=== PATIENT | male | born 1980 | race Caucasian/White ===

== ENCOUNTER 2018-01-30 07:56 | Emergency (ER) | payer OTHER, SELFPAY ==
[2018-01-30 09:03] LABS: Absolute Lymphocytes (CBC) 1.5 K/uL (0.7-4.9); Absolute Monocytes 0.7 K/uL (0.1-1.3); Absolute Neutrophil 3.1 K/uL (1.8-8.0); Basophils % 0.2 % (0-1.3); Eosinophils % 2.3 % (0-4.4); Hematocrit 43.4 % (39.6-49.0); Lymphocytes % 28.5 % (15.3-44.8); MCV 85.2 fL (80-100); MPV 8.9 fL (7.6-11.3); Monocytes % 12.2 % (3.3-12.3)
[2018-01-30 09:14] LABS: Protime INR 0.9
[2018-01-30 09:32] LABS: Bicarbonate 28 mEq/L (21-31); Glucose Level 115 mg/dL (65-120); Lipase 16 U/L (22-51); Potassium 4.2 mEq/L (3.6-5.0); Sodium Level 137 mEq/L (135-145)
[2018-01-30] MEDS ORDERED: ONDANSETRON 4 MG/2 ML VIAL ONE (09:33)
[2018-01-30] MEDS ORDERED: MORPHINE 4 MG/ML SYR ONE (09:33)
[2018-01-30] MEDS ORDERED: ASPIRIN 81 MG CHEWABLE TABLET ONE (09:33)
--- NOTE | 2018-01-30 09:36 | EKG ---
Test Date: 2018-01-30 Test Time: 08:27:13 Enforcement Safety Officer: DIXIE MEASUREMENT RESULTS: Intervals: Rate: 79 [place]: 120 QRSD: 88 QT: 362 QTc: 415 [place]: P: 34 [place]: 120 QRS: 37 T: 30 INTERPRETIVE STATEMENTS: Normal sinus rhythm Low voltage QRS Borderline ECG No previous ECG available for comparison Electronically Signed On 01-30-18 09:35:28 CDT by Matthew Sotelo
[2018-01-30 09:39] LABS: ALT/SGPT 37 IU/L (10-60); AST/SGOT 25 IU/L (10-42); Albumin 3.9 g/dL (3.2-5.5); Alkaline Phosphatase 85 IU/L (42-121); BUN Blood Urea Nitrogen 21 mg/dL (6-20); Bilirubin Direct 0.1 mg/dL (0-0.2); Bilirubin Total 0.6 mg/dL (0.3-1.2); Glomerular Filtration Rate > 90 mL/min (=/>90); Magnesium 2.1 mg/dL (1.8-2.5); Protein, Total 6.8 g/dL (6.0-8.3)
--- NOTE | 2018-01-30 09:42 | RAD REPORT ---
EXAM DESCRIPTION: RAD - Chest Single View - 01/30/2018 8:42 am CLINICAL HISTORY: Chest pain. COMPARISON: None. FINDINGS: Portable technique limits examination quality. The lungs are grossly clear. The heart is normal in size. No displaced fractures. IMPRESSION: No acute intrathoracic process suspected.
--- NOTE | 2018-01-30 13:20 | ER ---
Nurse's Notes [facility] Name: Javad Pro Age: 37 yrs Sex: Male : 1980 Arrival Date: 01/30/2018 Time: 07:58 Bed 6 Private MD: Diagnosis: Other chest pain;Shortness of breath Presentation: 01/30 08:13 Presenting complaint: Patient states: c/o midsternal chest pain for a few days, iw constant pressure, rates pain 7/10, pain radiates across chest, also gets dizzy and light headed, denies cardiac history. Transition of care: patient was not received from another setting of care. Onset of symptoms was January 27, 2018. Care prior to arrival: None. 08:13 Method Of Arrival: Ambulatory iw 08:13 Acuity: MIOZ 3 iw Historical: - Allergies: 08:16 Codeine; iw 08:16 PENICILLINS; iw - Home Meds: 08:16 lisinopril 10 mg Oral tab 1 tab once daily [Active]; Lasix 40 mg Oral tab 1 tab once iw daily [Active]; - PMHx: 08:16 Hypertension; CHF; iw - PSHx: 08:16 Hernia repair; iw - Immunization history:: Adult Immunizations up to date. - Social history:: Smoking status: Patient/guardian denies using tobacco. Screenin:37 Abuse screen: Denies threats or abuse. Denies injuries from another. Nutritional ch screening: No deficits noted. Tuberculosis screening: No symptoms or risk factors identified. Fall Risk None identified. Assessment: 08:37 Reassessment: Patient appears in no apparent distress at this time. Patient and/or ch family updated on plan of care and expected duration. Pain level reassessed. Patient is alert, oriented x 3, equal unlabored respirations, skin warm/dry/pink. General: Appears in no apparent distress. comfortable, Behavior is calm, cooperative, appropriate for age. Pain: Complains of pain in anterior aspect of left upper chest, mid-sternal area, left lateral anterior chest and left breast Pain does not radiate. Pain began gradually, days ago. Neuro: Reports dizziness. Cardiovascular: Reports chest pain, dizzyness Heart tones S1 S2 present Capillary refill < 3 seconds in bilateral fingers toes Clubbing of nail beds is absent Pulses are all present. Edema is absent. Chest pain is described as moderate, but getting worse. Respiratory: Airway is patent Respiratory effort is even, unlabored, Breath sounds are clear bilaterally. 09:00 Reassessment: Patient appears in no apparent distress at this time. No changes from previously documented assessment. Patient and/or family updated on plan of care and expected duration. Pain level reassessed. Patient is alert, oriented x 3, equal unlabored respirations, skin warm/dry/pink. 10:37 Reassessment: Patient appears in no apparent distress at this time. Patient and/or ch family updated on plan of care and expected duration. Pain level reassessed. Patient is alert, oriented x 3, equal unlabored respirations, skin warm/dry/pink. 11:49 Reassessment: Patient appears in no apparent distress at this time. Patient and/or ch family updated on plan of care and expected duration. Pain level reassessed. Patient is alert, oriented x 3, equal unlabored respirations, skin warm/dry/pink. Patient states feeling better. Patient states symptoms have improved. Vital Signs: 08:16 BP 131 / 79; Pulse 84; Resp 18; Temp 97.8; Pulse Ox 97% on R/A; Weight 99.79 kg; Height iw 5 ft. 9 in. (175.26 cm); Pain 7/10; 09:00 BP 118 / 87; Pulse 88; Resp 14; Pulse Ox 97% on R/A; Pain 7/10; ch 10:37 BP 129 / 88; Pulse 71; Resp 16; Temp 98.2; Pulse Ox 99% on R/A; Pain 6/10; ch 11:49 BP 121 / 85; Pulse 60; Resp 14; Temp 98.3; Pulse Ox 99% on R/A; Pain 4/10; ch 12:30 BP 107 / 73; Pulse 59; Resp 15; Pulse Ox 100% on R/A; ag 13:28 BP 105 / 70; Pulse 59; Resp 15; Pulse Ox 100% ; ag 08:16 Body Mass Index 32.49 (99.79 kg, 175.26 cm) iw Vitals: 09:00 Cardiac Rhythm Assessment Regular Sinus rhythm. ED Course: 07:58 Patient arrived in ED. mr 08:15 Triage completed. iw 08:16 Arm band placed on. iw 08:17 Brooke Rhoades NP is PHCP. rh1 08:17 Donald Stephenson MD is Attending Physician. rh1 08:26 Miguel A Smith, RN is Primary Nurse. ae1 08:26 Primary Nurse role handed off by Miguel A Smith, JOSE ALFREDO ch 08:26 Karey Marsh, RN is Primary Nurse. ch 08:37 No apparent distress. Resting quietly. ch 08:37 Patient has correct armband on for positive identification. Placed in gown. Bed in low ch position. Call light in reach. Side rails up X2. Adult w/ patient. retort cooler on. Pulse ox on. NIBP on. Warm blanket given. 08:37 No provider procedures requiring assistance completed. Inserted saline lock: 20 gauge ch in right upper arm, using aseptic technique. Blood collected. Patient maintains SpO2 saturation greater than 95% on room air. 08:42 X-ray completed. Portable x-ray completed in exam room. Patient tolerated procedure sw well. 08:51 EKG done, by electro mechanical technologist. reviewed by Brooke Rhoades NP. at1 12:24 EKG done, by electro mechanical technologist. reviewed by Donald Stephenson MD. tc 13:27 IV discontinued, intact, bleeding controlled, No redness/swelling at site. Pressure ae1 dressing applied. Administered Medications: 09:24 Drug: Aspirin Chewable Tablet 324 mg Route: PO; ch 10:38 Follow up: Response: No adverse reaction ch 09:24 Drug: morphine 4 mg Route: IVP; Site: left upper arm; ch 10:38 Follow up: Response: No adverse reaction ch 09:24 Drug: Zofran 4 mg Route: IVP; Site: left upper arm; ch 10:38 Follow up: Response: No adverse reaction ch Outcome: 13:19 Discharge ordered by . rh1 13:27 Discharged to home ambulatory, with significant other. ae1 13:27 Condition: stable 13:27 Discharge instructions given to patient, Instructed on discharge instructions, follow up and referral plans. Demonstrated understanding of instructions. 13:29 Patient left the ED. ae1 Signatures: Karey Marsh, Carol Hou RN, ch, Irene, RN RN iw gonzales, Amanda, sales representative electric service EKG Tat1 Krystle Figueroa, sales representative electric service EKG Ttc Ramon, Leti Mandel Rachel, NP CAB SUPERVISOR rh1 Miguel A Smith, RN RN ae1
--- NOTE | 2018-01-30 13:20 | EDPHYS ---
Physician Documentation [facility] Name: Javad Pro Age: 37 yrs Sex: Male : 1980 Arrival Date: 01/30/2018 Time: 07:58 Bed 6 Private MD: ED Physician Donald Stephenson HPI: 01/30 08:17 This 37 yrs old Male presents to ER via Ambulatory with complaints of Chest rh1 Pain. 08:17 The patient or guardian reports chest pain that is located primarily in the substernal rh1 area. The pain radiates to anterior aspect of left upper chest and left breast. Associated signs and symptoms: Pertinent positives: lightheadedness, nausea, shortness of breath, Pertinent negatives: abdominal pain, cough, diaphoresis, headache, lower extremity pain, lower extremity swelling, palpitations, syncope, vomiting. The chest pain is described as a pressure. Duration: The patient or guardian reports a single episode, ongoing for 2 weeks, increased last night. Modifying factors: The symptoms are alleviated by nothing. the symptoms are aggravated by nothing. Severity of pain: At its worst the pain was moderate in the emergency department the pain is unchanged. The patient has not experienced similar symptoms in the past. The patient has not recently seen a physician. Pt. reports constant substernal chest pain, described as pressure, ongoing for the past 2 weeks, that became worse last night. Reports + SOB and feeling light - headed since last night. +nausea after eating last night. Denies any diaphoresis, vomiting, diarrhea, abdominal pain, paresthesias. PCP Dr. Crowley, change management director Dr Gutierrez.. Historical: - Allergies: 08:16 Codeine; iw 08:16 PENICILLINS; iw - Home Meds: 08:16 lisinopril 10 mg Oral tab 1 tab once daily [Active]; Lasix 40 mg Oral tab 1 tab once iw daily [Active]; - PMHx: 08:16 Hypertension; CHF; iw - PSHx: 08:16 Hernia repair; iw - Immunization history:: Adult Immunizations up to date. - Social history:: Smoking status: Patient/guardian denies using tobacco. ROS: 08:17 Constitutional: Negative for fever, chills rh1 08:17 Neck: Negative for pain with movement, pain at rest. 08:17 Cardiovascular: Positive for chest pain, Negative for edema, orthopnea, palpitations. 08:17 Respiratory: Positive for shortness of breath, Negative for cough, dyspnea on exertion, hemoptysis, wheezing. 08:17 Abdomen/GI: Positive for nausea, Negative for abdominal pain, vomiting, diarrhea. 08:17 Back: Negative for decreased range of motion, pain at rest, pain with movement, radiated pain. 08:17 MS/extremity: Negative for decreased range of motion, pain, paresthesias, swelling. 08:17 Skin: Negative for diaphoresis. 08:17 Neuro: Positive for lightheaded, Negative for altered mental status, headache, numbness, syncope, near syncope, tingling, weakness. Exam: 08:17 Constitutional: This is a well developed, well nourished patient who is awake, alert, rh1 and in no acute distress. Head/Face: Normocephalic, atraumatic. ENT: Nares patent. No nasal discharge, no septal abnormalities noted. Tympanic membranes are normal and external auditory canals are clear. Oropharynx with no redness, swelling, or masses, exudates, or evidence of obstruction, uvula midline. Mucous membranes moist. Neck: Trachea midline, and no cervical lymphadenopathy. Supple, full range of motion without nuchal rigidity. No Meningismus. Chest/axilla: Normal chest wall appearance and motion. Nontender with no deformity. No lesions are appreciated. Cardiovascular: Regular rate and rhythm with a normal S1 and S2. No gallops, murmurs, or rubs. No JVD. No pulse deficits. Respiratory: Lungs have equal breath sounds bilaterally, clear to auscultation. No rales, rhonchi or wheezes noted. No increased work of breathing. Abdomen/GI: Soft, non-tender, with normal bowel sounds. No distension. No guarding or rebound. No evidence of tenderness throughout. 08:17 Back: No spinal tenderness. No costovertebral tenderness. Full range of motion. Skin: Warm, dry with normal turgor. Normal color with no rashes, no lesions, and no evidence of cellulitis. 08:17 Back: Exam negative for ecchymosis 08:17 Musculoskeletal/extremity: Calves: are non-tender, have equal circumference. 08:17 Neuro: Orientation: is normal, to person, place \T\ time. Mentation: is normal, lucid, able to follow commands, Motor: is normal, moves all fours, Sensation: is normal, no obvious gross deficits, numbness, is not appreciated, tingling, is not appreciated, Gait: is steady, at a normal pace, without difficulty. Vital Signs: 08:16 BP 131 / 79; Pulse 84; Resp 18; Temp 97.8; Pulse Ox 97% on R/A; Weight 99.79 kg; Height iw 5 ft. 9 in. (175.26 cm); Pain 7/10; 09:00 BP 118 / 87; Pulse 88; Resp 14; Pulse Ox 97% on R/A; Pain 7/10; ch 10:37 BP 129 / 88; Pulse 71; Resp 16; Temp 98.2; Pulse Ox 99% on R/A; Pain 6/10; ch 11:49 BP 121 / 85; Pulse 60; Resp 14; Temp 98.3; Pulse Ox 99% on R/A; Pain 4/10; ch 12:30 BP 107 / 73; Pulse 59; Resp 15; Pulse Ox 100% on R/A; ag 13:28 BP 105 / 70; Pulse 59; Resp 15; Pulse Ox 100% ; ag 08:16 Body Mass Index 32.49 (99.79 kg, 175.26 cm) iw MDM: 08:17 Patient medically screened. rh1 11:04 ED course: Pt reports his chest pain is resolved, denies any SOB, N/V now. Reports he rh1 is feeling much better. Discussed with chest pain, SOB, and recommendation for admission to hospital and cardiac consultation for further evaluation. Reports he would rather follow up with Dr. Gutierrez in [place], and will call for an appointment tomorrow. Will obtain repeat EKG and troponin, and re - evaluate chest pain. . 11:44 Physician consultation: Dafne Bernard MD discussed pt. case, presentation, and plan, rh1 including offering admission here for observation and cardiology consult, and pt. desire to follow up with Dr. Gutierrez - in agreement with plan of care if pt. able to get early follow up with Dr. Gutierrez. 13:16 Data reviewed: vital signs, nurses notes, lab test result(s), EKG, radiologic studies, rh1 plain films, and as a result, I will discharge patient. Data interpreted: Pulse oximetry: on room air is 99 %. Interpretation: normal. Counseling: I had a detailed discussion with the patient and/or guardian regarding: the historical points, exam findings, and any diagnostic results supporting the discharge/admit diagnosis, lab results, radiology results, the need for outpatient follow up, a family practitioner, to return to the emergency department if symptoms worsen or persist or if there are any questions or concerns that arise at home. Response to treatment: the patient's symptoms have resolved after treatment, denies any pain, no SOB, reports he feels better, and will plan to follow up with Dr. Gutierrez. Discussed if symptoms return, to come back to ER.. 01/30 08:27 Order name: Basic Metabolic Panel 01/30 08:27 Order name: BNP 01/30 08:27 Order name: CBC with Diff 01/30 08:27 Order name: LFT's 01/30 08:27 Order name: Magnesium 01/30 08:27 Order name: PT-INR 01/30 08:27 Order name: Ptt, Activated 01/30 08:27 Order name: Troponin (emerg Dept Use Only) 01/30 08:27 Order name: Lipase 01/30 09:09 Order name: CBC with Automated Diff; Complete Time: 09:26 EDMS 01/30 09:15 Order name: Protime (+INR); Complete Time: 09:26 EDMS 01/30 09:15 Order name: PTT, Activated Partial Thromb; Complete Time: 09:26 EDMS 01/30 09:33 Order name: Basic Metabolic Panel; Complete Time: 09:39 EDMS 01/30 09:33 Order name: Lipase; Complete Time: 09:39 EDMS 01/30 08:27 Order name: XRAY Chest (1 view) 01/30 08:27 Order name: EKG; Complete Time: 08:28 01/30 08:27 Order name: Cardiac monitoring; Complete Time: 09:24 01/30 08:27 Order name: EKG - Nurse/Tech; Complete Time: 09:24 01/30 09:38 Order name: Troponin (Emerg Dept Use Only); Complete Time: 09:38 EDMS 01/30 09:39 Order name: Liver (Hepatic) Function; Complete Time: 09:39 EDMS 01/30 09:39 Order name: Magnesium; Complete Time: 09:39 EDMS 01/30 09:42 Order name: Urine Dipstick--Ancillary (enter results) ms 01/30 09:43 Order name: RAD; Complete Time: 09:54 EDMS 01/30 10:12 Order name: BNP B-Type Natriuretic Peptide; Complete Time: 10:15 EDMS 01/30 12:17 Order name: Troponin I iw 01/30 13:08 Order name: Troponin I; Complete Time: 13:13 EDMS 01/30 13:21 Order name: Urine Dipstick-Ancillary; Complete Time: 18:11 EDMS 01/30 08:27 Order name: IV Saline Lock; Complete Time: 09:24 1 01/30 08:27 Order name: Labs collected and sent; Complete Time: 09:24 1 01/30 08:27 Order name: O2 Per Protocol; Complete Time: 09:24 1 01/30 08:27 Order name: O2 Sat Monitoring; Complete Time: 09:24 1 01/30 08:27 Order name: Urine Dipstick-Ancillary (obtain specimen); Complete Time: 10:38 1 01/30 11:08 Order name: Misc. Order: please repeat EKG and troponin at 1200; Complete Time: 12:17 rh1 Administered Medications: 09:24 Drug: Aspirin Chewable Tablet 324 mg Route: PO; ch 10:38 Follow up: Response: No adverse reaction ch 09:24 Drug: morphine 4 mg Route: IVP; Site: left upper arm; ch 10:38 Follow up: Response: No adverse reaction ch 09:24 Drug: Zofran 4 mg Route: IVP; Site: left upper arm; ch 10:38 Follow up: Response: No adverse reaction Disposition: 21:37 Co-signature as Attending Physician, Donald Stephenson MD I agree with the assessment and kdr plan of care. Disposition: 01/30/18 13:19 Discharged to Home. Impression: Other chest pain, Shortness of breath. - Condition is Stable. - Discharge Instructions: Nonspecific Chest Pain, Shortness of Breath, Aspirin and Your Heart. - Medication Reconciliation Form, Thank You Letter, Antibiotic Education, Prescription Opioid Use form. - Follow up: Private Physician; When: 1 - 2 days; Reason: Recheck today's complaints, Continuance of care, Re-evaluation by your physician. Follow up: Emergency Department; When: As needed; Reason: Fever > 102 F, If symptoms return, Trouble breathing, Worsening of condition. - Problem is new. - Symptoms have improved. Signatures: Dispatcher [employer] EDKarey Clark, RN RN Donald Stephenson MD MD [facility] Alyce Lyman RN RN iw Brooke Rhoades NP LOGGING SUPERINTENDENT rh1 Miguel A Smith RN RN ae1 Corrections: (The following items were deleted from the chart) 09:41 08:17 Pt. reports constant substernal chest pain, described as pressure, ongoing for rh1 the past 2 weeks, that became worse last night. Reports + SOB and feeling light - headed since last night. +nausea after eating last night. Denies any diaphoresis, vomiting, diarrhea, abdominal pain, paresthesias.. rh1
[2018-01-30 13:21] LABS: Urine Blood NEGATIVE (NEG); Urine Glucose NEGATIVE (NEG); Urine Protein NEGATIVE (NEG); Urine Specific Gravity 1.025 (1.005-1.030)
--- NOTE | 2018-01-30 16:48 | EKG ---
Test Date: 2018-01-30 Test Time: 12:10:11 Print Line Feeder: JUAN MEASUREMENT RESULTS: Intervals: Rate: 61 MT: 122 QRSD: 88 QT: 398 QTc: 400 [place]: P: 27 MT: 122 QRS: 70 T: 39 INTERPRETIVE STATEMENTS: Normal sinus rhythm Normal ECG Compared to ECG 01/30/2018 08:27:13 No significant changes Electronically Signed On 01-30-18 16:48:20 CDT by Keaton Zhang
== END 2018-01-30 13:29 | disposition home or self-care (01) ==
LOC: ER 07:56
DX: R07.9 Chest pain, unspecified; Z88.0 Allergy status to penicillin; Z88.6 Allergy status to analgesic agent; I10 Essential (primary) hypertension
CPT/HCPCS: 36415; 71045; 80048; 80076; 81003; 83690; 83735; 83880; 84484; 85025; 85610; 85730; 93005; 96374; 96375; 99285; J2405

== ENCOUNTER 2018-09-01 16:57 | Emergency (ER) | payer SELFPAY ==
--- OUTSIDE RECORDS SUMMARY | 2018-09-01 16:59 | XMS REPORT | Summary of Care ---
:1980 Author Organization [facility] En[email or web address]mered[facility](STEPH) [id number] Date(s): 02/13/16 - 03/13/16 [facility] Pat[facility] Discharge Disposition: Home Attending Physician: Roland Quinn DO Vital Signs No data available for this section Problem List No data available for this section Allergies, Adverse Reactions, Alerts No data available for this section Medications No data available for this section Results No data available for this section Immunizations No data available for this section Procedures No data available for this section Social History No data available for this section Assessment and Plan No data available for this section
--- OUTSIDE RECORDS SUMMARY | 2018-09-01 16:59 | XMS REPORT | Summary of Care ---
:1980 Author Organization [facility] En[email or web address]meredith(STEPH) [id number] Date(s): 01/11/16 - 02/09/16 [facility] [facility] Discharge Disposition: Home Attending Physician: Roland Quinn [...]
--- OUTSIDE RECORDS SUMMARY | 2018-09-01 16:59 | XMS REPORT | Continuity of Care Document ---
:1980 Author Organization Interface Problems Problem Status Onset Date Classification Date Comments Source Reported LOW BACK Active [facility] Medications Medication Details Route Status Patient Ordering Order Source Instructions Provider Date Allergies, Adverse Reactions, Alerts Substance Category Reaction Severity Reaction Status Date Comments Source type Reported Immunizations Immunization Date Given Site Status Last Updated Comments Source Results Order Results Value Reference Date Interpretation Comments Source Name Range Vital Signs Vital Sign Value Date Comments Source Encounters Location Location Encounter Encounter Reason Attending ADM DC Status Source Details Type Number For Provider Date Date Visit [facility] [id number] Roland 12/12 01/10 [facility] [id number] Roland 01/10 02/09 [facility] [id number] Roland 02/12 03/14 [facility] Procedures Procedure Code Date Perfomer Comments Source
--- OUTSIDE RECORDS SUMMARY | 2018-09-01 16:59 | XMS REPORT | Summary of Care ---
:1980 Author Organization [facility] Encounter [facility]meredith(STEPH) [id number] Date(s): 12/12/15 - 01/10/16 [facility] Christo Paty [facility] Discharge Disposition: Home Attending Physician: Roland Quinn [...]
[2018-09-01] MEDS ORDERED: DEXAMETHASONE 10 MG/ML VIAL ONE (19:29)
--- NOTE | 2018-09-01 20:01 | EDPHYS ---
Physician Documentation [facility] Name: Javad Pro Age: 38 yrs Sex: Male : 1980 Arrival Date: 09/01/2018 Time: 16:59 Bed 10 Private MD: ED Physician Arturo Kohler HPI: 09/01 20:03 This 38 yrs old Male presents to ER via Ambulatory with complaints of pm1 Difficulty Swallowing, Sore Throat. 20:03 The patient presents with sore throat. The patient describes throat pain as burning, pm1 constant. Onset: The symptoms/episode began/occurred 2 day(s) ago. Severity of symptoms: in the emergency department the symptoms have improved, with benadryl. Modifying factors: The symptoms are alleviated by nothing, the symptoms are aggravated by foods, Patient's oral intake status: good. Associated signs and symptoms: Pertinent negatives chest pain, cough, fever, shortness of breath. The patient has not experienced similar symptoms in the past. The patient has not recently seen a physician. patient ate lobster for the first time in a long time Saturday and reported sensation of sore throat. Improvement with benadryl over the past few days. No fever, cough, shortness of breath, or drooling. Historical: - Allergies: 17:24 Codeine; aa5 17:24 PENICILLINS; aa5 - Home Meds: 19:42 Lasix 40 mg Oral tab 1 tab once daily [Active]; lisinopril 10 mg Oral tab 1 tab once lp1 daily [Active]; - PMHx: 17:24 CHF; Hypertension; aa5 - PSHx: 17:24 Hernia repair; aa5 - Immunization history:: Flu vaccine is up to date. - Social history:: Smoking status: Patient/guardian denies using tobacco. - Ebola Screening: : No symptoms or risks identified at this time. ROS: 20:03 Constitutional: Negative for fever, chills, and weight loss, Eyes: Negative for injury, pm1 pain, redness, and discharge. 20:03 Neck: Negative for injury, pain, and swelling, Cardiovascular: Negative for chest pain, palpitations, and edema, Respiratory: Negative for shortness of breath, cough, wheezing, and pleuritic chest pain, Abdomen/GI: Negative for abdominal pain, nausea, vomiting, diarrhea, and constipation, Back: Negative for injury and pain, : Negative for injury, bleeding, discharge, and swelling, MS/Extremity: Negative for injury and deformity, Skin: Negative for injury, rash, and discoloration, Neuro: Negative for headache, weakness, numbness, tingling, and seizure. 20:03 ENT: Positive for sore throat, Negative for dental pain. Exam: 20:03 Constitutional: This is a well developed, well nourished patient who is awake, alert, pm1 and in no acute distress. Head/Face: Normocephalic, atraumatic. Eyes: Pupils equal round and reactive to light, extra-ocular motions intact. Lids and lashes normal. Conjunctiva and sclera are non-icteric and not injected. Cornea within normal limits. Periorbital areas with no swelling, redness, or edema. Neck: Trachea midline, no thyromegaly or masses palpated, and no cervical lymphadenopathy. Supple, full range of motion without nuchal rigidity, or vertebral point tenderness. No Meningismus. Chest/axilla: Normal chest wall appearance and motion. Nontender with no deformity. No lesions are appreciated. Cardiovascular: Regular rate and rhythm with a normal S1 and S2. No gallops, murmurs, or rubs. Normal PMI, no JVD. No pulse deficits. Respiratory: Lungs have equal breath sounds bilaterally, clear to auscultation and percussion. No rales, rhonchi or wheezes noted. No increased work of breathing, no retractions or nasal flaring. Abdomen/GI: Soft, non-tender, with normal bowel sounds. No distension or tympany. No guarding or rebound. No evidence of tenderness throughout. Back: No spinal tenderness. No costovertebral tenderness. Full range of motion. 20:03 Skin: Warm, dry with normal turgor. Normal color with no rashes, no lesions, and no evidence of cellulitis. MS/ Extremity: Pulses equal, no cyanosis. Neurovascular intact. Full, normal range of motion. 20:03 ENT: External ear(s): are unremarkable, Ear canal(s): are normal, TM's: are normal, Nose: is normal, Mouth: is normal, Posterior pharynx: Tonsils: bilaterally enlarged, with erythema, no exudate, no ulcerations, erythema, that is mild, peritonsillar mass, is not appreciated, pooling of secretions, is not appreciated. 20:03 Neuro: Orientation: is normal, Motor: is normal, moves all fours, Gait: is steady, at a normal pace, without difficulty. Vital Signs: 17:24 BP 141 / 100; Pulse 85; Resp 18 S; Temp 97.8(TE); Pulse Ox 99% on R/A; Weight 104.33 kg aa5 (R); Height 5 ft. 9 in. (175.26 cm) (R); Pain 4/10; 20:02 BP 133 / 97; lp1 17:24 Body Mass Index 33.96 (104.33 kg, 175.26 cm) aa5 MDM: 17:58 Patient medically screened. [facility] 19:59 Data reviewed: vital signs. Data interpreted: Pulse oximetry: on room air is 99 %. pm1 Interpretation: normal. Counseling: I had a detailed discussion with the patient and/or guardian regarding: the historical points, exam findings, and any diagnostic results supporting the discharge/admit diagnosis, lab results, the need for outpatient follow up, to return to the emergency department if symptoms worsen or persist or if there are any questions or concerns that arise at home. 09/01 17:56 Order name: Strep; Complete Time: 19:49 pm1 09/01 19:22 Order name: Throat Culture EDMS Administered Medications: 19:40 Drug: Decadron 10 mg Route: IM; Site: left deltoid; lp1 20:02 Follow up: Response: No adverse reaction lp1 Disposition: 09/02 06:19 Co-signature as Attending Physician, Arturo Kohler MD I agree with the assessment and [facility] plan of care. Disposition: 09/01/18 20:01 Discharged to Home. Impression: Allergy to other foods. - Condition is Stable. - Discharge Instructions: Allergies, Adult, Food Allergy. - Prescriptions for Benadryl 25 mg Oral Capsule - take 1 capsule by ORAL route every 6 hours As needed; 30 tablet. Pepcid 20 mg Oral Tablet - take 1 tablet by ORAL route every 12 hours for 10 days; 20 tablet. Medrol (Georges) 4 mg Oral Tablets, Dose Pack - take 1 tablet by ORAL route as directed - follow package instructions; 1 packet. EpiPen 0.3 mg Injection auto- injector - inject 1 pen by INTRAMUSCULAR route one time As needed Inject into the outer portion of the thigh, through clothing if necessary. Indicated in the emergency treatment of allergic reactions; 1 unit. - Medication Reconciliation Form, Thank You Letter form. - Follow up: Emergency Department; When: As needed; Reason: Worsening of condition. Follow up: Private Physician; When: 2 - 3 days; Reason: Recheck today's complaints, Continuance of care, Re-evaluation by your physician. - Problem is new. - Symptoms have improved. Signatures: Dispatcher [employer] EDMN Arturo Kohler MD MD cha Calderon, Audri, RN RN aa5 Janett Ramirez RN RN lp1 Alfonso Ramsay, TOOL SUPERVISOR TOOL SUPERVISOR pm1 Corrections: (The following items were deleted from the chart) 09/01 20:09 20:01 09/01/2018 20:01 Discharged to Home. Impression: Allergy to other foods. lp1 Condition is Stable. Forms are Medication Reconciliation Form, Thank You Letter, Antibiotic Education, Prescription Opioid Use. Follow up: Emergency Department; When: As needed; Reason: Worsening of condition. Follow up: Private Physician; When: 2 - 3 days; Reason: Recheck today's complaints, Continuance of care, Re-evaluation by your physician. Problem is new. Symptoms have improved. pm1
--- NOTE | 2018-09-01 20:01 | ER ---
Nurse's Notes [facility] Name: Javad Pro Age: 38 yrs Sex: Male : 1980 Arrival Date: 09/01/2018 Time: 16:59 Bed 10 Private MD: Diagnosis: Allergy to other foods Presentation: 09/01 17:23 Presenting complaint: Patient states: "I have a sore throat since Saturday". Transition aa5 of care: patient was not received from another setting of care. Onset of symptoms was August 2018. Risk Assessment: Do you want to hurt yourself or someone else? Patient reports no desire to harm self or others. Initial Sepsis Screen: Does the patient meet any 2 criteria? No. Patient's initial sepsis screen is negative. Does the patient have a suspected source of infection? No. Patient's initial sepsis screen is negative. Care prior to arrival: None. 17:23 Method Of Arrival: Ambulatory aa5 17:23 Acuity: MOIZ 4 aa5 Historical: - Allergies: 17:24 Codeine; aa5 17:24 PENICILLINS; aa5 - Home Meds: 19:42 Lasix 40 mg Oral tab 1 tab once daily [Active]; lisinopril 10 mg Oral tab 1 tab once lp1 daily [Active]; - PMHx: 17:24 CHF; Hypertension; aa5 - PSHx: 17:24 Hernia repair; aa5 - Immunization history:: Flu vaccine is up to date. - Social history:: Smoking status: Patient/guardian denies using tobacco. - Ebola Screening: : No symptoms or risks identified at this time. Screenin:20 Abuse screen: Denies threats or abuse. Denies injuries from another. Nutritional sg screening: No deficits noted. Tuberculosis screening: No symptoms or risk factors identified. Never had TB. Fall Risk None identified. Assessment: 18:20 General: Appears in no apparent distress. Behavior is calm, cooperative, appropriate sg for age. Pain: Complains of pain in sore throat, pain when swallows. Neuro: No deficits noted. Cardiovascular: Patient's skin is warm and dry. Chest pain is denied. Respiratory: Respiratory effort is even, unlabored, Respiratory pattern is regular, symmetrical, Breath sounds are clear Denies cough, shortness of breath labored breathing, pain with respiration, pain with cough. GI: Abdomen is round non-distended, Reports normal bowel habits, tolerance of fluids, tolerance of food. : No signs and/or symptoms were reported regarding the genitourinary system. EENT: Nares are clear bilaterally Throat is pink. Derm: Skin is pink, warm \\T\\ dry. Musculoskeletal: No signs and/or symptoms reported regarding the musculoskeletal system. 19:41 Reassessment: Patient appears in no apparent distress at this time. Patient is alert, lp1 oriented x 3, equal unlabored respirations, skin warm/dry/pink. Patient states readiness for discharge. 19:41 Respiratory: Airway is patent. lp1 Vital Signs: 17:24 BP 141 / 100; Pulse 85; Resp 18 S; Temp 97.8(TE); Pulse Ox 99% on R/A; Weight 104.33 kg aa5 (R); Height 5 ft. 9 in. (175.26 cm) (R); Pain 4/10; 20:02 BP 133 / 97; lp1 17:24 Body Mass Index 33.96 (104.33 kg, 175.26 cm) aa5 ED Course: 16:59 Patient arrived in ED. rg4 17:24 Triage completed. aa5 17:24 Arm band placed on. aa5 17:53 Alfonso Ramsay, MANN is PHCP. pm1 17:53 Arturo Kohler MD is Attending Physician. pm1 17:54 Jt Hameed, RN is Primary Nurse. sg 18:40 Strep swab sent to lab. sg 19:41 Patient has correct armband on for positive identification. lp1 19:41 No provider procedures requiring assistance completed. Patient did not have IV access lp1 during this emergency room visit. Administered Medications: 19:40 Drug: Decadron 10 mg Route: IM; Site: left deltoid; lp1 20:02 Follow up: Response: No adverse reaction lp1 Outcome: 20:01 Discharge ordered by . pm1 20:08 Discharged to home ambulatory, with family. lp1 20:08 Condition: good 20:08 Discharge instructions given to patient, Instructed on discharge instructions, follow up and referral plans. medication usage, Demonstrated understanding of instructions, follow-up care, medications, Prescriptions given X 4. 20:09 Patient left the ED. lp1 Signatures: Jt Hameed RN RN sg Yolande Agustin RN RN aa5 Janett Ramirez RN RN lp1 Alfonso Ramsay, GAME TECHNICIAN GAME TECHNICIAN pm1 Andres, Regina rg4
== END 2018-09-01 20:09 | disposition home or self-care (01) ==
LOC: ER 16:57
DX: R07.0 Pain in throat (principal); I10 Essential (primary) hypertension; I50.9 Heart failure, unspecified; Z88.0 Allergy status to penicillin; Z88.5 Allergy status to narcotic agent; Z91.018 Allergy to other foods
CPT/HCPCS: 87070; 87081; 96372; 99283; J1100

== ENCOUNTER 2018-10-31 10:23 | Emergency (ER) | payer SELFPAY ==
[2018-10-31] MEDS ORDERED: ONDANSETRON 4 MG (ODT) TAB ONE (11:01)
[2018-10-31] MEDS ORDERED: SIMETHICONE 80 MG TAB PO ONE (11:30)
--- NOTE | 2018-10-31 11:36 | RAD REPORT ---
EXAM DESCRIPTION: RAD - Chest Pa And Lat (2 Views) - 10/31/2018 11:31 am CLINICAL HISTORY: COUGH Chest pain. COMPARISON: Chest Single View dated 01/30/2018 FINDINGS: The lungs are clear. The heart is normal in size. No displaced fractures. IMPRESSION: No acute or concerning finding suspected.
--- NOTE | 2018-10-31 11:51 | ER ---
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 Transition of care: patient was not received from another setting of care. Onset of symptoms was October 31, 2018. Risk Assessment: Do you want to hurt yourself or someone else? Patient reports no desire to harm self or others. Initial Sepsis Screen: Does the patient meet any 2 criteria? No. Patient's initial sepsis screen is negative. Does the patient have a suspected source of infection? Yes: Productive cough/pneumonia. Care prior to arrival: None. 10:26 Method Of Arrival: Ambulatory 10:26 Acuity: MOIZ 4 hj Triage Assessment: 10:28 General: Appears in no apparent distress. uncomfortable, Behavior is calm, cooperative, hj appropriate for age. Pain: Complains of pain in throat, body. Historical: - Allergies: 10:28 Codeine; hj 10:28 PENICILLINS; hj - Home Meds: 10:28 Lasix 40 mg Oral tab 1 tab once daily [Active]; lisinopril 10 mg Oral tab 1 tab once hj daily [Active]; - PMHx: 10:28 CHF; Hypertension; hj - PSHx: 10:28 Hernia repair; hj - Immunization history:: Adult Immunizations up to date. - Social history:: Smoking status: Patient/guardian denies using tobacco, Patient uses alcohol, occasionally. - Ebola Screening: : Patient negative for fever greater than or equal to 101.5 degrees Fahrenheit, and additional compatible Ebola Virus Disease symptoms Patient denies exposure to infectious person Patient denies travel to an Ebola-affected area in the 21 days before illness onset. Screenin:29 Abuse screen: Denies threats or abuse. Denies injuries from another. Nutritional hj screening: No deficits noted. Tuberculosis screening: No symptoms or risk factors identified. Fall Risk None identified. Assessment: 10:52 [facility];. hj 11:20 Reassessment: Patient and/or family updated on plan of care and expected duration. Pain hj level reassessed. Patient is alert, oriented x 3, equal unlabored respirations, skin warm/dry/pink. awaiting results and POC;. Vital Signs: 10:29 BP 151 / 95; Pulse 100; Resp 20; Temp 97.7(TE); Pulse Ox 99% on R/A; Weight 108.86 kg; hj Height 5 ft. 9 in. (175.26 cm); Pain 8/10; 12:05 BP 148 / 90; Pulse 92; Resp 18; Pulse Ox 100% on R/A; hj 10:29 Body Mass Index 35.44 (108.86 kg, 175.26 cm) hj ED Course: 10:26 Patient arrived in ED. hj 10:28 Triage completed. hj 10:29 Arm band placed on left wrist. hj 10:29 Patient has correct armband on for positive identification. Bed in low position. Call hj light in reach. Side rails up X 1. 10:33 Charlee Quiroz [facility]NP-C [facility]. snw 10:33 Gregg Hu MD is Attending Physician. snw 10:52 Kike Okeefe, JOSE ALFREDO is Primary Nurse. hj 11:32 Chest Pa And Lat (2 Views) XRAY In Process Unspecified. EDMS 12:05 No provider procedures requiring assistance completed. Patient did not have IV access hj during this emergency room visit. Administered Medications: 11:07 Drug: Zofran 4 mg Route: PO; hj 11:07 Follow up: Response: No adverse reaction hj 11:35 Drug: Simethicone 120 mg Route: PO; hj 11:35 Follow up: Response: No adverse reaction hj 11:50 Drug: Decadron - Dexamethasone 10 mg {Note: given PO with orange juice per order.} hj Route: IVP; Site: Other; 12:04 Follow up: Response: No adverse reaction hj Outcome: 11:51 Discharge ordered by . snw 12:06 Discharged to home ambulatory. hj 12:06 Condition: stable 12:06 Discharge instructions given to patient, Instructed on discharge instructions, follow up and referral plans. medication usage, Demonstrated understanding of instructions, follow-up care, medications, Prescriptions given X 2. 12:07 Patient left the ED. hj Signatures: Dispatcher [employer] EDMS Charlee Quiroz, KASHIF-C MEDICAL LABORATORY TECHNICAL OFFICER-Csnw Kike Okeefe, RN RN hj Corrections: (The following items were deleted from the chart) 10:31 10:29 Pulse 100bpm; Resp 20bpm; Pulse Ox 99% RA; Temp 97.7F Temporal; 108.86 kg; Height hj 5 ft. 9 in.; BMI: 35.4; Pain 8/10; hj
--- NOTE | 2018-10-31 11:51 | EDPHYS ---
Physician Documentation [facility] Name: Javad Pro Age: 38 yrs Sex: Male : 1980 Arrival Date: 10/31/2018 Time: 10:26 Bed 12 Private MD: ED Physician Gregg Hu HPI: 10/31 12:18 This 38 yrs old Male presents to ER via Ambulatory with complaints of Flu snw Symptoms. 12:18 The patient or guardian reports cough, described as moderate, flu symptoms, low-grade snw fever, myalgias, no appetite. Onset: The symptoms/episode began/occurred gradually, 5 day(s) ago, and became persistent. Modifying factors: The symptoms are alleviated by nothing. Associated signs and symptoms: Pertinent positives: nausea, rhinorrhea, sore throat. Severity of symptoms: At their worst the symptoms were mild moderate. It is unknown whether or not the patient has had similar symptoms in the past. It is unknown whether or not the patient has recently seen a physician. Historical: - Allergies: 10:28 Codeine; hj 10:28 PENICILLINS; hj - Home Meds: 10:28 Lasix 40 mg Oral tab 1 tab once daily [Active]; lisinopril 10 mg Oral tab 1 tab once hj daily [Active]; - PMHx: 10:28 CHF; Hypertension; hj - PSHx: 10:28 Hernia repair; hj - Immunization history:: Adult Immunizations up to date. - Social history:: Smoking status: Patient/guardian denies using tobacco, Patient uses alcohol, occasionally. - Ebola Screening: : Patient negative for fever greater than or equal to 101.5 degrees Fahrenheit, and additional compatible Ebola Virus Disease symptoms Patient denies exposure to infectious person Patient denies travel to an Ebola-affected area in the 21 days before illness onset. ROS: 12:17 Eyes: Negative for injury, pain, redness, and discharge. snw 12:17 Neck: Negative for injury, pain, and swelling, Cardiovascular: Negative for chest pain, palpitations, and edema. 12:17 Back: Negative for injury and pain, : Negative for injury, bleeding, discharge, and swelling, MS/Extremity: Negative for injury and deformity, Skin: Negative for injury, rash, and discoloration, Neuro: Negative for headache, weakness, numbness, tingling, and seizure. 12:17 Constitutional: Positive for body aches, malaise. 12:17 ENT: Positive for sinus congestion, sore throat. 12:17 Respiratory: Positive for cough. 12:17 Abdomen/GI: Positive for nausea. Exam: 12:13 Constitutional: This is a well developed, well nourished patient who is awake, alert, snw and in no acute distress. Head/Face: Normocephalic, atraumatic. Eyes: Pupils equal round and reactive to light, extra-ocular motions intact. Lids and lashes normal. Conjunctiva and sclera are non-icteric and not injected. Cornea within normal limits. Periorbital areas with no swelling, redness, or edema. Neck: Trachea midline, no thyromegaly or masses palpated, and no cervical lymphadenopathy. Supple, full range of motion without nuchal rigidity, or vertebral point tenderness. No Meningismus. Chest/axilla: Normal chest wall appearance and motion. Nontender with no deformity. No lesions are appreciated. Cardiovascular: Regular rate and rhythm with a normal S1 and S2. No gallops, murmurs, or rubs. Normal PMI, no JVD. No pulse deficits. Respiratory: Lungs have equal breath sounds bilaterally, clear to auscultation and percussion. No rales, rhonchi or wheezes noted. No increased work of breathing, no retractions or nasal flaring. + cough Abdomen/GI: Soft, non-tender, with normal bowel sounds. No distension or tympany. No guarding or rebound. No evidence of tenderness throughout. Back: No spinal tenderness. No costovertebral tenderness. Full range of motion. Skin: Warm, dry with normal turgor. Normal color with no rashes, no lesions, and no evidence of cellulitis. MS/ Extremity: Pulses equal, no cyanosis. Neurovascular intact. Full, normal range of motion. Neuro: Awake and alert, GCS 15, oriented to person, place, time, and situation. Cranial nerves II-XII grossly intact. Motor strength 5/5 in all extremities. Sensory grossly intact. Cerebellar exam normal. Normal gait. Psych: Awake, alert, with orientation to person, place and time. Behavior, mood, and affect are within normal limits. 12:13 ENT: TM's: fluid levels, bilaterally, Nose: Nasal mucosa: edematous, Posterior pharynx: erythema, that is mild, Voice: is normal. Vital Signs: 10:29 BP 151 / 95; Pulse 100; Resp 20; Temp 97.7(TE); Pulse Ox 99% on R/A; Weight 108.86 kg; hj Height 5 ft. 9 in. (175.26 cm); Pain 8/10; 12:05 BP 148 / 90; Pulse 92; Resp 18; Pulse Ox 100% on R/A; hj 10:29 Body Mass Index 35.44 (108.86 kg, 175.26 cm) hj MDM: 10:41 Patient medically screened. snw 12:13 Data reviewed: vital signs, nurses notes. Data interpreted: Pulse oximetry: on room air snw is 100 %. Interpretation: normal. Counseling: I had a detailed discussion with the patient and/or guardian regarding: the historical points, exam findings, and any diagnostic results supporting the discharge/admit diagnosis, the presence of at least one elevated blood pressure reading (>120/80) during this emergency department visit, lab results, radiology results, the need for outpatient follow up, to return to the emergency department if symptoms worsen or persist or if there are any questions or concerns that arise at home. Response to treatment: There is no appreciated change of the patient's symptoms at this time. Special discussion: Based on the history and exam findings, there is no indication for further emergent testing or inpatient evaluation. I discussed with the patient/guardian the need to see the primary care provider for further evaluation of the symptoms. ED course: chest x-ray without any findings for CHF, large gastric bubble, pt notified and simethicone given. 10/31 10:30 Order name: Flu; Complete Time: 11:04 hj 10/31 10:30 Order name: Strep; Complete Time: 11:04 hj 10/31 10:34 Order name: Chest Pa And Lat (2 Views) XRAY; Complete Time: 11:39 snw 10/31 10:53 Order name: Throat Culture EDMS Administered Medications: 11:07 Drug: Zofran 4 mg Route: PO; hj 11:07 Follow up: Response: No adverse reaction hj 11:35 Drug: Simethicone 120 mg Route: PO; hj 11:35 Follow up: Response: No adverse reaction hj 11:50 Drug: Decadron - Dexamethasone 10 mg {Note: given PO with orange juice per order.} Route: IVP; Site: Other; 12:04 Follow up: Response: No adverse reaction Disposition: 14:48 Co-signature as Attending Physician, Gregg Hu MD. rn Disposition: 10/31/18 11:51 Discharged to Home. Impression: Acute upper respiratory infection, unspecified, Cough. - Condition is Stable. - Discharge Instructions: Upper Respiratory Infection, Adult, Cool Mist Vaporizer, Cough, Adult, [id number], Rehydration, Adult. - Prescriptions for Zyrtec 10 mg Oral Tablet - take 1 tablet by ORAL route once daily As needed; 20 tablet. Tessalon Perles 100 mg Oral Capsule - take 1 capsule by ORAL route every 8 hours As needed; 15 capsule. - Work release form, Medication Reconciliation Form, Thank You Letter, Antibiotic Education, Prescription Opioid Use form. - Follow up: Private Physician; When: 2 - 3 days; Reason: Recheck today's complaints, Continuance of care, Re-evaluation by your physician. Follow up: Emergency Department; When: As needed; Reason: Worsening of condition. Signatures: Dispatcher [employer] EDFL Charlee Quiroz, PROJECT MANAGEMENT PROFESSIONAL-C PROJECT MANAGEMENT PROFESSIONAL-Csnw Gregg Hu MD MD rn Joaquin, Henry, RN RN hj Corrections: (The following items were deleted from the chart) 12:07 11:51 10/31/2018 11:51 Discharged to Home. Impression: Acute upper respiratory hj infection, unspecified; Cough. Condition is Stable. Forms are Medication Reconciliation Form, Thank You Letter, Antibiotic Education, Prescription Opioid Use. Follow up: Private Physician; When: 2 - 3 days; Reason: Recheck today's complaints, Continuance of care, Re-evaluation by your physician. Follow up: Emergency Department; When: As needed; Reason: Worsening of condition. snw
[2018-10-31] MEDS ORDERED: DEXAMETHASONE 4 MG/ML VIAL ONE (12:08)
--- OUTSIDE RECORDS SUMMARY | 2018-10-31 18:50 | XMS REPORT | Clinical Summary ---
:1980 Author Organization [facility] Address [address] [place] [address] Care Team Providers Name Role Phone Unavailable Primary Care Provider Unavailable Allergies Active Allergy Reactions Severity Noted Date Comments Codeine Itching 10/08/2018 Penicillins Swelling 10/08/2018 Medications Medication Sig Dispensed Refills Start Date End Date Status famotidine (PEPCID) 20 Take 1 tablet 14 tablet 0 10/08/2018 10/15/2018 mg tabletIndications: by mouth 2 Gastroesophageal reflux times daily disease, esophagitis for 14 doses. presence not specified traMADol (ULTRAM) 50 mg Take 1 tablet 12 tablet 0 10/08/2018 10/11/2018 tabletIndications: RUQ by mouth pain every 6 hours as needed for up to 3 days for Pain. Active Problems Problem Noted Date Gastroesophageal reflux disease RUQ pain Encounters Date Type Specialty Care Team Description 10/08/2018 Emergency Emergency Medicine Hector Loyola, RUQ pain ( Primary Dx); Gastroesophageal reflux disease, esophagitis presence not specified after 10/30/2017 Social History Tobacco Use Types Packs/Day Years Used Date Never Smoker Alcohol Use Drinks/Week oz/Week Comments Yes Sex Assigned at Date Recorded Not on file Job Start Date Occupation Industry Not on file Not on file Not on file Travel History Travel Start Travel End No recent travel history available. Last Filed Vital Signs Vital Sign Reading Time Taken Blood Pressure 138/76 10/08/2018 8:00 PM SOCIAL WORKER Pulse 78 10/08/2018 8:00 PM SOCIAL WORKER Temperature 36.9 C (98.4 F) 10/08/2018 8:00 PM SOCIAL WORKER Respiratory Rate 18 10/08/2018 8:00 PM SOCIAL WORKER Oxygen Saturation 99% 10/08/2018 8:00 PM SOCIAL WORKER Inhaled Oxygen Concentration - - Weight - - Height - - Body Mass Index - - Plan of Treatment Health Maintenance Due Date Last Done Comments IMM Influenza Seasonal Aug to January (>/=19 yrs) 08/11/2018 Procedures Procedure Name Priority Date/Time Associated Comments Diagnosis XRAY CHEST 2 VIEWS STAT 10/08/2018 6:12 RUQ pain Results for this PM SOCIAL WORKER procedure are in the results section. TROPONIN I POC Routine 10/08/2018 5:00 Results for this PM SOCIAL WORKER procedure are in the results section. VBG POC Routine 10/08/2018 4:54 Results for this PM SOCIAL WORKER procedure are in the results section. 12 LEAD EKG STAT 10/08/2018 4:43 Results for this PM SOCIAL WORKER procedure are in the results section. UA CHEMISTRIES STAT 10/08/2018 4:05 Results for this PM SOCIAL WORKER procedure are in the results section. TROPONIN I POC Routine 10/08/2018 1:30 Results for this PM SOCIAL WORKER procedure are in the results section. 12 LEAD EKG STAT 10/08/2018 12:58 Results for this PM SOCIAL WORKER procedure are in the results section. POCT BNP (BRAIN Routine 10/08/2018 11:09 Results for this NATRIURETIC PEPTIDE) AM SOCIAL WORKER procedure are in the results section. BMP POC Routine 10/08/2018 11:04 Results for this AM SOCIAL WORKER procedure are in the results section. TROPONIN I POC Routine 10/08/2018 11:02 Results for this AM SOCIAL WORKER procedure are in the results section. B NATRIURETIC PEPT STAT 10/08/2018 11:02 Results for this AM SOCIAL WORKER procedure are in the results section. HIV-1/HIV-2 ROUTINE STAT 10/08/2018 11:02 Results for this SCREENING AM SOCIAL WORKER procedure are in the results section. LIPASE STAT 10/08/2018 11:02 Results for this AM SOCIAL WORKER procedure are in the results section. LIVER PROFILE STAT 10/08/2018 11:02 Results for this AM SOCIAL WORKER procedure are in the results section. CBC/DIFF STAT 10/08/2018 11:02 Results for this AM SOCIAL WORKER procedure are in the results section. 12 LEAD EKG Routine 10/08/2018 10:55 Results for this AM SOCIAL WORKER procedure are in the results section. after 10/30/2017 Results XRAY CHEST 2 VIEWS (10/08/2018 6:12 PM SOCIAL WORKER) Impressions Performed At [facility]: [facility] No acute thoracic abnormality. A "PRELIMINARY" report was made available via [employer]Mart at the time of dictation by the resident indicated below. If the report is described as "FINALIZED" it indicates the attending/staff radiologist below has reviewed the images and agrees with the resident's interpretation. Dictated By: Hope Peguero MD, 10/08/2018 6:16 PM I have reviewed the study and agree with the findings in this report. Signed By: Farhat Head MD, 10/08/2018 8:59 PM Narrative Performed At EXAMINATION:XRAY CHEST 2 VIEWS, Frontal and lateral SMS INDICATION: ruq pain, radiates up to chest COMPARISON:None FINDINGS: TUBES/LINES:None LUNGS AND PLEURA:No consolidations or edema. No effusions or pneumothorax. HEART/MEDIASTINUM:Normal cardiomediastinal silhouette. MUSCULOSKELETAL:No acute findings. UPPER ABDOMEN: No acute findings. SOFT TISSUES: No acute findings. Procedure Note Interface, Rad/Mammog In - 10/08/2018 9:05 PM SOCIAL WORKER EXAMINATION: XRAY CHEST 2 VIEWS, Frontal and lateral INDICATION: ruq pain, radiates up to chest COMPARISON: None FINDINGS: TUBES/LINES: None LUNGS AND PLEURA: No consolidations or edema. No effusions or pneumothorax. HEART/MEDIASTINUM: Normal cardiomediastinal silhouette. MUSCULOSKELETAL: No acute findings. UPPER ABDOMEN: No acute findings. SOFT TISSUES: No acute findings. IMPRESSION IMPRESSION: No acute thoracic abnormality. A "PRELIMINARY" report was made available via [employer] at the time of dictation by the resident indicated below. If the report is described as "FINALIZED" it indicates the attending/staff radiologist below has reviewed the images and agrees with the resident's interpretation. Dictated By: Hope Peguero MD, 10/08/2018 6:16 PM I have reviewed the study and agree with the findings in this report. Signed By: Farhat Head MD, 10/08/2018 8:59 PM Performing Organization Address City/State/Zipcode Phone Number SMS TROPONIN I POC (10/08/2018 5:00 PM SOCIAL WORKER)Only the most recent of3 resultswithin the time period is included. Troponin POC 0.00 0.00 - 0.08 ng/mL BT MAIN-STATION 1 Performing Organization Address City/State/Zipcode Phone Number MISYS BT MAIN-STATION 1 VBG POC (10/08/2018 4:54 PM SOCIAL WORKER) pH, May POC 7.38 7.33 - 7.43 BT MAIN-STATION 1 pCO2, May POC 48.7 38.0 - 50.0 mm BT MAIN-STATION 1 Hg pO2, May POC 34 (L) 50 - 75 mm Hg BT MAIN-STATION 1 Base Excess, May POC 3 mmol/L BT MAIN-STATION 1 HCO3, May POC 29.1 (H) 22.0 - 26.0 BT MAIN-STATION 1 mmol/L % Sat, May POC 64 60 - 85 % BT MAIN-STATION 1 Lactic Acid, May POC 0.87 0.4 - 2.0 mmol/L BT MAIN-STATION 1 Sample Type May BT MAIN-STATION 1 TCO2, MAY POC 31 21 - 32 mmol/L BT MAIN-STATION 1 Performing Organization Address [facility] [place] Number MISYS BT MAIN-STATION 1 12 LEAD EKG (10/08/2018 4:43 PM SOCIAL WORKER) 12 LEAD EKG FOR [facility] Test Date:2018-10-08 Pat Name: CATIA PRODepartment: [id number] : Gender: Kate Chief Mate: [id number] :1980 Requested By: KULDEEP Love Order Number: [id number] MD: Jostin Garcia M.D. Measurements IntervalsAxis Rate: 73 P: 21 MA: 125QRS: 37 QRSD: 98 T: 29 QT: 361 QTc:399 Interpretive Statements SINUS RHYTHM Reviewed by Electronically Signed On 10-08-2018 18:15:00 SOCIAL WORKER by Jostin Garcia M.D. Performing Organization Address [facility] Phone Number [facility] UA CHEMISTRIES (10/08/2018 4:05 PM SOCIAL WORKER) Color Yellow BT MAIN-STATION 3 Clarity Clear BT MAIN-STATION 3 Spec [place] 1.023 1.001 - 1.035 BT MAIN-STATION 3 pH 5.0 5 - 8 BT MAIN-STATION 3 Protein Negative NEG BT MAIN-STATION 3 Glucose Negative NEG BT MAIN-STATION 3 Ketone Negative NEG BT MAIN-STATION 3 Bilirubin Negative NEG BT MAIN-STATION 3 Nitrate Negative NEG BT MAIN-STATION 3 Urobilinogen <1.0 0.2 - 1.0 EU/dL BT MAIN-STATION 3 Leukocyte Negative NEG BT MAIN-STATION 3 Blood Negative NEG BT MAIN-STATION 3 Specimen Urine Performing Organization Address City/[facility] Phone Number MISYS BT MAIN-STATION 3 12 LEAD EKG (10/08/2018 12:58 PM SOCIAL WORKER) 12 LEAD EKG FOR [facility] Test Date:2018-10-08 Pat Name: CATIA PRODepartment: [id number] : Gender: M Chief Mate: [id number] :1980 Requested By: KULDEEP Love Order Number: [id number] MD: Jostin Garcia M.D. Measurements IntervalsAxis Rate: 86 P: 5 MA: 118QRS: 40 QRSD: 95 T: 24 QT: 343 QTc:411 Interpretive Statements SINUS RHYTHM WITH SHORT MA INTERVAL LOW QRS VOLTAGE IN PRECORDIAL LEADS Electronically Signed On 10-09-2018 13:58:20 SOCIAL WORKER by Jostin Garcia M.D. Performing Organization Address [facility] Phone Number [facility] POCT BNP (BRAIN NATRIURETIC PEPTIDE) (10/08/2018 11:09 AM SOCIAL WORKER) B Natr Pept POC 28 0 - 100 pg/mL BT MAIN-STATION 1 Performing Organization Address [facility] Phone Number MISYS BT MAIN-STATION 1 BMP POC (10/08/2018 11:04 AM SOCIAL WORKER) CO2 POC 27Comment: 21 - 32 mmol/L BT MAIN-STATION 1 Spec sent to Lab Chloride POC 100 98 - 107 BT MAIN-STATION 1 mmol/L Potassium POC 4.4 3.50 - 5.10 BT MAIN-STATION 1 mmol/L Sodium POC 139 136 - 145 BT MAIN-STATION 1 mmol/L Glucose POC 95 74 - 106 mg/dL BT MAIN-STATION 1 Urea Nitrogen POC 19 (H) 7 - 18 mg/dL BT MAIN-STATION 1 Creatinine POC 0.8 0.6 - 1.3 BT MAIN-STATION 1 mg/dL Calcium Ionized POC 1.22 1.15 - 1.29 BT MAIN-STATION 1 mmol/L Hemoglobin POC 15.6 14.0 - 18.0 BT MAIN-STATION 1 g/dL Hematocrit POC 46.0 40.0 - 54.0 % BT MAIN-STATION 1 GFR, Estimated >60 mL/min/1.73 m2 BT MAIN-STATION 1 GFR, Estim, Afr-Am >60 mL/min/1.73 m2 BT MAIN-STATION 1 Performing Organization Address [facility] Phone Number MISYS BT MAIN-STATION 1 HIV-1/HIV-2 ROUTINE SCREENING (10/08/2018 11:02 AM SOCIAL WORKER) HIV-1/HIV-2 Negative NEG BT MAIN-STATION 2 Performing Organization Address [facility] Phone Number MISYS BT MAIN-STATION 2 B NATRIURETIC PEPT (10/08/2018 11:02 AM SOCIAL WORKER) B Natriuretic Pept 24 <101 pg/mL BT MAIN-STATION 1 Specimen Blood Performing Organization Address [facility] Phone Number MISYS BT MAIN-STATION 1 LIVER PROFILE (10/08/2018 11:02 AM SOCIAL WORKER) T Protein 6.7 6.0 - 8.3 g/dL BT MAIN-STATION 1 Albumin 4.1 (L) 4.2 - 5.5 g/dL BT MAIN-STATION 1 T Bilirubin 0.2 0.2 - 1.2 mg/dL BT MAIN-STATION 1 Alk Phos 101 34 - 104 U/L BT MAIN-STATION 1 AST 16 13 - 39 U/L BT MAIN-STATION 1 ALT 36 7 - 52 U/L BT MAIN-STATION 1 D Bilirubin 0.1 0.0 - 0.2 mg/dL BT MAIN-STATION 1 Specimen Blood Performing Organization Address [facility] Phone Number MISYS BT MAIN-STATION 1 LIPASE (10/08/2018 11:02 AM SOCIAL WORKER) Lipase 12 11 - 82 U/L BT MAIN-STATION 1 Specimen Blood Performing Organization Address [facility] Phone Number MISYS BT MAIN-STATION 1 CBC/DIFF (10/08/2018 11:02 AM SOCIAL WORKER) WBC 5.7 4.5 - 12.0 K/uL BT MAIN-STATION 2 RBC 5.15 4.60 - 6.20 M/uL BT MAIN-STATION 2 Hemoglobin 14.8 14.0 - 18.0 g/dL BT MAIN-STATION 2 Hematocrit 45.8 40.0 - 54.0 % BT MAIN-STATION 2 MCV 89 82 - 92 fL BT MAIN-STATION 2 MCH 28.7 27.0 - 31.0 pg BT MAIN-STATION 2 MCHC 32.3 32.0 - 36.0 g/dL BT MAIN-STATION 2 RDW 40.6 35.1 - 43.9 fL BT MAIN-STATION 2 Platelet 282 150 - 400 K/uL BT MAIN-STATION 2 Mean Platelet Volume 10.3 9.4 - 12.4 fL BT MAIN-STATION 2 Percent NRBC 0.0 BT MAIN-STATION 2 Absolute NRBC 0.00 BT MAIN-STATION 2 Neutrophil 57.9 34.0 - 67.9 % BT MAIN-STATION 2 Lymphocyte 26.7 21.8 - 50.0 % BT MAIN-STATION 2 Monocyte 12.8 (H) 5.3 - 12.0 % BT MAIN-STATION 2 Eosinophil 1.8 0.8 - 5.0 % BT MAIN-STATION 2 Basophil 0.4 0.2 - 1.2 % BT MAIN-STATION 2 Pct Immat Gran 0.4 0.0 - 0.5 BT MAIN-STATION 2 Neutrophil, Abs 3.31 1.78 - 5.36 K/uL BT MAIN-STATION 2 Lymphocyte, Abs 1.52 1.32 - 3.57 K/uL BT MAIN-STATION 2 Monocyte, Abs 0.73 0.30 - 0.82 K/uL BT MAIN-STATION 2 Eosinophil, Abs 0.10 0.04 - 0.54 K/uL BT MAIN-STATION 2 Basophil, Abs 0.02 0.01 - 0.08 K/uL BT MAIN-STATION 2 Absol Immat Gran 0.02 0.00 - 0.03 K/uL BT MAIN-STATION 2 Specimen Blood Performing Organization Address City/State/Zipcode Phone Number MISYS BT MAIN-STATION 2 12 LEAD EKG (10/08/2018 10:55 AM SOCIAL WORKER) 12 LEAD EKG FOR [facility] Test Date:2018-10-08 Pat Name: CATIA PRODepartment: [id number] : Gender: Kate Chief Mate: [id number] :1980 Requested By: JONO Espana Order Number: [id number] MD: Jostin Garcia M.D. Measurements IntervalsAxis Rate: 88 P: 9 MA: 121QRS: 44 QRSD: 101T: 30 QT: 327 QTc:397 Interpretive Statements SINUS RHYTHM Electronically Signed On 10-08-2018 13:18:20 SOCIAL WORKER by Jostin Garcia M.D. Performing Organization Address City/State/Zipcode Phone Number SMS after 10/30/2017 Insurance Payer Benefit Plan / Subscriber ID Effective Dates Phone Address Type Group HCHD HCHD UNSCREENED xxxxxxxxx 2018-Pres [phone] [place] SEL[employer]PA[employer] ent [address] [place] [address]
--- OUTSIDE RECORDS SUMMARY | 2018-10-31 18:50 | XMS REPORT ---
:1980 Author [facility] Address [address] [place] [address] [address] [place] [address] Care Team Providers Name Role Phone Unavailable Unavailable Unavailable Problems This patient has no known problems. Allergies, Adverse Reactions, Alerts This patient has no known allergies or adverse reactions. Medications This patient has no known medications. Encounters Start End Encounter Admission Attending Care Care Encounter Date/Time Date/Time Type Type Clinicians Facility Department ID 2018-10-08 2018-10-08 Emergency [facility] [id number] 17:49:44 17:49:44 2018-10-08 2018-10-08 Emergency [facility] [id number] 15:26:07 15:26:07 Results Test Description Test Time Test Comments Text Results Atomic Results Result Comments CR - XRAY LUMBAR XR 2018-09-08 11:03:13 CLINICAL INDICATION: M54.5 Low back MIN OF 4 VIEWS painFINDINGS:COMPARISON: NoneFive lumbar vertebrae are present. There is a normal lumbar lordosis and alignment. Disc heights are well maintained.Facet joints appear unremarkable.Vertebral body heights are well maintained. There are no fractures or dislocations . No destructive changes are seen.IMPRESSION:Negative lumbar spine series.
--- OUTSIDE RECORDS SUMMARY | 2018-10-31 18:50 | XMS REPORT | Continuity of Care Document ---
:1980 Author Organization Interface Problems Problem Status Onset Date Classification Date Comments Source Reported LOW BACK Active [facility] Medications Medication Details [...] Date Date Visit [facility] [id number] Roland 12/12 01/10 [facility] [place] [facility] [id number] Roland 01/10 02/09 [facility] [place] [facility] [id number] Roland 02/12 03/14 [facility] [place] [facility] Procedures Procedure Code Date Perfomer Comments Source
== END 2018-10-31 12:07 | disposition home or self-care (01) ==
LOC: ER 10:23
DX: J06.9 Acute upper respiratory infection, unspecified (principal); I10 Essential (primary) hypertension; Z88.0 Allergy status to penicillin; Z88.5 Allergy status to narcotic agent
CPT/HCPCS: 71046; 87070; 87081; 87804; 96374; 99283

== ENCOUNTER 2019-01-04 18:18 | Inpatient (IN) | payer SELFPAY ==
--- OUTSIDE RECORDS SUMMARY | 2019-01-04 18:20 | XMS REPORT | Clinical Summary ---
:1980 Author Organization [facility] Address [address] [place] [address] Care Team Providers Name Role Phone Unavailable [...] reflux disease, esophagitis presence not specified after 01/03/2018 Social History Tobacco Use Types Packs/Day Years [...] Taken Blood Pressure 138/76 10/08/2018 8:00 PM CAD ENGINEER Pulse 78 10/08/2018 8:00 PM CAD ENGINEER Temperature 36.9 C (98.4 F) 10/08/2018 8:00 PM CAD ENGINEER Respiratory Rate 18 10/08/2018 8:00 PM CAD ENGINEER Oxygen Saturation 99% 10/08/2018 8:00 PM CAD ENGINEER Inhaled Oxygen Concentration - - Weight - - Height - - Body Mass Index - - Plan of Treatment Health Maintenance Due Date Last Done Comments IMM Influenza Seasonal Aug to January (>/=19 yrs) 08/11/2018 Procedures Procedure Name Priority Date/Time Associated Comments Diagnosis XRAY CHEST 2 VIEWS STAT 10/08/2018 6:12 RUQ pain Results for this PM CAD ENGINEER procedure are in the results section. TROPONIN I POC Routine 10/08/2018 5:00 Results for this PM CAD ENGINEER procedure are in the results section. VBG POC Routine 10/08/2018 4:54 Results for this PM CAD ENGINEER procedure are in the results section. 12 LEAD EKG STAT 10/08/2018 4:43 Results for this PM CAD ENGINEER procedure are in the results section. UA CHEMISTRIES STAT 10/08/2018 4:05 Results for this PM CAD ENGINEER procedure are in the results section. TROPONIN I POC Routine 10/08/2018 1:30 Results for this PM CAD ENGINEER procedure are in the results section. 12 LEAD EKG STAT 10/08/2018 12:58 Results for this PM CAD ENGINEER procedure are in the results section. POCT BNP (BRAIN Routine 10/08/2018 11:09 Results for this NATRIURETIC PEPTIDE) AM CAD ENGINEER procedure are in the results section. BMP POC Routine 10/08/2018 11:04 Results for this AM CAD ENGINEER procedure are in the results section. TROPONIN I POC Routine 10/08/2018 11:02 Results for this AM CAD ENGINEER procedure are in the results section. B NATRIURETIC PEPT STAT 10/08/2018 11:02 Results for this AM CAD ENGINEER procedure are in the results section. HIV-1/HIV-2 ROUTINE STAT 10/08/2018 11:02 Results for this SCREENING AM CAD ENGINEER procedure are in the results section. LIPASE STAT 10/08/2018 11:02 Results for this AM CAD ENGINEER procedure are in the results section. LIVER PROFILE STAT 10/08/2018 11:02 Results for this AM CAD ENGINEER procedure are in the results section. CBC/DIFF STAT 10/08/2018 11:02 Results for this AM CAD ENGINEER procedure are in the results section. 12 LEAD EKG Routine 10/08/2018 10:55 Results for this AM CAD ENGINEER procedure are in the results section. after 01/03/2018 Results XRAY CHEST 2 VIEWS (10/08/2018 6:12 PM CAD ENGINEER) Impressions Performed At [facility]: [facility] No acute thoracic abnormality. A "PRELIMINARY" report was made available via [employer] at the time of dictation by the [...] Interface, Rad/Mammog In - 10/08/2018 9:05 PM CAD ENGINEER EXAMINATION: XRAY CHEST 2 VIEWS, Frontal and lateral INDICATION: ruq pain, radiates up to chest COMPARISON: None FINDINGS: TUBES/LINES: None LUNGS AND PLEURA: No consolidations or edema. No effusions or pneumothorax. HEART/MEDIASTINUM: Normal cardiomediastinal silhouette. MUSCULOSKELETAL: No acute findings. UPPER ABDOMEN: No acute findings. SOFT TISSUES: No acute findings. IMPRESSION IMPRESSION: No acute thoracic abnormality. A "PRELIMINARY" report was made available via [employer] at the time of dictation by the [...] SMS TROPONIN I POC (10/08/2018 5:00 PM CAD ENGINEER)Only the most recent of3 resultswithin the time period is included. Troponin POC 0.00 0.00 - 0.08 ng/mL BT MAIN-STATION 1 Performing Organization Address City/State/Zipcode Phone Number MISYS BT MAIN-STATION 1 VBG POC (10/08/2018 4:54 PM CAD ENGINEER) pH, May POC 7.38 7.33 - 7.43 [...] mmol/L BT MAIN-STATION 1 Performing Organization Address [facility] [place] Phone Number MISYS BT MAIN-STATION 1 12 LEAD EKG (10/08/2018 4:43 PM CAD ENGINEER) 12 LEAD EKG FOR [facility] Test Date:2018-10-08 Pat Name: CATIA PRODepartment: 5520 : Gender: Kate Interlocking Machine Operator: [id number] :1980 Requested By: KULDEEP Love Order Number: [id number] MD: Jostin Garcia M.D. Measurements IntervalsAxis Rate: 73 P: 21 WI: 125QRS: 37 QRSD: 98 T: 29 QT: 361 QTc:399 Interpretive Statements SINUS RHYTHM Reviewed by Electronically Signed On 10-08-2018 18:15:00 CAD ENGINEER by Jostin Garcia M.D. Performing Organization Address [facility] [place] Phone Number [facility] UA CHEMISTRIES (10/08/2018 4:05 PM CAD ENGINEER) Color Yellow BT MAIN-STATION 3 Clarity Clear BT MAIN-STATION 3 Spec [place] 1.023 1.001 - 1.035 BT MAIN-STATION 3 [...] MAIN-STATION 3 Specimen Urine Performing Organization Address City/[facility] [place] Phone Number MISYS BT MAIN-STATION 3 12 LEAD EKG (10/08/2018 12:58 PM CAD ENGINEER) 12 LEAD EKG FOR [facility] Test Date:2018-10-08 Pat Name: CATIA PRODepartment: 5520 : Gender: M Interlocking Machine Operator: [id number] :1980 Requested By: KULDEEP Love Order Number: [id number] MD: Jostin Garcia M.D. Measurements IntervalsAxis Rate: 86 P: 5 WI: 118QRS: 40 QRSD: 95 T: 24 QT: 343 QTc:411 Interpretive Statements SINUS RHYTHM WITH SHORT WI INTERVAL LOW QRS VOLTAGE IN PRECORDIAL LEADS Electronically Signed On 10-09-2018 13:58:20 CAD ENGINEER by Jostin Garcia M.D. Performing Organization Address [facility] [place] Phone Number [facility] POCT BNP (BRAIN NATRIURETIC PEPTIDE) (10/08/2018 11:09 AM CAD ENGINEER) B Natr Pept POC 28 0 - 100 pg/mL BT MAIN-STATION 1 Performing Organization Address [facility] [place] Phone Number MISYS BT MAIN-STATION 1 BMP POC (10/08/2018 11:04 AM CAD ENGINEER) CO2 POC 27Comment: 21 - 32 mmol/L [...] m2 BT MAIN-STATION 1 Performing Organization Address [facility] Phone Number MISYS BT MAIN-STATION 1 HIV-1/HIV-2 ROUTINE SCREENING (10/08/2018 11:02 AM CAD ENGINEER) HIV-1/HIV-2 Negative NEG BT MAIN-STATION 2 Performing Organization Address [facility] Phone Number MISYS BT MAIN-STATION 2 B NATRIURETIC PEPT (10/08/2018 11:02 AM CAD ENGINEER) B Natriuretic Pept 24 <101 pg/mL BT MAIN-STATION 1 Specimen Blood Performing Organization Address [facility] [place] Phone Number MISYS BT MAIN-STATION 1 LIVER PROFILE (10/08/2018 11:02 AM CAD ENGINEER) T Protein 6.7 6.0 - 8.3 g/dL [...] MAIN-STATION 1 Specimen Blood Performing Organization Address [facility] Phone Number MISYS BT MAIN-STATION 1 LIPASE (10/08/2018 11:02 AM CAD ENGINEER) Lipase 12 11 - 82 U/L BT MAIN-STATION 1 Specimen Blood Performing Organization Address [facility] Phone Number MISYS BT MAIN-STATION 1 CBC/DIFF (10/08/2018 11:02 AM CAD ENGINEER) WBC 5.7 4.5 - 12.0 K/uL BT [...] 2 12 LEAD EKG (10/08/2018 10:55 AM CAD ENGINEER) 12 LEAD EKG FOR [facility] Test Date:2018-10-08 Pat Name: CATIA PRODepartment: 5520 : Gender: Kate Interlocking Machine Operator: [id number] :1980 Requested By: JONO Espana Order Number: [id number] MD: Jostin Garcia M.D. Measurements IntervalsAxis Rate: 88 P: 9 WI: 121QRS: 44 QRSD: 101T: 30 QT: 327 QTc:397 Interpretive Statements SINUS RHYTHM Electronically Signed On 10-08-2018 13:18:20 CAD ENGINEER by Jostin Garcia M.D. Performing Organization Address City/State/Zipcode Phone Number SMS after 01/03/2018 Insurance Payer Benefit Plan / Subscriber ID Effective Dates Phone Address Type Group HCHD HCHD UNSCREENED xxxxxxxxx 2018-Pres [phone] [place] SELF[employer]PA[employer] ent [address] [place] [phone]
--- OUTSIDE RECORDS SUMMARY | 2019-01-04 18:21 | XMS REPORT | Continuity of Care Document ---
:1980 Author Organization Interface Problems Problem Status Onset Date Classification Date Comments Source Reported LOW BACK Active [facility] PAIN [facility] Medications Medication Details [...] Date Date Visit [facility] [id number] Roland 12/12 01/10 [facility] Patients [place] [facility] [id number] Roland 01/10 02/09 [facility] [place] [facility] [id number] Roland 02/12 03/14 [facility] [place] [facility] Procedures Procedure Code Date Perfomer Comments Source
--- OUTSIDE RECORDS SUMMARY | 2019-01-04 18:21 | XMS REPORT ---
:1980 [facility] Address [address] [place] [address] Care Team Providers Name Role Phone Unavailable Unavailable Unavailable Problems This patient has no known problems. Allergies, Adverse Reactions, Alerts This patient has no known allergies or adverse reactions. Medications This patient has no known medications. Encounters Start End Encounter Admission Attending Care Care Encounter Date/Time Date/Time Type Type Clinicians Facility Department ID 2018-10-08 2018-10-08 Emergency [facility] [id number] 17:49:44 17:49:44 2018-10-08 2018-10-08 Emergency [facility] [id number] 15:26:07 15:26:07 Results Test Description Test Time [...]
[2019-01-04] MEDS ORDERED: FENTANYL CITR 100 MCG/2 ML ONE (19:26)
[2019-01-04] MEDS ORDERED: ONDANSETRON 4 MG/2 ML VIAL ONE (19:27)
[2019-01-04] MEDS ORDERED: MORPHINE 4 MG/ML SYR ONE (20:16)
[2019-01-04] MEDS ORDERED: KETOROLAC 30 MG/ML INJ ONE (20:16)
[2019-01-04 20:17] LABS: Absolute Lymphocytes (CBC) 1.8 K/uL (0.7-4.9); Absolute Monocytes 0.7 K/uL (0.1-1.3); Absolute Neutrophil 3.9 K/uL (1.8-8.0); Basophils % 0.2 % (0-1.3); Eosinophils % 1.9 % (0-4.4); Hematocrit 46.2 % (39.6-49.0); Lymphocytes % 27.3 % (15.3-44.8); MPV 9.1 fL (7.6-11.3); RBC Red Blood Cell Count 5.33 M/uL (4.33-5.43)
[2019-01-04] MEDS ORDERED: DIAZEPAM 10 MG/2 ML INJ SYRINGE ONE (20:29)
[2019-01-04 20:33] LABS: ALT/SGPT 34 U/L (12-78); AST/SGOT 10 U/L (15-37); Albumin 3.6 g/dL (3.4-5.0); Alkaline Phosphatase 105 U/L (45-117); BUN Blood Urea Nitrogen 21 mg/dL (7-18); Bicarbonate 29 mmol/L (21-32); Bilirubin Direct < 0.1 mg/dL (0-0.2); Bilirubin Total 0.1 mg/dL (0.2-1.0); Glucose Level 113 mg/dL (74-106); Lipase 1040 U/L (73-393); Sodium Level 139 mmol/L (136-145)
--- NOTE | 2019-01-04 21:06 | RAD REPORT ---
EXAM DESCRIPTION: CT - Abdomen Pelvis W Contrast - 01/04/2019 8:54 pm CLINICAL HISTORY: Abdominal pain . COMPARISON: none. TECHNIQUE: Computed axial tomography of the abdomen pelvis was obtained. 100 cc Isovue-300 was admin istered intravenously. Oral contrast was not requested which limits evaluation of bowel. All CT scans are performed using dose optimization technique as appropriate and may include automated exposure control or mA/KV adjustment according to patient size. FINDINGS: The liver, spleen, pancreas, adrenal and kidneys appear unremarkable. There is no evidence of diverticulitis. The appendix is normal. Bilateral inguinal hernias contain fat IMPRESSION: Bilateral inguinal hernias contain fat
[2019-01-04 21:33] LABS: Urine Blood NEGATIVE (NEG); Urine Glucose TRACE (NEG); Urine Protein NEGATIVE (NEG); Urine Specific Gravity >1.030 (1.005-1.030); Urine pH 5.5 (5.0-7.0)
--- NOTE | 2019-01-04 22:08 | ER ---
Nurse's Notes [facility] Name: Javad Pro Age: 38 yrs Sex: Male : 1980 Arrival Date: 01/04/2019 Time: 18:18 Bed 28 Private MD: Diagnosis: Acute pancreatitis Presentation: 01/04 18:35 Presenting complaint: Patient states: Back pain that is cramping and sharp stabbing, hb unable to ambulate due to the pain, denies trauma or injury, reports having had this happen before but its never been this bad, has a hx of kidney stones. 18:37 Transition of care: patient was not received from another setting of care. Onset of hb symptoms was January 04, 2019. Risk Assessment: Do you want to hurt yourself or someone else? Patient reports no desire to harm self or others. Initial Sepsis Screen: Does the patient meet any 2 criteria? No. Patient's initial sepsis screen is negative. Does the patient have a suspected source of infection? No. Patient's initial sepsis screen is negative. Care prior to arrival: None. 18:37 Method Of Arrival: Wheelchair hb 18:37 Acuity: MOIZ 3 hb Historical: - Allergies: 18:34 Codeine; hb 18:34 PENICILLINS; hb - Home Meds: 18:34 Lasix 40 mg Oral tab 1 tab once daily [Active]; lisinopril 10 mg Oral tab 1 tab once hb daily [Active]; - PMHx: 18:34 CHF; Hypertension; hb - PSHx: 18:34 Hernia repair; hb - Immunization history:: Adult Immunizations up to date. - Social history:: Smoking status: . - Ebola Screening: : Patient negative for fever greater than or equal to 101.5 degrees Fahrenheit, and additional compatible Ebola Virus Disease symptoms Patient denies exposure to infectious person Patient denies travel to an Ebola-affected area in the 21 days before illness onset No symptoms or risks identified at this time. Screenin:42 Abuse screen: Denies threats or abuse. Denies injuries from another. Nutritional rv screening: No deficits noted. Tuberculosis screening: No symptoms or risk factors identified. Fall Risk None identified. Assessment: 18:42 General: Appears in no apparent distress. uncomfortable, Behavior is calm. Pain: rv Complains of pain in back. Neuro: Level of Consciousness is awake, alert, obeys commands, Oriented to person, place, time, situation. Cardiovascular: Capillary refill < 3 seconds. Respiratory: Airway is patent. GI: No signs and/or symptoms were reported involving the gastrointestinal system. : No signs and/or symptoms were reported regarding the genitourinary system. EENT: No signs and/or symptoms were reported regarding the EENT system. Derm: Skin is intact. Musculoskeletal: Reports pain in back. 20:31 Reassessment: Patient appears in no apparent distress at this time. No changes from rv previously documented assessment. Patient and/or family updated on plan of care and expected duration. Pain level reassessed. Patient is alert, oriented x 3, equal unlabored respirations, skin warm/dry/pink. 23:17 Reassessment: Patient appears in no apparent distress at this time. Patient and/or rv family updated on plan of care and expected duration. Pain level reassessed. Patient is alert, oriented x 3, equal unlabored respirations, skin warm/dry/pink. PAIN HAS DECREASED. Vital Signs: 18:33 Pulse 111; Resp 18; Temp 98.2; Pulse Ox 100% on R/A; Pain 10/10; hb 18:33 BP 185 / 101; hb 18:33 Weight 114.31 kg; Height 5 ft. 9 in. (175.26 cm); hb 19:00 BP 141 / 85 RA; Pulse 96; Resp 19 S; Pulse Ox 100% on R/A; rv 19:30 BP 130 / 92 RA; Pulse 86; Resp 18 S; Pulse Ox 99% on R/A; rv 20:00 BP 124 / 87 RA; Pulse 78; Resp 17 S; Pulse Ox 95% on R/A; rv 20:30 BP 133 / 78; Pulse 80; Resp 18 S; Pulse Ox 95% on R/A; rv 21:00 BP 124 / 81; Pulse 79; Resp 15 S; Pulse Ox 97% on R/A; rv 21:30 BP 131 / 88; Pulse 86; Resp 17 S; Pulse Ox 97% on R/A; rv 22:00 BP 128 / 92; Pulse 76; Resp 15 S; Pulse Ox 98% on R/A; rv 23:19 BP 139 / 100; Pulse 89; Resp 17 S; Pulse Ox 97% on R/A; rv 01/05 00:51 BP 124 / 89; Pulse 80; Resp 16; Pulse Ox 98% on R/A; rv 01/04 18:33 Body Mass Index 37.21 (114.31 kg, 175.26 cm) hb ED Course: 01/04 18:18 Patient arrived in ED. ds1 18:30 Arm band placed on. hb 18:37 Triage completed. hb 18:43 Patient has correct armband on for positive identification. Placed in gown. Bed in low rv position. Call light in reach. Side rails up X 1. Adult w/ patient. Pulse ox on. NIBP on. 18:59 Rod Rivero PA is PHCP. jmm 18:59 Gregg Hu MD is Attending Physician. jmm 19:28 Inserted saline lock: 20 gauge in left antecubital area, using aseptic technique. lt1 19:28 Initial lab(s) drawn, by me, sent to lab. lt1 20:54 CT completed. Patient tolerated procedure well. Patient moved back from CT. kw1 20:55 CT Abd/Pelvis - W/Contrast In Process Unspecified. EDMS 21:57 US Abdomen Limited In Process Unspecified. EDMS 22:00 Ultrasound completed. Patient tolerated well. Notified FISH PROCESSOR/PA rod. sg3 22:06 Ruben Judd MD is Hospitalizing Provider. [facility] 01/05 00:51 No provider procedures requiring assistance completed. Patient admitted, IV remains in rv place. intact. Administered Medications: 01/04 19:23 Drug: fentaNYL (PF) 50 mcg Route: IVP; Site: left antecubital; rv 20:27 Follow up: Response: Pain is unchanged, physician notified rv :23 Drug: Zofran 4 mg Route: IVP; Site: left antecubital; rv 20:27 Follow up: Response: Nausea is decreased rv 20:09 CANCELLED (other medication used): morphine 4 mg IVP once jmm 20:15 Drug: Ketorolac 30 mg Route: IVP; Site: left antecubital; rv 20:27 Follow up: Response: Pain is decreased rv 20:27 Drug: Valium 2 mg Route: IVP; Site: left antecubital; rv 01/05 00:27 Follow up: Response: Pain is decreased rv 01/04 22:00 Drug: NS 0.9% 1000 ml Route: IV; Rate: 1 bolus; Site: left antecubital; rv 01/05 00:27 Follow up: IV Status: Completed infusion rv Outcome: 01/04 22:06 Decision to Hospitalize by Provider. zia 01/05 00:52 Admitted to Med/surg accompanied by nurse, via wheelchair, room 209, with chart, Report rv called to ASHISH VELIZ Condition: good Instructed on the need for admit. 00:52 Patient left the ED. rv Signatures: Dispatcher [employer] EDAK Rod Rivero PA PA jmm Sanford, Demi ds1 Randa Morataya, RN RN Tona Baez kw1 Dianna Mejia sg3 Vinh Alcantar, RN RN rv Zeenat Comer lt1
--- NOTE | 2019-01-04 22:09 | EDPHYS ---
Physician Documentation [facility] Name: Javad Pro Age: 38 yrs Sex: Male : 1980 Arrival Date: 01/04/2019 Time: 18:18 Bed 28 Private MD: ED Physician Gregg Hu HPI: 01/04 19:04 This 38 yrs old Male presents to ER via Wheelchair with complaints of Back jmm Pain. 19:04 The patient presents with pain that is acute, with no known mechanism of injury. Onset: jmm The symptoms/episode began/occurred acutely, just prior to arrival. The pain does not radiate. Associated signs and symptoms: Pertinent positives: nausea. This is a 38 year old male with a history of chf, htn that presents to the ED with complaints of lower back pain which occurred just prior to arrival. Denies abdominal pain. pain does not radiate down his legs. denies vomiting but states he is nausous. . Historical: - Allergies: 18:34 Codeine; hb 18:34 PENICILLINS; hb - Home Meds: 18:34 Lasix 40 mg Oral tab 1 tab once daily [Active]; lisinopril 10 mg Oral tab 1 tab once hb daily [Active]; - PMHx: 18:34 CHF; Hypertension; hb - PSHx: 18:34 Hernia repair; hb - Immunization history:: Adult Immunizations up to date. - Social history:: Smoking status: . - Ebola Screening: : Patient negative for fever greater than or equal to 101.5 degrees Fahrenheit, and additional compatible Ebola Virus Disease symptoms Patient denies exposure to infectious person Patient denies travel to an Ebola-affected area in the 21 days before illness onset No symptoms or risks identified at this time. ROS: 19:04 Constitutional: Negative for fever, chills, and weight loss, Cardiovascular: Negative jmm for chest pain, palpitations, and edema, Respiratory: Negative for shortness of breath, cough, wheezing, and pleuritic chest pain. 19:04 Back: Positive for pain at rest, pain with movement. 19:04 All other systems are negative. Exam: 19:04 Head/Face: atraumatic. Eyes: EOMI, no conjunctival erythema appreciated ENT: Moist jmm Mucus Membranes Neck: Trachea midline, Supple Chest/axilla: Normal chest wall appearance and motion. Cardiovascular: Regular rate and rhythm. No edema appreciated Respiratory: Normal respirations, no respiratory distress appreciated 19:04 Constitutional: The patient appears in no acute distress, alert, awake. 19:04 Abdomen/GI: Inspection: abdomen appears normal, Bowel sounds: normal, Palpation: abdomen is soft and non-tender, in all quadrants. 19:04 Back: CVA tenderness, that is moderate, is noted bilaterally. 19:04 Musculoskeletal/extremity: ROM: intact in all extremities. 19:04 Skin: Appearance: Color: normal in color. 19:04 Neuro: Orientation: is normal, Mentation: is normal, Memory: is normal. 19:04 Psych: Behavior/mood is pleasant, cooperative. Vital Signs: 18:33 Pulse 111; Resp 18; Temp 98.2; Pulse Ox 100% on R/A; Pain 10/10; hb 18:33 BP 185 / 101; hb 18:33 Weight 114.31 kg; Height 5 ft. 9 in. (175.26 cm); hb 19:00 BP 141 / 85 RA; Pulse 96; Resp 19 S; Pulse Ox 100% on R/A; rv 19:30 BP 130 / 92 RA; Pulse 86; Resp 18 S; Pulse Ox 99% on R/A; rv 20:00 BP 124 / 87 RA; Pulse 78; Resp 17 S; Pulse Ox 95% on R/A; rv 20:30 BP 133 / 78; Pulse 80; Resp 18 S; Pulse Ox 95% on R/A; rv 21:00 BP 124 / 81; Pulse 79; Resp 15 S; Pulse Ox 97% on R/A; rv 21:30 BP 131 / 88; Pulse 86; Resp 17 S; Pulse Ox 97% on R/A; rv 22:00 BP 128 / 92; Pulse 76; Resp 15 S; Pulse Ox 98% on R/A; rv 23:19 BP 139 / 100; Pulse 89; Resp 17 S; Pulse Ox 97% on R/A; rv 01/05 00:51 BP 124 / 89; Pulse 80; Resp 16; Pulse Ox 98% on R/A; rv 01/04 18:33 Body Mass Index 37.21 (114.31 kg, 175.26 cm) hb MDM: 01/04 19:04 Patient medically screened. zia 22:03 Data reviewed: vital signs, nurses notes. Counseling: I had a detailed discussion with zia the patient and/or guardian regarding: the historical points, exam findings, and any diagnostic results supporting the discharge/admit diagnosis, lab results, radiology results, the need for further work-up and treatment in the hospital. ED course: i discussed the patient with Dr. Judd whom accepted admission. . 01/04 19:04 Order name: Basic Metabolic Panel; Complete Time: 20:44 [facility] 01/04 19:04 Order name: CBC with Diff; Complete Time: 20:44 [facility] 01/04 19:04 Order name: Creatinine for Radiology; Complete Time: 20:44 [facility] 01/04 19:04 Order name: Hepatic Function; Complete Time: 20:44 [facility] 01/04 19:04 Order name: Lipase; Complete Time: 20:44 [facility] 01/04 20:34 Order name: Urine Dipstick--Ancillary (enter results); Complete Time: 21:34 [facility] 01/04 19:07 Order name: CT Abd/Pelvis - W/Contrast; Complete Time: 21:10 [facility] 01/04 21:10 Order name: US Abdomen Limited [facility] 01/04 22:59 Order name: Amylase Level [facility] 01/04 19:04 Order name: IV Saline Lock; Complete Time: 19:23 [facility] 01/04 19:04 Order name: Labs collected and sent; Complete Time: 19:24 [facility] 01/04 19:04 Order name: Urine Dipstick-Ancillary (obtain specimen); Complete Time: 20:28 [facility] Administered Medications: 19:23 Drug: fentaNYL (PF) 50 mcg Route: IVP; Site: left antecubital; rv 20:27 Follow up: Response: Pain is unchanged, physician notified rv 19:23 Drug: Zofran 4 mg Route: IVP; Site: left antecubital; rv 20:27 Follow up: Response: Nausea is decreased rv 20:09 CANCELLED (other medication used): morphine 4 mg IVP once [facility] 20:15 Drug: Ketorolac 30 mg Route: IVP; Site: left antecubital; rv 20:27 Follow up: Response: Pain is decreased rv 20:27 Drug: Valium 2 mg Route: IVP; Site: left antecubital; rv 01/05 00:27 Follow up: Response: Pain is decreased rv 01/04 22:00 Drug: NS 0.9% 1000 ml Route: IV; Rate: 1 bolus; Site: left antecubital; rv 01/05 00:27 Follow up: IV Status: Completed infusion rv Disposition: 02:28 Co-signature as Attending Physician, Gregg Hu MD. rn Disposition: 01/04/19 22:06 Hospitalization ordered by Ruben Judd for Observation. Preliminary diagnosis is Acute pancreatitis. - Bed requested for Telemetry/MedSurg (observation). - Status is Observation. rv - Condition is Stable. - Problem is new. - Symptoms have improved. UTI on Admission? No Signatures: Dispatcher [employer] EDMS Tona Chang RN RN Garrett Garcia PA PA [facility] Gregg Hu MD MD rn Baxter, Heather, RN RN hb Vicente, Ronaldo, RN RN rv Corrections: (The following items were deleted from the chart) 01/04 19:12 19:05 Stone Protocol+CT.RAD.BRZ ordered. EDND EDND 20:09 20:06 morphine 4 mg IVP once ordered. [facility] 01/05 00:07 01/04 22:06 Hospitalization Ordered by Ruben Judd MD for Observation. Preliminary kl diagnosis is Acute pancreatitis. Bed requested for Telemetry/MedSurg (observation). Status is Observation. Condition is Stable. Problem is new. Symptoms have improved. UTI on Admission? No. m 01/05 00:09 00:07 01/04/2019 22:06 Hospitalization Ordered by Ruben Judd MD for Observation. kl Preliminary diagnosis is Acute pancreatitis. Bed requested for Telemetry/MedSurg (observation). Status is Observation. Condition is Stable. Problem is new. Symptoms have improved. UTI on Admission? No. kl 00:52 00:09 01/04/2019 22:06 Hospitalization Ordered by Ruben Judd MD for Observation. rv Preliminary diagnosis is Acute pancreatitis. Bed requested for Telemetry/MedSurg (observation). Status is Observation. Condition is Stable. Problem is new. Symptoms have improved. UTI on Admission? No. kl
[2019-01-04] MEDS ORDERED: NA CHLORIDE 0.9% 1,000 ML ONE (22:12)
--- NOTE | 2019-01-05 00:10 | P.HP ---
Certification for Inpatient Patient admitted to: Inpatient With expected LOS: >2 Midnights Practitioner: I am a practitioner with admitting privileges, knowledge of patient current condition, hospital course, and medical plan of care. Services: Services provided to patient in accordance with Admission requirements found in Title 42 Section 412.3 of the Code of Federal Regulations Patient History Date of Service: 01/05/19 Reason for admission: pancreatitis, lower back pain History of Present Illness: Mr Pro is a 38 years old male with history of HTN and CHF, who presented to ED complaining of severe lower back pain. his symptoms started this morning, he describe the pain as cramps. He denied nausea or vomiting, no diarrhea either. No history of fever. Lab work was remarkable for significant elevation of lipase but normal amylase. CT abd/pelvis shows no acute abnormalities. US abdomen preliminary report says fatty liver, no stones seen. At my encounter the patient was in non-distress. Allergies codeine Allergy (Unverified 01/30/18 13:33) Unknown Penicillins Allergy (Unverified 01/30/18 13:33) Unknown Home medications list reviewed: Yes - Past Medical/Surgical History -: HTN -: CHF -: hernia repair - Social History Smoking Status: Former smoker Alcohol use: No CD- Drugs: No Place of Residence: Home Review of Systems 10-point ROS is otherwise unremarkable Physical Examination - Physical Exam General: Alert, In no apparent distress HEENT: Atraumatic, PERRLA, Mucous membr. moist/pink, EOMI, Sclerae nonicteric Neck: Supple, 2+ carotid pulse no bruit, No LAD, Without JVD or thyroid abnormality Respiratory: Clear to auscultation bilaterally, Normal air movement Cardiovascular: Regular rate/rhythm, Normal S1 S2 Gastrointestinal: Normal bowel sounds, No tenderness Musculoskeletal: No tenderness Integumentary: No rashes Neurological: Normal gait, Normal speech, Normal strength at 5/5 x4 extr, Normal tone, Normal affect Lymphatics: No axilla or inguinal lymphadenopathy - Studies Laboratory Data (last 24 hrs) 01/04/19 19:20: Creatinine 0.97 01/04/19 19:20: WBC 6.5, Hgb 15.3, Hct 46.2, Plt Count 318 01/04/19 19:20: Sodium 139, Potassium 4.0, BUN 21 H, Creatinine 0.93, Glucose 113 H, Total Bilirubin 0.1 L, AST 10 L, ALT 34, Alkaline Phosphatase 105, Lipase 1040 H Assessment and Plan - Problems (Diagnosis) (1) Serum lipase elevation Current Visit: Yes Status: Acute (2) Lower back pain Current Visit: Yes Status: Acute Qualifiers: Chronicity: acute Back pain laterality: bilateral Sciatica presence: without sciatica Qualified Code(s): M54.5 - Low back pain (3) HTN (hypertension) Current Visit: Yes Status: Acute Qualifiers: Hypertension type: essential hypertension Qualified Code(s): I10 - Essential (primary) hypertension - Plan The patient will be admitted to the hospital for pain control. He has significant lipase elevation with normal amylase level, no clinical presentation consistent with pancreatitis, CT and US abd negative. Will consult Dr Nunez for evaluation and recommendations. Order lumbar spine MRI. - Advance Directives Does patient have a Living Will: No Does patient have a Durable POA for Healthcare: No - Code Status/Comfort Care Code Status Assessed: Yes Code Status: Full Code
[2019-01-05] MEDS ORDERED: KETOROLAC 30 MG/ML INJ IV PRN (01:05)
[2019-01-05] MEDS ORDERED: ONDANSETRON 4 MG/2 ML VIAL IV PRN (01:05)
[2019-01-05] MEDS: NA CHLORIDE 0.9% 1,000 ML IV SCH ×4 (01:55→23:12)
[2019-01-05 06:02] LABS: Absolute Lymphocytes (CBC) 1.8 K/uL (0.7-4.9); Absolute Monocytes 0.7 K/uL (0.1-1.3); Absolute Neutrophil 3.1 K/uL (1.8-8.0); Basophils % 0.5 % (0-1.3); Eosinophils % 2.1 % (0-4.4); Lymphocytes % 30.3 % (15.3-44.8); MPV 9.1 fL (7.6-11.3); Monocytes % 12.8 % (3.3-12.3); RBC Red Blood Cell Count 5.22 M/uL (4.33-5.43)
[2019-01-05 06:37] LABS: BUN Blood Urea Nitrogen 19 mg/dL (7-18); Bicarbonate 27 mmol/L (21-32); Glucose Level 121 mg/dL (74-106); HDL Cholesterol 30 mg/dL (40-60); LDL Cholesterol, Calculated 67 (<130); Lipase 440 U/L (73-393); Potassium 4.5 mmol/L (3.5-5.1); Sodium Level 141 mmol/L (136-145)
--- NOTE | 2019-01-05 08:11 | RAD REPORT ---
EXAM DESCRIPTION: US - Abdomen Exam Limited - 01/04/2019 9:57 pm CLINICAL HISTORY: right upper abdominal pain COMPARISON: No comparisons FINDINGS: The gallbladder demonstrates no gallstones. No pericholecystic fluid or gallbladder wall t hickening. The common bile duct is normal measuring 4 mm. The liver demonstrates fatty liver. IMPRESSION: Negative gallbladder/ biliary tree findings. Fatty liver.
[2019-01-05 09:47] LABS: Urine Appearance CLEAR; Urine Bilirubin NEGATIVE (NEG); Urine Blood NEGATIVE (NEG); Urine Color YELLOW; Urine Glucose NEGATIVE (NEG); Urine Protein NEGATIVE (NEG); Urine Specific Gravity >=1.030 (1.005-1.030); Urine Urobilinogen 0.2 mg/dL (0.2-1.0)
[2019-01-05 09:51] LABS: Urine Microscopic Reflex NO UMIC
[2019-01-05] MEDS ORDERED: HYDROMORPHONE HCL 2 MG/ML inj IV PRN (12:58)
--- NOTE | 2019-01-05 15:48 | ECHO ---
HEIGHT: 5 ft 9 in WEIGHT: 237 lb 14.4 oz DATE OF STUDY: 01/05/[address]: Mitch Nunez MD 2-DIMENSIONAL: YES M.MODE: YES DOPPLER: YES COLOR FLOW: YES TDS: NO PORTABLE: NO DEFINITY: NO BUBBLE STUDY: NO DIAGNOSIS: EVALUATE CHF REPORTED BY PATIENT/ NEEDS IV FLUIDS CARDIAC HISTORY: CATHERIZATION: NO SURGERY: NO PROSTHETIC VALVE: NO PACEMAKER: NO MEASUREMENTS (cm) DIASTOLIC (NORMALS) SYSTOLIC (NORMALS) IVSd 0.8 (0.6-1.2) LA Diam 3.1 (1.9-4.0) LVEF 69% LVIDd 4.7 (3.5-5.7) LVIDs 2.9 (2.0-3.5) %FS 39% LVPWd 1.1 (0.6-1.2) Ao Diam 3.0 (2.0-3.7) 2 DIMENSIONAL ASSESSMENT: RIGHT ATRIUM: NORMAL LEFT ATRIUM: NORMAL RIGHT VENTRICLE: NORMAL LEFT VENTRICLE: NORMAL TRICUSPID VALVE: NORMAL MITRAL VALVE: NORMAL PULMONIC VALVE: NORMAL AORTIC VALVE: NORMAL PERICARDIAL EFFUSION: NONE AORTIC ROOT: NORMAL LEFT VENTRICULAR WALL MOTION: NORMAL. DOPPLER/COLOR FLOW: TRACE OF TRICUSPID REGURGITATION. NORMAL RIGHT VENTRICULAR SYSTOLIC PRESSURE. COMMENTS: NORMAL 2D ECHO. TRACE OF TRICUSPID REGURGITATION. TECHNOLOGIST: SAMINA MERAZ
[2019-01-06] MEDS: NA CHLORIDE 0.9% 1,000 ML IV SCH (05:29)
[2019-01-06 06:33] LABS: Absolute Lymphocytes (CBC) 1.7 K/uL (0.7-4.9); Absolute Monocytes 0.5 K/uL (0.1-1.3); Absolute Neutrophil 2.6 K/uL (1.8-8.0); BUN Blood Urea Nitrogen 10 mg/dL (7-18); Basophils % 0.3 % (0-1.3); Bicarbonate 31 mmol/L (21-32); Glucose Level 107 mg/dL (74-106); Hematocrit 42.7 % (39.6-49.0); Lipase 176 U/L (73-393); Lymphocytes % 34.4 % (15.3-44.8); MPV 8.8 fL (7.6-11.3); Monocytes % 10.7 % (3.3-12.3); NT PRO-BNP 135 pg/mL (<125); Sodium Level 143 mmol/L (136-145)
--- NOTE | 2019-01-06 14:22 | P.SSS ---
Patient History Date of Service: 01/06/19 Reason for admission: pancreatitis, lower back pain History of Present Illness: Mr Pro is a 38 years old male with history of HTN and CHF, who presented to ED complaining of severe lower back pain. his symptoms started this morning, he describe the pain as cramps. He denied nausea or vomiting, no diarrhea either. No history of fever. Lab work was remarkable for significant elevation of lipase but normal amylase. CT abd/pelvis shows no acute abnormalities. US abdomen preliminary report says fatty liver, no stones seen. At my encounter the patient was in non-distress. Allergies codeine Allergy (Verified 01/05/19 01:10) Shortness of breath Penicillins Allergy (Verified 01/05/19 01:10) Shortness of breath Home Medications: Furosemide [Lasix] 40 mg PO DAILY 01/05/19 Lisinopril 10 mg PO DAILY 01/05/19 - Past Medical/Surgical History Has patient received pneumonia vaccine in the past: No Diabetic: No -: HTN -: CHF -: hernia repair - Family History Father -: Hypertension, Diabetes Mother -: Hypertension, Diabetes - Social History Smoking Status: Former smoker Alcohol use: Yes CD- Drugs: No Caffeine use: Yes Place of Residence: Home Review of Systems 10-point ROS is otherwise unremarkable Physical Examination - Vital Signs Temperature: 97.4 F Blood Pressure: 139/87 Pulse: 63 Respirations: 16 Pulse Ox (%): 98 - Physical Exam General: Alert, In no apparent distress HEENT: Atraumatic, PERRLA, Mucous membr. moist/pink, EOMI, Sclerae nonicteric Neck: Supple, 2+ carotid pulse no bruit, No LAD, Without JVD or thyroid abnormality Respiratory: Clear to auscultation bilaterally, Normal air movement Cardiovascular: Regular rate/rhythm, Normal S1 S2 Gastrointestinal: Normal bowel sounds, No tenderness Musculoskeletal: No tenderness Integumentary: No rashes Neurological: Normal gait, Normal speech, Normal strength at 5/5 x4 extr, Normal tone, Normal affect Lymphatics: No axilla or inguinal lymphadenopathy - Diagnosis (Problem(s)) (1) Pancreatitis Status: Acute Qualifiers: Chronicity: acute Pancreatitis type: unspecified pancreatitis type Acute pancreatitis complication: unspecified Qualified Code(s): K85.90 - Acute pancreatitis without necrosis or infection, unspecified (2) HTN (hypertension) Status: Chronic Qualifiers: Hypertension type: essential hypertension Qualified Code(s): I10 - Essential (primary) hypertension Treatment Summary: Overall during the hospital stay patient remained stable Patient was initially admitted to the hospital for acute pancreatitis with elevated lipase most likely secondary to dietary habits. Patient was kept NPO on IV fluids here in the hospital. Patient had marked improvement in his symptoms and thus was switched over to full liquid diet patient tolerated diet well and thus was advanced to a GI soft. Once patient was able to tolerate his diet well. Patient then was discharged home under stable condition was asked to follow up with primary care provider in about 1-2 days post discharge. - Disposition Disposition: ROUTINE DISCHARGE Condition: GOOD Diet: Regular Activity: Ad mandy
== END 2019-01-06 12:25 | disposition home or self-care (01) | DRG 440 ==
LOC: ER 18:18 → ERHOLD 01-05 00:10 → 2ND 01-05 00:41
PROVIDERS: ADMIT Internal Medicine; ATTEND Family Medicine
DX: K85.90 Acute pancreatitis without necrosis or infection, unspecified (principal); Z88.5 Allergy status to narcotic agent; Z88.0 Allergy status to penicillin; Z87.891 Personal history of nicotine dependence; R74.8 Abnormal levels of other serum enzymes; M54.5 Low back pain; I11.0 Hypertensive heart disease with heart failure; I50.9 Heart failure, unspecified
CPT/HCPCS: 36415; 74177; 76705; 80048; 80061; 80076; 81003; 82150; 83690; 83880; 85025; 93306; 96361; 96374; 96375; 99285; J2405; J3010; J3360; J7030; Q9967

== ENCOUNTER 2019-05-22 10:02 | Emergency (ER) | payer SELFPAY ==
--- OUTSIDE RECORDS SUMMARY | 2019-05-22 10:05 | XMS REPORT ---
:1980 Author Organization [facility] Address [address] [place] [address] Care Team Providers Name Role Phone Unavailable Unavailable Unavailable Problems This patient has no known problems. Allergies, Adverse Reactions, Alerts This patient has no known allergies or adverse reactions. Medications This patient has no known medications. Encounters Start End Encounter Admission Attending Care Care Encounter Date/Time Date/Time Type Type Clinicians Facility Department ID 2018-10-08 2018-10-08 Emergency [facility] [id number] 17:49:44 17:49:44 2018-10-08 2018-10-08 Emergency [facility] [id number] 15:26:07 15:26:07 Results Test Description Test Time [...]
--- OUTSIDE RECORDS SUMMARY | 2019-05-22 10:05 | XMS REPORT | Continuity of Care Document ---
:1980 Author Organization [employer] Care Team Providers Name Role Phone [employer] Unavailable Unavailable Problems Problem Status Onset Date Classification Date Comments Source Reported LOW BACK Active [facility] Medications No Data Provided for This Section Allergies, Adverse Reactions, Alerts No Known Medication Allergies Immunizations No Data Provided for This Section Results No Data Provided for This Section Pathology Reports No Data Provided for This Section Diagnostic Reports No Data Provided for This Section Consultation Notes No Data Provided for This Section Discharge Summaries No Data Provided for This Section History and Physicals No Data Provided for This Section Vital Signs No Data Provided for This Section Encounters Location Location Encounter Encounter Reason Attending ADM DC Status Source Details Type Number For Provider Date Date Visit [facility] [id number] 12/12 [facility] [id number] [facility] 01/10 02/09 [facility] [id number] 02/12 [facility] Procedures No Data Provided for This Section Assessment and Plan No Data Provided for This Section Plan of Care No Data Provided for This Section Social History Social History Date Source No data available for this 03/14/2016 [facility] section Family History No Data Provided for This Section Advance Directives No Data Provided for This Section Functional Status No Data Provided for This Section
--- OUTSIDE RECORDS SUMMARY | 2019-05-22 10:05 | XMS REPORT | Clinical Summary ---
:1980 Author Organization [facility] Address [address] [place] [address] Care Team Providers Name Role Phone Unavailable [...] reflux disease, esophagitis presence not specified after 05/21/2018 Social History Tobacco Use Types Packs/Day Years Used Date Never Smoker Alcohol Use Drinks/Week oz/Week Comments Yes Sex Assigned at Date Recorded Not on file Job Start Date Occupation Industry Not on file Not on file Not on file Travel History Travel Start Travel End No recent travel history available. Last Filed Vital Signs Vital Sign Reading Time Taken Comments Blood Pressure 138/76 10/08/2018 8:00 PM [employer] Pulse 78 10/08/2018 8:00 PM [employer] Temperature 36.9 C (98.4 F) 10/08/2018 8:00 PM [employer] Respiratory Rate 18 10/08/2018 8:00 PM [employer] Oxygen Saturation 99% 10/08/2018 8:00 PM [employer] Inhaled Oxygen Concentration - - Weight - - Height - - Body Mass Index - - Plan of Treatment Health Maintenance Due Date Last Done Comments IMM Influenza Seasonal Aug to January (>/=19 yrs) 08/11/2019 Procedures Procedure Name Priority Date/Time Associated Comments Diagnosis XRAY CHEST 2 VIEWS STAT 10/08/2018 6:12 RUQ pain Results for this PM [employer] procedure are in the results section. TROPONIN I POC Routine 10/08/2018 5:00 Results for this PM [employer] procedure are in the results section. VBG POC Routine 10/08/2018 4:54 Results for this PM [employer] procedure are in the results section. 12 LEAD EKG STAT 10/08/2018 4:43 Results for this PM [employer] procedure are in the results section. URINALYSIS STAT 10/08/2018 4:05 Results for this PM [employer] procedure are in the results section. TROPONIN I POC Routine 10/08/2018 1:30 Results for this PM [employer] procedure are in the results section. 12 LEAD EKG STAT 10/08/2018 12:58 Results for this PM [employer] procedure are in the results section. POCT BNP (B-TYPE Routine 10/08/2018 11:09 Results for this NATRIURETIC PEPTIDE) AM [employer] procedure are in the results section. BMP POC Routine 10/08/2018 11:04 Results for this AM [employer] procedure are in the results section. TROPONIN I POC Routine 10/08/2018 11:02 Results for this AM [employer] procedure are in the results section. B-TYPE NATRIURETIC STAT 10/08/2018 11:02 Results for this PEPTIDE (BNP) AM [employer] procedure are in the results section. HIV-1/HIV-2 ROUTINE STAT 10/08/2018 11:02 Results for this SCREENING AM [employer] procedure are in the results section. LIPASE STAT 10/08/2018 11:02 Results for this AM [employer] procedure are in the results section. LIVER PROFILE STAT 10/08/2018 11:02 Results for this AM [employer] procedure are in the results section. CBC/DIFF STAT 10/08/2018 11:02 Results for this AM [employer] procedure are in the results section. 12 LEAD EKG Routine 10/08/2018 10:55 Results for this AM [employer] procedure are in the results section. after 05/21/2018 Results XRAY CHEST 2 VIEWS (10/08/2018 6:12 PM [employer]) Specimen Impressions Performed At [facility]: [facility] No acute thoracic abnormality. A "PRELIMINARY" report was made available via [employer] at the time of dictation by the [...] Interface, Rad/Mammog In - 10/08/2018 9:05 PM [employer] EXAMINATION: XRAY CHEST 2 VIEWS, Frontal and lateral INDICATION: ruq pain, radiates up to chest COMPARISON: None FINDINGS: TUBES/LINES: None LUNGS AND PLEURA: No consolidations or edema. No effusions or pneumothorax. HEART/MEDIASTINUM: Normal cardiomediastinal silhouette. MUSCULOSKELETAL: No acute findings. UPPER ABDOMEN: No acute findings. SOFT TISSUES: No acute findings. IMPRESSION IMPRESSION: No acute thoracic abnormality. A "PRELIMINARY" report was made available via Kabam at the time of dictation by the [...] MD, 10/08/2018 8:59 PM Performing Organization Address [facility] Phone Number SMS TROPONIN I POC (10/08/2018 5:00 PM [employer])Only the most recent of3 resultswithin the time period is included. Troponin POC 0.00 0.00 - 0.08 ng/mL BT MAIN-STATION 1 Specimen Performing Organization Address City/[facility] Phone Number MISYS BT MAIN-STATION 1 VBG POC (10/08/2018 4:54 PM [employer]) pH, May POC 7.38 7.33 - 7.43 [...] 21 - 32 mmol/L BT MAIN-STATION 1 Specimen Performing Organization Address 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 Measurements IntervalsAxis Rate: 73 P: 21 AK: 125QRS: 37 QRSD: 98 T: 29 QT: 361 QTc:399 Interpretive Statements SINUS RHYTHM Reviewed by Electronically Signed On 10-08-2018 18:15:00 [employer] by Jostin Garcia M.D. Specimen Performing Organization Address [facility] Phone Number [facility] UA CHEMISTRIES (10/08/2018 4:05 PM [employer]) Color Yellow BT MAIN-STATION 3 Clarity Clear BT MAIN-STATION 3 Specific Ennis 1.023 1.001 - 1.035 BT MAIN-STATION 3 pH 5.0 5 - 8 BT MAIN-STATION 3 Protein Negative NEG BT MAIN-STATION 3 Glucose Negative NEG BT MAIN-STATION 3 Ketones Negative NEG BT MAIN-STATION 3 Bilirubin Negative NEG BT MAIN-STATION 3 Nitrate Negative NEG BT MAIN-STATION 3 Urobilinogen,Semi-Qn <1.0 0.2 - 1.0 EU/dL BT MAIN-STATION 3 Leukocyte Negative NEG BT MAIN-STATION 3 Occult Blood Negative NEG BT MAIN-STATION 3 Specimen Urine Performing Organization Address 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 Measurements IntervalsAxis Rate: 86 P: 5 AK: 118QRS: 40 QRSD: 95 T: 24 QT: 343 QTc:411 Interpretive Statements SINUS RHYTHM WITH SHORT AK INTERVAL LOW QRS VOLTAGE IN PRECORDIAL LEADS Electronically Signed On 10-09-2018 13:58:20 [employer] by Jostin Garcia M.D. Specimen Performing Organization Address [facility] Phone Number [facility] POCT BNP (BRAIN NATRIURETIC PEPTIDE) (10/08/2018 11:09 AM [employer]) B Natr Pept POC 28 0 - 100 pg/mL BT MAIN-STATION 1 Specimen Performing Organization Address [facility] Phone Number MISYS BT MAIN-STATION 1 BMP POC (10/08/2018 11:04 AM [employer]) CO2 POC 27Comment: 21 - 32 mmol/L [...] Afr-Am >60 mL/min/1.73 m2 BT MAIN-STATION 1 Specimen Performing Organization Address [facility] Phone Number MISYS MAIN-STATION 1 HIV-1/HIV-2 ROUTINE SCREENING (10/08/2018 11:02 AM [employer]) HIV-1/HIV-2 Negative NEG BT MAIN-STATION 2 Specimen Performing Organization Address [facility] Phone Number MISYS MAIN-STATION 2 B-TYPE NATRIURETIC PEPTIDE (BNP) (10/08/2018 11:02 AM [employer]) B Natriuretic Pept 24 <101 pg/mL BT MAIN-STATION 1 Specimen Blood Performing Organization Address [facility] Phone Number MISYS MAIN-STATION 1 LIVER PROFILE (10/08/2018 11:02 AM [employer]) Protein, Total, Serum 6.7 6.0 - 8.3 g/dL BT MAIN-STATION 1 Albumin 4.1 (L) 4.2 - 5.5 g/dL BT MAIN-STATION 1 Bilirubin, Total 0.2 0.2 - 1.2 mg/dL BT MAIN-STATION 1 Alkaline Phosphatase, 101 34 - 104 U/L BT MAIN-STATION 1 S AST (SGOT) 16 13 - 39 U/L BT MAIN-STATION 1 ALT 36 7 - 52 U/L BT MAIN-STATION 1 D Bilirubin 0.1 0.0 - 0.2 mg/dL BT MAIN-STATION 1 Specimen Blood Performing Organization Address [facility] Phone Number MISYS BT MAIN-STATION 1 LIPASE (10/08/2018 11:02 AM [employer]) Lipase 12 11 - 82 U/L BT MAIN-STATION 1 Specimen Blood Performing Organization Address [facility] Phone Number MISYS MAIN-STATION 1 CBC/DIFF (10/08/2018 11:02 AM [employer]) WBC 5.7 4.5 - 12.0 K/uL BT MAIN-STATION 2 RBC 5.15 4.60 - 6.20 BT MAIN-STATION 2 M/uL Hemoglobin 14.8 14.0 - 18.0 BT MAIN-STATION 2 g/dL Hematocrit 45.8 40.0 - 54.0 % BT MAIN-STATION 2 MCV 89 82 - 92 fL BT MAIN-STATION 2 MCH 28.7 27.0 - 31.0 pg BT MAIN-STATION 2 MCHC 32.3 32.0 - 36.0 BT MAIN-STATION 2 g/dL RDW 40.6 35.1 - 43.9 fL BT MAIN-STATION 2 Platelets 282 150 - 400 K/uL BT MAIN-STATION 2 Mean Platelet Volume 10.3 9.4 - 12.4 fL BT MAIN-STATION 2 Percent NRBC 0.0 BT MAIN-STATION 2 Absolute NRBC 0.00 BT MAIN-STATION 2 Neutrophils 57.9 34.0 - 67.9 % BT MAIN-STATION 2 Lymphs 26.7 21.8 - 50.0 % BT MAIN-STATION 2 Monocytes 12.8 (H) 5.3 - 12.0 % BT MAIN-STATION 2 Eos 1.8 0.8 - 5.0 % BT MAIN-STATION 2 Basos 0.4 0.2 - 1.2 % BT MAIN-STATION 2 Immature Granulocytes 0.4 0.0 - 0.5 BT MAIN-STATION 2 Neutrophils (Absolute) 3.31 1.78 - 5.36 BT MAIN-STATION 2 K/uL Lymphs (Absolute) 1.52 1.32 - 3.57 BT MAIN-STATION 2 K/uL Monocytes(Absolute) 0.73 0.30 - 0.82 BT MAIN-STATION 2 K/uL Eos (Absolute) 0.10 0.04 - 0.54 BT MAIN-STATION 2 K/uL Baso (Absolute) 0.02 0.01 - 0.08 BT MAIN-STATION 2 K/uL Immature Grans (Abs) 0.02 0.00 - 0.03 BT MAIN-STATION 2 K/uL Specimen Blood Performing Organization Address City/State/Zipcode Phone Number MISYS BT MAIN-STATION 2 12 LEAD EKG (10/08/2018 10:55 AM [employer]) 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 Measurements IntervalsAxis Rate: 88 P: 9 AK: 121QRS: 44 QRSD: 101T: 30 QT: 327 QTc:397 Interpretive Statements SINUS RHYTHM Electronically Signed On 10-08-2018 13:18:20 [employer] by Jostin Garcia M.D. Specimen Performing Organization Address City/State[facility] Phone Number SMS after 05/21/2018 Insurance Payer Benefit Plan / Subscriber ID Effective Dates Phone Address Type Group HD SELF-PAY xxxxxxxxx 2018-Pres [phone] SELF-PAY UNSCREENED ent [address] [place] [id number]
[2019-05-22 10:57] LABS: Absolute Lymphocytes (CBC) 1.5 K/uL (0.7-4.9); Basophils % 0.5 % (0-1.3); Eosinophils % 2.2 % (0-4.4); Hematocrit 46.1 % (39.6-49.0); MPV 8.3 fL (7.6-11.3); Monocytes % 9.5 % (3.3-12.3); RBC Red Blood Cell Count 5.32 M/uL (4.33-5.43)
[2019-05-22] MEDS ORDERED: PROMETHAZINE 25 MG/ML VIAL ONE (11:07)
[2019-05-22] MEDS ORDERED: NA CHLORIDE 0.9% 1,000 ML ONE (11:07)
[2019-05-22 11:17] LABS: Potassium 3.5 mmol/L (3.5-5.1)
--- NOTE | 2019-05-22 11:48 | ER ---
Nurse's Notes [facility] Name: Javad Pro Age: 38 yrs Sex: Male : 1980 Arrival Date: 05/22/2019 Time: 10:05 Bed 23 Private MD: Unknown, Unknown Diagnosis: Vomiting;Upper abdominal pain, unspecified Presentation: 05/22 10:14 Presenting complaint: Patient states: I have had a problem with nausea and vomiting for la1 the last three years. Today I have worse pain than normal in my abd. Pt reports being seen for this complaint more than 10 times but unable to FU with GI. Transition of care: patient was not received from another setting of care. Onset of symptoms was May 22, 2019. Risk Assessment: Do you want to hurt yourself or someone else? Patient reports no desire to harm self or others. Initial Sepsis Screen: Does the patient meet any 2 criteria? No. Patient's initial sepsis screen is negative. Does the patient have a suspected source of infection? No. Patient's initial sepsis screen is negative. Care prior to arrival: None. 10:14 Method Of Arrival: Ambulatory la1 10:14 Acuity: MOIZ 3 la1 Historical: - Allergies: 10:15 Codeine; la1 10:15 PENICILLINS; la1 - PMHx: 10:15 CHF; Hypertension; la1 - Immunization history:: Adult Immunizations up to date. - Social history:: Smoking status: Patient/guardian denies using tobacco. - Ebola Screening: : No symptoms or risks identified at this time. Screenin:00 Abuse screen: Denies threats or abuse. Denies injuries from another. Nutritional iw screening: No deficits noted. Tuberculosis screening: No symptoms or risk factors identified. Fall Risk IV access (20 points). Assessment: 10:59 General: Appears in no apparent distress. Behavior is calm, cooperative. Pain: iw Complains of pain in left upper quadrant and right upper quadrant. Neuro: Level of Consciousness is awake, alert, obeys commands, Oriented to person, place, time, situation, Moves all extremities. Full function. Cardiovascular: Patient's skin is warm and dry. Respiratory: Respiratory effort is even, unlabored, Respiratory pattern is regular, symmetrical. GI: Abdomen is obese, Bowel sounds present X 4 quads. Reports upper abdominal pain. Derm: Skin is intact, is healthy with good turgor. Musculoskeletal: Range of motion: intact in all extremities. Vital Signs: 10:15 BP 143 / 89; Pulse 86; Resp 16; Temp 97.6; Pulse Ox 98% on R/A; Weight 117.93 kg; la1 Height 5 ft. 9 in. (175.26 cm); 10:15 Body Mass Index 38.39 (117.93 kg, 175.26 cm) la1 ED Course: 10:05 Patient arrived in ED. ag5 10:05 Unknown, Unknown is Private Physician. ag5 10:09 [facility]C [facility] snw 10:09 Gregg Hu MD is Attending Physician. snw 10:15 Triage completed. la1 10:16 Arm band placed on right wrist. la1 10:21 Alyce Lyman, RN is Primary Nurse. iw 10:40 Initial lab(s) drawn, by me, sent to lab. Inserted saline lock: 20 gauge in right iw antecubital area, using aseptic technique. Blood collected. 11:39 US Abdomen Limited In Process Unspecified. EDMS Administered Medications: 10:58 Drug: NS 0.9% 1000 ml Route: IV; Rate: 125 ml/hr; Site: right antecubital; iw 10:58 Drug: Phenergan 6.25 mg Route: IVP; Site: right antecubital; iw Outcome: 11:48 Discharge ordered by . snw 12:03 Patient left the ED. iw Signatures: Dispatcher [employer] EDMS Charlee Quiroz FNP-C [employer] Alyce Lyman RN RN iw Jose Rafael Ruelas RN RN la1 Sandor Dominguez ag5 Corrections: (The following items were deleted from the chart) 10:16 10:14 Presenting complaint: Patient states: I have had a problem with nausea and la1 vomiting for the last three years. Today I have worse pain than normal in my abd la1
--- NOTE | 2019-05-22 11:49 | RAD REPORT ---
EXAM DESCRIPTION: US - Abdomen Exam Limited - 05/22/2019 11:39 am CLINICAL HISTORY: Abdominal pain COMPARISON: None. FINDINGS: No gallstones, sludge or other abnormalities within the gallbladder lumen. There is no wal l thickening or pericholecystic fluid. No pain with transducer pressure over the right upper quadrant . No common duct stone or biliary tree dilatation identified. Liver echogenicity is somewhat coarsened. The liver is not fully assessed on a gallbladder study. However, finding does suggest borderline or mild fatty infiltration. IMPRESSION: Normal gallbladder and biliary tree ultrasound. Suspected borderline or mild fatty infiltration. Liver is not fully assessed on this study.
--- NOTE | 2019-05-22 11:49 | EDPHYS ---
Physician Documentation [facility] Name: Javad Pro Age: 38 yrs Sex: Male : 1980 Arrival Date: 05/22/2019 Time: 10:05 Bed 23 Private MD: Unknown, Unknown ED Physician Gregg Hu HPI: 05/22 10:54 This 38 yrs old Male presents to ER via Ambulatory with complaints of snw Nausea/Vomiting. 10:54 The patient presents to the emergency department with nausea, vomiting. Onset: The snw symptoms/episode began/occurred suddenly, suddenly this am. Possible causes: unknown. Associated signs and symptoms: Pertinent positives: abdominal pain, nausea, vomiting. Severity of symptoms: At their worst the symptoms were moderate severe in the emergency department the symptoms are unchanged. The patient has experienced similar episodes in the past. The patient has not recently seen a physician. awoke with severe vomiting this am. Historical: - Allergies: 10:15 Codeine; la1 10:15 PENICILLINS; la1 - PMHx: 10:15 CHF; Hypertension; la1 - Immunization history:: Adult Immunizations up to date. - Social history:: Smoking status: Patient/guardian denies using tobacco. - Ebola Screening: : No symptoms or risks identified at this time. ROS: 10:53 Constitutional: Negative for fever, chills, and weight loss, Eyes: Negative for injury, snw pain, redness, and discharge, ENT: Negative for injury, pain, and discharge, Neck: Negative for injury, pain, and swelling, Cardiovascular: Negative for chest pain, palpitations, and edema, Respiratory: Negative for shortness of breath, cough, wheezing, and pleuritic chest pain, Back: Negative for injury and pain, : Negative for injury, bleeding, discharge, and swelling, MS/Extremity: Negative for injury and deformity, Skin: Negative for injury, rash, and discoloration, Neuro: Negative for headache, weakness, numbness, tingling, and seizure. 10:53 Abdomen/GI: Positive for abdominal pain, nausea, vomiting, abdominal distension, of the right upper quadrant and left upper quadrant. Exam: 10:52 Constitutional: This is a well developed, well nourished patient who is awake, alert, snw and in no acute distress. Head/Face: Normocephalic, atraumatic. Eyes: Pupils equal round and reactive to light, extra-ocular motions intact. Lids and lashes normal. Conjunctiva and sclera are non-icteric and not injected. Cornea within normal limits. Periorbital areas with no swelling, redness, or edema. ENT: Nares patent. No nasal discharge, no septal abnormalities noted. Tympanic membranes are normal and external auditory canals are clear. Oropharynx with no redness, swelling, or masses, exudates, or evidence of obstruction, uvula midline. Mucous membranes moist. Neck: Trachea midline, no thyromegaly or masses palpated, and no cervical lymphadenopathy. Supple, full range of motion without nuchal rigidity, or vertebral point tenderness. No Meningismus. Chest/axilla: Normal chest wall appearance and motion. Nontender with no deformity. No lesions are appreciated. Cardiovascular: Regular rate and rhythm with a normal S1 and S2. No gallops, murmurs, or rubs. Normal PMI, no JVD. +mild pedal edema. No pulse deficits. Respiratory: Lungs have equal breath sounds bilaterally, clear to auscultation and percussion. No rales, rhonchi or wheezes noted. No increased work of breathing, no retractions or nasal flaring. Back: No spinal tenderness. No costovertebral tenderness. Full range of motion. Skin: Warm, dry with normal turgor. Normal color with no rashes, no lesions, and no evidence of cellulitis. MS/ Extremity: Pulses equal, no cyanosis. Neurovascular intact. Full, normal range of motion. Neuro: Awake and alert, GCS 15, oriented to person, place, time, and situation. Cranial nerves II-XII grossly intact. Motor strength 5/5 in all extremities. Sensory grossly intact. Cerebellar exam normal. Normal gait. Psych: Awake, alert, with orientation to person, place and time. Behavior, mood, and affect are within normal limits. 10:52 Abdomen/GI: Inspection: gravid appearance, firm, Bowel sounds: diminished, in all quadrants, Palpation: mild abdominal tenderness, in the right upper quadrant and left upper quadrant. Vital Signs: 10:15 BP 143 / 89; Pulse 86; Resp 16; Temp 97.6; Pulse Ox 98% on R/A; Weight 117.93 kg; la1 Height 5 ft. 9 in. (175.26 cm); 10:15 Body Mass Index 38.39 (117.93 kg, 175.26 cm) la1 MDM: 10:28 Patient medically screened. snw 11:12 Data reviewed: vital signs, nurses notes. Data interpreted: Pulse oximetry: on room air snw is 98 %. Interpretation: normal. Counseling: I had a detailed discussion with the patient and/or guardian regarding: the historical points, exam findings, and any diagnostic results supporting the discharge/admit diagnosis, the presence of at least one elevated blood pressure reading (>120/80) during this emergency department visit, lab results, radiology results. ED course: Pt to US per W/C. 11:48 Response to treatment: the patient's symptoms have mildly improved after treatment. snw Special discussion: Based on the patient's Hx, exam, and Dx evaluation, there is no indication for emergent surgery or inpatient Tx. It is understood by the patient/guardian that if the Sx's persist or worsen they need to return immediately for re-evaluation. I have referred the patient to see his PCP for further evaluation of high blood pressure. Based on the history and exam findings, there is no indication for further emergent testing or inpatient evaluation. I discussed with the patient/guardian the need to see the medical billing clerk for further evaluation of the symptoms. I discussed with the patient/guardian the need to see the primary care provider for further evaluation of the symptoms. 05/22 10:33 Order name: CBC with Diff; Complete Time: 11:00 snw 05/22 10:33 Order name: Chem 7; Complete Time: 11:23 snw 05/22 10:33 Order name: Lipase; Complete Time: 11:23 snw 05/22 10:33 Order name: US Abdomen Limited; Complete Time: 11:54 snw 05/22 10:33 Order name: Blood Culture Adult (2) snw Administered Medications: 10:58 Drug: NS 0.9% 1000 ml Route: IV; Rate: 125 ml/hr; Site: right antecubital; iw 10:58 Drug: Phenergan 6.25 mg Route: IVP; Site: right antecubital; iw Disposition: 12:09 Co-signature as Attending Physician, Gregg Hu MD. rn Disposition: 05/22/19 11:48 Discharged to Home. Impression: Vomiting, Upper abdominal pain, unspecified. - Condition is Stable. - Discharge Instructions: Abdominal Pain, Adult, Fat and Cholesterol Restricted Diet, Hypertension, Nausea and Vomiting, Adult. - Prescriptions for promethazine 25 mg Oral Tablet - take 1 tablet by ORAL route every 6 hours As needed; 20 tablet. - Medication Reconciliation Form, Thank You Letter, Antibiotic Education, Prescription Opioid Use, Work release form form. - Follow up: Private Physician; When: 2 - 3 days; Reason: Recheck today's complaints, Continuance of care, Re-evaluation by your physician. Follow up: Emergency Department; When: As needed; Reason: Worsening of condition. Signatures: Dispatcher [employer] EDMS Charlee Quiroz, KASHIF-C CLOTH EXAMINER-Csnw Alyce Lyman RN RN iw Gregg Hu MD MD rn Attema, Lee, RN RN la1 Corrections: (The following items were deleted from the chart) 12:03 11:48 05/22/2019 11:48 Discharged to Home. Impression: Vomiting; Upper abdominal pain, iw unspecified. Condition is Stable. Forms are Medication Reconciliation Form, Thank You Letter, Antibiotic Education, Prescription Opioid Use. Follow up: Private Physician; When: 2 - 3 days; Reason: Recheck today's complaints, Continuance of care, Re-evaluation by your physician. Follow up: Emergency Department; When: As needed; Reason: Worsening of condition. snw
== END 2019-05-22 12:03 | disposition home or self-care (01) ==
LOC: ER 10:02
DX: R10.10 Upper abdominal pain, unspecified (principal); Z88.0 Allergy status to penicillin; Z88.6 Allergy status to analgesic agent
CPT/HCPCS: 36415; 76705; 80048; 83690; 85025; 87040; 96374; 99284; J2550; J7030

== ENCOUNTER 2019-09-25 09:40 | Emergency (ER) | payer OTHER, SELFPAY ==
--- OUTSIDE RECORDS SUMMARY | 2019-09-25 09:42 | XMS REPORT ---
:1980 Author Organization [facility] Address [address] [place] [address] Care Team Providers Name Role Phone Unavailable Unavailable Unavailable Problems This patient has no known problems. Allergies, Adverse Reactions, Alerts This patient has no known allergies or adverse reactions. Medications This patient has no known medications. Encounters Start End Encounter Admission Attending Care Care Encounter Date/Time Date/Time Type Type Clinicians Facility Department ID 2018-10-08 2018-10-08 Emergency [facility] [id number] 17:49:44 17:49:44 2018-10-08 2018-10-08 Emergency [facility] [id number] 15:26:07 15:26:07 Results Test Description Test Time [...]
--- OUTSIDE RECORDS SUMMARY | 2019-09-25 09:43 | XMS REPORT | Summary of Care ---
:1980 Author Organization [facility] Address [address] [place] [id number] Care Team Providers Name Role Phone González Crowley MD Primary Care Provider Reason for Visit Reason Comments Hand Pain right Auth/Cert Status Reason Specialty Diagnoses / Referred By Referred To Procedures Contact Contact [facility] [address] [place] [address] [place] [address] Encounter Details Date Type Department Care Team Description 06/26/2019 Emergency [facility] Albert Byrd Closed nondisplaced Department III, [place] fracture of proximal [address] [place] [address] [place] [address] DR barrios, initial [phone] [place] [address] encounter (Primary Dx) [phone] Allergies Active Allergy Reactions Severity Noted Date Comments Codeine Nausea and/or Vomiting Low 09/17/2016 Penicillins Itching Low 09/17/2016 documented as of this encounter (statuses as of 06/27/2019) Medications Medication Sig Dispensed Refills Start Date End Date Status ranitidine (ZANTAC) Take 1 tablet 30 tablet 1 11/16/2018 Active 150 mg tablet by mouth 2 (two) times daily. Follow up with your MD for further evaluation and treatment. ondansetron (ZOFRAN) Take 1 tablet 12 tablet 0 04/28/2019 Active 4 mg by mouth every tabletIndications: 8 (eight) hours SOB (shortness of as needed for breath), Edema, Nausea and unspecified type Vomiting (N/V). furosemide 40 mg Take 1 tablet 90 tablet 1 04/30/2019 Active tabletIndications: by mouth daily. Essential hypertension lisinopril 20 mg Take 1 tablet 90 tablet 1 05/27/2019 Active tabletIndications: by mouth daily. Essential hypertension traMADol 50 mg Take 1 tablet 30 tablet 0 05/28/2019 Active tabletIndications: by mouth every Epigastric pain, 6 (six) hours Chest pain, as needed for unspecified type Pain (scale 4-6). traMADol 50 mg Take 1 tablet 30 tablet 0 05/28/2019 Active tabletIndications: by mouth every Chest pain, 6 (six) hours unspecified type as needed for Pain (scale 4-6). pentazocine-naloxone Take 1 tablet 7 tablet 0 06/26/2019 Active 50-0.5 mg by mouth every tabletIndications: 6 (six) hours Closed nondisplaced as needed for fracture of proximal Pain. phalanx of right little finger, initial encounter ibuprofen 600 mg Take 1 tablet 10 tablet 0 06/26/2019 Active tabletIndications: by mouth 4 9 Closed nondisplaced (four) times fracture of proximal daily as needed phalanx of right for Pain (scale little finger, 4-6) for up to initial encounter 5 days. acetaminophen Take 3 tablets 60 tablet 0 06/26/2019 Active (TYLENOL) 325 mg by mouth 4 9 tabletIndications: (four) times Closed nondisplaced daily for 5 fracture of proximal days. This is phalanx of right the maximum little finger, safe dose for a initial encounter healthy adult. cyclobenzaprine 5 mg Take 1 tablet 9 tablet 0 06/26/2019 Active tabletIndications: by mouth 3 Closed nondisplaced (three) times fracture of proximal daily. phalanx of right little finger, initial encounter ibuprofen 800 mg Take 1 tablet 30 tablet 0 05/28/2019 Discontinued tabletIndications: by mouth every 9 Epigastric pain, 8 (eight) Chest pain, hours. unspecified type ibuprofen 800 mg Take 1 tablet 30 tablet 0 05/28/2019 08/16/201 Discontinued tabletIndications: by mouth every 9 Chest pain, 8 (eight) unspecified type hours. documented as of this encounter (statuses as of 06/27/2019) Active Problems Problem Noted Date Prediabetes 07/07/2018 Dizziness 02/11/2018 Fatty liver 08/28/2017 Abnormal LFTs 08/28/2017 Epigastric abdominal pain 08/27/2017 Low HDL (under 40) 03/13/2017 Essential hypertension 03/11/2017 Gastroesophageal reflux disease, esophagitis presence not specified 03/11/2017 Obesity (BMI 30-39.9) 02/21/2017 documented as of this encounter (statuses as of 06/27/2019) Resolved Problems Problem Noted Date Resolved Date Chest pain 03/27/2017 08/27/2017 Chest pain, unspecified type 03/11/2017 08/28/2017 documented as of this encounter (statuses as of 06/27/2019) Social History Tobacco Use Types Packs/Day Years Used Date Former Smoker Smokeless Tobacco: Former User Comments: Quit smoking a few years ago Alcohol Use Drinks/Week oz/Week Comments Yes occasionally Sex Assigned at Date Recorded Not on file Job Start Date Occupation Industry Not on file Not on file Not on file Travel History Travel Start Travel End No recent travel history available. documented as of this encounter Last Filed Vital Signs Vital Sign Reading Time Taken Comments Blood Pressure 143/84 06/26/2019 10:00 PM CDT Pulse 104 06/26/2019 10:00 PM CDT Temperature 36.8 C (98.2 F) 06/26/2019 10:00 PM CDT Respiratory Rate 20 06/26/2019 10:00 PM CDT Oxygen Saturation 96% 06/26/2019 10:00 PM CDT Inhaled Oxygen Concentration - - Weight 108.9 kg (240 lb) 06/26/2019 10:00 PM CDT Height 175.3 cm (5' 9") 06/26/2019 10:00 PM CDT Body Mass Index 35.44 06/26/2019 10:00 PM CDT documented in this encounter Discharge Instructions Albert Fontana III, PA - 06/26/2019 @@@@@@@@@@@@@@@@@@@@@@@@@@@@@@@@@@@@@@@@@@@@@@@@@@@@@ [facility] RETURN TO WORK / SCHOOL EXCUSE Javad Pro WAS SEEN IN THE ER AND DISCHARGED 06/26/2019 TODAY, 10:11 PM & May return to Work / School / Incarceration on 06/27/19 with No limitations unless indicated below. ___The following limitations apply until pt is seen by Physician and cleared to return to normal activity. ___ Light duty ___ No Sports ___ No work ___ Do not return until fever free for 24 hours. ___ No school [employer] [facility] [address] [place] [address] [place] [address] If you are unprepared to return to work tomorrow due to pain please give this note to your employer and make a follow up appointment with your MD for further evaluation and limitations. ### The patient may have been given Narcotic pain medications during their stay in the ED that may show up on a Drug Screen. The hospital discharge paper work will identify these medications. @@@@@@@@@@@@@@@@@@@@@@@@@@@@@@@@@@@@@@@@@@@@@@@@@@@@@ Thank you for trusting us with your care. The emergency room is the first stop in the medical management of your complaint . Our primary pupose is to identify life threatening emergancies and to rapidly address those issues. We are releasing you today after evaluation for emergency or life threatening problems related to your complaint. At this time we are comfortable that your condition is stable enough to go home, take oral medications and follow up for further care. If you can't afford a doctor OR MEDICATIONS consider Clinic [facility], [address] [place] [address]; [phone] Medications [employer] WILL SHOW YOU WHERE YOU CAN GET YOUR MEDICATIONS CHEAPEST. 1. Call your doctor and let them know you were seen for ICD-10-CM ICD-9-CM 1. Closed nondisplaced fracture of proximal phalanx of right little finger, initial encounter S62.646A 816.01 2. Schedule a follow up within 3 days of your ER visit. 3. Take your prescriptions to the pharmacy and get them filled today. 4. Take the medications as prescribed and until completed. 5. You have been referred for further care 6. You may need additional tests Your doctors will help you figure out what you need and how to get them done. 7. Please read all paperwork provided to you. Additional instructions See Attached AttachmentsThe following attachments cannot be sent through Care Everywhere.[facility], Discharge Instructions (Cameroonian)Bones, How They Heal ( Cameroonian)Fracture, Finger and Toe (Broken Finger or Toe) (Cameroonian)documented in this encounter Plan of Treatment Date Type Specialty Care Team Description 07/02/2019 Office Visit Orthopedic Surgery Tiago De La Cruz MD [address] [place] [address] 10/30/2019 Office Visit Family Medicine González Crowley MD [address] [facility] [place] [address] Health Maintenance Due Date Last Done Comments DTaP,Tdap,and Td Vaccines (1 - 1998 Tdap) INFLUENZA VACCINE (#1) 2019 PNEUMOCOCCAL 0-64 YEARS COMBINED Aged Out No longer eligible based on SERIES patient's age to complete this topic documented as of this encounter Procedures Procedure Name Priority Date/Time Associated Diagnosis Comments CONSENT/REFUSAL FOR Routine 06/26/2019 9:39 PM CDT DIAGNOSIS AND TREATMENT documented in this encounter Results Not on filedocumented in this encounter Visit Diagnoses Diagnosis Closed nondisplaced fracture of proximal phalanx of right little finger, initial encounter - Primary documented in this encounter Administered Medications Medication Order MAR Action Action Date Dose Rate Site HYDROcodone-acetaminophen Given 06/26/2019 11:00 PM CDT 1 tablet (NORCO) 10-325 mg tablet 1 tablet 1 tablet, Oral, ONCE NOW, 1 dose, Sat06/26/19 at 2315, Routine documented in this encounter Advance Directives Name Relationship Healthcare Agent Communication Relationship Tosha Pro Spouse Primary healthcare agent [email or web address]
--- OUTSIDE RECORDS SUMMARY | 2019-09-25 09:43 | XMS REPORT | Summary of Care ---
:1980 Author Organization [facility] Address [address] [place] [id number] Care Team Providers Name Role Phone González Crowley MD Primary Care Provider Reason for Visit Reason Comments New Patient Injury R hand injury Encounter Details Date Type Department Care Team Description 07/02/[address] [facility] Tiago De La Cruz Closed nondisplaced Orthopaedic Surgery- L, fracture of middle [place] [address] phalanx of right little [address], [address] finger, initial [address] [place], [place] encounter (Primary Dx) [place] [id number] [phone] Allergies Active Allergy Reactions Severity Noted Date Comments Codeine Nausea and/or Vomiting Low 09/17/2016 Penicillins Itching Low 09/17/2016 documented as of this encounter (statuses as of 07/02/2019) Medications Medication Sig Dispensed Refills Start Date [...] Active tabletIndications: by mouth daily. Essential hypertension pentazocine-naloxone Take 1 tablet 7 tablet 0 06/26/2019 Active 50-0.5 mg by mouth every tabletIndications: 6 (six) hours Closed nondisplaced as needed for fracture of proximal Pain. phalanx of right little finger, initial encounter cyclobenzaprine 5 mg Take 1 tablet 9 tablet 0 06/26/2019 Active tabletIndications: by mouth 3 Closed nondisplaced (three) times fracture of proximal daily. phalanx of right little finger, initial encounter traMADol 50 mg Take 1 tablet 30 tablet 0 05/28/2019 Discontinued tabletIndications: by mouth every 9 Epigastric pain, 6 (six) hours Chest pain, as needed for unspecified type Pain (scale 4-6). traMADol 50 mg Take 1 tablet 30 tablet 0 05/28/2019 Discontinued tabletIndications: by mouth every 9 Chest pain, 6 (six) hours unspecified type as needed for Pain (scale 4-6). documented as of this encounter (statuses as of 07/02/2019) Active Problems Problem Noted Date Prediabetes 07/07/2018 Dizziness 02/11/2018 Fatty liver 08/28/2017 Abnormal LFTs 08/28/2017 Epigastric abdominal pain 08/27/2017 Low HDL (under 40) 03/13/2017 Essential hypertension 03/11/2017 Gastroesophageal reflux disease, esophagitis presence not specified 03/11/2017 Obesity (BMI 30-39.9) 02/21/2017 documented as of this encounter (statuses as of 07/02/2019) Resolved Problems Problem Noted Date Resolved Date Chest pain 03/27/2017 08/27/2017 Chest pain, unspecified type 03/11/2017 08/28/2017 documented as of this encounter (statuses as of 07/02/2019) Social History Tobacco Use Types Packs/Day Years [...] Sign Reading Time Taken Comments Blood Pressure 137/93 07/02/2019 8:17 AM CDT Pulse 83 07/02/2019 8:13 AM CDT Temperature - - Respiratory Rate 19 07/02/2019 8:13 AM CDT Oxygen Saturation - - Inhaled Oxygen Concentration - - Weight 119 kg (262 lb 6.4 oz) 07/02/2019 8:13 AM CDT Height 175.3 cm (5' 9") 07/02/2019 8:13 AM CDT Body Mass Index 38.75 07/02/2019 8:13 AM CDT documented in this encounter Progress Notes Tiago De La Cruz MD - 07/02/2019 8:15 AM CDT Cc: Chief Complaint Patient presents with New Patient Injury R hand injury Javad Pro is a 38 year old male. Hand Pain Incident onset: 06/25/2019. The incident occurred at work. The injury mechanism was a fall. The painis present in the right hand. The quality of the pain is described as aching, burning and stabbing. The pain does not radiate. The pain is at a severity of 5/10. The pain is moderate. The pain has beenintermittent since the incident. The symptoms are aggravated by movement and palpation. He has triedNSAIDs and immobilization for the symptoms. The treatment provided mild relief. Allergies Javad is allergic to codeine and pcn [penicillins]. Medications Outpatient Medications Prior to Visit Medication Sig Dispense Refill cyclobenzaprine 5 mg tablet Take 1 tablet by mouth 3 (three) times daily. 9 tablet 0 pentazocine-naloxone 50-0.5 mg tablet Take 1 tablet by mouth every 6 (six) hours as needed for Pain. 7 tablet 0 traMADol 50 mg tablet Take 1 tablet by mouth every 6 (six) hours as needed for Pain (scale 4-6).30 tablet 0 traMADol 50 mg tablet Take 1 tablet by mouth every 6 (six) hours as needed for Pain (scale 4-6).30 tablet 0 lisinopril 20 mg tablet Take 1 tablet by mouth daily. 90 tablet 1 furosemide 40 mg tablet Take 1 tablet by mouth daily. 90 tablet 1 ondansetron (ZOFRAN) 4 mg tablet Take 1 tablet by mouth every 8 (eight) hours as needed for Nausea and Vomiting (N/V). 12 tablet 0 ranitidine (ZANTAC) 150 mg tablet Take 1 tablet by mouth 2 (two) times daily. Follow up with your MD for further evaluation and treatment. 30 tablet 1 No facility-administered medications prior to visit. Histories Past Medical History: Diagnosis Date Abnormal LFTs 08/28/2017 CHF (congestive heart failure) Fatty liver 08/28/2017 Gastroesophageal reflux disease, esophagitis presence not specified 03/11/2017 History of kidney stones HTN (hypertension) Low HDL (under 40) 03/13/2017 Obesity (BMI 30-39.9) Prediabetes 07/07/2018 Past Surgical History: Procedure Laterality Date HERNIA REPAIR umbilical Social History Socioeconomic History Marital status: Spouse name: Not on file Number of children: Not on file Years of education: Not on file Highest education level: Not on file Occupational History Not on file Social Needs Financial resource strain: Not on file Food insecurity: Worry: Not on file Inability: Not on file Transportation needs: Medical: Not on file Non-medical: Not on file Tobacco Use Smoking status: Former Smoker Smokeless tobacco: Former User Tobacco comment: Quit smoking a few years ago Substance and Sexual Activity Alcohol use: Yes Comment: occasionally Drug use: No Sexual activity: Yes Partners: Female Lifestyle Physical activity: Days per week: Not on file Minutes per session: Not on file Stress: Not on file Relationships Social connections: Talks on phone: Not on file Gets together: Not on file Attends worship service: Not on file Active member of club or organization: Not on file Attends meetings of clubs or organizations: Not on file Relationship status: Not on file Intimate partner violence: Fear of current or ex partner: Not on file Emotionally abused: Not on file Physically abused: Not on file Forced sexual activity: Not on file Other Topics Concern Not on file Social History Narrative Not on file Family History Problem Relation Age of Onset Cancer Maternal Uncle Cancer Maternal Grandmother Cancer Maternal Grandfather Hypertension Mother GI Mother GERD Hypertension Father Review of Systems Constitutional: Negative. HENT: Negative. Eyes: Negative. Respiratory: Negative. Breasts: Negative. Cardiovascular: Negative. Gastrointestinal: Negative. Genitourinary: Negative. Musculoskeletal: Positive for joint swelling. Skin: Negative. Neurological: Negative. Psychiatric/Behavioral: Negative. Endocrine: Endocrine negative Vital Signs BP (!) 140/94 (BP Location: Left arm, Patient Position: Sitting, BP CUFF SIZE: Adult Large) | Pulse83 | Resp 19 | Ht 5' 9" (1.753 m) | Wt 262 lb 6.4 oz ( 119 kg) | BMI 38.75 kg/m Physical Exam Musculoskeletal: Right hand: He exhibits decreased range of motion, tenderness, bony tenderness and swelling. General: Well-developed well-nourished oriented to person place and time HEENT normocephalic atraumatic atraumatic pupils equal round reactive to light extraocular muscles intact Cervical thoracic and lumbar spine without focal deficit normal kyphosis and lordosis Chest clear to auscultation and percussion Cardiovascular regular rate and rhythm without gallop rub or murmur soft without organomegaly Normal bowel sounds Neurologic: Focal myotome or dermatomal deficits Vascular: Intact symmetrical bilateral upper and lower extremities Skin without stasis varicosities or breakdown Extremities without cyanosis clubbing or edema Lymphatics no peripheral lymphedema Psych normal mood and affect. Neurovascular function is intact. To include brisk capillary refill warm pink skin active motor function and sensory function intact. Nursing note and vitals reviewed. Assessment/Plan Right hand small finger fracture Placed into TKO orthosis, at this time fracture is stable but will need to keep a close on it. Follow up 1 week for xrays. Restrictions as noted on the [facility] form. documented in this encounter Plan of Treatment Date Type Specialty Care Team Description 07/09/2019 Office Visit Orthopedic Surgery Tiago De La Cruz MD [address] [place] [address] 10/30/2019 Office Visit Family Medicine González Crowley MD [address] [facility] [place] [address] Health Maintenance Due Date Last Done Comments DTaP,Tdap,and Td Vaccines (1 - 1998 Tdap) INFLUENZA VACCINE (#1) 2019 PNEUMOCOCCAL 0-64 YEARS COMBINED Aged Out No longer eligible based on SERIES patient's age to complete this topic documented as of this encounter Results Not on filedocumented in this encounter Visit Diagnoses Diagnosis Closed nondisplaced fracture of middle phalanx of right little finger, initial encounter - Primary documented in this encounter Advance Directives Name Relationship Healthcare Agent Communication Relationship Tosha Pro Spouse Primary healthcare agent [email or web address]
--- OUTSIDE RECORDS SUMMARY | 2019-09-25 09:43 | XMS REPORT | Summary of Care ---
:1980 Author Organization [facility] - [address] [address] Care Team Providers Name Role Phone González Crowley MD Primary Care Provider Reason for Visit Reason Comments Hospital / frequent ED visits Encounter Details Date Type Department Care Team Description 06/30/2019 Patient Outreach [facility] Ashley Luu RN [facility]/[address] (frequent ED [facility] visits) [place], [place] [id number] Allergies Active Allergy Reactions Severity Noted Date Comments Codeine Nausea and/or Vomiting Low 09/17/2016 Penicillins Itching Low 09/17/2016 documented as of this encounter (statuses as of 06/30/2019) Medications Medication Sig Dispensed Refills Start Date End Date Status ranitidine (ZANTAC) Take 1 tablet by 30 tablet 1 11/16/2018 Active 150 mg tablet mouth 2 (two) times daily. Follow up with your MD for further evaluation and treatment. ondansetron (ZOFRAN) 4 Take 1 tablet by 12 tablet 0 04/28/2019 Active mg tabletIndications: mouth every 8 SOB (shortness of (eight) hours as breath), Edema, needed for Nausea unspecified type and Vomiting (N/V). furosemide 40 mg Take 1 tablet by 90 tablet 1 04/30/2019 Active tabletIndications: mouth daily. Essential hypertension lisinopril 20 mg Take 1 tablet by 90 tablet 1 05/27/2019 Active tabletIndications: mouth daily. Essential hypertension traMADol 50 mg Take 1 tablet by 30 tablet 0 05/28/2019 Active tabletIndications: mouth every 6 Epigastric pain, Chest (six) hours as pain, unspecified type needed for Pain (scale 4-6). traMADol 50 mg Take 1 tablet by 30 tablet 0 05/28/2019 Active tabletIndications: mouth every 6 Chest pain, (six) hours as unspecified type needed for Pain (scale 4-6). pentazocine-naloxone Take 1 tablet by 7 tablet 0 06/26/2019 Active 50-0.5 mg mouth every 6 tabletIndications: (six) hours as Closed nondisplaced needed for Pain. fracture of proximal phalanx of right little finger, initial encounter ibuprofen 600 mg Take 1 tablet by 10 tablet 0 06/26/2019 07/01/2019 Active tabletIndications: mouth 4 (four) Closed nondisplaced times daily as fracture of proximal needed for Pain phalanx of right (scale 4-6) for little finger, initial up to 5 days. encounter acetaminophen Take 3 tablets by 60 tablet 0 06/26/2019 07/01/2019 Active (TYLENOL) 325 mg mouth 4 (four) tabletIndications: times daily for 5 Closed nondisplaced days. This is the fracture of proximal maximum safe dose phalanx of right for a healthy little finger, initial adult. encounter cyclobenzaprine 5 mg Take 1 tablet by 9 tablet 0 06/26/2019 Active tabletIndications: mouth 3 (three) Closed nondisplaced times daily. fracture of proximal phalanx of right little finger, initial encounter documented as of this encounter (statuses as of 06/30/2019) Active Problems Problem Noted Date Prediabetes 07/07/2018 Dizziness 02/11/2018 Fatty liver 08/28/2017 Abnormal LFTs 08/28/2017 Epigastric abdominal pain 08/27/2017 Low HDL (under 40) 03/13/2017 Essential hypertension 03/11/2017 Gastroesophageal reflux disease, esophagitis presence not specified 03/11/2017 Obesity (BMI 30-39.9) 02/21/2017 documented as of this encounter (statuses as of 06/30/2019) Resolved Problems Problem Noted Date Resolved Date Chest pain 03/27/2017 08/27/2017 Chest pain, unspecified type 03/11/2017 08/28/2017 documented as of this encounter (statuses as of 06/30/2019) Social History Tobacco Use Types Packs/Day Years [...] of this encounter Last Filed Vital Signs Not on filedocumented in this encounter Progress Notes Ashley Luu RN - 06/30/2019 4:36 PM CDTCM left vm requesting to f/u on recent ED visit and to assess patient's medical coverage and to discuss [facility] Program for the [address] [place] [address]. DAVID Magaña, RN, [facility] Outpatient [facility]orter [facility] O: [phone] M: [phone] documented in this encounter Plan of Treatment Date Type Specialty Care Team Description 07/02/2019 Office Visit Orthopedic Surgery Tiago De La Cruz MD [address] [place] [address] 10/30/2019 Office Visit Family Medicine González Crowley MD [address] [place] [address] Health Maintenance Due Date Last Done Comments DTaP,Tdap,and Td Vaccines (1 - 1998 Tdap) INFLUENZA VACCINE (#1) 2019 PNEUMOCOCCAL 0-64 YEARS COMBINED Aged Out No longer eligible based on SERIES patient's age to complete this topic documented as of this encounter Results Not on filedocumented in this encounter Advance Directives Name Relationship Healthcare Agent Communication Relationship Tosha Benitezn Pro Spouse Primary healthcare agent [email or web address]
--- OUTSIDE RECORDS SUMMARY | 2019-09-25 09:43 | XMS REPORT | Summary of Care ---
:1980 Author Organization [facility] Address [address] [place] [address] Care Team Providers Name Role Phone González Crowley MD Primary Care Provider Reason for Visit Reason Comments New Patient Injury R hand injury Encounter Details Date Type Department Care Team Description 07/02/2019 Office Visit [facility] Tiago De La Cruz Closed nondisplaced Orthopaedic Surgery- L, fracture of middle [place] [address] phalanx of right little [address], [address] finger, initial [address] [place], [place] encounter (Primary Dx) [place] [phone] Allergies Active Allergy Reactions Severity Noted Date [...] file Gets together: Not on file Attends sabianist service: Not on file Active member of [...] Tiago De La Cruz MD [address] [place] [address] 10/30/2019 Office Visit Family Medicine González Crowley MD [address] [facility] [place] [address] Health Maintenance Due Date Last Done [...] Relationship Tosha Pro Spouse Primary healthcare agent [email or web address]
--- OUTSIDE RECORDS SUMMARY | 2019-09-25 09:44 | XMS REPORT | Summary of Care ---
:1980 Author Organization [facility] Address [address] [place] [address] Care Team Providers Name Role Phone González Crowley MD Primary Care Provider Reason for Referral Other (KIMO) Status Reason Specialty Diagnoses / Referred By Referred To Procedures Contact Contact New Request Diagnoses Left groin pain Reducible left inguinal hernia YaDeon deshpande S, Charlene Hicks, Procedures Discharge Follow-up: Specialty Provider CHARLENE HICKS; 3-5 Days MD BRADLEY [address] [place] [address] [address] [place] [address] Phone: [phone] Phone: MRI/CAT Scan (STAT) Status Reason Specialty Diagnoses / Referred By Referred To Procedures Contact Contact New Request Diagnostic Diagnoses Left groin pain Y[place], [place] [facility] Procedures CT ABDOMEN PELVIS WO CONTRAST MD Luther [address] [place] [address] MRI/CAT Scan (STAT) Status Reason Specialty Diagnoses / Referred By Referred To Procedures Contact Contact New Request Diagnostic Diagnoses Left groin pain Yar[place], [place] [facility] Procedures CT ABDOMEN PELVIS WO CONTRAST MD Luther [address] [place] [address] Reason for Visit Reason Comments Groin Pain Auth/Cert Status Reason Specialty Diagnoses / Referred By Referred To Procedures Contact Contact Emergency Medicine [facility] [address] [place] [address] [place] [address] Encounter Details Date Type Department Care Team Description 07/07/2019 - Emergency [facility]Emergency Deon Flowers, Left groin pain ( Primary Dx); 07/08/2019 Department MD Reducible left inguinal hernia [address] [place] [address] [place] [address] [id number] [place] [address] [phone] Allergies Active Allergy Reactions Severity Noted Date Comments Codeine Nausea and/or Vomiting Low 09/17/2016 Penicillins Itching Low 09/17/2016 documented as of this encounter (statuses as of 07/08/2019) Medications Medication Sig Dispensed Refills Start Date End Date Status ranitidine (ZANTAC) 150 Take 1 tablet by 30 tablet 1 11/16/2018 Active mg tablet mouth 2 (two) times daily. [...] 05/27/2019 Active tabletIndications: mouth daily. Essential hypertension pentazocine-naloxone Take 1 tablet by 7 tablet [...] as of this encounter (statuses as of 07/08/2019) Active Problems Problem Noted Date Prediabetes 07/07/2018 Dizziness 02/11/2018 Fatty liver 08/28/2017 Abnormal LFTs 08/28/2017 Epigastric abdominal pain 08/27/2017 Low HDL (under 40) 03/13/2017 Essential hypertension 03/11/2017 Gastroesophageal reflux disease, esophagitis presence not specified 03/11/2017 Obesity (BMI 30-39.9) 02/21/2017 documented as of this encounter (statuses as of 07/08/2019) Resolved Problems Problem Noted Date Resolved Date Chest pain 03/27/2017 08/27/2017 Chest pain, unspecified type 03/11/2017 08/28/2017 documented as of this encounter (statuses as of 07/08/2019) Social History Tobacco Use Types Packs/Day Years [...] Sign Reading Time Taken Comments Blood Pressure 137/90 07/08/2019 1:00 AM CDT Pulse 85 07/08/2019 1:00 AM CDT Temperature 36.9 C (98.4 F) 07/07/2019 9:57 PM CDT Respiratory Rate 18 07/08/2019 1:00 AM CDT Oxygen Saturation 96% 07/08/2019 12:00 AM CDT Inhaled Oxygen Concentration - - Weight 118.8 kg (262 lb) 07/07/2019 9:57 PM CDT Height 175.3 cm (5' 9") 07/07/2019 9:57 PM CDT Body Mass Index 38.69 07/07/2019 9:57 PM CDT documented in this encounter Discharge Instructions Deon Garber MD - 07/08/2019 DIAGNOSIS Diagnoses that have been ruled out: None Diagnoses that are still under consideration: None Final diagnoses: Left groin pain Reducible left inguinal hernia NO LIFE-THREATENING FINDINGS ON TODAY'S EXAM. PROCEDURES IN THE ER TODAY: Orders Placed This Encounter Procedures CT ABDOMEN PELVIS WO CONTRAST URINALYSIS CBC WITH DIFF BASIC METABOLIC PANEL (NA, K, CL, CO2, GLUCOSE, BUN, CREATININE, CA) CBC WITH DIFFERENTIAL MEDICATIONS ADMINISTERED IN THE ER TODAY AND DISCHARGE MEDICATIONS: Orders Placed This Encounter Medications ketorolac (TORADOL) injection 30 mg maalox:diphenhydrAMINE:lidocaine2 %viscous 1:1:1: suspension (COMPOUNDED) FENTanyl PF (SUBLIMAZE (PF)) injection 50 mcg FOLLOW-UP RECOMMENDATIONS: RECOMMEND FOLLOW-UP WITH Dr HICKS RETURN TO ER FOR WORSENING OF SYMPTOMS AttachmentsThe following attachments cannot be sent through Care Everywhere.Having Hernia Surgery: Traditional Repair (Irish)documented in this encounter Plan of Treatment Date Type Specialty Care Team Description 07/09/2019 Office Visit Orthopedic Surgery Tiago De La Cruz MD [address] [place] [address] 10/30/2019 Office Visit Family Medicine González Crowley MD [address] [facility] [place] [address] Health Maintenance Due Date Last Done Comments DTaP,Tdap,and Td Vaccines (1 - 1998 Tdap) INFLUENZA VACCINE (#1) 2019 PNEUMOCOCCAL 0-64 YEARS COMBINED Aged Out No longer eligible based on SERIES patient's age to complete this topic documented as of this encounter Procedures Procedure Name Priority Date/Time Associated Comments Diagnosis BASIC METABOLIC PANEL STAT 07/07/2019 11:51 Left groin pain Results for this (NA, K, CL, CO2, PM CDT procedure are in GLUCOSE, BUN, the results CREATININE, CA) section. CBC WITH DIFFERENTIAL STAT 07/07/2019 11:08 Left groin pain Results for this PM CDT procedure are in the results section. URINALYSIS STAT 07/07/2019 11:08 Left groin pain Results for this PM CDT procedure are in the results section. CBC WITH DIFF STAT 07/07/2019 11:08 Left groin pain Results for this PM CDT procedure are in the results section. CT ABDOMEN PELVIS WO STAT 07/07/2019 10:46 Left groin pain Results for this CONTRAST PM CDT procedure are in the results section. NOTICE OF PRIVACY Routine 07/07/2019 9:45 PRACTICES PM CDT CONSENT/REFUSAL FOR Routine 07/07/2019 9:44 DIAGNOSIS AND PM CDT TREATMENT documented in this encounter Results BASIC METABOLIC PANEL (NA, K, CL, CO2, GLUCOSE, BUN, CREATININE, CA) (2018 11:51 PM CDT) NA 141 135 - 145 [facility] mmol/L [facility] K 4.3 3.5 - 5.0 [facility] mmol/L [facility] CL 105 98 - 108 mmol/L [facility] CO2 TOTAL 28 23 - 31 mmol/L [facility] AGAP 8 2 - 16 [facility] BUN 17 7 - 23 mg/dL [facility] GLUCOSE 121 (H) 70 - 110 mg/dL [facility] CREATININE 0.94 0.60 - 1.25 [facility] mg/dL [facility] CALCIUM 8.9 8.6 - 10.6 [facility] mg/dL [facility] eGFR Calculation 89.3 mL/min/1.73m2 [facility] (Non-[facility] LABORATORY [place] Citizen) eGFR Calculation 108.3 mL/min/1.73m2 [facility] () [facility] Specimen Blood - VENOUS Narrative Performed At Association of Glomerular Filtration Rate (GFR) [facility] and Staging of Kidney Disease* + + +- + | GFR (mL/min/1.73 m2)| With Kidney Damage|Without Kidney Damage + + +- + |>90| Stage one| Normal + + +- + |60-89|S tage two| Decreased GFR + + +- + |30-59|S tage three| Stage three + + +- + |15-29|S tage four | Stage four + + +- + |<15 (or dialysis)|Stage five | Stage five + + +- + *Each stage assumes the associated GFR level has been in effect for at least three months.Stages 1 to 5, with or without kidney disease, indicate chronic kidney disease. Notes: Determination of stages one and two (with eGFR >59mL/min/1.73 m2) requires estimation of kidney damage for at least three months as defined by structural or functional abnormalities of the kidney, manifested by either: Pathological abnormalities or Markers of kidney damage (including abnormalities in the composition of the blood or urine or abnormalities in imaging tests). Performing Organization Address City/State/Zipcode Phone Number [facility] CLIA: [id number], [address] [place] [address] CBC WITH DIFFERENTIAL (07/07/2019 11:08 PM CDT) WBC 7.56 4.20 - 10.70 [facility] 10*3/L H[facility] RBC 4.82 4.26 - 5.52 [facility] 10*6/L H[facility]ITAL [facility] HGB 14.1 12.2 - 16.4 g/dL [facility] HCT 42.1 38.4 - 49.3 % [facility] MCV 87.3 81.7 - 95.6 fL [facility] MCH 29.3 26.1 - 32.7 pg [facility] MCHC 33.5 31.2 - 35.0 g/dL [facility] RDW-SD 41.3 38.5 - 51.6 fL [facility] RDW-CV 13.0 12.1 - 15.4 % [facility] PLT 271 150 - 328 [facility] 10*3/L [facility] MPV 10.2 9.8 - 13.0 fL [facility] NRBC/100 WBC 0.0 0.0 - 10.0 /100 [facility] WBCs [facility] NRBC x10^3 <0.01 10*3/L [facility] GRAN MAT (NEUT) % 58.8 % [facility] IMM GRAN % 0.70 % [facility] LYMPH % 26.5 % [facility] MONO % 11.9 % [facility] EOS % 1.7 % [facility] BASO % 0.4 % [facility] GRAN MAT x10^3(ANC) 4.45 1.99 - 6.95 [facility] 10*3/uL HOSPITAL LAB[facility]ATORY IMM GRAN x10^3 0.05 0.00 - 0.06 [facility] 10*3/uL HOSPITAL [facility] LYMPH x10^3 2.00 1.09 - 3.23 [facility] 10*3/uL HOSPITAL LAB[facility] MONO x10^3 0.90 0.36 - 1.02 [facility] 10*3/uL HOSPITAL LAB[facility]ORY EOS x10^3 0.13 0.06 - 0.53 [facility] 10*3/uL HOSPITAL LAB[facility]ORY BASO x10^3 0.03 0.01 - 0.09 [facility] 10*3/uL [facility] Specimen Blood - VENOUS Performing Organization Address [facility] Cent[facility]ode Phone Number [facility] CLIA: [id number], [address] [place] [address] URINALYSIS (07/07/2019 11:08 PM CDT) APPEARANCE Slightly Cloudy (A) Clear [facility] COLOR Yellow Yellow [facility] PH 6.0 4.8 - 8.0 [facility] SP GRAVITY >=1.030 1.003 - 1.030 [facility] GLU U QUAL Negative Negative [facility] BLOOD Negative Negative [facility] KETONES Negative Negative [facility] PROTEIN Negative Negative [facility] UROBILIN 0.2 mg/dL 0-1.0 mg/dL [facility] BILIRUBIN Negative Negative [facility] NITRITE Negative Negative [facility] LEUK RHEA Negative Negative [facility] RBC/HPF 0 0 - 3 HPF [facility] WBC/HPF 1 0 - 5 HPF [facility] BACTERIA Negative Negative [facility] MUCOUS Moderate (A) Negative LPF [facility] Specimen Urine - URINE, CLEAN CATCH Performing Organization Address [facility] Phone Number [facility] CLIA: [id number], [address] [place] [address] ABDOMEN PELVIS WO CONTRAST (07/07/2019 10:46 PM CDT) Specimen Impressions Performed At PACS/VR/DOSE No evidence of nephrolithiasis. Bilateral inguinal hernias containing fat, left greater than right, unchanged in size. Increased inflammatory changes within the left inguinal hernia raising the possibility of strangulation. No bowel involvement. Normal appendix. ITona MD., have reviewed this study and agree with the above report. Narrative Performed At EXAM: CT ABDOMEN AND PELVIS WITHOUT CONTRAST PACS/VR/DOSE HISTORY: Flank pain, stone disease suspected LLQ/Left Groin Pain COMPARISON: CT-10/06/2018 DOSE: 656 mGy*cm TECHNIQUE AND FINDINGS: Contiguous axial imaging from the level of the lung bases through the pubic symphysis was performed without contrast. Coronal and sagittal reconstructions were obtained.Auto mA and/or iterative reconstruction were used to reduce radiation dose. FINDINGS: LOWER THORAX: Right lower lobe 4 mm pulmonary nodule appears stable. No cardiomegaly. LIVER: No focal hepatic lesions.Normal liver contour. GALLBLADDER AND BILIARY TREE: No biliary ductal dilation.No gallbladder wall thickening. SPLEEN: No splenomegaly. PANCREAS: No ductal dilation or masses. ADRENAL GLANDS: No adrenal nodules. KIDNEYS: No hydronephrosis, stones, or masses. PERITONEUM AND RETROPERITONEUM: No free air or fluid. LYMPH NODES: No lymphadenopathy. GI TRACT: No dilation or wall thickening. Appendix is normal. PELVIS/BLADDER: Unremarkable. VESSELS: Unremarkable. BONES AND SOFT TISSUES: No acute osseous finding. Bilateral inguinal hernias containing fat, left larger than right and appear overall unchanged in size. Increased inflammation within the fat in the left lower pelvis proximal to the hernia opening and within the left hernia sac. Procedure Note [facility], Radiant Results Inft User - 07/07/2019 11:39 PM CDT EXAM: CT ABDOMEN AND PELVIS WITHOUT CONTRAST HISTORY: Flank pain, stone disease suspected LLQ/Left Groin Pain COMPARISON: CT-10/06/2018 DOSE: 656 mGy*cm TECHNIQUE AND FINDINGS: Contiguous axial imaging from the level of the lung bases through the pubic symphysis was performed without contrast. Coronal and sagittal reconstructions were obtained. Auto mA and/or iterative reconstruction were used to reduce radiation dose. FINDINGS: LOWER THORAX: Right lower lobe 4 mm pulmonary nodule appears stable. No cardiomegaly. LIVER: No focal hepatic lesions. Normal liver contour. GALLBLADDER AND BILIARY TREE: No biliary ductal dilation. No gallbladder wall thickening. SPLEEN: No splenomegaly. PANCREAS: No ductal dilation or masses. ADRENAL GLANDS: No adrenal nodules. KIDNEYS: No hydronephrosis, stones, or masses. PERITONEUM AND RETROPERITONEUM: No free air or fluid. LYMPH NODES: No lymphadenopathy. GI TRACT: No dilation or wall thickening. Appendix is normal. PELVIS/BLADDER: Unremarkable. VESSELS: Unremarkable. BONES AND SOFT TISSUES: No acute osseous finding. Bilateral inguinal hernias containing fat, left larger than right and appear overall unchanged in size. Increased inflammation within the fat in the left lower pelvis proximal to the hernia opening and within the left hernia sac. IMPRESSION No evidence of nephrolithiasis. Bilateral inguinal hernias containing fat, left greater than right, unchanged in size. Increased inflammatory changes within the left inguinal hernia raising the possibility of strangulation. No bowel involvement. Normal appendix. I, Tona Orona MD., have reviewed this study and agree with the above report. Performing Organization Address City/State/Zipcode Phone Number PACS/VR/DOSE documented in this encounter Visit Diagnoses Diagnosis Left groin pain - Primary Abdominal pain, left lower quadrant Reducible left inguinal hernia documented in this encounter Administered Medications Medication Order MAR Action Action Date Dose Rate Site FENTanyl PF (SUBLIMAZE (PF)) Given 07/08/2019 1:12 AM CDT 50 mcg injection 50 mcg 50 mcg, Slow IV Push, ONCE, 1 dose, Sat07/08/19 at 0215, STAT ketorolac (TORADOL) injection 30 mg Given 07/07/2019 11:39 PM CDT 30 mg 30 mg, Slow IV Push, ONCE, 1 dose, Sat07/07/19 at 2315, Routine, swat team member approving Restricted medication: DEON FLOWERS maalox:diphenhydrAMINE:lidocaine2 %viscous Given 07/07/2019 11:53 PM CDT 15 mL 1:1:1: suspension (COMPOUNDED) 15 mL, Oral, ONCE, 1 dose, Sat07/08/19 at 0100, Routine documented in this encounter Advance Directives Name Relationship Healthcare Agent Communication Relationship Tosha Lopez Pro Spouse Primary healthcare agent [email or web address]
--- OUTSIDE RECORDS SUMMARY | 2019-09-25 09:44 | XMS REPORT | Summary of Care ---
:1980 Author Organization [facility] Address [address] [place] [address] Care Team Providers Name Role Phone González Crowley MD Primary Care Provider Reason for Visit Reason Comments Forms indigent application Encounter Details Date Type Department Care Team Description 07/09/2019 Patient Outreach [facility] Ashley Luu, RN Forms ([facility] [address] [place] [address] application) [place], [place] [id number] Allergies Active Allergy Reactions Severity Noted Date Comments Codeine Nausea and/or Vomiting Low 09/17/2016 Penicillins Itching Low 09/17/2016 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 Follow up with your MD for further evaluation and treatment. ondansetron (ZOFRAN) Take 1 tablet by 12 tablet 0 04/28/2019 Suspended 4 mg mouth every 8 tabletIndications: (eight) hours as SOB (shortness of needed for breath), Edema, Nausea and unspecified type Vomiting (N/V). furosemide 40 mg Take 1 tablet by 90 tablet 1 04/30/2019 Suspended tabletIndications: mouth daily. Essential hypertension lisinopril 20 mg Take 1 tablet by 90 tablet 1 05/27/2019 Suspended tabletIndications: mouth daily. Essential hypertension pentazocine-naloxone Take 1 tablet by 7 tablet 0 06/26/2019 Suspended 50-0.5 mg mouth every 6 tabletIndications: (six) hours as Closed nondisplaced needed for Pain. fracture of proximal phalanx of right little finger, initial encounter cyclobenzaprine 5 mg Take 1 tablet by 9 tablet 0 06/26/2019 Suspended tabletIndications: mouth 3 (three) Closed nondisplaced times daily. fracture of proximal phalanx of right little finger, initial encounter documented as of this encounter (statuses as of 07/10/2019) Active Problems Problem Noted Date Inguinal hernia 07/08/2019 Encounter for pre-operative cardiovascular clearance 07/08/2019 Dyslipidemia 07/08/2019 Prediabetes 07/07/2018 Dizziness 02/11/2018 Fatty liver 08/28/2017 Abnormal LFTs 08/28/2017 Epigastric abdominal pain 08/27/2017 Low HDL (under 40) 03/13/2017 Essential hypertension 03/11/2017 Gastroesophageal reflux disease, esophagitis presence not specified 03/11/2017 Obesity (BMI 30-39.9) 02/21/2017 documented as of this encounter (statuses as of 07/10/2019) Resolved Problems Problem Noted Date Resolved Date Chest pain 03/27/2017 08/27/2017 Chest pain, unspecified type 03/11/2017 08/28/2017 documented as of this encounter (statuses as of 07/10/2019) Social History Tobacco Use Types Packs/Day Years [...] encounter Progress Notes Ashley Luu RN - 07/09/2019 11:59 PM CDTCHP CM visited the patient in the hospital room and spoke to patient about CHP. The patient stated he is employed at this time and has insurance through his employer beginning 07/12/19. Pt was provided an [employer] indigent application in the event he lost his insurance he could apply for the program. DAVID Magaña, RN, [facility] Outpatient French ProfessorSkiagrapherAtrium Health [facility] O: [phone] M: [phone] documented in this encounter Plan of Treatment Date Type Specialty Care Team Description 07/23/2019 Office Visit Orthopedic Surgery Tiago De La Cruz MD [address] [place] [address] 10/30/2019 Office Visit Family Medicine González Crowley MD [address] [facility] [address] Health Maintenance Due Date Last Done Comments DTaP,Tdap,and Td Vaccines (1 - 1998 Tdap) INFLUENZA VACCINE (#1) 2019 PNEUMOCOCCAL 0-64 YEARS COMBINED Aged Out No longer eligible based on SERIES patient's age to complete this topic documented as of this encounter Results Not on filedocumented in this encounter Advance Directives Name Relationship Healthcare Agent Communication Relationship Tosha Jessica Pro Spouse Primary healthcare agent [email or web address]
--- OUTSIDE RECORDS SUMMARY | 2019-09-25 09:45 | XMS REPORT | Summary of Care ---
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 Essential hypertension lisinopril 20 mg Take 1 tablet by 90 tablet 1 05/27/2019 Active tabletIndications: mouth daily. Essential hypertension traMADol (ULTRAM) 50 Take 1 tablet by 24 tablet 0 07/11/2019 Active mg tabletIndications: mouth every 6 Post-operative pain (six) hours as needed for Pain (scale 4-6). ibuprofen 800 mg Take 1 tablet by 15 tablet 0 07/11/2019 07/16/2019 Active tabletIndications: mouth 3 (three) Post-operative pain times daily with meals for 5 days. documented as of this encounter (statuses as of 07/14/2019) Active Problems Problem Noted Date Inguinal hernia 07/08/2019 Encounter for pre-operative cardiovascular clearance 07/08/2019 Dyslipidemia 07/08/2019 Prediabetes 07/07/2018 Dizziness 02/11/2018 Fatty liver 08/28/2017 Abnormal LFTs 08/28/2017 Epigastric abdominal pain 08/27/2017 Low HDL (under 40) 03/13/2017 Essential hypertension 03/11/2017 Gastroesophageal reflux disease, esophagitis presence not specified 03/11/2017 Obesity (BMI 30-39.9) 02/21/2017 documented as of this encounter (statuses as of 07/14/2019) Resolved Problems Problem Noted Date Resolved Date Chest pain 03/27/2017 08/27/2017 Chest pain, unspecified type 03/11/2017 08/28/2017 documented as of this encounter (statuses as of 07/14/2019) Social History Tobacco Use Types Packs/Day Years [...] Signs Not on filedocumented in this encounter Plan of Treatment Date Type Specialty Care Team Description 07/23/2019 Office Visit Orthopedic Surgery Tiago De La Cruz MD [address] [place] [phone] 10/30/2019 Office Visit Family Medicine González Crowley MD [address] [facility] [address] Health Maintenance Due Date Last Done Comments DTaP,Tdap,and Td Vaccines (1 - 1998 Tdap) INFLUENZA VACCINE (#1) 2019 PNEUMOCOCCAL 0-64 YEARS COMBINED Aged Out No longer eligible based on SERIES patient's age to complete this topic documented as of this encounter Implants Implanted Type Area Senior Analyst Developer Device Shelf Model / Identifier Expiration Serial / Date Lot Mesh, Ethicon Prolene 4 X 1.8 Preshaped #Pmsk - Sn/A MESH Left: Ethicon 01/08/2023 PMSK / Implanted: Qty: 1 on 07/10/2019 by Charlene Hicks MD at [facility] [employer] N/A / [id number] documented as of this encounter Results Not on filedocumented in this encounter Advance Directives Name Relationship Healthcare Agent Communication Relationship Tosha Lopez Rpo Spouse Primary healthcare agent [email or web address]
--- OUTSIDE RECORDS SUMMARY | 2019-09-25 09:45 | XMS REPORT | Summary of Care ---
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 documented as of this encounter (statuses as of 07/16/2019) Medications Medication Sig Dispensed Refills Start Date [...] as of this encounter (statuses as of 07/16/2019) Active Problems Problem Noted Date Inguinal hernia 07/08/2019 Encounter for pre-operative cardiovascular clearance 07/08/2019 Dyslipidemia 07/08/2019 Prediabetes 07/07/2018 Dizziness 02/11/2018 Fatty liver 08/28/2017 Abnormal LFTs 08/28/2017 Epigastric abdominal pain 08/27/2017 Low HDL (under 40) 03/13/2017 Essential hypertension 03/11/2017 Gastroesophageal reflux disease, esophagitis presence not specified 03/11/2017 Obesity (BMI 30-39.9) 02/21/2017 documented as of this encounter (statuses as of 07/16/2019) Resolved Problems Problem Noted Date Resolved Date Chest pain 03/27/2017 08/27/2017 Chest pain, unspecified type 03/11/2017 08/28/2017 documented as of this encounter (statuses as of 07/16/2019) Social History Tobacco Use Types Packs/Day Years [...] Treatment Date Type Specialty Care Team Description 07/16/2019 Office Visit Surgery Charlene Hicks MD [address] [facility] [address] [place] [address] [phone] 07/23/2019 Office Visit Orthopedic Surgery Tiago De La Cruz MD [address] [facility] [place] [phone] 10/30/2019 Office Visit Family Medicine González Crowley MD [address] [facility] [place] [address] Health Maintenance Due Date Last Done Comments DTaP,Tdap,and Td Vaccines (1 - 1998 Tdap) INFLUENZA VACCINE (#1) 2019 PNEUMOCOCCAL 0-64 YEARS COMBINED Aged Out No longer eligible based on SERIES patient's age to complete this topic documented as of this encounter Implants Implanted Type Area Traveling Representative Device Shelf Model / Identifier Expiration Serial / Date Lot Mesh, Ethicon Prolene 4 X 1.8 Preshaped #Pmsk - Sn/A MESH Left: Ethicon 01/08/2023 PMSK / Implanted: Qty: 1 on 07/10/2019 by Charlene Hicks MD at [facility] [employer] N/A / [id number] documented as of this encounter Procedures Procedure Name Priority Date/Time Associated Diagnosis Comments ASSIGNMENT OF BENEFITS Routine 07/16/2019 8:05 AM CDT documented in this encounter Results Not on filedocumented in this encounter Advance Directives Name Relationship Healthcare Agent Communication Relationship Tosha Lopez Pro Spouse Primary healthcare agent
--- OUTSIDE RECORDS SUMMARY | 2019-09-25 09:45 | XMS REPORT | Summary of Care ---
:1980 Author Organization [facility] - [facility] Address [address] [place] [address] Care Team Providers Name Role Phone González Crowley MD Primary Care Provider Reason for Referral Radiology Services (STAT) Status Reason Specialty Diagnoses / Referred By Referred To Procedures Contact Contact New Request Diagnostic Diagnoses Testicular pain, left Drever, Alyx Radiology Procedures US TESTICULAR TORSION US SCROTUM AND CONTENTS G, ATLASSIAN ADMINISTRATOR [address] [address] Reason for Visit Reason Comments Groin Pain Post-Op Auth/Cert Status Reason Specialty Diagnoses / Referred By Referred To Procedures Contact Contact Emergency Medicine Diagnoses GROIN PAIN POST-OP [facility] [address] [place] [address] Encounter Details Date Type Department Care Team Description 07/11/2019 Emergency ADC-Emergency Drever, Alyx G, Testicular pain, left (Primary Dx); Department ATLASSIAN ADMINISTRATOR Post-operative pain [address] [place] [address] [id number] [place], [place] [id number] Allergies Active Allergy Reactions Severity Noted Date Comments Codeine Nausea and/or Vomiting Low 09/17/2016 Penicillins Itching Low 09/17/2016 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 Essential hypertension lisinopril 20 mg Take 1 tablet 90 tablet 1 05/27/2019 Active tabletIndications: by mouth daily. Essential hypertension traMADol (ULTRAM) 50 Take 1 tablet 24 tablet 0 07/11/2019 Active mg by mouth every tabletIndications: 6 (six) hours Post-operative pain as needed for Pain (scale 4-6). ibuprofen 800 mg Take 1 tablet 15 tablet 0 07/11/2019 Active tabletIndications: by mouth 3 9 Post-operative pain (three) times daily with meals for 5 days. ranitidine (ZANTAC) Take 1 tablet 30 tablet 1 11/16/2018 Discontinued 150 mg tablet by mouth 2 9 (two) times daily. Follow up with your MD for further evaluation and treatment. ondansetron (ZOFRAN) Take 1 tablet 12 tablet 0 04/28/2019 Discontinued 4 mg by mouth every 9 tabletIndications: 8 (eight) hours SOB (shortness of as needed for breath), Edema, Nausea and unspecified type Vomiting (N/V). pentazocine-naloxone Take 1 tablet 7 tablet 0 06/26/2019 Discontinued 50-0.5 mg by mouth every 9 tabletIndications: 6 (six) hours Closed nondisplaced as needed for fracture of proximal Pain. phalanx of right little finger, initial encounter cyclobenzaprine 5 mg Take 1 tablet 9 tablet 0 06/26/2019 Discontinued tabletIndications: by mouth 3 9 Closed nondisplaced (three) times fracture of proximal daily. phalanx of right little finger, initial encounter documented as of this encounter (statuses as of 07/11/2019) Active Problems Problem Noted Date Inguinal hernia 07/08/2019 Encounter for pre-operative cardiovascular clearance 07/08/2019 Dyslipidemia 07/08/2019 Prediabetes 07/07/2018 Dizziness 02/11/2018 Fatty liver 08/28/2017 Abnormal LFTs 08/28/2017 Epigastric abdominal pain 08/27/2017 Low HDL (under 40) 03/13/2017 Essential hypertension 03/11/2017 Gastroesophageal reflux disease, esophagitis presence not specified 03/11/2017 Obesity (BMI 30-39.9) 02/21/2017 documented as of this encounter (statuses as of 07/11/2019) Resolved Problems Problem Noted Date Resolved Date Chest pain 03/27/2017 08/27/2017 Chest pain, unspecified type 03/11/2017 08/28/2017 documented as of this encounter (statuses as of 07/11/2019) Social History Tobacco Use Types Packs/Day Years [...] Sign Reading Time Taken Comments Blood Pressure 125/71 07/11/2019 9:50 PM CDT Pulse 80 07/11/2019 9:50 PM CDT Temperature 37.1 C (98.8 F) 07/11/2019 7:29 PM CDT Respiratory Rate 20 07/11/2019 9:50 PM CDT Oxygen Saturation 97% 07/11/2019 7:29 PM CDT Inhaled Oxygen Concentration - - Weight 117.9 kg (260 lb) 07/11/2019 7:29 PM CDT Height - - Body Mass Index 38.4 07/08/2019 10:12 AM CDT documented in this encounter Discharge Instructions Alyx Parada NP - 07/11/2019Diagnosis: Post operative pain Follow up with Surgery as scheduled for post op visit Prescriptions for Ultram and Motrin provided documented in this encounter Plan of Treatment Date Type Specialty Care Team Description 07/23/2019 Office Visit Orthopedic Surgery Tiago De La Cruz MD [address] [facility] [place] [address] 10/30/2019 Office Visit Family Medicine González Crowley MD [address] [facility] [place] [address] Name Type Priority Associated Diagnoses Date/Time US TESTICULAR TORSION IMAGING STAT Testicular pain, left 07/11/2019 9:16 PM CDT Health Maintenance Due Date Last Done Comments DTaP,Tdap,and Td Vaccines (1 - 1998 Tdap) INFLUENZA VACCINE (#1) 2019 PNEUMOCOCCAL 0-64 YEARS COMBINED Aged Out No longer eligible based on SERIES patient's age to complete this topic documented as of this encounter Implants Implanted Type Area Fibreglass Laminator Device Shelf Model / Identifier Expiration Serial / Date Lot Mesh, Ethicon Prolene 4 X 1.8 Preshaped #Pmsk - Sn/A MESH Left: Ethicon 01/08/2023 PMSK / Implanted: Qty: 1 on 07/10/2019 by Charlene Hicks MD at [facility] [employer] N/A / [id number] documented as of this encounter Procedures Procedure Name Priority Date/Time Associated Diagnosis Comments US TESTICULAR TORSION STAT 07/11/2019 9:16 PM CDT Testicular pain, left Procedure Note - [facility], Radiant Results Inft User - 07/11/2019 9:34 PM CDT EXAM: US TESTICULAR TORSION HISTORY: 38 year old male with history of bilateral inguinal hernias presenting with concern for r/o torsion COMPARISON: CT abdomen pelvis 07/08/2019 FINDINGS: RIGHT TESTICLE: Normal size, shape, and echotexture without a focal lesion. The right testicle measures 4.6 x 2.5 x 2.8 cm (17 mL). LEFT TESTICLE: Normal size, shape, and echotexture without a focal lesion. The left testicle measures 3.7 x 2.6 x 3.0 cm (15 mL). EPIDIDYMIDES: The right epididymal head measures 0.8 1.0 x 0.7 cm. The left epididymal head measures 1.2 x 1.1 x 1.2 cm and contains a benign subcentimeter epididymal cyst measuring up to 0.6 cm. BLOOD FLOW: Symmetric flow on color Doppler. SCROTUM: Trace bilateral hydroceles with scattered foci of low-level echoes. VARICOCELE: None. No significant defect or herniated structure within the area of the surgery following Valsalva maneuver. IMPRESSION No clinical suspicion for testicular torsion given normal bilateral flow on color Doppler. Trace bilateral hydroceles. NOTICE OF PRIVACY PRACTICES Routine 07/11/2019 7:18 PM CDT CONSENT/REFUSAL FOR DIAGNOSIS AND TREATMENT Routine 07/11/2019 7:18 PM CDT documented in this encounter Results Not on filedocumented in this encounter Visit Diagnoses Diagnosis Testicular pain, left - Primary Unspecified disorder of male genital organs Post-operative pain Other acute postoperative pain documented in this encounter Administered Medications Medication Order MAR Action Action Date Dose Rate Site HYDROcodone-acetaminophen Given 07/11/2019 7:52 PM CDT 2 tablets (NORCO 5) 5-325 mg tablet 2 tablet 2 tablet, Oral, ONCE, 1 dose, 07/11/19 at 2045, KIMO documented in this encounter Advance Directives Name Relationship Healthcare Agent Communication Relationship Tosha Lopez Pro Spouse Primary healthcare agent [email or web address]
--- OUTSIDE RECORDS SUMMARY | 2019-09-25 09:45 | XMS REPORT | Summary of Care ---
:1980 Author Organization [facility] Volusion [facility] Address [address] [place] [address] Care Team Providers Name Role Phone González Fregoso MD Primary Care Provider Reason for Referral (Routine) Status Reason Specialty Diagnoses / Referred By Referred To Procedures Contact Contact New Request CHRISTELLE-SURGERY Diagnoses Left inguinal pain Patrice John MD Procedures Discharge Follow-Up: Specialty Service CHRISTELLE-SURGERY (Dr. Hicks); 1 Week [address] [place] [address] (Routine) Status Reason Specialty Diagnoses / Referred By Referred To Procedures Contact Contact New Request Diagnoses Left inguinal pain Patrice John MD [place], Wondiful Procedures Discharge Follow-up: PCP GONZÁLEZ FREGOSO; 1 Month [address] [facility] Jong Newman MD [address] [address] [place], [place] Phone: [phone] Phone: Radiology Services (KIMO) Status Reason Specialty Diagnoses / Referred By Referred To Procedures Contact Contact New Request Diagnostic Diagnoses Chest pain on breathing Baudilio Najera, Radiology Procedures XR CHEST [address] [place] [phone] Radiology Services ([facility]IMO) Status Reason Specialty Diagnoses / Referred By Referred To Procedures Contact Contact New Request Diagnostic Diagnoses Chest pain on breathing Baudilio Najera, Radiology Procedures XR CHEST [address] [place] [phone] MRI/CAT Scan (STAT) Status Reason Specialty Diagnoses / Referred By Referred To Procedures Contact Contact New Request Diagnostic Diagnoses Left inguinal pain Rubén, K Radiology Procedures CT ABDOMEN PELVIS W CONTRAST Koki, PAC [address] [address] MRI/CAT Scan (STAT) Status Reason Specialty Diagnoses / Referred By Referred To Procedures Contact Contact New Request Diagnostic Diagnoses Left inguinal pain Rubén, K Radiology Procedures CT ABDOMEN PELVIS W CONTRAST Koki, PAC [address] [address] Reason for Visit Reason Comments HERNIA L groin Auth/Cert Status Reason Specialty Diagnoses / Referred By Referred To Procedures Contact Contact Emergency [facility] [address] [place] [address] [place] [address] Encounter Details Date Type Department Care Team Description 07/08/2019 - Hospital Encounter [facility] Medicine Rubén, K Koki, PAC [address] [address] Inguinal hernia 07/10/2019 Surgery Unit Baudilio Najera MD [address] [place] [id number] [place] [address] [address] [place], [place] [address] Allergies Active Allergy Reactions Severity Noted Date [...] Sign Reading Time Taken Comments Blood Pressure 139/83 07/10/2019 4:00 PM CDT Pulse 96 07/10/2019 4:00 PM CDT Temperature 36.7 C (98 F) 07/10/2019 4:00 PM CDT Respiratory Rate 16 07/10/2019 3:00 PM CDT Oxygen Saturation 95% 07/10/2019 3:00 PM CDT Inhaled Oxygen Concentration - - Weight 117.9 kg (260 lb) 07/08/2019 10:12 AM CDT Height 175.3 cm (5' 9") 07/08/2019 10:12 AM CDT Body Mass Index 38.4 07/08/2019 10:12 AM CDT documented in this encounter Discharge Instructions AttachmentsThe following attachments cannot be sent through Care Everywhere.Hernia Repair (Open), Discharge Instructions (Armenian)documented in this encounter Progress Notes Charlene Hicks MD - 07/10/2019 3:53 PM CDT GENERAL SURGERY DAILY PROGRESS NOTE Patient Name: Javad Pro Date of : 1980 Date: 07/10/2019 Surgery Date: 07/10/2019 Procedure: LIH repair Day of Surgery Postoperative Events: The patient is doing well and not c/o incisional pain. He wants to eat. Physical Exam: Vital Signs Temp: [36.5 C (97.7 F)-37.6 C (99.7 F)] Heart Rate (monitor): [82-110] Pulse: [83-110] Resp: [10-25] BP: (97-149)/(58-94) MAP (mmHg): [75-97] Intake/Output Intake/Output Summary (Last 24 hours) at 07/10/2019 1554 Last data filed at 07/10/2019 1317 Gross per 24 hour Intake 2040 ml Output Net 2040 ml Constitutional: Awake, alert, oriented, in no acute distress Head: Normocephalic, atraumatic Eyes: Extraocular movements grossly intact, pupils equal and reactive to light and accomodation, anicteric sclerae Ears: Normal external exam Nose: Normal external exam Mouth: Moist mucous membranes Neck: Supple, no jugular venous distention GI: Dressing C/D/I Musculoskeletal: Normal tone and strength, normal range of motion Neurologic: CN II through XII grossly intact, no focal deficits Skin: Warm and dry, capillary refill <2 seconds, no jaundice, rashes, lesions , or erythema Psychiatric: Appropriate mood and affect, no obvious deficits of insight or judgment Medications: Scheduled Medications traZODONE 50 mg QHS enoxaparin (LOVENOX) SC Syringe 40 mg DAILY furosemide 40 mg DAILY lisinopril 20 mg DAILY melatonin 6 mg QHS pantoprazole 40 mg DAILY IV Medications/Drips lactated ringers Last Rate: 1,000 mL (07/10/19 0933) PRN Medications acetaminophen 650 mg Q6HPRN morpHINE 2 mg Q4HPRN ondansetron 4 mg Q6HPRN Assessment: Javad Pro is a 38 year old male s/p LIH repair with mesh doing well. Patient Active Problem List Diagnosis Obesity (BMI 30-39.9) Essential hypertension Gastroesophageal reflux disease, esophagitis presence not specified Low HDL (under 40) Epigastric abdominal pain Fatty liver Abnormal LFTs Dizziness Prediabetes Inguinal hernia Encounter for pre-operative cardiovascular clearance Dyslipidemia Plan: 1. May be discharged Discharge instructions 1. No lifting more than 10 pounds for 6 weeks 2. No driving until follow up appointment 3. Remove dressing in 2 days, leave steristrips on, may shower, no soaking incision under water 4. May discharge with Ultram and Motrin for pain 5. Follow up with Dr. Hicks in 1 week Charlene Hicks M.D. 07/10/2019 15:54 3: 58 PM Moe Burkett MD - 07/09/2019 10:04 PM CDT General Surgery Progress Note Date of Service: 07/09/2019 24-Hour Events: NAEO MEDICATIONS: Current Facility-Administered Medications Medication Dose Route Frequency Last Rate Last Dose traZODONE (DESYREL) tablet 50 mg 50 mg Oral QHS acetaminophen (TYLENOL) tablet 650 mg 650 mg Oral Q6HPRN enoxaparin (LOVENOX) injection 40 mg 40 mg Subcutaneous DAILY 40 mg at 0959 furosemide (LASIX) tablet 40 mg 40 mg Oral DAILY 40 mg at 07/09/19 0959 lisinopril (PRINIVIL,ZESTRIL) tablet 20 mg 20 mg Oral DAILY 20 mg at 0959 melatonin (MELATIN) tablet 6 mg 6 mg Oral QHS 6 mg at 07/08/19 2243 morpHINE injection 2 mg 2 mg Slow IV Push Q4HPRN 2 mg at 07/09/192104 ondansetron (ZOFRAN (PF)) injection 4 mg 4 mg Slow IV Push Q6HPRN pantoprazole (PROTONIX) EC tablet 40 mg 40 mg Oral DAILY 40 mg at 0959 PHYSICAL EXAM: Temp: [36.3 C (97.3 F)-37.4 C (99.3 F)] Pulse: [70-96] Resp: [14-25] BP: (123-149)/(76-101) MAP (mmHg): [89] Intake/Output Summary (Last 24 hours) at 07/09/2019 220 Last data filed at 07/09/2019 1726 Gross per 24 hour Intake 840 ml Output Net 840 ml General: A & O x 3 HEENT: no scleral icterus, moist mucous membranes Respiratory: CTAB Cardio: normal rate and sinus rhythm Abdomen: soft, distended, nontender. Small reducible RIH and large reducible LIH. Extremities: DP and PT pulses 3+ bilaterally. No edema. Skin: no rashes LABORATORY: Hemogram Recent Labs 07/07/19 2308 07/08/19 1054 07/09/19 0155 WBC 7.56 5.30 6.61 HGB 14.1 14.1 13.5 HCT 42.1 43.1 41.0 PLT 271 270 269 Chemistry Recent Labs 07/07/19 2351 07/08/19 1054 07/09/19 0155 NA 141 142 140 K 4.3 4.2 4.2 CL 105 107 105 TCO2 28 26 28 BUN 17 18 16 CREAT 0.94 0.82 0.92 GLU 121* 96 137* CA 8.9 9.1 9.2 Arterial Blood Gas No results for input(s): ACPH, ACPCO2, ACPO2, ACHCO3, ACNA, ACK, ACCAIONZ, ACBE in the last 72 hours. Coagulation Profile Recent Labs 07/09/19 0155 PTPAT 12.2 PTINR 1.0 Urinalysis Recent Labs 07/07/19 2308 UPROTEIN Negative UGLUCOSE Negative UKETONES Negative UBILI Negative ULEUKEST Negative UNITRITE Negative USPGRAV >=1.030 LFTs Recent Labs 07/08/19 1054 AST 32 ALT 65* ALKPHOS 97 BILIT 0.3 Hospital Problem list: Patient Active Problem List Diagnosis Date Noted Inguinal hernia 07/08/2019 Encounter for pre-operative cardiovascular clearance 07/08/2019 Dyslipidemia 07/08/2019 Prediabetes 07/07/2018 Dizziness 02/11/2018 Fatty liver 08/28/2017 Abnormal LFTs 08/28/2017 Epigastric abdominal pain 08/27/2017 Low HDL (under 40) 03/13/2017 Essential hypertension 03/11/2017 Gastroesophageal reflux disease, esophagitis presence not specified 2016 Obesity (BMI 30-39.9) 02/21/2017 Assessment & Plan: Javad Pro is a 38 year old male with PMH significant for HTN, CHF, prediabetes, and obesity who presents with bilateral inguinal hernias, most prominent and symptomatic on the left. Patient was cleared by cardiology to undergo surgery - Will perform LIHR tomorrow. Given patient absence of symptoms on R side, will defer RIHR at this moment - NPOPM - Will continue to follow - Rest of care per primary team Moe Mabry MD Surgery - PGY 2 Associated attestation - Charlene Hicks MD - 07/10/2019 10:20 AM CDTI personally evaluated and examined the patient on 07/09/[address] Funes's progress note as written. I actively participated in the decision- making process. Please see the resident's notefor additional details. The patient reports minor left groin pain today. He has been cleared by cardiology for hernia repair. His abdomen is soft, nontender, and nondistended. Will proceed with LIH repair with mesh tomorrow. Consent has already been obtained. Charlene Hicks M.D. 07/10/2019 10:19AbdBaudilio deshpande MD - 07/09/2019 5:34 PM CDT [facility] Hospitalist Progress Note SUBJECTIVE: Feels better today. CURRENT MEDICATIONS - reviewed. Current Facility-Administered Medications Medication Dose Route Frequency Last Rate Last Dose traZODONE (DESYREL) tablet 50 mg 50 mg Oral QHS acetaminophen (TYLENOL) tablet 650 mg 650 mg Oral Q6HPRN enoxaparin (LOVENOX) injection 40 mg 40 mg Subcutaneous DAILY 40 mg at 0959 furosemide (LASIX) tablet 40 mg 40 mg Oral DAILY 40 mg at 07/09/19 0959 lisinopril (PRINIVIL,ZESTRIL) tablet 20 mg 20 mg Oral DAILY 20 mg at 0959 melatonin (MELATIN) tablet 6 mg 6 mg Oral QHS 6 mg at 07/08/19 2243 morpHINE injection 2 mg 2 mg Slow IV Push Q4HPRN 2 mg at 07/08/19 1756 ondansetron (ZOFRAN (PF)) injection 4 mg 4 mg Slow IV Push Q6HPRN pantoprazole (PROTONIX) EC tablet 40 mg 40 mg Oral DAILY 40 mg at 0959 PHYSICAL EXAM: BP 123/76 | Pulse 96 | Temp 37.2 C (99 F) (Oral) | Resp 22 | Ht 5' 9" ( 1.753 m) | Wt 260 lb(117.9 kg) | SpO2 97% | BMI 38.40 kg/m General: No respiratory distress Neuro: AAOx3, no focal deficits Psych: Normal affect LABS/IMAGING - reviewed, pertinent results as below: CBC BMP PT/INR WBC (10*3/L) Date Value 07/09/2019 6.61 NA (mmol/L) Date Value 07/09/2019 140 No results found for: PT RBC (10*6/L) Date Value 07/09/2019 4.71 K (mmol/L) Date Value 07/09/2019 4.2 INR (no units) Date Value 07/09/2019 1.0 PLT (10*3/L) Date Value 07/09/2019 269 CALCIUM (mg/dL) Date Value 07/09/2019 9.2 HGB (g/dL) Date Value 07/09/2019 13.5 CL (mmol/L) Date Value 07/09/2019 105 aPTT HCT (%) Date Value 07/09/2019 41.0 BUN (mg/dL) Date Value 07/09/2019 16 APTT Patient (Seconds) Date Value 05/28/2019 31 CREATININE (mg/dL) Date Value 07/09/2019 0.92 IMAGING- Hospital Encounter on 07/08/19 CT ABDOMEN PELVIS W CONTRAST Narrative CT Abdomen and Pelvis with intravenous contrast. CLINICAL HISTORY: Hernia complication. DOSE: Up-to-date CT equipment and radiation dose reduction techniques were employed. CTDIvol: 14.01 mGy. DLP: 833 mGy-cm. TECHNIQUE : Contiguous axial imaging from the level of the lung bases through the pubic symphysis were performed after the uncomplicated administration of Omnipaque contrast material. Coronal and sagittal reconstructions were obtained. Auto mA and/or iterative reconstruction were used to reduce radiation dose. FINDINGS: Comparison is made with 07/07/2019 study. Lower lungs: Clear. Short sliding hiatal hernia noted. Liver, Gallbladder and Spleen: No focal enhancing lesions in the liver or in the spleen. No calcified gallstones. Biliary ducts and the pancreatic duct appear to be of normal size. Liver is slightly enlarged, 18.6 cm in length with mild diffuse hepatic steatosis. Spleen is upper normal in size, measuring 13 x 5 cm Peritoneum: No free air or free fluid. No lymphadenopathy. Pancreas and Adrenals: Unremarkable pancreas and adrenal glands. Kidneys and Ureters: No visible calculi in the renal collecting systems. No hydroureter or hydronephrosis. Vessels: Normal. Retroperitoneum: No abnormal fluid or lymphadenopathy. Bowel: Some of the jejunal loops are slightly dilated with small air-fluid levels. Normal appendix is visualized. Large bowel gas pattern is unremarkable. Bladder and Reproductive Organs: Indirect type left inguinal hernia containing slightly congested fat and the blood vessels. A small fat-containing indirect type right inguinal hernia also noted. Bones: Exaggerated lumbosacral lordosis noted. Soft tissues: Irregular shaped small 3 x 2 cm size fat containing a follicle hernia. CONCLUSION: 1. Bilateral inguinal hernia, indirect type, larger on the left side with slightly congested fat noted within the hernia sac as well as proximal to the hernia in the left lower abdomen, ranging concern for mild strangulation. Similar findings were present, however, in the previous CT scan of 07/07/2019. 2. Short sliding hiatal hernia, small fat-containing umbilical hernia. 3. Mild hepatomegaly and upper normal spleen with mild hepatic steatosis. XR CHEST 1 VW Narrative * * * * * * * * ORIGINAL REPORT * * * * * * * * EXAM: XR CHEST 1 VW HISTORY: Substernal pain COMPARISON: None. FINDINGS: The heart and great vessels are normal and the lungs are well expanded and clear. ASSESSMENT/PLAN Javad Pro is a 38 year old male with PMH as listed above, admitted to the hospital with: Left inguinal hernia, possibly strangulated Surgery consulted. Plan for surgical repair tomorrow. Cardiology consulted for clearance given hx of CHF. Echo normal. OK to proceed to surgery. Chronic diastolic CHF Cardiology recommends po lasix Hx HTN On lisinopril Severe insomnia On melatonin. Add trazodone. Prophylaxis: DVT- enoxaparin Stress Ulcer: no indication for prophylaxis Code Status: addressed: Full Disposition: Home Baudilio Najera MD Veronica Rea [facility] - 07/09/2019 10:56 AM CDTSubjective Patient ID: Javad Pro is a 38 year old male. Care Management Social Functional Assessment Patient Name: Javad Pro Age: [age] year old Sex: male Patient's Previous Admission Date at [facility]: 03/27/2017 Current diagnosis and co-morbidities: inguinal hernia Readmission Questions: Was patient discharged from any acute care hospital within the last 30 days: No Social Functional Assessment: Primary language spoken/preferred: Armenian Mental Status: Alert & Oriented to Person,Place & Time Information given by: Self Patient's support system: Spouse;Parent Name and number of support system: Tosha Pro, and Sherice [place], mother [phone] [employer] Professional: Self MPOA: No Living Arrangement: Home Address of living arrangement : [address] [place] [id number] Persons living in home: Self;Spouse Barriers to returning home: None Baseline functional status- ambulation: Independent Functional status-baseline personal care: Independent Baseline functional status- driving: Independent Baseline functional status- grocery shopping: Independent Functional status-baseline housekeeping: Independent Functional status-baseline meal prep: Independent Current functional status same as prior: Yes Do you have a PCP?: Yes Name of PCP: Dr. Fregoso Home Health Care Agency: No Provider Services: No DME Company: No Equipment: None Hemodialysis: No Community resources utilized: None Funding Resources: Self Pay Prescription coverage plan: Self Pay Pharmacy where meds are filled: Other Other pharmacy: [facility] Anticipated services prior to disharge: Continue Medical Eval Expected mode of discharge transportation: Same as support system Additional Recommendations for DC: medical clearance Additional info required for discharge planning: Pending medical evaluation Recommended discharge plan: Home SFA Complete: Social Functional Assessment complete: Yes Alcohol Use Screening (AUDIT-C) How often do you have a drink containing alcohol?: Never SCORE: 0 Did patient elect to have resources provided: No Role of Care Management explained. Any issues or concerns with obtaining/affording your medications at home: no. Are you or your support system able to crop picker medications at discharge: yes. Review of Systems Objective Physical Exam Assessment/Plan Home with , patient's insurance will go into effect July 12, 2019. [employer] Representative - Care Management [facility] [phone] [email or web address] documented in this encounter Plan of Treatment Date Type Specialty Care Team Description 07/23/2019 Office Visit Orthopedic Surgery Tiago De La Cruz MD [facility] [place] [address] 10/30/2019 Office Visit Family Medicine González Fregoso MD [address] [place] [address] [facility] [facility] [place] [phone] Name Type Priority Associated Diagnoses Date/Time SURGICAL PATHOLOGY EXAM LAB STAT 07/10/2019 12:36 PM CDT Name Type Priority Associated Diagnoses Order Schedule CBC with Differential LAB Routine EVERY MORNING AT 0400 for 4 Occurrences starting 07/09/2019 until 07/12/2019, 2 completed Basic Metabolic Panel LAB Routine EVERY MORNING AT (NA, K, CL, CO2, 0400 for 4 GLUCOSE, BUN, Occurrences starting CREATININE, CA) 07/09/2019 until 07/12/2019, 2 completed EKG-12 LEAD ROUTINE HEART STATION Routine TOMORROW AM AT 0600 for 1 Occurrences starting 07/09/2019 until 07/09/2019 EKG-12 LEAD ROUTINE HEART STATION STAT ONCE for 1 Occurrences starting 07/09/2019 until 07/09/2019 SURGICAL PATHOLOGY LAB Routine ONCE for 1 EXAM Occurrences starting 07/10/2019 Health Maintenance Due Date Last Done Comments DTaP,Tdap,and Td Vaccines (1 - 1998 Tdap) INFLUENZA VACCINE (#1) 2019 PNEUMOCOCCAL 0-64 YEARS COMBINED Aged Out No longer eligible based on SERIES patient's age to complete this topic documented as of this encounter Implants Implanted Type Area Fingerprint Expert Device Shelf Model / Identifier Expiration Serial / Date Lot Mesh, Ethicon Prolene 4 X 1.8 Preshaped #Pmsk - Sn/A MESH Left: Ethicon 01/08/2023 PMSK / Implanted: Qty: 1 on 07/10/2019 by Charlene Hicks MD at [facility] [employer] N/A / [id number] documented as of this encounter Procedures Procedure Name Priority Date/Time Associated Diagnosis Comments CBC WITH DIFFERENTIAL Routine 07/10/2019 4:41 Results for this AM CDT procedure are in the results section. CBC WITH DIFF Routine 07/10/2019 4:41 Results for this AM CDT procedure are in the results section. BASIC METABOLIC PANEL Routine 07/10/2019 4:40 Results for this (NA, K, CL, CO2, AM CDT procedure are in GLUCOSE, BUN, the results CREATININE, CA) section. TROPONIN I Routine 07/09/2019 2:34 Results for this PM CDT procedure are in the results section. XR CHEST 1 VW KIMO 07/09/2019 10:36 Chest pain on Results for this AM CDT breathing procedure are in the results section. EKG-12 LEAD Routine 07/09/2019 6:06 AM CDT CBC WITH DIFFERENTIAL Routine 07/09/2019 1:55 Results for this AM CDT procedure are in the results section. PROTHROMBIN TIME / KIMO 07/09/2019 1:55 Results for this INR AM CDT procedure are in the results section. CBC WITH DIFF Routine 07/09/2019 1:55 Results for this AM CDT procedure are in the results section. BASIC METABOLIC PANEL Routine 07/09/2019 1:55 Results for this (NA, K, CL, CO2, AM CDT procedure are in GLUCOSE, BUN, the results CREATININE, CA) section. ECHO ROUTINE Routine 07/08/2019 3:24 Essential W/DOPPLER COLOR PM CDT hypertension CT ABDOMEN PELVIS W STAT 07/08/2019 11:36 Left inguinal pain Results for this CONTRAST AM CDT procedure are in the results section. CBC WITH DIFFERENTIAL STAT 07/08/2019 10:54 Left inguinal pain Results for this AM CDT procedure are in the results section. CBC WITH DIFF Routine 07/08/2019 10:54 Left inguinal pain Results for this AM CDT procedure are in the results section. COMP. METABOLIC PANEL STAT 07/08/2019 10:54 Left inguinal pain Results for this (47071) AM CDT procedure are in the results section. documented in this encounter Results CBC WITH DIFFERENTIAL (07/10/2019 4:41 AM CDT) WBC 7.59 4.20 - 10.70 [facility] 10*3/L [facility] RBC 4.96 4.26 - 5.52 [facility] 10*6/L [facility] HGB 14.2 12.2 - 16.4 [facility] g/dL [facility] HCT 42.9 38.4 - 49.3 % [facility] MCV 86.5 81.7 - 95.6 [facility] LABORATORY MCH 28.6 26.1 - 32.7 [facility] LABORATORY MCHC 33.1 31.2 - 35.0 [facility] g/dL [facility] RDW-SD 39.8 38.5 - 51.6 [facility] LABORATORY RDW-CV 12.9 12.1 - 15.4 % [facility] PLT 239 150 - 328 [facility] 10*3/L [facility] MPV 10.4 9.8 - 13.0 [facility] LABORATORY IPF % 2.4Comment: Platelet 1.2 - 10.7 % [facility] count measured by HOSPITAL fluorescence method. LABORATORY NRBC/100 WBC 0.0 0.0 - 10.0 [facility] /100 WBCs [facility] NRBC x10^3 <0.01 10*3/L [facility] GRAN MAT (NEUT) % 53.5 % [facility] IMM GRAN % 1.60 % [facility] LYMPH % 31.9 % [facility] MONO % 10.1 % [facility] EOS % 2.1 % [facility] BASO % 0.8 % [facility] GRAN MAT 4.06 1.99 - 6.95 [facility] x10^3(ANC) 10*3/uL [facility] IMM GRAN x10^3 0.12 (H) 0.00 - 0.06 [facility] 10*3/uL [facility] LYMPH x10^3 2.42 1.09 - 3.23 [facility] 10*3/uL [facility] MONO x10^3 0.77 0.36 - 1.02 [facility] 10*3/uL [facility] EOS x10^3 0.16 0.06 - 0.53 [facility] 10*3/uL [facility] BASO x10^3 0.06 0.01 - 0.09 [facility] 10*3/uL [facility] Specimen Blood - HAND, LEFT Performing Organization Address City/State/Zipcode Phone Number [facility] CLIA: [id number], [address] [place] [address] Basic Metabolic Panel (NA, K, CL, CO2, GLUCOSE, BUN, CREATININE, CA) (2018 4:40 AM CDT) NA 140 135 - 145 [facility] mmol/L [facility] K 4.2 3.5 - 5.0 [facility] mmol/L [facility] CL 104 98 - 108 mmol/L [facility] CO2 TOTAL 28 23 - 31 mmol/L [facility] AGAP 8 2 - 16 [facility] BUN 16 7 - 23 mg/dL [facility] GLUCOSE 130 (H) 70 - 110 mg/dL [facility] CREATININE 0.81 0.60 - 1.25 [facility] mg/dL [facility] CALCIUM 8.8 8.6 - 10.6 [facility] mg/dL [facility] eGFR Calculation 106.1 mL/min/1.73m2 [facility] (Non- [facility] [place]) eGFR Calculation 128.6 mL/min/1.73m2 [facility] () [facility] Specimen Blood - HAND, LEFT Narrative Performed At Association of Glomerular Filtration Rate (GFR) [facility] and Staging of Kidney Disease* [...] tests). Performing Organization Address City/State/Zipcode Phone Number [facility] CLIA: [id number], [address] [place] [address] TROPONIN I (07/09/2019 2:34 PM CDT) TROPONIN I <0.012 <=0.034 ng/mL [facility] Specimen Blood - ARM, RIGHT Narrative Performed At Equal or Less than 0.034 ng/ml---Normal [facility] Note: Cardiac troponin begins to rise 3-4 hours after the onset of ischemia. Repeat in 4-6 hours if the sample was drawn within 3-4 hours of the onset of the symptom and found normal. Between 0.035 and 0.120 ng/mL--- Borderline. Questionable myocardial injury or necrosis Note: Serial measurement may be necessary to confirm or exclude the diagnosis of myocardial injury or necrosis; Clinical correlation (symptoms, EKGs, imaging studies, and others) required; Repeat in 4-6 hours if clinically indicated. Equal or Higher than 0.121 ng/mL---Abnormal. Myocardial Injury or Necrosis Likely Biotin has been reported to cause a negative bias, interpret results relative to patient's use of biotin. Performing Organization Address City/[facility]/Zipcode Phone Number [facility] CLIA: [id number], [address] [place] [address] XR CHEST 1 VW (07/09/2019 10:36 AM CDT) Specimen Narrative Performed At * * * * * * * * ORIGINAL REPORT * * * * * * * * PACS/VR/DOSE EXAM: XR CHEST 1 VW HISTORY: Substernal pain COMPARISON: None. FINDINGS: The heart and great vessels are normal and the lungs are well expanded and clear. Procedure Note [facility], Radiant Results Inft User - 07/09/2019 10:40 AM CDT * * * * * * * * ORIGINAL REPORT * * * * * * * * EXAM: XR CHEST 1 VW HISTORY: Substernal pain COMPARISON: None. FINDINGS: The heart and great vessels are normal and the lungs are well expanded and clear. Performing Organization Address City/State/Zipcode Phone Number PACS/VR/DOSE CBC WITH DIFFERENTIAL (07/09/2019 1:55 AM CDT) WBC 6.61 4.20 - 10.70 [facility] 10*3/L HOSPITAL LABORATORY RBC 4.71 4.26 - 5.52 [facility] 10*6/L HOSPITAL LABORATORY HGB 13.5 12.2 - 16.4 g/dL [facility] LABORATORY HCT 41.0 38.4 - 49.3 % [facility] LABORATORY MCV 87.0 81.7 - 95.6 fL [facility] LABORATORY MCH 28.7 26.1 - 32.7 pg [facility] LABORATORY MCHC 32.9 31.2 - 35.0 g/dL [facility] LABORATORY RDW-SD 40.6 38.5 - 51.6 fL [facility] LABOR[facility] RDW-CV 13.0 12.1 - 15.4 % [facility] LABORATORY PLT 269 150 - 328 [facility] 10*3/L [facility] LABORAT[facility] MPV 10.2 9.8 - 13.0 fL [facility] LABORATORY NRBC/100 WBC 0.0 0.0 - 10.0 /100 [facility] WBCs HOSPITAL LABORATORY NRBC x10^3 <0.01 10*3/L [facility] LABORATORY GRAN MAT (NEUT) % 54.6 % [facility] LABORATORY IMM GRAN % 0.50 % [facility] LABORATORY LYMPH % 30.7 % [facility] LABOR[facility] MONO % 11.6 % [facility] LABOR[facility] EOS % 2.4 % [facility] LABORATORY BASO % 0.2 % [facility] LABORATORY GRAN MAT x10^3(ANC) 3.61 1.99 - 6.95 [facility] 10*3/uL HOSPITAL LABORATORY IMM GRAN x10^3 0.03 0.00 - 0.06 [facility] 10*3/uL HOSPITAL LABORATORY LYMPH x10^3 2.03 1.09 - 3.23 [facility] 10*3/uL HOSPITAL LABORATORY MONO x10^3 0.77 0.36 - 1.02 [facility] 10*3/uL HOSPITAL LABORATORY EOS x10^3 0.16 0.06 - 0.53 [facility] 10*3/uL HOSPITAL LABORATORY BASO x10^3 <0.03 0.01 - 0.09 [facility] 10*3/uL HOSPITAL LABORATORY Specimen Blood - HAND, LEFT Performing Organization Address City/State/Zipcode Phone Number [facility] CLIA: [id number], [address] [place] [address] Prothrombin Time / INR (07/09/2019 1:55 AM CDT) Pathologist [facility] PROTIME PATIENT 12.2 12.0 - 14.7 [facility] Seconds [facility] LABORATORY INR 1.0Comment: Normal [facility] INR <1.1; Warfarin HOSPITAL Therapeutic range LABORATORY 2.0 to 3.0 or 2.5 to 3.5, depending upon the indications. Specimen Blood - HAND, LEFT Performing Organization Address City/[facility]/Zipcode Phone Number [facility] CLIA: [id number], [address] [place] [address] Basic Metabolic Panel (NA, K, CL, CO2, GLUCOSE, BUN, CREATININE, CA) (2018 1:55 AM CDT) Pathologist [facility] NA 140 135 - 145 [facility] mmol/L [facility] LABOR[facility] K 4.2 3.5 - 5.0 [facility] mmol/L [facility] CL 105 98 - 108 mmol/L [facility] LABORATORY CO2 TOTAL 28 23 - 31 mmol/L [facility] LABORATORY AGAP 7 2 - 16 [facility] LABORATORY BUN 16 7 - 23 mg/dL [facility] GLUCOSE 137 (H) 70 - 110 mg/dL [facility] LABORATORY CREATININE 0.92 0.60 - 1.25 [facility] mg/dL [facility] LAB[facility] CALCIUM 9.2 8.6 - 10.6 [facility] mg/dL [facility] LAB[facility] eGFR Calculation 91.6 mL/min/1.73m2 [facility] (Non-[facility] LABORATORY [place]) eGFR Calculation 111.0 mL/min/1.73m2 [facility] () [facility] LABORAT[facility] Specimen Blood - HAND, LEFT Narrative Performed At Association of Glomerular Filtration Rate (GFR) [facility] LABORATORY and Staging of Kidney Disease* [...] tests). Performing Organization Address City/State/Zipcode Phone Number [facility] CLIA: [id number], [address] [place] [address] ABDOMEN PELVIS W CONTRAST (07/08/2019 11:36 AM CDT) Specimen Narrative Performed At CT Abdomen and Pelvis with intravenous contrast. PACS/VR/DOSE CLINICAL HISTORY: Hernia complication. DOSE: Up-to-date CT equipment and radiation dose reduction techniques were employed. CTDIvol: 14.01 mGy. DLP: 833 mGy-cm. TECHNIQUE : Contiguous axial imaging from the level of the lung bases through the pubic symphysis were performed after the uncomplicated administration of Omnipaque contrast material. Coronal and sagittal reconstructions were obtained. Auto mA and/or iterative reconstruction were used to reduce radiation dose. FINDINGS: Comparison is made with 07/07/2019 study. Lower lungs: Clear. Short sliding hiatal hernia noted. Liver, Gallbladder and Spleen: No focal enhancing lesions in the liver or in the spleen. No calcified gallstones. Biliary ducts and the pancreatic duct appear to be of normal size. Liver is slightly enlarged, 18.6 cm in length with mild diffuse hepatic steatosis. Spleen is upper normal in size, measuring 13 x 5 cm Peritoneum:No free air or free fluid. No lymphadenopathy. Pancreas and Adrenals:Unremarkable pancreas and adrenal glands. Kidneys and Ureters:No visible calculi in the renal collecting systems. No hydroureter or hydronephrosis. Vessels: Normal. Retroperitoneum: No abnormal fluid or lymphadenopathy. Bowel: Some of the jejunal loops are slightly dilated with small air-fluid levels. Normal appendix is visualized. Large bowel gas pattern is unremarkable. Bladder and Reproductive Organs: Indirect type left inguinal hernia containing slightly congested fat and the blood vessels. A small fat-containing indirect type right inguinal hernia also noted. Bones: Exaggerated lumbosacral lordosis noted. Soft tissues: Irregular shaped small 3 x 2 cm size fat containing a follicle hernia. CONCLUSION: 1. Bilateral inguinal hernia, indirect type, larger on the left side with slightly congested fat noted within the hernia sac as well as proximal to the hernia in the left lower abdomen, ranging concern for mild strangulation. Similar findings were present, however, in the previous CT scan of 07/07/2019. 2. Short sliding hiatal hernia, small fat-containing umbilical hernia. 3. Mild hepatomegaly and upper normal spleen with mild hepatic steatosis. Procedure Note [facility], Radiant Results Inft User - 07/08/2019 11:[address] Abdomen and Pelvis with intravenous contrast. CLINICAL HISTORY: Hernia complication. DOSE: Up-to-date CT equipment and radiation dose reduction techniques were employed. CTDIvol: 14.01 mGy. DLP: 833 mGy-cm. TECHNIQUE : Contiguous axial imaging from the level of the lung bases through the pubic symphysis were performed after the uncomplicated administration of Omnipaque contrast material. Coronal and sagittal reconstructions were obtained. Auto mA and/or iterative reconstruction were used to reduce radiation dose. FINDINGS: Comparison is made with 07/07/2019 study. Lower lungs: Clear. Short sliding hiatal hernia noted. Liver, Gallbladder and Spleen: No focal enhancing lesions in the liver or in the spleen. No calcified gallstones. Biliary ducts and the pancreatic duct appear to be of normal size. Liver is slightly enlarged, 18.6 cm in length with mild diffuse hepatic steatosis. Spleen is upper normal in size, measuring 13 x 5 cm Peritoneum: No free air or free fluid. No lymphadenopathy. Pancreas and Adrenals: Unremarkable pancreas and adrenal glands. Kidneys and Ureters: No visible calculi in the renal collecting systems. No hydroureter or hydronephrosis. Vessels: Normal. Retroperitoneum: No abnormal fluid or lymphadenopathy. Bowel: Some of the jejunal loops are slightly dilated with small air-fluid levels. Normal appendix is visualized. Large bowel gas pattern is unremarkable. Bladder and Reproductive Organs: Indirect type left inguinal hernia containing slightly congested fat and the blood vessels. A small fat-containing indirect type right inguinal hernia also noted. Bones: Exaggerated lumbosacral lordosis noted. Soft tissues: Irregular shaped small 3 x 2 cm size fat containing a follicle hernia. CONCLUSION: 1. Bilateral inguinal hernia, indirect type, larger on the left side with slightly congested fat noted within the hernia sac as well as proximal to the hernia in the left lower abdomen, ranging concern for mild strangulation. Similar findings were present, however, in the previous CT scan of 07/07/2019. 2. Short sliding hiatal hernia, small fat-containing umbilical hernia. 3. Mild hepatomegaly and upper normal spleen with mild hepatic steatosis. Performing Organization Address City/State/Zipcode Phone Number PACS/VR/DOSE CBC WITH DIFFERENTIAL (07/08/2019 10:54 AM CDT) WBC 5.30 4.20 - 10.70 [facility] 10*3/L [facility] LABORAT[facility] RBC 4.89 4.26 - 5.52 [facility] 10*6/L HOSPITAL LABORATORY HGB 14.1 12.2 - 16.4 g/dL [facility] LABORATORY HCT 43.1 38.4 - 49.3 % [facility] MCV 88.1 81.7 - 95.6 fL [facility] LABOR[facility] MCH 28.8 26.1 - 32.7 pg [facility] MCHC 32.7 31.2 - 35.0 g/dL [facility] LAB[facility] RDW-SD 41.3 38.5 - 51.6 fL [facility] RDW-CV 12.8 12.1 - 15.4 % [facility] LABORAT[facility] PLT 270 150 - 328 [facility] 10*3/L [facility] MPV 10.1 9.8 - 13.0 fL [facility] LABOR[facility] NRBC/100 WBC 0.0 0.0 - 10.0 /100 [facility] WBCs [facility] NRBC x10^3 <0.01 10*3/L [facility] LABORATORY GRAN MAT (NEUT) % 57.3 % [facility] IMM GRAN % 0.60 % [facility] LYMPH % 28.5 % [facility] MONO % 10.9 % [facility] EOS % 2.3 % [facility] BASO % 0.4 % [facility] LABORATORY GRAN MAT x10^3(ANC) 3.04 1.99 - 6.95 [facility] 10*3/uL [facility] IMM GRAN x10^3 0.03 0.00 - 0.06 [facility] 10*3/uL [facility] LYMPH x10^3 1.51 1.09 - 3.23 [facility] 10*3/uL HOSPITAL LABORATORY MONO x10^3 0.58 0.36 - 1.02 [facility] 10*3/uL HOSPITAL LABORATORY EOS x10^3 0.12 0.06 - 0.53 [facility] 10*3/uL [facility] BASO x10^3 <0.03 0.01 - 0.[address]uL [facility] LAB[facility] Specimen Blood - ARM, LEFT Performing Organization Address City/State/Zipcode Phone Number [facility] CLIA: [id number], [address] [place] [address] COMP. METABOLIC PANEL (07984) (07/08/2019 10:54 AM CDT) NA 142 135 - 145 [facility] mmol/L HOSPITAL LABORATORY K 4.2 3.5 - 5.0 [facility] mmol/L HOSPITAL LABORATORY CL 107 98 - 108 mmol/L [facility] LABOR[facility] CO2 TOTAL 26 23 - 31 mmol/L [facility] AGAP 9 2 - 16 [facility] BUN 18 7 - 23 mg/dL [facility] GLUCOSE 96 70 - 110 mg/dL [facility] CREATININE 0.82 0.60 - 1.25 [facility] mg/dL [facility] TOTAL BILI 0.3 0.1 - 1.1 mg/dL [facility] LABORATORY CALCIUM 9.1 8.6 - 10.6 [facility] mg/dL [facility] T PROTEIN 6.9 6.3 - 8.2 g/dL [facility] LABORATORY ALBUMIN 4.0 3.5 - 5.0 g/dL [facility] LABOR[facility]ORY ALK PHOS 97 34 - 122 U/L [facility] LABOR[facility] ALT(SGPT) 65 (H) 9 - 51 U/L [facility] LAB[facility] AST(SGOT) 32 13 - 40 U/L [facility] LABOR[facility]ORY eGFR Calculation 104.6 mL/min/1.73m2 [facility] (Non-) [facility] eGFR Calculation 126.8 mL/min/1.73m2 [facility] () [facility] Specimen Blood - ARM, LEFT Narrative Performed At Association of Glomerular Filtration Rate (GFR) [facility] LABORATORY and Staging of Kidney Disease* [...] tests). Performing Organization Address City/State/Zipcode Phone Number [facility] CLIA: [id number], [address] [place] [address] documented in this encounter Visit Diagnoses Diagnosis Inguinal hernia - Primary Inguinal hernia without mention of obstruction or gangrene, unilateral or unspecified, (not specified as recurrent) Left inguinal pain Abdominal pain, left lower quadrant Bilateral recurrent inguinal hernia without obstruction or gangrene Inguinal hernia without mention of obstruction or gangrene, recurrent bilateral Essential hypertension Unspecified essential hypertension Chest pain on breathing Painful respiration Encounter for pre-operative cardiovascular clearance Pre-operative cardiovascular examination Obesity (BMI 30-39.9) Obesity, unspecified Low HDL (under 40) Lipoprotein deficiencies Fatty liver Other chronic nonalcoholic liver disease Prediabetes Other abnormal glucose Dyslipidemia Other and unspecified hyperlipidemia documented in this encounter Administered Medications Medication Order MAR Action Action Date Dose Rate Site acetaminophen (TYLENOL) tablet 500 mg 500 mg, Oral, Q6H, First dose on Sat07/10/19 at 1800, Until Discontinued, Routine enoxaparin (LOVENOX) injection 40 mg Given 07/09/2019 9:59 AM CDT 40 mg Abdomen-SC 40 mg, Subcutaneous, DAILY, First dose on Sat07/09/19 at 0900, Until Discontinued, Routine furosemide (LASIX) tablet 40 mg Given 07/09/2019 9:59 AM CDT 40 mg 40 mg, Oral, DAILY, First dose on Sat07/09/19 at 0900, Until Discontinued, Routine ibuprofen (IBU) tablet 600 mg 600 mg, Oral, Q6HPRN, Starting Sat07/10/19 at 1559, Until Discontinued, Routine , Pain (scale 1-3) lactated ringers IV infusion New Bag 07/10/2019 4:47 PM CDT 1,000 mL 100 mL/hr 1,000 mL at 100 mL/hr, 1,000 mL, IV Infusion, CONTINUOUS, Starting Sat07/10/19 at 0945, Until Discontinued, Routine New Bag 07/10/2019 11:31 AM CDT New Bag 07/10/2019 9:33 AM CDT 1,000 mL 100 mL/hr lisinopril (PRINIVIL,ZESTRIL) tablet 20 mg Given 07/10/2019 7:33 AM CDT 20 mg 20 mg, Oral, DAILY, First dose on Sat07/09/19 at 0900, Until Discontinued, Routine Given 07/09/2019 9:59 AM CDT 20 mg melatonin (MELATIN) tablet 6 mg Given 07/09/2019 10:29 PM CDT 6 mg 6 mg, Oral, QHS, First dose on Sat07/08/19 at 2100, Until Discontinued, Routine Given 07/08/2019 10:43 PM CDT 6 mg morpHINE injection 2 mg Given 07/10/2019 4:42 PM CDT 2 mg 2 mg, Slow IV Push, Q6HPRN, Starting Sat07/10/19 at 1615, Until Discontinued, Routine, Breakthrough Pain (scale 4-10) ondansetron (ZOFRAN (PF)) injection 4 mg Given 07/10/2019 4:43 PM CDT 4 mg 4 mg, Slow IV Push, Q6HPRN, Starting Sat07/08/19 at 1506, Until Discontinued, Routine, Nausea and Vomiting (N/V) pantoprazole (PROTONIX) EC tablet 40 mg Given 07/10/2019 4:52 PM CDT 40 mg 40 mg, Oral, DAILY, First dose on Sat07/09/19 at 0900, Until Discontinued, Routine Given 07/09/2019 9:59 AM CDT 40 mg traMADol (ULTRAM) tablet 100 mg 100 mg, Oral, Q6HPRN, Starting Sat07/10/19 at 1559, Until Discontinued, Routine , Pain (scale 7-10) traMADol (ULTRAM) tablet 50 mg 50 mg, Oral, Q6HPRN, Starting Sat07/10/19 at 1559, Until Discontinued, Routine , Pain (scale 4-6) traZODONE (DESYREL) tablet 50 mg Given 07/09/2019 10:29 PM CDT 50 mg 50 mg, Oral, QHS, First dose on Sat07/09/19 at 2100, Until Discontinued, Routine Medication Order MAR Action Action Date Dose Rate Site iohexol (OMNIPAQUE 350 BULK-150 Given 07/08/2019 11:30 AM CDT 120 mL mL) injection 120 mL 120 mL, Intravenous, ONCE, 1 dose, Sat07/08/19 at 1130, Routine morpHINE injection 2 mg Given 07/10/2019 5:42 AM CDT 2 mg 2 mg, Slow IV Push, Q4HPRN, Starting Sat07/08/19 at 1745, Until Sat07/10/19 at 1601, Routine, Pain (scale 7-10) Given 07/09/2019 9:05 PM CDT 2 mg Given 07/08/2019 5:56 PM CDT 2 mg morpHINE injection 2 mg Given 07/10/2019 1:57 PM CDT 2 mg 2 mg, Slow IV Push, Q5MIN PRN, 7 doses, Starting Sat07/10/19 at 1339, Until Sat07/10/19 at 1504, Routine, Pain (scale 4-6), PACU morpHINE injection 4 mg Given 07/08/2019 10:43 AM CDT 4 mg 4 mg, Slow IV Push, ONCE, 1 dose, Sat07/08/19 at 1100, STAT ondansetron (ZOFRAN (PF)) injection 4 mg Given 07/08/2019 10:43 AM CDT 4 mg 4 mg, Slow IV Push, ONCE, 1 dose, Sat07/08/19 at 1100, KIMO perflutren lipid microspheres (DEFINITY) Given 07/08/2019 3:20 PM CDT 2 mL injection 2 mL 2 mL, IV Push, ONCE, 1 dose, Sat07/08/19 at 1645, Routine documented in this encounter Advance Directives Name Relationship Healthcare Agent Communication Relationship Tosha Lopez Pro Spouse Primary healthcare agent [email or web address]
--- OUTSIDE RECORDS SUMMARY | 2019-09-25 09:45 | XMS REPORT | Summary of Care ---
:1980 Author Organization [facility] Address [address] [place] [address] Care Team Providers Name Role Phone Gnozález Crowley MD Primary Care Provider Reason for Visit Reason Comments Follow-up (Routine) Status Reason Specialty Diagnoses / Referred By Referred To Procedures Contact Contact Closed CHRISTELLE-SURGERY / Diagnoses Left inguinal pain Patrice John MD Surgery Procedures Discharge Follow-Up: Specialty Service CHRISTELLE-SURGERY (Dr. Hicks); 1 Week [address] [place] [address] Encounter Details Date Type Department Care Team Description 07/16/2019 Office Visit [facility] Surgical Charlene Hicks, Left inguinal hernia Specialties - Robyn BRADLEY (Primary Dx) [address] [place] [address], [address] [place] [address] [address] [facility] [address] [address] [place], [place] [phone] [address] [phone] Allergies Active Allergy Reactions Severity Noted Date [...] times daily with meals for 5 days. traMADol 50 mg Take 1 tablet by 15 tablet 0 07/16/2019 Active tabletIndications: mouth every 6 Left inguinal hernia (six) hours as needed for Pain (scale 4-6). documented [...] Sign Reading Time Taken Comments Blood Pressure 140/88 07/16/2019 8:23 AM CDT Pulse 91 07/16/2019 8:23 AM CDT Temperature 36.7 C (98.1 F) 07/16/2019 8:23 AM CDT Respiratory Rate 18 07/16/2019 8:23 AM CDT Oxygen Saturation - - Inhaled Oxygen Concentration - - Weight 115.2 kg (254 lb) 07/16/2019 8:23 AM CDT Height 167.6 cm (5' 6") 07/16/2019 8:23 AM CDT Body Mass Index 41 07/16/2019 8:23 AM CDT documented in this encounter Progress Notes Minor Pires MD - 07/16/2019 8:15 AM CDT Visit Type: Surgery Clinic Note Date: 07/16/19 Chief Complaint: Follow up on left inguinal hernia repair History Present Illness: Javad Pro is a 38 year old male s/p left inguinal hernia repair presenting with severe sharp pain at incision site . Patent describes that he has been "hurting real bad" and has been unable to sleep properly since the operation. On 07/11, patient reported to the ED due to excruciating pain after being discharged without pain medications. He was prescribed tramadol 50 mg tablet and ibuprofen 800 mg tablet. He reports that neither of those medications have provided pain relief and thatthe pain is exacerbated upon attempts to lay down. He currently rates the pain as a 7 on a scale of 1-10. He reports that the pain began to subside on Saturday, however he sneezed on Saturday which resulted in a return of the pain. Patient also reports complaints of nausea and vomiting almost everyday with meals. He can snack fine, but reports discomfort when attempting large meals. Patient is also concerned because his boss would like him to return to work and lift heavy equipment which he knows he cannot do and would like a note of excuse from work duties. Review of Systems: Constitutional: Denies fever, chills or unintentional weight loss. Eyes: Denies change in visual acuity HENT: Denies nasal congestion or sore throat Respiratory: Denies dyspnea, cough, or wheezing. Cardiovascular: Denies angina, palpitations or claudication. GI: Abdominal /Incisional pain, nausea, vomiting, diarrhea, melena or hematochezia. : Denies dysuria or hematuria Musculoskeletal: Denies skeletal pain, joint pain or swelling. Integument: Denies rash, jaundice or cyanosis. Pain at incision site at left inguinal canal. Neurologic: Denies headache, focal weakness or sensory deficits. Endocrine: Denies polyuria or polydipsia, cold or heat intolerance. Lymphatic: Denies swollen glands Psychiatric: Denies depression or anxiety Past Medical History: Past Medical History: Diagnosis Date Abnormal LFTs 08/28/2017 CHF (congestive heart failure) Fatty liver 08/28/2017 Gastroesophageal reflux disease, esophagitis presence not specified 03/11/2017 History of kidney stones HTN (hypertension) Low HDL (under 40) 03/13/2017 Obesity (BMI 30-39.9) Prediabetes 07/07/2018 Past Surgical History: Past Surgical History: Procedure Laterality Date HERNIA REPAIR umbilical INGUINAL HERNIORRHAPHY Left 07/10/2019 Surgeon: Charlene Hicks MD; Location: [facility] [place] Family History: Family History Problem Relation Age of Onset Cancer Maternal Uncle Cancer Maternal Grandmother Cancer Maternal Grandfather Hypertension Mother GI Mother GERD Hypertension Father Social History: Social History Tobacco Use Smoking status: Former Smoker Smokeless tobacco: Former User Tobacco comment: Quit smoking a few years ago Substance Use Topics Alcohol use: Yes Comment: occasionally Medications: Current Outpatient Medications Medication Sig Dispense Refill traMADol 50 mg tablet Take 1 tablet by mouth every 6 (six) hours as needed for Pain (scale 4-6).15 tablet 0 ibuprofen 800 mg tablet Take 1 tablet by mouth 3 (three) times daily with meals for 5 days. 15 tablet 0 traMADol (ULTRAM) 50 mg tablet Take 1 tablet by mouth every 6 (six) hours as needed for Pain (scale 4-6). 24 tablet 0 lisinopril 20 mg tablet Take 1 tablet by mouth daily. 90 tablet 1 furosemide 40 mg tablet Take 1 tablet by mouth daily. 90 tablet 1 No current facility-administered medications for this visit. Allergies: Allergies Allergen Reactions Peanut Anaphylaxis Tree Nut Anaphylaxis Codeine Nausea and/or Vomiting Pcn [Penicillins] Itching Physical Examination: BP (!) 140/88 (BP Location: Left arm, Patient Position: Sitting, BP CUFF SIZE: Adult Large) | Pulse91 | Temp 36.7 C (98.1 F) (Oral) | Resp 18 | Ht 5' 6 " (1.676 m) | Wt 254 lb (115.2 kg) | BMI 41.00 kg/m Body mass index is 41 kg/m. Constitutional: Well developed, well nourished, no acute distress, non- toxic appearance Eyes: PERRL, conjunctiva normal, anicteric HENT: Atraumatic, external ears normal, nose normal, oropharynx moist, no pharyngeal exudates. Neckwith normal range of motion, no tenderness, no mass or bruits. Respiratory: Eupneic, no respiratory distress, normal breath sounds, no rales, no wheezing Cardiovascular: Normal rate, normal rhythm, no murmurs, no gallops, no rubs GI: Abdomen, soft nontender, nondistended, Incision is dry clean and intact without active drainage,no erythema : No costovertebral angle tenderness Musculoskeletal: No edema, no tenderness, no deformities. Spine unremarkable. Integument: Well hydrated, no rash, cyanosis or jaundice. Incision noted at left inguinal canal. Scar has healed well. Lymphatic: No pathologic lymphadenopathy noted Neurologic: Alert & oriented x 3, CN 2-12 grossly normal, no motor or sensory function deficits, no focal deficits noted Psychiatric: Speech and behavior appropriate Diagnosis/Assessment: Javad Pro is a 38 year old male S/P left inguinal hernia repair with MESH presenting with persistent pain at the incision site, most likely related to inadequate postoperative pain regimen. Patient will be excused from heavy lifting for 4 weeks in an attempt to prevent hernia recurrence Plan/Options: - Tylenol Extra strength and Ibuprofen every 6h around the clock for pain - Tramadol 50 mg tablet by mouth every 6 hours as needed for pain - Follow up with Dr. Hicks in 4 weeks - No heavy lifting for 4 weeks Note written by Dianna Ybarra MS3 and modified by id Patient seen and discussed with Faculty Dr. Hicks on 07/16/19 Minor Luo MD 07/16/19 PGY 2 General surgery Yolie Garcia RN - 07/16/2019 8:15 AM Kendra Sanchezvahe Pro is a 38 year old male comes to clinic independent in ambulation for post op inguinal hernia. Pt comes alone . Pt in NAD w/ pain reported 0/10. Pt preferred language is Georgian. Pt. denies fall in last 12 months. Allergies and medications reviewed and updated. Complains of some internal soarness at the post op surgical site documented in this encounter Plan of Treatment Date Type Specialty Care Team Description 07/23/2019 Office Visit Orthopedic Surgery Tiago De La Cruz MD [address] [place] [phone] 08/13/2019 Office Visit Surgery Charlene Hicks MD [address] [facility] [address] [place], [place] [address] 10/30/2019 Office Visit Family Medicine González Crowley MD [address] [place] [phone] Health Maintenance Due Date Last Done Comments DTaP,Tdap,and Td Vaccines (1 - 1998 Tdap) INFLUENZA VACCINE (#1) 2019 PNEUMOCOCCAL 0-64 YEARS COMBINED Aged Out No longer eligible based on SERIES patient's age to complete this topic documented as of this encounter Implants Implanted Type Area Landscape Crew Leader Device Shelf Model / Identifier Expiration Serial / Date Lot Mesh, Ethicon Prolene 4 X 1.8 Preshaped #Pmsk - Sn/A MESH Left: Ethicon 01/08/2023 PMSK / Implanted: Qty: 1 on 07/10/2019 by Charlene Hicks MD at [facility] [employer] N/A / [id number] documented as of this encounter Results Not on filedocumented in this encounter Visit Diagnoses Diagnosis Left inguinal hernia - Primary Inguinal hernia without mention of obstruction or gangrene, unilateral or unspecified, (not specified as recurrent) documented in this encounter Insurance Payer Benefit Plan / Subscriber ID Effective Dates Phone Address Type Group [facility] [id number] 2019-Presen PPO/POS GLOBAL t documented as of this encounter Advance Directives Name Relationship Healthcare Agent Communication Relationship Tosha Pro Spouse Primary healthcare agent [email or web address]
--- OUTSIDE RECORDS SUMMARY | 2019-09-25 09:46 | XMS REPORT | Summary of Care ---
:1980 Author Organization [facility] Address [address] [place] [address] Care Team Providers Name Role Phone González Crowley MD Primary Care Provider Reason for Visit Reason Comments Follow-up (Routine) Status Reason Specialty Diagnoses / Referred By Referred To Procedures Contact Contact Closed CHRISTELLE-SURGERY / Diagnoses Left inguinal pain Patrice John MD Surgery Procedures Discharge Follow-Up: Specialty Service CHRISTELLE-SURGERY (Dr. Hicks); 1 Week [address] [place] [address] Encounter Details Date Type Department Care Team Description 07/16/2019 Office Visit [facility] Surgical Charlene Hicks, Left inguinal hernia (Primary Dx); Specialties - MD Postoperative follow-up [address], [address] [place] [address] [place] [address] [phone] Allergies Active Allergy Reactions Severity Noted Date [...] Left 07/10/2019 Surgeon: Charlene Hicks MD; [place] [facility] [place]: Family History Problem Relation Age [...] lifting for 4 weeks Note written by GRISELDA Gross and modified by me Patient seen and discussed with Faculty Dr. Hicks on 07/16/19 Minor Luo MD 07/16/19 PGY 2 General surgery I personally evaluated and examined the patient on 07/16/[address] Brar note as written. I actively participated in the decision-making process. Please see the resident's note for additional details. The patient is doing well following LIH repair but does report postoperative pain relieved with Motrin and Ultram. On exam his incision is healing well without signs of infection. Will refill Ultram, advised him to continue Motrin and add Extra Strength Tylenol scheduled every 6 hours. A work excuse was provided to the patient. No lifting more than 10 pounds for 3 more weeks. RTC 4 weeks. Charlene Hicks M.D. 07/16/2019 11:02 ANTAYolie martinez RN - 07/16/2019 8:15 AM CDTRshubham Brett Pro is a 38 year old male comes to clinic independent in ambulation for post op inguinal hernia. Pt comes alone . Pt in NAD w/ pain reported 0/10. Pt preferred language is Telugu. Pt. denies fall in last 12 months. Allergies and medications reviewed and updated. Complains of some internal soarness at the post op surgical site documented in this encounter Plan of Treatment Date Type Specialty Care Team Description 07/23/2019 Office Visit Orthopedic Surgery Tiago De La Cruz MD [address] [place] [phone] 08/13/2019 Office Visit Surgery Charlene Hicks MD [address] [facility] [address] [place], [place] [phone] 10/30/2019 Office Visit Family Medicine González Crowley MD [address] [facility] [phone] Health Maintenance Due Date Last Done Comments DTaP,Tdap,and Td Vaccines (1 - 1998 Tdap) INFLUENZA VACCINE (#1) 2019 PNEUMOCOCCAL 0-64 YEARS COMBINED Aged Out No longer eligible based on SERIES patient's age to complete this topic documented as of this encounter Implants Implanted Type Area Information Systems Consultant Device Shelf Model / Identifier Expiration Serial / Date Lot Mesh, Ethicon Prolene 4 X 1.8 Preshaped #Pmsk - Sn/A MESH Left: Ethicon 01/08/2023 PMSK / Implanted: Qty: 1 on 07/10/2019 by Charlene Hicks MD at [facility] [employer] N/A / [id number] documented as of this encounter Results Not on filedocumented in this encounter Visit Diagnoses Diagnosis Left inguinal hernia - Primary Inguinal hernia without mention of obstruction or gangrene, unilateral or unspecified, (not specified as recurrent) Postoperative follow-up Follow-up examination, following unspecified surgery documented in this encounter Insurance Payer Benefit Plan / Subscriber ID Effective Dates Phone Address Type Group [facility] [id number] 2019-Becka PPO/POS GLOBAL t documented as of this encounter Advance Directives Name Relationship Healthcare Agent Communication Relationship Tosha Lopez Inocencia Spouse Primary healthcare agent
--- OUTSIDE RECORDS SUMMARY | 2019-09-25 09:46 | XMS REPORT | Summary of Care ---
:1980 Author Organization [facility] Address [address] [place] [address] Care Team Providers Name Role Phone González Crowley MD Primary Care Provider Reason for Visit Reason Comments Follow-up (Routine) Status Reason Specialty Diagnoses / Referred By Referred To Procedures Contact Contact Closed CHRISTELLE-SURGERY / Diagnoses Left inguinal pain Patrice John MD Surgery Procedures Discharge Follow-Up: Specialty Service CHRISTELLE-SURGERY (Dr. Hicks); 1 Week [address] [place] [address] Encounter Details Date Type Department Care Team Description 07/16/2019 Office Visit [facility] Surgical Charlene Hicks, Left inguinal hernia Specialties - Robyn BRADLEY (Primary Dx) [address] [place] [address], [address] [place] [address] [address] [facility] [address] [address] [place], [place] [phone] [address] [phone] Allergies Active Allergy Reactions Severity Noted Date [...] Left 07/10/2019 Surgeon: Charlene Hicks MD; [place] [facility] [place] History: Family History Problem Relation Age [...] by Dianna Ybarra MS3 and modified by ia Patient seen and discussed with Faculty Dr. Hicks on 07/16/19 Minor Luo MD 07/16/19 PGY 2 General surgery Yolie Garcia RN - 07/16/2019 8:15 AM Kendra Sanchezvahe Pro is a 38 year old male comes to clinic independent in ambulation for post op inguinal hernia. Pt comes alone . Pt in NAD w/ pain reported 0/10. Pt preferred language is Bengali. Pt. denies fall in last 12 months. Allergies and medications reviewed and updated. Complains of some internal soarness at the post op surgical site documented in this encounter Plan of Treatment Date Type Specialty Care Team Description 07/23/2019 Office Visit Orthopedic Surgery Tiago De La Cruz MD [address] [place] [phone] 08/13/2019 Office Visit Surgery Charlene Hicks MD [address] [facility] [address] [place], [place] [phone] 10/30/2019 Office Visit Family Medicine González Crowley MD [address] [place] [phone] Health Maintenance Due Date Last Done Comments DTaP,Tdap,and Td Vaccines (1 - 1998 Tdap) INFLUENZA VACCINE (#1) 2019 PNEUMOCOCCAL 0-64 YEARS COMBINED Aged Out No longer eligible based on SERIES patient's age to complete this topic documented as of this encounter Implants Implanted Type Area Base Wad Operator Adjuster Device Shelf Model / Identifier Expiration Serial / Date Lot Mesh, Ethicon Prolene 4 X 1.8 Preshaped #Pmsk - Sn/A MESH Left: Ethicon 01/08/2023 PMSK / Implanted: Qty: 1 on 07/10/2019 by Charlene Hicks MD at [facility] [employer] N/A / [id number] documented as of this encounter Results Not on filedocumented in this encounter Visit Diagnoses Diagnosis Left inguinal hernia - Primary Inguinal hernia without mention of obstruction or gangrene, unilateral or unspecified, (not specified as recurrent) documented in this encounter Insurance Payer Benefit Plan / Subscriber ID Effective Dates Phone Address Type Group [facility] [id number] 2019-Presen PPO/POS GLOBAL t documented as of this encounter Advance Directives Name Relationship Healthcare Agent Communication Relationship Tosha Pro Spouse Primary healthcare agent [email or web address]
--- OUTSIDE RECORDS SUMMARY | 2019-09-25 09:46 | XMS REPORT | Summary of Care ---
:1980 Author Organization [facility] Address [address] [place] [address] Care Team Providers Name Role Phone Carline Jacobouri Newman MD Primary Care Provider Reason for Visit Reason Comments Follow-up Hand Pain right little finger fx 06/25/19 Erroneous encounter-disregard Encounter Details Date Type Department Care Team Description 07/23/[address] 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 Essential hypertension lisinopril 20 mg Take 1 tablet by 90 tablet 1 05/27/2019 Active tabletIndications: mouth daily. Essential hypertension traMADol (ULTRAM) 50 mg Take 1 tablet by 24 tablet 0 07/11/2019 Active tabletIndications: mouth every 6 Post-operative pain (six) hours as needed for Pain (scale 4-6). traMADol 50 mg Take 1 tablet by 15 tablet 0 07/16/2019 Active tabletIndications: Left mouth every 6 inguinal hernia (six) hours as needed for Pain (scale 4-6). documented as of this encounter (statuses as of 07/23/2019) Active Problems Problem Noted Date Inguinal hernia 07/08/2019 Encounter for pre-operative cardiovascular clearance 07/08/2019 Dyslipidemia 07/08/2019 Prediabetes 07/07/2018 Dizziness 02/11/2018 Fatty liver 08/28/2017 Abnormal LFTs 08/28/2017 Epigastric abdominal pain 08/27/2017 Low HDL (under 40) 03/13/2017 Essential hypertension 03/11/2017 Gastroesophageal reflux disease, esophagitis presence not specified 03/11/2017 Obesity (BMI 30-39.9) 02/21/2017 documented as of this encounter (statuses as of 07/23/2019) Resolved Problems Problem Noted Date Resolved Date Chest pain 03/27/2017 08/27/2017 Chest pain, unspecified type 03/11/2017 08/28/2017 documented as of this encounter (statuses as of 07/23/2019) Social History Tobacco Use Types Packs/Day Years [...] Sign Reading Time Taken Comments Blood Pressure - - Pulse - - Temperature - - Respiratory Rate - - Oxygen Saturation - - Inhaled Oxygen Concentration - - Weight 115.2 kg (254 lb) 07/23/2019 8:20 AM CDT Height - - Body Mass Index 41 07/16/2019 8:23 AM CDT documented in this encounter Progress Notes Tiago De La Cruz MD - 07/23/2019 10:30 AM CDT This encounter was opened in error. Please disregard. Tiago Jimenez MD - 2018 10:30 AM CDT Cc: Chief Complaint Patient presents with Follow-up Hand Pain right little finger fx 06/25/19 Javad Pro is a 38 year old male. HPI Allergies Javad is allergic to peanut; tree nut; codeine; and pcn [penicillins]. Medications Outpatient Medications Prior to Visit Medication Sig Dispense Refill traMADol 50 mg tablet Take 1 tablet by mouth every 6 (six) hours as needed for Pain (scale 4-6).15 tablet 0 traMADol (ULTRAM) 50 mg tablet Take 1 tablet by mouth every 6 (six) hours as needed for Pain (scale 4-6). 24 tablet 0 lisinopril 20 mg tablet Take 1 tablet by mouth daily. 90 tablet 1 furosemide 40 mg tablet Take 1 tablet by mouth daily. 90 tablet 1 No facility-administered medications prior to [...] Left 07/10/2019 Surgeon: Charlene Hicks MD; [place] [facility] [place] Socioeconomic History Marital status: Spouse [...] file Gets together: Not on file Attends denominational service: Not on file Active member of [...] Psychiatric/Behavioral: Negative. Endocrine: Endocrine negative Vital Signs Wt 115.2 kg (254 lb) | BMI 41.00 kg/m Physical Exam Assessment/Plan Diagnosis Plan error documented in this encounter Plan of Treatment Date Type Specialty Care Team Description 08/13/2019 Office Visit Surgery Charlene Hicks MD [address] [facility] [address] [place] [address] [phone] 10/30/2019 Office Visit Family Medicine González Crowley MD [address] [place] [address] [facility] [place] [address] Health Maintenance Due Date Last Done Comments DTaP,Tdap,and Td Vaccines (1 - 1998 Tdap) INFLUENZA VACCINE (#1) 2019 PNEUMOCOCCAL 0-64 YEARS COMBINED Aged Out No longer eligible based on SERIES patient's age to complete this topic documented as of this encounter Implants Implanted Type Area Refinery Operator Helper Cracking Unit Device Shelf Model / Identifier Expiration Serial / Date Lot Mesh, Ethicon Prolene 4 X 1.8 Preshaped #Pmsk - Sn/A MESH Left: Ethicon 01/08/2023 PMSK / Implanted: Qty: 1 on 07/10/2019 by Charlene Hicks MD at [facility] [employer] N/A / [id number] documented as of this encounter Results Not on filedocumented in this encounter Visit Diagnoses Diagnosis ERRONEOUS ENCOUNTER--DISREGARD - Primary documented in this encounter Insurance Payer Benefit Plan / Subscriber ID Effective Dates Phone Address Type Group [facility] [id number] 2019-Becka PPO/POS PPO/POS t documented as of this encounter Advance Directives Name Relationship Healthcare Agent Communication Relationship Tosha Pro Spouse Primary healthcare agent [email or web address]
--- OUTSIDE RECORDS SUMMARY | 2019-09-25 09:46 | XMS REPORT | Summary of Care ---
:1980 Author Organization [facility] - [facility] Address [address] [place] [id number] Care Team Providers Name Role Phone González Crowley MD Primary Care Provider Reason for Referral MRI/CAT Scan (STAT) Status Reason Specialty Diagnoses / Referred By Referred To Procedures Contact Contact New Request Diagnostic Diagnoses Left lower quadrant pain [place], [place] Radiology Procedures CT ABDOMEN PELVIS W CONTRAST MD Kaleb Sloan [address] [address] MRI/CAT Scan (STAT) Status Reason Specialty Diagnoses / Referred By Referred To Procedures Contact Contact New Request Diagnostic Diagnoses Left lower quadrant pain [place], [place] Radiology Procedures CT ABDOMEN PELVIS W CONTRAST MD Kaleb Sloan [address] [address] Reason for Visit Reason Comments Pain S/P left inguinal hernia repair Auth/Cert Status Reason Specialty Diagnoses / Referred By Referred To Procedures Contact Contact Emergency Medicine Diagnoses pain [facility] [address] [place] [address] [place] [address] Encounter Details Date Type Department Care Team Description 07/19/2019 Emergency [facility] [place], [place] S, Left lower quadrant pain (Primary Dx); Department Post-operative pain [address] [place] [address] [place] [address] [id number] [place] [address] [phone] Allergies Active Allergy Reactions Severity Noted Date Comments Codeine Nausea and/or Vomiting Low 09/17/2016 Penicillins Itching Low 09/17/2016 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 documented as of this encounter (statuses as of 07/19/2019) Medications Medication Sig Dispensed Refills Start Date [...] as of this encounter (statuses as of 07/19/2019) Active Problems Problem Noted Date Inguinal hernia 07/08/2019 Encounter for pre-operative cardiovascular clearance 07/08/2019 Dyslipidemia 07/08/2019 Prediabetes 07/07/2018 Dizziness 02/11/2018 Fatty liver 08/28/2017 Abnormal LFTs 08/28/2017 Epigastric abdominal pain 08/27/2017 Low HDL (under 40) 03/13/2017 Essential hypertension 03/11/2017 Gastroesophageal reflux disease, esophagitis presence not specified 03/11/2017 Obesity (BMI 30-39.9) 02/21/2017 documented as of this encounter (statuses as of 07/19/2019) Resolved Problems Problem Noted Date Resolved Date Chest pain 03/27/2017 08/27/2017 Chest pain, unspecified type 03/11/2017 08/28/2017 documented as of this encounter (statuses as of 07/19/2019) Social History Tobacco Use Types Packs/Day Years [...] Sign Reading Time Taken Comments Blood Pressure 136/83 07/19/2019 4:00 AM CDT Pulse 84 07/19/2019 4:00 AM CDT Temperature 36.9 C (98.5 F) 07/19/2019 12:33 AM CDT Respiratory Rate 18 07/19/2019 4:00 AM CDT Oxygen Saturation 95% 07/19/2019 4:00 AM CDT Inhaled Oxygen Concentration - - Weight 115.2 kg (254 lb) 07/19/2019 12:33 AM CDT Height - - Body Mass Index 41 07/16/2019 8:23 AM CDT documented in this encounter Discharge Instructions Deon Garber MD - 07/19/2019 DIAGNOSIS Diagnoses that have been ruled out: None Diagnoses that are still under consideration: None Final diagnoses: Left lower quadrant pain Post-operative pain NO LIFE-THREATENING FINDINGS ON TODAY'S EXAM. PROCEDURES IN THE ER TODAY: Orders Placed This Encounter Procedures CT ABDOMEN PELVIS W CONTRAST CBC WITH DIFF BASIC METABOLIC PANEL (NA, K, CL, CO2, GLUCOSE, BUN, CREATININE, CA) CBC WITH DIFFERENTIAL MEDICATIONS ADMINISTERED IN THE ER TODAY AND DISCHARGE MEDICATIONS: Orders Placed This Encounter Medications FENTanyl PF (SUBLIMAZE (PF)) injection 50 mcg iohexol (OMNIPAQUE 350 BULK-150 mL) injection 120 mL FOLLOW-UP RECOMMENDATIONS: RECOMMEND FOLLOW-UP WITH YOUR PRIMARY CARE PROVIDER OR DR HICKS SCHEDULED documented in this encounter Plan of Treatment Date Type Specialty Care Team Description 07/23/2019 Office Visit Orthopedic Surgery Tiago De La Cruz MD [address] [place] [address] 08/13/2019 Office Visit Surgery Charlene Hicks MD [address] [facility] [address] [place], [place] [id number] 10/30/2019 Office Visit Family Medicine González Crowley MD [address] [place] [address] Health Maintenance Due Date Last Done Comments DTaP,Tdap,and Td Vaccines (1 - 1998 Tdap) INFLUENZA VACCINE (#1) 2019 PNEUMOCOCCAL 0-64 YEARS COMBINED Aged Out No longer eligible based on SERIES patient's age to complete this topic documented as of this encounter Implants Implanted Type Area Public Address Announcer Device Shelf Model / Identifier Expiration Serial / Date Lot Mesh, Ethicon Prolene 4 X 1.8 Preshaped #Pmsk - Sn/A MESH Left: Ethicon 01/08/2023 PMSK / Implanted: Qty: 1 on 07/10/2019 by Charlene Hicks MD at [facility] [employer] N/A / [id number] documented as of this encounter Procedures Procedure Name Priority Date/Time Associated Comments Diagnosis CT ABDOMEN PELVIS W STAT 07/19/2019 3:20 Left lower quadrant Results for this CONTRAST AM CDT pain procedure are in the results section. CBC WITH DIFFERENTIAL STAT 07/19/2019 2:28 Left lower quadrant Results for this AM CDT pain procedure are in the results section. CBC WITH DIFF STAT 07/19/2019 2:28 Left lower quadrant Results for this AM CDT pain procedure are in the results section. BASIC METABOLIC PANEL STAT 07/19/2019 2:28 Left lower quadrant Results for this (NA, K, CL, CO2, AM CDT pain procedure are in GLUCOSE, BUN, the results CREATININE, CA) section. CONSENT/REFUSAL FOR Routine 07/19/2019 12:20 DIAGNOSIS AND AM CDT TREATMENT documented in this encounter Results CT ABDOMEN PELVIS W CONTRAST (07/19/2019 3:20 AM CDT) Specimen Impressions Performed At Impression: PACS/VR/DOSE 1. No evidence of bowel obstruction. Mild to moderate gaseous distention of small and large bowel loops is noted.Findings may represent ileus. 2. Normal appendix. No free air or free fluid. 3. Changes of recent left inguinal hernia repair. Inflammatory changes in this region may be due to recent surgery or cellulitis. No discrete fluid collection or abscess is identified. RL: [id number] AFC: [id number] Narrative Performed At Exam: CT Abdomen and Pelvis With Contrast, 07/19/2019 2:15 AM. PACS/VR/DOSE Ordering Physician: DEON FLOWERS. History: Abdominal distention, recent left inguinal hernia repair. Left groin pain. Technique: CT of the abdomen and pelvis was obtained with intravenous contrast and without oral contrast. CT was performed according to ALARA (As Low As Reasonably Achievable). Comparison: None. Findings: CT Abdomen: Lung bases are clear. Heart size is normal.Osseous structures are unremarkable. Liver, gallbladder, pancreas, spleen, and adrenal glands are within normal limits. There is no pancreatic or biliary duct dilatation. Kidneys are symmetric in size, enhancement, and contrast excretion. There is no hydronephrosis or hydroureter. There is no free air or free fluid. There is no abdominal adenopathy. There is moderate gaseous distention of the stomach, with air-fluid level present. There is mild to moderate gaseous distention of small bowel loops. There is no evidence of bowel obstruction. Appendix is normal. There is moderate colonic stool and gas. CT Pelvis: Pelvic small bowel loops are unremarkable. Changes of recent surgery are demonstrated at the left inguinal canal. Extensive fat stranding seen within and surrounding the left internal canal. There is overlying soft tissue swelling involving the left anterior abdominal wall, with overlying cutaneous thickening. No discrete fluid collection or abscess is identified. Urinary bladder is unremarkable. Prostate and seminal vesicles are not enlarged. There is no pelvic free fluid.There is no pelvic adenopathy. Osseous structures are unremarkable. Procedure Note [facility], Radiant Results Inft User - 07/19/2019 3:46 AM CDT Exam: CT Abdomen and Pelvis With Contrast, 07/19/2019 2:15 AM. Ordering Physician: DEON FLOWERS. History: Abdominal distention, recent left inguinal hernia repair. Left groin pain. Technique: CT of the abdomen and pelvis was obtained with intravenous contrast and without oral contrast. CT was performed according to ALARA (As Low As Reasonably Achievable). Comparison: None. Findings: CT Abdomen: Lung bases are clear. Heart size is normal. Osseous structures are unremarkable. Liver, gallbladder, pancreas, spleen, and adrenal glands are within normal limits. There is no pancreatic or biliary duct dilatation. Kidneys are symmetric in size, enhancement, and contrast excretion. There is no hydronephrosis or hydroureter. There is no free air or free fluid. There is no abdominal adenopathy. There is moderate gaseous distention of the stomach, with air-fluid level present. There is mild to moderate gaseous distention of small bowel loops. There is no evidence of bowel obstruction. Appendix is normal. There is moderate colonic stool and gas. CT Pelvis: Pelvic small bowel loops are unremarkable. Changes of recent surgery are demonstrated at the left inguinal canal. Extensive fat stranding seen within and surrounding the left internal canal. There is overlying soft tissue swelling involving the left anterior abdominal wall, with overlying cutaneous thickening. No discrete fluid collection or abscess is identified. Urinary bladder is unremarkable. Prostate and seminal vesicles are not enlarged. There is no pelvic free fluid. There is no pelvic adenopathy. Osseous structures are unremarkable. IMPRESSION Impression: 1. No evidence of bowel obstruction. Mild to moderate gaseous distention of small and large bowel loops is noted. Findings may represent ileus. 2. Normal appendix. No free air or free fluid. 3. Changes of recent left inguinal hernia repair. Inflammatory changes in this region may be due to recent surgery or cellulitis. No discrete fluid collection or abscess is identified. RL: [id number] AF: [id number] Performing Organization Address City/State/Zipcode Phone Number PACS/VR/DOSE CBC WITH DIFFERENTIAL (07/19/2019 2:28 AM CDT) WBC 6.20 4.20 - 10.70 [facility] 10*3/L [facility] RBC 4.76 4.26 - 5.52 [facility] 10*6/L [facility] HGB 13.4 12.2 - 16.4 g/dL [facility] HCT 41.9 38.4 - 49.3 % [facility] MCV 88.0 81.7 - 95.6 fL [facility] MCH 28.2 26.1 - 32.7 pg [facility] MCHC 32.0 31.2 - 35.0 g/dL [facility] RDW-SD 41.0 38.5 - 51.6 fL [facility] RDW-CV 12.6 12.1 - 15.4 % [facility] PLT 314 150 - 328 [facility] 10*3/L [facility] MPV 9.7 (L) 9.8 - 13.0 fL [facility] NRBC/100 WBC 0.0 0.0 - 10.0 /100 [facility] WBCs [facility] NRBC x10^3 <0.01 10*3/L [facility] GRAN MAT (NEUT) % 53.8 % [facility] IMM GRAN % 0.50 % [facility] LYMPH % 32.9 % [facility] MONO % 11.0 % [facility] EOS % 1.6 % [facility] BASO % 0.2 % [facility] GRAN MAT x10^3(ANC) 3.34 1.99 - 6.95 [facility] 10*3/uL HOSPITAL [facility] IMM GRAN x10^3 0.03 0.00 - 0.06 [facility] 10*3/uL [facility] LYMPH x10^3 2.04 1.09 - 3.23 [facility] 10*3/uL [facility] MONO x10^3 0.68 0.36 - 1.02 [facility] 10*3/uL [facility] EOS x10^3 0.10 0.06 - 0.53 [facility] 10*3/uL [facility] BASO x10^3 <0.03 0.01 - 0.09 [facility] 10*3/uL [facility] Specimen Blood - VENOUS Performing Organization Address City/State/Zipcode Phone Number [facility] CLIA: [id number], [address] [place] [address] BASIC METABOLIC PANEL (NA, K, CL, CO2, GLUCOSE, BUN, CREATININE, CA) (2018 2:28 AM CDT) NA 145 135 - 145 [facility] mmol/L [facility] K 4.5 3.5 - 5.0 [facility] mmol/L [facility] CL 108 98 - 108 mmol/L [facility] CO2 TOTAL 27 23 - 31 mmol/L [facility] AGAP 10 2 - 16 [facility] BUN 16 7 - 23 mg/dL [facility] GLUCOSE 111 (H) 70 - 110 mg/dL [facility] CREATININE 0.89 0.60 - 1.25 [facility] mg/dL [facility] CALCIUM 9.4 8.6 - 10.6 [facility] mg/dL [facility] eGFR Calculation 95.2 mL/min/1.73m2 [facility] ([facility] [place]) eGFR Calculation 115.3 mL/min/1.73m2 [facility] () [facility] Specimen Blood - VENOUS Narrative Performed At Association of Glomerular Filtration Rate (GFR) [facility] and Staging of Kidney Disease* [...] tests). Performing Organization Address City/State/Zipcode Phone Number [facility] CLIA: [id number], [address] [place] [address] [facility] documented in this encounter Visit Diagnoses Diagnosis Left lower quadrant pain - Primary Abdominal pain, left lower quadrant Post-operative pain Other acute postoperative pain documented in this encounter Administered Medications Medication Order MAR Action Action Date Dose Rate Site FENTanyl PF (SUBLIMAZE (PF)) Given 07/19/2019 2:42 AM CDT 50 mcg injection 50 mcg 50 mcg, Slow IV Push, ONCE, 1 dose, 07/19/19 at 0315, Routine iohexol (OMNIPAQUE 350 BULK-150 mL) Given 07/19/2019 3:15 AM CDT 120 mL injection 120 mL 120 mL, Intravenous, ONCE, 1 dose, 07/19/19 at 0330, Routine documented in this encounter Insurance Payer Benefit Plan / Subscriber ID Effective Dates Phone Address Type Group [facility] [id number] 2019-Becka PPO/POS PPO/POS t documented as of this encounter Advance Directives Name Relationship Healthcare Agent Communication Relationship Tosha Pro Spouse Primary healthcare agent [email or web address]"
[2019-09-25 10:27] LABS: Absolute Lymphocytes (CBC) 1.4 K/uL (0.7-4.9); Basophils % 0.6 % (0-1.3); Hematocrit 41.7 % (39.6-49.0); Lymphocytes % 27.7 % (15.3-44.8); MPV 8.4 fL (7.6-11.3); RBC Red Blood Cell Count 4.87 M/uL (4.33-5.43)
[2019-09-25] MEDS ORDERED: PANTOPRAZOLE 40MG TABLET PO ONE (10:33)
[2019-09-25 10:39] LABS: Protime INR 1.01
--- NOTE | 2019-09-25 10:47 | RAD REPORT ---
EXAM DESCRIPTION: Quinn Single View09/25/2019 10:28 am CLINICAL HISTORY: Chest pain COMPARISON: 2018 FINDINGS: The lungs appear clear of acute infiltrate. The heart is normal size IMPRESSION: No acute abnormalities displayed
[2019-09-25 11:00] LABS: ALT/SGPT 82 U/L (12-78); AST/SGOT 32 U/L (15-37); Albumin 3.5 g/dL (3.4-5.0); Alkaline Phosphatase 103 U/L (45-117); BUN Blood Urea Nitrogen 16 mg/dL (7-18); Bicarbonate 30 mmol/L (21-32); Bilirubin Direct 0.2 mg/dL (0-0.2); Bilirubin Total 0.5 mg/dL (0.2-1.0); Glucose Level 116 mg/dL (74-106); Magnesium 2.3 mg/dL (1.8-2.4); NT PRO-BNP 25 pg/mL (<125); Potassium 4.2 mmol/L (3.5-5.1); Protein, Total 6.8 g/dL (6.4-8.2); Sodium Level 139 mmol/L (136-145); Troponin (Emerg Dept Use Only) < 0.02 ng/mL (0.0-0.045)
--- NOTE | 2019-09-25 13:08 | EDPHYS ---
Physician Documentation [facility] Name: Javad Pro Age: 39 yrs Sex: Male : 1980 Arrival Date: 09/25/2019 Time: 09:43 Bed 13 Private MD: ED Physician Donald Stephenson HPI: 09/25 10:56 This 39 yrs old Male presents to ER via Ambulatory with complaints of Chest snw Pain. 10:56 Onset: The symptoms/episode began/occurred suddenly, last night, and improved. snw Associated signs and symptoms: Pertinent positives: + sleep apnea. Modifying factors: The patient symptoms are alleviated by nothing. The patient has experienced similar episodes in the past, multiple times. pt with known sleep apnea, no sleep study or tx second to finances, pt has been taking antihypertensives since 2013. Historical: - Allergies: 10:00 Codeine; ss 10:00 PENICILLINS; ss - Home Meds: 10:00 Lasix 40 mg Oral tab 1 tab once daily [Active]; lisinopril 10 mg Oral tab 1 tab once ss daily [Active]; - PMHx: 10:00 CHF; Hypertension; Sleep Apnea; ss - Immunization history:: Adult Immunizations up to date. - Social history:: Smoking status: Patient/guardian denies using tobacco. - Ebola Screening: : Patient denies exposure to infectious person Patient denies travel to an Ebola-affected area in the 21 days before illness onset. ROS: 10:55 Constitutional: Negative for fever, chills, and weight loss, Eyes: Negative for injury, snw pain, redness, and discharge, ENT: Negative for injury, pain, and discharge, Neck: Negative for injury, pain, and swelling, Cardiovascular: Positive for chest pain intermittently (for years), no palpitations or edema, Respiratory: Negative for shortness of breath, cough, wheezing, and pleuritic chest pain, Abdomen/GI: Negative for abdominal pain, nausea, vomiting, diarrhea, and constipation, Back: Negative for injury and pain, : Negative for injury, bleeding, discharge, and swelling, MS/Extremity: Negative for injury and deformity, Skin: Negative for injury, rash, and discoloration, Neuro: Negative for headache, weakness, numbness, tingling, and seizure. Exam: 10:54 Constitutional: This is a well developed, well nourished patient who is awake, alert, snw and in no acute distress. Head/Face: Normocephalic, atraumatic. Eyes: Pupils equal round and reactive to light, extra-ocular motions intact. Lids and lashes normal. Conjunctiva and sclera are non-icteric and not injected. Cornea within normal limits. Periorbital areas with no swelling, redness, or edema. ENT: Nares patent. No nasal discharge, no septal abnormalities noted. Tympanic membranes are normal and external auditory canals are clear. Oropharynx with no redness, swelling, or masses, exudates, or evidence of obstruction, uvula midline. Mucous membranes moist. Neck: Trachea midline, no thyromegaly or masses palpated, and no cervical lymphadenopathy. Supple, full range of motion without nuchal rigidity, or vertebral point tenderness. No Meningismus. Chest/axilla: Normal chest wall appearance and motion. Nontender with no deformity. No lesions are appreciated. Cardiovascular: Regular rate and rhythm with a normal S1 and S2. No gallops, murmurs, or rubs. Normal PMI, no JVD. No pulse deficits. Respiratory: Lungs have equal breath sounds bilaterally, clear to auscultation and percussion. No rales, rhonchi or wheezes noted. No increased work of breathing, no retractions or nasal flaring. Back: No spinal tenderness. No costovertebral tenderness. Full range of motion. Skin: Warm, dry with normal turgor. Normal color with no rashes, no lesions, and no evidence of cellulitis. MS/ Extremity: Pulses equal, no cyanosis. Neurovascular intact. Full, normal range of motion. Neuro: Awake and alert, GCS 15, oriented to person, place, time, and situation. Cranial nerves II-XII grossly intact. Motor strength 5/5 in all extremities. Sensory grossly intact. Cerebellar exam normal. Normal gait. Psych: Awake, alert, with orientation to person, place and time. Behavior, mood, and affect are within normal limits. 10:54 Abdomen/GI: Inspection: obese Bowel sounds: normal, Palpation: abdomen is soft and non-tender, in all quadrants. Vital Signs: 10:00 BP 137 / 94; Pulse 87; Resp 16; Temp 97.9(O); Pulse Ox 98% on R/A; Weight 108.86 kg; ss Height 5 ft. 9 in. (175.26 cm); Pain 7/10; 10:45 BP 126 / 84; Pulse 87; Resp 17 S; Pulse Ox 97% on R/A; ca1 11:45 BP 124 / 86; Pulse 78; Resp 17 S; Pulse Ox 96% on R/A; ca1 12:45 BP 114 / 82; Pulse 82; Resp 17 S; Pulse Ox 98% on R/A; Pain 4/10; ca1 10:00 Body Mass Index 35.44 (108.86 kg, 175.26 cm) ss MDM: 10:14 Patient medically screened. snw 13:10 Data reviewed: vital signs, nurses notes. Data interpreted: Pulse oximetry: on room air snw is 98 %. Interpretation: normal. Counseling: I had a detailed discussion with the patient and/or guardian regarding: the historical points, exam findings, and any diagnostic results supporting the discharge/admit diagnosis, the presence of at least one elevated blood pressure reading (>120/80) during this emergency department visit, lab results, radiology results, the need for outpatient follow up, to return to the emergency department if symptoms worsen or persist or if there are any questions or concerns that arise at home. Special discussion: Based on the patient's history, exam, and Dx evaluation, there is no indication for emergent intervention or inpatient Tx. It is understood by the patient/guardian that if the Sx's persist or worsen they need to return immediately for re-evaluation. Based on the history and exam findings, there is no indication for further emergent testing or inpatient evaluation. I discussed with the patient/guardian the need to see the primary care provider for further evaluation of the symptoms. 09/25 10:08 Order name: Basic Metabolic Panel; Complete Time: 11:36 ca1 09/25 10:08 Order name: CBC with Diff; Complete Time: 10:40 ca1 09/25 10:08 Order name: LFT's; Complete Time: 11:36 ca1 09/25 10:08 Order name: Magnesium; Complete Time: 11:36 ca1 09/25 10:08 Order name: NT PRO-BNP; Complete Time: 11:36 ca1 09/25 10:08 Order name: PT-INR; Complete Time: 11:36 ca1 09/25 10:08 Order name: Troponin (emerg Dept Use Only); Complete Time: 11:36 ca1 09/25 10:08 Order name: XRAY Chest (1 view); Complete Time: 11:36 ca1 09/25 10:08 Order name: EKG; Complete Time: 10: ca1 09/25 10:08 Order name: Cardiac monitoring; Complete Time: 10: ca1 09/25 10:08 Order name: EKG - Nurse/Tech; Complete Time: 10: ca1 09/25 10:08 Order name: IV Saline Lock; Complete Time: 10: ca1 09/25 10:08 Order name: Labs collected and sent; Complete Time: 10:28 ca1 09/25 10:08 Order name: O2 Per Protocol; Complete Time: 10: ca1 09/25 10:08 Order name: O2 Sat Monitoring; Complete Time: 10: ca1 Administered Medications: 10:47 Drug: ProTONIX 40 mg Route: PO; ca1 12:17 Follow up: Response: No adverse reaction; Pain is decreased ca1 Disposition: 09/25/19 13:07 Discharged to Home. Impression: Chest pain, unspecified, Gastro-esophageal reflux disease. - Condition is Stable. - Discharge Instructions: Nonspecific Chest Pain, Fat and Cholesterol Restricted Diet, High-Fiber Diet, Hypertension, Sleep Studies, Fat and Cholesterol Restricted Diet, [id number]. - Prescriptions for Protonix 40 mg Oral Tablet - take 1 tablet by ORAL route once daily; 30 tablet. - Work release form, Medication Reconciliation Form, Thank You Letter, Antibiotic Education, Prescription Opioid Use form. - Follow up: Private Physician; When: 2 - 3 days; Reason: Recheck today's complaints, Continuance of care, Re-evaluation by your physician. Follow up: Emergency Department; When: As needed; Reason: Worsening of condition. Addendum: 09/29/2019 06:27 Co-signature as Attending Physician, Donald Stephenson MD I agree with the assessment and k dr plan of care. Signatures: Dispatcher [employer] EDOR Donald Stephenson MD MD [facility] Charlee Quiroz, [employer] Toya Pizarro RN RN ss Laura Lin RN RN ca1 Corrections: (The following items were deleted from the chart) 09/25 13:26 13:07 09/25/2019 13:07 Discharged to Home. Impression: Chest pain, unspecified; ca1 Gastro-esophageal reflux disease. Condition is Stable. Forms are Medication Reconciliation Form, Thank You Letter, Antibiotic Education, Prescription Opioid Use. Follow up: Private Physician; When: 2 - 3 days; Reason: Recheck today's complaints, Continuance of care, Re-evaluation by your physician. Follow up: Emergency Department; When: As needed; Reason: Worsening of condition. sid
--- NOTE | 2019-09-25 13:08 | ER ---
Nurse's Notes [facility] Name: Javad Pro Age: 39 yrs Sex: Male : 1980 Arrival Date: 09/25/2019 Time: 09:43 Bed 13 Private MD: Diagnosis: Chest pain, unspecified;Gastro-esophageal reflux disease Presentation: 09/25 09:54 Presenting complaint: Patient states: intermittent CP x years. Patient reports last ss night he woke up in the middle of the night unable to catch his breath and having chest discomfort lasting 5-10 minutes. History of sleep apnea, but has not been able to have a sleep study or follow up since diagnosis. Patient states that these episodes he had this morning happen often, but this morning was worse. Transition of care: patient was not received from another setting of care. Onset of symptoms is unknown. Risk Assessment: Do you want to hurt yourself or someone else? Patient reports no desire to harm self or others. Initial Sepsis Screen: Does the patient meet any 2 criteria? No. Patient's initial sepsis screen is negative. Does the patient have a suspected source of infection? No. Patient's initial sepsis screen is negative. Care prior to arrival: None. 09:54 Method Of Arrival: Ambulatory ss 09:54 Acuity: MOIZ 3 ss Historical: - Allergies: 10:00 Codeine; ss 10:00 PENICILLINS; ss - Home Meds: 10:00 Lasix 40 mg Oral tab 1 tab once daily [Active]; lisinopril 10 mg Oral tab 1 tab once ss daily [Active]; - PMHx: 10:00 CHF; Hypertension; Sleep Apnea; ss - Immunization history:: Adult Immunizations up to date. - Social history:: Smoking status: Patient/guardian denies using tobacco. - Ebola Screening: : Patient denies exposure to infectious person Patient denies travel to an Ebola-affected area in the 21 days before illness onset. Screenin:59 Abuse screen: Denies threats or abuse. Denies injuries from another. Nutritional ca1 screening: No deficits noted. Tuberculosis screening: No symptoms or risk factors identified. Fall Risk IV access (20 points). Assessment: 09:59 General: Appears in no apparent distress. comfortable, Behavior is calm, cooperative, ca1 appropriate for age. Pain: Complains of pain in mid-sternal area Pain radiates to anterior aspect of left upper chest Pain currently is 7 out of 10 on a pain scale. Pain began last night Is intermittent. Neuro: Level of Consciousness is awake, alert, obeys commands, Oriented to person, place, time, situation. Cardiovascular: Heart tones S1 S2 present Capillary refill < 3 seconds Patient's skin is warm and dry. Pulses are all present. Rhythm is sinus rhythm. Respiratory: Airway is patent Respiratory effort is even, unlabored, Respiratory pattern is regular, symmetrical, Breath sounds are clear bilaterally. GI: Abdomen is round non-distended, Bowel sounds present X 4 quads. Abd is soft and non tender X 4 quads. Reports nausea, vomiting. : No deficits noted. No signs and/or symptoms were reported regarding the genitourinary system. EENT: No deficits noted. No signs and/or symptoms were reported regarding the EENT system. Derm: Skin is intact, is healthy with good turgor, Skin is pink, warm \T\ dry. Musculoskeletal: Circulation, motion, and sensation intact. Capillary refill < 3 seconds, Range of motion: intact in all extremities. 11:00 Reassessment: Patient appears in no apparent distress at this time. Patient and/or ca1 family updated on plan of care and expected duration. Pain level reassessed. Patient is alert, oriented x 3, equal unlabored respirations, skin warm/dry/pink. 11:45 Reassessment: Patient appears in no apparent distress at this time. Patient is alert, ca1 oriented x 3, equal unlabored respirations, skin warm/dry/pink. 12:45 Reassessment: Patient appears in no apparent distress at this time. Patient is alert, ca1 oriented x 3, equal unlabored respirations, skin warm/dry/pink. Vital Signs: 10:00 BP 137 / 94; Pulse 87; Resp 16; Temp 97.9(O); Pulse Ox 98% on R/A; Weight 108.86 kg; ss Height 5 ft. 9 in. (175.26 cm); Pain 7/10; 10:45 BP 126 / 84; Pulse 87; Resp 17 S; Pulse Ox 97% on R/A; ca1 11:45 BP 124 / 86; Pulse 78; Resp 17 S; Pulse Ox 96% on R/A; ca1 12:45 BP 114 / 82; Pulse 82; Resp 17 S; Pulse Ox 98% on R/A; Pain 4/10; ca1 10:00 Body Mass Index 35.44 (108.86 kg, 175.26 cm) ED Course: 09:43 Patient arrived in ED. as 09:55 Laura Lin, RN is Primary Nurse. ca1 09:58 Triage completed. ss 09:59 Patient has correct armband on for positive identification. Placed in gown. Bed in low ca1 position. Call light in reach. Side rails up X 1. school teacher on. Pulse ox on. NIBP on. Warm blanket given. 09:59 No provider procedures requiring assistance completed. Patient maintains SpO2 ca1 saturation greater than 95% on room air. 10:00 Arm band placed on right wrist. ss 10:08 Charlee Quiroz FNP-C [facility]. snw 10:08 Donald Stephenson MD is Attending Physician. snw 10:09 EKG done, by ear mold laboratory technician. reviewed by Donald Stephenson MD. at1 10:20 Initial lab(s) drawn, by mi, sent to lab. Inserted saline lock: 20 gauge in left em antecubital area, using aseptic technique. Blood collected. 10:29 XRAY Chest (1 view) In Process Unspecified. EDMS 13:26 IV discontinued, intact, bleeding controlled, No redness/swelling at site. Pressure ca1 dressing applied. Administered Medications: 10:47 Drug: ProTONIX 40 mg Route: PO; ca1 12:17 Follow up: Response: No adverse reaction; Pain is decreased ca1 Outcome: 13:07 Discharge ordered by . snw 13:26 Discharged to home ambulatory, with family. ca1 13:26 Condition: stable 13:26 Discharge instructions given to patient, Instructed on discharge instructions, follow up and referral plans. medication usage, Demonstrated understanding of instructions, follow-up care, medications, Prescriptions given X 1. 13:26 Patient left the ED. ca1 Signatures: Dispatcher [employer] EDMS Charlee Quiroz FNP-C FNP-Manjit Gordillo, SURVEILLANCE CAMERA TECHNICIAN SURVEILLANCE CAMERA TECHNICIAN em Radha Freeman Shelby, RN RN Zohreh Kim, industrial real estate agent EKG Tat1 Laura Lin, RN RN ca1
[2019-09-25 13:30] VITALS: TEMP 97.9
[2019-09-25 13:34] VITALS: BP 114/82; O2SAT 98
--- NOTE | 2019-09-25 16:51 | EKG ---
Test Date: 2019-09-25 Test Time: 09:49:13 Certified Surgical Technician: DIXIE MEASUREMENT RESULTS: Intervals: Rate: 86 MI: 104 QRSD: 126 QT: 372 QTc: 445 Carson: P: 1 MI: 104 QRS: 35 T: 33 INTERPRETIVE STATEMENTS: Sinus rhythm with short MI Right bundle branch block Abnormal ECG Compared to ECG 01/30/2018 12:10:11 Short MI interval now present Right bundle-branch block now present Electronically Signed On 09-25-19 16:50:35 SERGER by Keaton Zhang
== END 2019-09-25 13:26 | disposition home or self-care (01) ==
LOC: ER 09:40
DX: R07.9 Chest pain, unspecified (principal); K21.9 Gastro-esophageal reflux disease without esophagitis; Z88.6 Allergy status to analgesic agent; Z88.0 Allergy status to penicillin; I10 Essential (primary) hypertension; I50.9 Heart failure, unspecified
CPT/HCPCS: 36415; 71045; 80048; 80076; 83735; 83880; 84484; 85025; 85610; 93005

== ENCOUNTER 2019-11-30 09:33 | Emergency (ER) | payer BC, OTHER ==
--- OUTSIDE RECORDS SUMMARY | 2019-11-30 09:36 | XMS REPORT ---
:1980 [facility] [address] [place] [address] Care Team Providers Name Role Phone Unavailable Unavailable Unavailable Problems This patient has no known problems. Allergies, Adverse Reactions, Alerts This patient has no known allergies or adverse reactions. Medications This patient has no known medications. Encounters Start End Encounter Admission Attending Care Care Encounter Date/Time Date/Time Type Type Clinicians Facility Department ID 2018-10-08 2018-10-08 Emergency [facility] [id number] 17:49:44 17:49:44 2018-10-08 2018-10-08 Emergency [facility] [id number] 15:26:07 15:26:07 Results Test Description Test Time [...]
[2019-11-30] MEDS ORDERED: DIPHENHYDRAMINE 50 MG/ML VIAL ONE (10:39)
[2019-11-30] MEDS ORDERED: NA CHLORIDE 0.9% 1,000 ML ONE (10:39)
[2019-11-30] MEDS ORDERED: METOCLOPRAMIDE 10 MG/2mL INJ ONE (10:39)
[2019-11-30] MEDS ORDERED: KETOROLAC 30 MG/ML INJ ONE (10:39)
--- NOTE | 2019-11-30 10:39 | RAD REPORT ---
EXAM DESCRIPTION: CT - Head Brain Wo Cont - 11/30/2019 10:26 am CLINICAL HISTORY: Headache COMPARISON: None. TECHNIQUE: Computed axial tomography of the head was obtained. IV contrast was not requested. All CT scans are performed using dose optimization technique as appropriate and may include automated exposure control or mA/KV adjustment according to patient size. FINDINGS: An intracranial bleed is not seen . The ventricles are normal in caliber. No extra-axial fluid collection is noted. Fluid within the sinuses/ mastoids is not seen. IMPRESSION: No acute intracranial abnormality is seen. If patient's symptoms persist MRI of the bra in would be recommended.
--- NOTE | 2019-11-30 11:37 | ER ---
Nurse's Notes [facility] Name: Javad Pro Age: 39 yrs Sex: Male : 1980 Arrival Date: 11/30/2019 Time: 09:36 Bed 14 Private MD: Diagnosis: Headache Presentation: 11/30 09:55 Presenting complaint: Patient states: headache to back of head x 1 month. Transition of ss care: patient was not received from another setting of care. Onset of symptoms was October 2019. Risk Assessment: Do you want to hurt yourself or someone else? Patient reports no desire to harm self or others. Initial Sepsis Screen: Does the patient meet any 2 criteria? No. Patient's initial sepsis screen is negative. Does the patient have a suspected source of infection? No. Patient's initial sepsis screen is negative. Care prior to arrival: None. 09:55 Method Of Arrival: Ambulatory ss 09:55 Acuity: MOIZ 3 ss Historical: - Allergies: 09:58 Codeine; ss 09:58 PENICILLINS; ss - Home Meds: 09:58 Lasix 40 mg Oral tab 1 tab once daily [Active]; lisinopril 20 mg Oral tab 1 tab once ss daily [Active]; - PMHx: 09:58 CHF; Hypertension; Sleep Apnea; ss - PSHx: 09:58 Hernia repair; ss - Immunization history:: Adult Immunizations up to date. - Social history:: Smoking status: Patient denies any tobacco usage or history of. - Ebola Screening: : Patient denies exposure to infectious person Patient denies travel to an Ebola-affected area in the 21 days before illness onset. Screenin:55 Abuse screen: Denies threats or abuse. Denies injuries from another. Nutritional ca1 screening: No deficits noted. Tuberculosis screening: No symptoms or risk factors identified. Fall Risk None identified. Assessment: 09:55 General: Appears in no apparent distress. comfortable, Behavior is calm, cooperative, ca1 appropriate for age. Pain: Complains of pain in occipital area Pain radiates to base of the skull, neck Pain currently is 8 out of 10 on a pain scale. Quality of pain is described as throbbing, Pain began a month ago Is continuous. Pain: Also complains of no other associated symptoms. Neuro: Level of Consciousness is awake, alert, obeys commands, Oriented to person, place, time, situation, Appropriate for age. Cardiovascular: Heart tones S1 S2 present Capillary refill < 3 seconds Patient's skin is warm and dry. Respiratory: Airway is patent Respiratory effort is even, unlabored, Respiratory pattern is regular, symmetrical, Breath sounds are clear bilaterally. GI: Abdomen is round non-distended, Bowel sounds present X 4 quads. Abd is soft and non tender X 4 quads. : No deficits noted. No signs and/or symptoms were reported regarding the genitourinary system. EENT: No deficits noted. No signs and/or symptoms were reported regarding the EENT system. Derm: Skin is intact, is healthy with good turgor, Skin is pink, warm \T\ dry. Musculoskeletal: Circulation, motion, and sensation intact. Capillary refill < 3 seconds. 11:31 Reassessment: Patient appears in no apparent distress at this time. Patient and/or ca1 family updated on plan of care and expected duration. Pain level reassessed. Patient is alert, oriented x 3, equal unlabored respirations, skin warm/dry/pink. Vital Signs: 09:55 BP 131 / 85; Pulse 87; Resp 16; Temp 97.5(TE); Pulse Ox 97% on R/A; Weight 108.86 kg; ss Height 5 ft. 9 in. (175.26 cm); Pain 8/10; 11:31 BP 111 / 76; Pulse 77; Resp 18 S; Pulse Ox 98% on R/A; ca1 11:46 Pain 2/10; ca1 11:46 Pain 2/10; ca1 11:46 Pain 2/10; ca1 09:55 Body Mass Index 35.44 (108.86 kg, 175.26 cm) ss [place] Coma Score: 10:56 Eye Response: spontaneous(4). Verbal Response: oriented(5). Motor Response: obeys kb commands(6). Total: 15. ED Course: 09:36 Patient arrived in ED. ds1 09:51 Laura Lin, JOSE ALFREDO is Primary Nurse. ca1 09:55 Arm band placed on right wrist. ss 09:55 Patient has correct armband on for positive identification. Bed in low position. Call ca1 light in reach. Side rails up X 1. Pulse ox on. NIBP on. Door closed. Noise minimized. Lights dimmed. 09:57 Triage completed. ss 10:01 Danni Sadler FNP-C [facility]. kb 10:01 Viktor Santana MD is Attending Physician. kb 10:25 CT Head Brain wo Cont In Process Unspecified. EDMS 10:45 No provider procedures requiring assistance completed. Missed attempt(s): 22 gauge in ca1 left antecubital area. Bleeding controlled, band aid applied, catheter tip intact. 11:03 Missed attempt(s): 20 gauge in left antecubital area. Bleeding controlled, band aid dh3 applied, catheter tip intact. 11:05 Inserted saline lock: 20 gauge in left hand, using aseptic technique. dh3 11:52 IV discontinued, intact, bleeding controlled, No redness/swelling at site. Pressure ca1 dressing applied. Administered Medications: 11:06 Drug: NS 0.9% 1000 ml Route: IV; Rate: 1000 ml; Site: left hand; ca1 11:45 Follow up: Response: No adverse reaction; IV Status: pT DISCHARGED ca1 11:08 Drug: TORadol - Ketorolac 15 mg Route: IVP; Site: left hand; ca1 11:46 Follow up: Pain 2/10 Adult; Response: No adverse reaction; Pain is decreased ca1 11:10 Drug: Benadryl 12.5 mg Route: IVP; Site: left hand; ca1 11:46 Follow up: Pain 2/10 Adult; Response: No adverse reaction; Pain is decreased ca1 11:13 Drug: Reglan 10 mg Route: IVP; Site: left hand; ca1 11:46 Follow up: Pain 2/10 Adult; Response: No adverse reaction; Pain is decreased ca1 Outcome: 11:36 Discharge ordered by MD. kb 11:52 Discharged to home ambulatory. ca1 11:52 Condition: stable 11:52 Discharge instructions given to patient, Instructed on discharge instructions, follow up and referral plans. Demonstrated understanding of instructions, follow-up care. 11:54 Patient left the ED. ca1 Signatures: Dispatcher [employer] EDMS Danni Sadler FNP-C FNP-Diann Nino ds1 Toya Pizarro RN RN Cleo Wong dh3 Laura Lin RN RN ca1 Corrections: (The following items were deleted from the chart) 09:58 09:55 Social history: Smoking status: ca1 ca1
--- NOTE | 2019-11-30 11:37 | EDPHYS ---
Physician Documentation [facility] Name: Javad Pro Age: 39 yrs Sex: Male : 1980 Arrival Date: 11/30/2019 Time: 09:36 Bed 14 Private MD: ED Physician Viktor Santana HPI: 11/30 10:56 This 39 yrs old Male presents to ER via Ambulatory with complaints of kb Headache. 10:56 The patient complains of pain to the occipital area. The patient describes the headache kb as constant. Onset: The symptoms/episode began/occurred 1 month(s) ago. Associated signs and symptoms: The patient has no apparent associated signs or symptoms. Severity of symptoms: At its worst the pain was moderate, in the emergency department the pain has improved. Headache History: The patient has had previous headaches and this one is similar to previous episodes, and this one is more severe than previous episodes. The symptoms are alleviated by nothing. the symptoms are aggravated by nothing. The patient has experienced similar episodes in the past. The patient has not recently seen a physician. Pt reports headache for a month. States it is constant/waxing and waning. States his father had similar headaches so he thinks he inherited them. Historical: - Allergies: 09:58 Codeine; ss 09:58 PENICILLINS; ss - Home Meds: 09:58 Lasix 40 mg Oral tab 1 tab once daily [Active]; lisinopril 20 mg Oral tab 1 tab once ss daily [Active]; - PMHx: 09:58 CHF; Hypertension; Sleep Apnea; ss - PSHx: 09:58 Hernia repair; ss - Immunization history:: Adult Immunizations up to date. - Social history:: Smoking status: Patient denies any tobacco usage or history of. - Ebola Screening: : Patient denies exposure to infectious person Patient denies travel to an Ebola-affected area in the 21 days before illness onset. ROS: 10:55 Constitutional: Negative for fever, chills, and weight loss, Eyes: Negative for injury, kb pain, redness, and discharge, ENT: Negative for injury, pain, and discharge, Neck: Negative for injury, pain, and swelling, Cardiovascular: Negative for chest pain, palpitations, and edema, Respiratory: Negative for shortness of breath, cough, wheezing, and pleuritic chest pain, Abdomen/GI: Negative for abdominal pain, nausea, vomiting, diarrhea, and constipation, Back: Negative for injury and pain, : Negative for injury, bleeding, discharge, and swelling, MS/Extremity: Negative for injury and deformity, Skin: Negative for injury, rash, and discoloration. 10:55 Neuro: Positive for headache. Exam: 10:55 Constitutional: This is a well developed, well nourished patient who is awake, alert, kb and in no acute distress. Head/Face: Normocephalic, atraumatic. Eyes: Pupils equal round and reactive to light, extra-ocular motions intact. Lids and lashes normal. Conjunctiva and sclera are non-icteric and not injected. Cornea within normal limits. Periorbital areas with no swelling, redness, or edema. ENT: Nares patent. No nasal discharge, no septal abnormalities noted. Tympanic membranes are normal and external auditory canals are clear. Oropharynx with no redness, swelling, or masses, exudates, or evidence of obstruction, uvula midline. Mucous membranes moist. Neck: Trachea midline, no thyromegaly or masses palpated, and no cervical lymphadenopathy. Supple, full range of motion without nuchal rigidity, or vertebral point tenderness. No Meningismus. Chest/axilla: Normal chest wall appearance and motion. Nontender with no deformity. No lesions are appreciated. Cardiovascular: Regular rate and rhythm with a normal S1 and S2. No gallops, murmurs, or rubs. Normal PMI, no JVD. No pulse deficits. Respiratory: Lungs have equal breath sounds bilaterally, clear to auscultation and percussion. No rales, rhonchi or wheezes noted. No increased work of breathing, no retractions or nasal flaring. Abdomen/GI: Soft, non-tender, with normal bowel sounds. No distension or tympany. No guarding or rebound. No evidence of tenderness throughout. Skin: Warm, dry with normal turgor. Normal color with no rashes, no lesions, and no evidence of cellulitis. MS/ Extremity: Pulses equal, no cyanosis. Neurovascular intact. Full, normal range of motion. Neuro: Awake and alert, GCS 15, oriented to person, place, time, and situation. Cranial nerves II-XII grossly intact. Motor strength 5/5 in all extremities. Sensory grossly intact. Cerebellar exam normal. Normal gait. Vital Signs: 09:55 BP 131 / 85; Pulse 87; Resp 16; Temp 97.5(TE); Pulse Ox 97% on R/A; Weight 108.86 kg; ss Height 5 ft. 9 in. (175.26 cm); Pain 8/10; 11:31 BP 111 / 76; Pulse 77; Resp 18 S; Pulse Ox 98% on R/A; ca1 11:46 Pain 2/10; ca1 11:46 Pain 2/10; ca1 11:46 Pain 2/10; ca1 09:55 Body Mass Index 35.44 (108.86 kg, 175.26 cm) ss Ashley Coma Score: 10:56 Eye Response: spontaneous(4). Verbal Response: oriented(5). Motor Response: obeys kb commands(6). Total: 15. MDM: 10:01 Patient medically screened. kb 10:56 Data reviewed: vital signs, nurses notes. Data interpreted: Pulse oximetry: on room air kb is 97 %. Interpretation: normal. Counseling: I had a detailed discussion with the patient and/or guardian regarding: the historical points, exam findings, and any diagnostic results supporting the discharge/admit diagnosis, radiology results, the need for outpatient follow up, a family practitioner, to return to the emergency department if symptoms worsen or persist or if there are any questions or concerns that arise at home. 11:35 ED course: Headache is resolved. Pt educated to follow up with neuro. kb 11/30 10:11 Order name: CT Head Brain wo Cont; Complete Time: 10:51 kb 11/30 10:12 Order name: IV Start; Complete Time: 11:07 kb Administered Medications: 11:06 Drug: NS 0.9% 1000 ml Route: IV; Rate: 1000 ml; Site: left hand; ca1 11:45 Follow up: Response: No adverse reaction; IV Status: pT DISCHARGED ca1 11:08 Drug: TORadol - Ketorolac 15 mg Route: IVP; Site: left hand; ca1 11:46 Follow up: Pain 2/10 Adult; Response: No adverse reaction; Pain is decreased ca1 11:10 Drug: Benadryl 12.5 mg Route: IVP; Site: left hand; ca1 11:46 Follow up: Pain 2/10 Adult; Response: No adverse reaction; Pain is decreased ca1 11:13 Drug: Reglan 10 mg Route: IVP; Site: left hand; ca1 11:46 Follow up: Pain 2/10 Adult; Response: No adverse reaction; Pain is decreased ca1 Disposition: 12/01 08:00 Co-signature as Attending Physician, Viktor Santana MD I agree with the assessment and 4 plan of care. Disposition: 11/30/19 11:36 Discharged to Home. Impression: Headache. - Condition is Stable. - Discharge Instructions: General Headache Without Cause, [id number]. - Medication Reconciliation Form, Thank You Letter, Antibiotic Education, Prescription Opioid Use, Work release form form. - Follow up: Emergency Department; When: As needed; Reason: Worsening of condition. Follow up: Private Physician; When: 2 - 3 days; Reason: Recheck today's complaints, Continuance of care, Re-evaluation by your physician. Signatures: Dispatcher [employer] EDIA Danni Sadler, Toya Barahona RN RN Viktor Santana MD MD [facility] Laura Lin RN RN ca1 Corrections: (The following items were deleted from the chart) 11/30 09:58 09:55 Social history: Smoking status: ca1 ca1 11:54 11:36 11/30/2019 11:36 Discharged to Home. Impression: Headache. Condition is Stable. ca1 Forms are Medication Reconciliation Form, Thank You Letter, Antibiotic Education, Prescription Opioid Use. Follow up: Emergency Department; When: As needed; Reason: Worsening of condition. Follow up: Private Physician; When: 2 - 3 days; Reason: Recheck today's complaints, Continuance of care, Re-evaluation by your physician. kb
[2019-11-30 12:35] VITALS: TEMP 97.5
[2019-11-30 12:36] VITALS: BP 111/76; O2SAT 98
== END 2019-11-30 11:54 | disposition home or self-care (01) ==
LOC: ER 09:33
DX: R51 Headache (principal); I10 Essential (primary) hypertension; I50.9 Heart failure, unspecified; Z88.0 Allergy status to penicillin; Z88.5 Allergy status to narcotic agent
CPT/HCPCS: 96361; 70450; 96375; 96374; 99284; J2765; J1200; J7030

== ENCOUNTER 2022-04-10 11:16 | Emergency (ER) | payer SELFPAY ==
--- OUTSIDE RECORDS SUMMARY | 2022-04-10 11:19 | XMS REPORT | Continuity of Care Document ---
:1980 Author Organization [facility] t Address [address] [place] [address] Care Team Providers Name Role Phone Carline BRADLEY, A Primary Care Physician DARIEN Attending Clinician Unavailable Luther FLOWERS Attending Clinician Unavailable Josias BRADLEY S Attending Clinician Doctor Unassigned, Name Attending Clinician Unavailable Darien DICKINSONP Attending Clinician Payers Payer Name Policy Type Policy Number Effective Date Expiration Date S abel LOPEZ FROM [id number] 2022 [facility] 00:00:00 Problems Condition Condition Condition Status Onset Resolution Last Treating Co mments Source Name Details Category Date Date Treatment Clinician Date Chronic Chronic Disease Active Univers pain of pain of 5-23 ity of both both 00:00: [place] ankles ankles 00 Medical Branch Depression Depression Disease Active U nivers , , 5-23 ity of unspecifie [place] depression depression Br anch type type PAD PAD Disease Active Univers (periphera (periphera 2-19 it y of l artery l artery 00:00: [place] disease) disease) 00 Medica l Branch Chronic Chronic Disease Active Univers insomnia insomnia 5-20 ity of 00:00: [place] 00 Medical Branch CHRISTOS CHRISTOS Disease Active Univers (obstructi (obstructi 1-29 it y of ve sleep ve sleep 00:00: [place] apnea) apnea) 00 Medical Branch Inguinal Inguinal Disease Active Unive rs hernia hernia 8- ity of 00:00: [place] 00 Medical Branch Encounter Encounter Disease Active Uni vers for for 8-28 ity of pre-operat pre[place]operat [place] pavel pavel 00 Medical cardiovasc cardiovasc Br anch ular ular clearance clearance Dyslipidem Dyslipidem Disease Active U nivers ia ia 8- ity of 00:00: [place] 00 Medical Branch Prediabete Prediabete Disease Active U nivers s s 8 ity of 00:00: [place] [facility] Dizziness Dizziness Disease Active Uni vers 4-03 ity of 00:00: [place] [facility] Fatty Fatty Disease Active 2016-11 Univers liver liver 0-18 ity of 00:00: [place] [facility] Abnormal Abnormal Disease Active 2016-11 Unive rs LFTs LFTs 0-18 ity of 00:00: [place] 00 Medical Branch Epigastric Epigastric Disease Active 2016-11 U nivers abdominal abdominal 0-17 ity of pain pain 00:00: [place] 00 Medical Branch Low HDL Low HDL Disease Active Univers (under 40) (under 40) 5-03 it y of 00:00: [place] 00 Medical Branch Essential Essential Disease Active Uni vers hypertensi hypertensi 5- it y of on on 00:00: [place] Medical [facility] Gastroesop Gastroesop Disease Active U saulers hageal hageal 5-01 ity of reflux reflux 00:00: [place] disease, disease, 00 Medica l esophagiti esophagiti Br anch s presence s presence not not specified specified Obesity Obesity Disease Active Univers (BMI (BMI 4-13 ity of 30-39.9) 30-39.9) 00:00: [place] 00 Medical Branch CHF CHF Disease Active Univers (congestiv (congestiv it y of e heart e heart [place] failure) failure) Medica l Branch LOW BACK Diagnosis Active 2016-04-13 M emoria PAIN 07:48:00 l LOW BACK Neo n PAIN Active [facility]o [facility] Allergies, Adverse Reactions, Alerts Allergy Allergy Status Severity Reaction(s) Onset Inactive Treating Comm ents Source Name Type Date Date Clinician Peanut Propensi Active Anaphylaxis 2019-0 Uni vers ty to 07-09 ity of adverse 00:00: [place] reaction 00 Medical s Branch Tree Nut Propensi Active Anaphylaxis 2019-0 U nivers ty to 07-09 ity of adverse 00:00: [place] reaction 00 Medical s Branch PEANUT DRUG Active Anaphylaxis 2019-0 Unive rs INGREDI 07-09 ity of 00:00: [place] 00 Medical Branch TREE NUT DRUG Active Anaphylaxis 2019-0 Uni vers INGREDI 07-09 ity of 00:00: [place] 00 Medical Branch Codeine Propensi Active Nausea 2015-11 Univers ty to and/or 11-17 ity of adverse Vomiting 00:00: [place] reaction 00 Medical s to Branch drug Penicill Propensi Active Itching 2015-11 Unive rs ins ty to 11-17 ity of adverse 00:00: [place] reaction 00 Medical s to Branch drug CODEINE DRUG Active Low N/V 2015-11 Univers INGREDI 11-17 ity of 00:00: [place] 00 Medical Branch PENICILL Drug Active Low ITCHING 2015-11 Univers INS Class 11-17 ity of 00:00: [place] 00 Medical Branch Social History Social Habit Start Date Stop Date Quantity Comments Source Exposure to 2022-03-26 2022-04-05 Not sure University of SARS-CoV-2 00:00:00 22:21:00 [place] Medical (event) Branch Alcohol intake 2022-04-02 2022-04-02 Current drinker of Un iversity of 00:00:00 00:00:00 alcohol (finding) [place] M edical Branch History SDKY 2020-12-30 2020-12-30 99 University o f Alcohol Frequency 00:00:00 00:00:00 [place] M edical Branch History SDKY 2020-12-30 2020-12-30 99 University o f Alcohol Std 00:00:00 00:00:00 [place] Medical Drinks Branch History SDKY 2020-12-30 2020-12-30 99 University o f Alcohol Binge 00:00:00 00:00:00 [place] Medic al Branch Alcohol Comment 2020-12-30 2020-12-30 occcasional Universi ty of 00:00:00 00:00:00 [facility] Tobacco use and 2017-03-11 2017-03-11 Former user Universi ty of exposure 00:00:00 00:00:00 [facility] Tobacco Comment 2017-03-11 2017-03-11 Quit smoking a few U niversity of 00:00:00 00:00:00 years ago [facility] Social History 2016-03-14 2016-03-14 [facility] Duane worthington 04:59:00 04:59:00 Sex [birth year] At [birth year] Univers y of 00:00:00 00:00:00 [facility] Smoking Status Start Date Stop Date Source Former smoker 2017-03-11 00:00:00 2017-03-11 00:00:00 [facility] Medications Ordered Filled Start Stop Current Ordering Indication Dosage Frequency Signature Comments Components Source Medication Medication Date Date Medication? Clinician (SIG) Name Name pantoprazol 2021- No 40mg 40 mg, Uni vers e 04-06 Slow IV ity of (PROTONIX) 05:30: 04:23 Push, [place] injection 00 :00 ONCE, 1 Medical 40 mg dose, On Branch 04/06/22 at 0030 maalox:diph 2021-2021- No 15mL 15 mL, Uni vers enhydrAMINE 04-06 Oral, ity of :lidocaine 05:30: 04:23 ONCE, 1 Joel as 2 % viscous 00 :00 dose, On Medi mauricio 1:1:1 Fri Branch ([facility] 04/06/22 at [facility]) 0030, oral Routine suspension 15 mL naproxen 2021-0 Yes [id number] 500mg Take 1 Un wilver (NAPROSYN) 3-11 tablet by ity of 500 mg 00:00: mouth 2 [place] tablet 00 (two) Medical times Branch daily with meals. naproxen 2021-0 Yes [id number] 500mg Take 1 Un wilver (NAPROSYN) 3-11 tablet by ity of 500 mg 00:00: mouth 2 [place] tablet 00 (two) Medical times Branch daily with meals. naproxen 2021-0 Yes [id number] 500mg Take 1 Un wilver (NAPROSYN) 3-11 tablet by ity of 500 mg 00:00: mouth 2 [place] tablet 00 (two) Medical times Branch daily with meals. naproxen 2022-0 Yes [id number] 500mg Take 1 Un wilver (NAPROSYN) 3-11 tablet by ity of 500 mg 00:00: mouth 2 [place] tablet 00 (two) Medical times Branch daily with meals. ibuprofen 2020-11 Yes [id number] 600mg Take 1 Univers 600 mg 2-27 tablet by ity of tablet 00:00: mouth [place] 00 every 6 Medical (six) Branch hours as needed for Pain (scale 4-6). benzonatate 2020-11 Yes [id number] 100mg Take 1 Univers 100 mg 2-27 capsule by ity of capsule 00:00: mouth 3 [place] 00 (three) Medical times Branch daily as needed for Cough. ondansetron 2020-11 Yes [id number] 4mg Take 1 Univers (ZOFRAN 2-27 tablet by ity of ODT) 4 mg 00:00: mouth [place] disintegrat 00 every 8 Medic al ing tablet (eight) Branch hours as needed for Nausea and Vomiting (N/V). ibuprofen 2020-11 Yes [id number] 600mg Take 1 Univers 600 mg 2-27 tablet by ity of tablet 00:00: mouth [place] 00 every 6 Medical (six) Branch hours as needed for Pain (scale 4-6). benzonatate 2020-11 Yes [id number] 100mg Take 1 Univers 100 mg 2-27 capsule by ity of capsule 00:00: mouth 3 [place] 00 (three) Medical times Branch daily as needed for Cough. ondansetron 2020-11 Yes [id number] 4mg Take 1 Univers (ZOFRAN 2-27 tablet by ity of ODT) 4 mg 00:00: mouth [place] disintegrat 00 every 8 Medic al ing tablet (eight) Branch hours as needed for Nausea and Vomiting (N/V). ibuprofen 2020-11 Yes [id number] 600mg Take 1 Univers 600 mg 2-27 tablet by ity of tablet 00:00: mouth [place] 00 every 6 Medical (six) Branch hours as needed for Pain (scale 4-6). benzonatate 2020-11 Yes [id number] 100mg Take 1 Univers 100 mg 2-27 capsule by ity of capsule 00:00: mouth 3 [place] 00 (three) Medical times Branch daily as needed for Cough. ondansetron 2020-11 Yes [id number] 4mg Take 1 Univers (ZOFRAN 2-27 tablet by ity of ODT) 4 mg 00:00: mouth [place] disintegrat 00 every 8 Medic al ing tablet (eight) Branch hours as needed for Nausea and Vomiting (N/V). ibuprofen 2020-11 Yes [id number] 600mg Take 1 Univers 600 mg 2-27 tablet by ity of tablet 00:00: mouth [place] 00 every 6 Medical (six) Branch hours as needed for Pain (scale 4-6). benzonatate 2020-11 Yes [id number] 100mg Take 1 Univers 100 mg 2-27 capsule by ity of capsule 00:00: mouth 3 [place] 00 (three) Medical times Branch daily as needed for Cough. ondansetron 2020-11 Yes [id number] 4mg Take 1 Univers (ZOFRAN 2-27 tablet by ity of ODT) 4 mg 00:00: mouth [place] disintegrat 00 every 8 Medic al ing tablet (eight) Branch hours as needed for Nausea and Vomiting (N/V). pantoprazol 2020-11 Yes [id number] 40mg Take 1 Univers e 40 mg EC 2-21 tablet by ity of tablet 00:00: mouth [place] 00 daily. Medical Take 30 Branch mins before breakfast. pantoprazol 2020-11 Yes [id number] 40mg Take 1 Univers e 40 mg EC 2-21 tablet by ity of tablet 00:00: mouth [place] 00 daily. Medical Take 30 Branch mins before breakfast. pantoprazol 2020-11 Yes [id number] 40mg Take 1 Univers e 40 mg EC 2-21 tablet by ity of tablet 00:00: mouth [place] 00 daily. Medical Take 30 Branch mins before breakfast. pantoprazol 2020-11 Yes [id number] 40mg Take 1 Univers e 40 mg EC 2-21 tablet by ity of tablet 00:00: mouth [place] 00 daily. Medical Take 30 Branch mins before breakfast. KCL 10 mEq 2020-11 Yes [id number] 10meq Take 1 Univers tablet 0-13 tablet by ity of 00:00: mouth [place] 00 daily. Medical Branch lisinopriL 2020-11 Yes [id number] 20mg Take 1 U nivers 20 mg 0-13 tablet by ity of tablet 00:00: mouth [place] 00 daily. Medical Branch metoprolol 2020-11 Yes [id number] 25mg Take 1 Un wilver tartrate 25 0-13 tablet by ity of mg tablet 00:00: mouth 2 [place] 00 (two) Medical times Branch daily. cilostazoL 2020-11 Yes [id number] 50mg Take 1 Univers 50 mg 0-13 tablet by ity of tablet 00:00: mouth [place] 00 daily. Medical Branch furosemide 2020-11 Yes [id number] 20mg Take 1 Univers 20 mg 0-13 tablet by ity of tablet 00:00: mouth [place] 00 daily. Medical Branch KCL 10 mEq 2020-11 Yes [id number] 10meq Take 1 Univers tablet 0-13 tablet by ity of 00:00: mouth [place] 00 daily. Medical Branch lisinopriL 2020-11 Yes [id number] 20mg Take 1 U nivers 20 mg 0-13 tablet by ity of tablet 00:00: mouth [place] 00 daily. Medical Branch metoprolol 2020-11 Yes [id number] 25mg Take 1 Un wilver tartrate 25 0-13 tablet by ity of mg tablet 00:00: mouth 2 (two) Medical times Branch daily. cilostazoL 2020-11 Yes [id number] 50mg Take 1 Univers 50 mg 0-13 tablet by ity of tablet 00:00: mouth [place] 00 daily. Medical Branch furosemide 2020-11 Yes [id number] 20mg Take 1 Univers 20 mg 0-13 tablet by ity of tablet 00:00: mouth [place] 00 daily. Medical Branch KCL 10 mEq 2020-11 Yes [id number] 10meq Take 1 Univers tablet 0-13 tablet by ity of 00:00: mouth [place] 00 daily. Medical Branch lisinopriL 2020-11 Yes [id number] 20mg Take 1 U nivers 20 mg 0-13 tablet by ity of tablet 00:00: mouth [place] 00 daily. Medical Branch metoprolol 2020-11 Yes [id number] 25mg Take 1 Un wilver tartrate 25 0-13 tablet by ity of mg tablet 00:00: mouth 2 00 (two) Medical times Branch daily. cilostazoL 2020-11 Yes [id number] 50mg Take 1 Univers 50 mg 0-13 tablet by ity of tablet 00:00: mouth [place] 00 daily. Medical Branch furosemide 2020-11 Yes [id number] 20mg Take 1 Univers 20 mg 0-13 tablet by ity of tablet 00:00: mouth [place] 00 daily. Medical Branch KCL 10 mEq 2020-11 Yes [id number] 10meq Take 1 Univers tablet 0-13 tablet by ity of 00:00: mouth [place] 00 daily. Medical Branch lisinopriL 2020-11 Yes [id number] 20mg Take 1 U nivers 20 mg 0-13 tablet by ity of tablet 00:00: mouth [place] 00 daily. Medical Branch metoprolol 2020-11 Yes [id number] 25mg Take 1 Un wilver tartrate 25 0-13 tablet by ity of mg tablet 00:00: mouth 2 [place] 00 (two) Medical times Branch daily. cilostazoL 2020-11 Yes [id number] 50mg Take 1 Univers 50 mg 0-13 tablet by ity of tablet 00:00: mouth [place] 00 daily. Medical Branch furosemide 2020-11 Yes [id number] 20mg Take 1 Univers 20 mg 0-13 tablet by ity of tablet 00:00: mouth [place] 00 daily. Medical Branch gabapentin Yes [id number] 300mg Take 1 Univers (NEURONTIN) 2-19 [id number] capsule by ity of 300 mg 00:00: mouth 3 [place] capsule 00 (three) Medical times Branch daily. gabapentin Yes [id number] 300mg Take 1 Univers (NEURONTIN) 2-19 [id number] capsule by ity of 300 mg 00:00: mouth 3 [place] capsule 00 (three) Medical times Branch daily. gabapentin Yes [id number] 300mg Take 1 Univers (NEURONTIN) 2-19 [id number] capsule by ity of 300 mg 00:00: mouth 3 [place] capsule 00 (three) Medical times Branch daily. gabapentin Yes [id number] 300mg Take 1 Univers (NEURONTIN) 2-19 [id number] capsule by ity of 300 mg 00:00: mouth 3 [place] capsule 00 (three) Medical times Branch daily. Immunizations Ordered Filled Immunization Date Status Comments [facility] e Immunization Name Name SARS-COV-2 COVID-19 2021-02-09 Completed Unive rsity of PFIZER VACCINE 00:00:00 [facility] SARS-COV-2 COVID-19 2021-02-09 Completed Unive rsity of PFIZER VACCINE 00:00:00 [facility] SARS-COV-2 COVID-19 2021-02-09 Completed Unive rsity of PFIZER VACCINE 00:00:00 [facility] SARS-COV-2 COVID-19 2021-02-09 Completed Unive rsity of PFIZER VACCINE 00:00:00 [facility] SARS-COV-2 COVID-19 2021-01-19 Completed Unive rsity of PFIZER VACCINE 00:00:00 [facility] SARS-COV-2 COVID-19 2021-01-19 Completed Unive rsity of PFIZER VACCINE 00:00:00 [facility] SARS-COV-2 COVID-19 2021-01-19 Completed Unive rsity of PFIZER VACCINE 00:00:00 [facility] SARS-COV-2 COVID-19 2021-01-19 Completed Unive rsity of PFIZER VACCINE 00:00:00 [facility] Vital Signs Vital Name Observation Time Observation Value Comments Source Systolic blood 2022-04-06 06:00:00 151 mm[Hg] Univer sity of pressure [facility] Diastolic blood 2022-04-06 06:00:00 96 mm[Hg] Unive rsity of pressure [facility] Heart rate 2022-04-06 06:00:00 82 [facility] Respiratory rate 2022-04-06 06:00:00 20 /[facility] O[facility] saturation in 2022-04-06 06:00:00 99 /min [facility] Arterial blood by [facility] Pulse oximetry [place] Body temperature 2022-04-06 03:24:00 36.83 Gillian [facility] Body height 2022-04-06 03:24:00 175.3 cm Universi ty [facility] Body weight 2022-04-06 03:24:00 120.657 kg Universi ty [facility] BMI 2022-04-06 03:24:00 39.28 kg/m2 Universi ty [facility] Systolic blood 2022-04-02 18:31:00 102 mm[Hg] Univer sity of pressure [facility] Diastolic blood 2022-04-02 18:31:00 68 mm[Hg] Unive rsity of pressure [facility] Heart rate 2022-04-02 18:31:00 77 /min Universi ty of [facility] Body height 2022-04-02 18:31:00 175.3 cm [facility] Body weight 2022-04-02 18:31:00 120.657 kg [facility] BMI 2022-04-02 18:31:00 39.28 kg/m2 [facility] Oxygen saturation in 2022-04-02 18:31:00 94 /min [facility] blood by [facility] Pulse oximetry Branch Procedures Procedure Date / Time Performing Clinician Source Performed EKG-12 LEAD 2022-04-06 06:13:25 Anderson Flowers [facility] TROPONIN I 2022-04-06 04:58:00 Anderson Flowers [facility] COMP. METABOLIC PANEL 2022-04-06 03:57:00 Anderson Flowers [facility] ([id number]) [facility] LIPASE 2022-04-06 03:28:00 Anderson Flowers [facility] TROPONIN I 2022-04-06 03:28:00 Anderson Flowers [facility] CBC WITH DIFF 2022-04-06 03:28:00 Anderson Flowers [facility] PROTHROMBIN TIME / INR 2022-04-06 03:28:00 Anderson Flowers [facility] ACTIVATED PARTIAL 2022-04-06 03:28:[address] [facility] CONSENT/REFUSAL FOR 2022-04-06 03:16:24 Doctor Unassigned, No Un [facility] DIAGNOSIS AND TREATMENT Name [facility] Encounters Start End Encounter Admission Attending Care Care Encounter Source Date/Time Date/Time Type Type Clinicians Facility Department ID 2022-05-21 2022-05-21 Outpatient R DARIEN [facility] [id number] Univers 15:30:00 15:30:00 MARY ALICE [facility] 2022-05-07 2022-05-07 Outpatient R [facility] [id number] Univers 08:15:00 08:15:00 [id number] [facility] 2022-04-05 2022-04-06 Emergency X JOSIAS PABRIAN ERT [id number] Univers 22:21:00 01:15:00 ANDERSON itkriss [facility] 2022-04-05 2022-04-06 [facility] [id number] Univers 22:21:00 01:15:00 Anderson WINTER [id number] ity [facility] [id number] [place] [id number] [facility] 084 [place] 2022-04-05 2022-04-05 Orders Doctor MARQUIS [id number] Univers 00:00:00 00:00:00 Only Unassigned, ELDA [id number] [facility] [id number] Joel as [id number] [facility] 009 [place] 2022-04-02 2022-04-02 Outpatient R [facility] [id number] Univers 15:00:00 15:00:00 [id number] [facility] 2022-04-02 2022-04-02 [facility] [id number] Univers 15:00:00 15:00:00 MARY ALICE kriss [facility] 2022-04-02 2022-04-02 [facility] [id number] Univers 13:30:00 14:28:56 Visit Mary Alice [facility] [id number] it y of [place] 4.2.7.2.686 Joel as AYSE?BLEA [id number] Hi ilda NICOLAS[address] MEDICAL OFFICE [facility] 2018-10-08 2018-10-08 Emergency [facility] [id number] Vicente 17:49:44 17:49:44 Health 2018-10-08 2018-10-08 Emergency [facility] [id number] [place] 15:26:07 15:26:07 Health 2016-02-13 2016-03-14 OP Therapy nullFlavo SMR Christo [id number] Memoria 13:00:00 04:59:00 Patients r [facility] 02 nemesio Laguerre 2016-01-11 2016-02-10 OP Therapy nullFlavo SMR Christo [id number] Memoria 14:47:00 04:59:00 Patients r [facility] 01 nemesio Laguerre 2015-12-12 2016-01-11 OP Therapy nullFlavo [facility] Christo [id number] Memoria 16:00:00 05:59:00 Patients r [facility] nemesio Laguerre Results Test Description Test Time Test Comments Results Result Comments Source TROPONIN I 2022-04-06 05:33:20 Test Item Value Reference Range Interpretation Comme nts TROPONIN I (test code = 0.005 ng/mL See_Comment [Au tomated message] The [id number]) system which ge nerated this result tra nsmitted reference range : <=0.034. The reference r nena was not used to int erpret this result as normal/abnormal . NORI (test code = NORI) Reference (Normal) Range (defined by the 99th percentile reference limit): <= 0.034 ng/mL Note: Cardiac troponin begins to rise 3-4 hours after the onset of ischemia. Repeat in 4-6 hours if the sample was drawn within 3-4 hours of the onset of the symptom and found normal. Diagnosis of myocardial injury is made with acute changes in cTn concentrations with at least one serial sample above the 99th percentile upper reference limit (URL), taken together with the patient's clinical presentation. Biotin has been reported to cause a negative bias, interpret results relative to patient's use of biotin. Lab Interpretation Normal (test code = 21985-8) [facility] [place] [facility]. METABOLIC PANEL (10333)2022-04-06 04:16:31 Test Item Value Reference Range Interpretation Comments NA (test code = 137 mmol/L 135-145 0133653144) K (test code = 4.0 mmol/L 3.5-5.0 4716279152) CL (test code = 102 mmol/L 98-108 8040800891) CO2 TOTAL (test code = 25 mmol/L 23-31 1055796324) AGAP (test code = 2-16 2326985324) BUN (test code = 19 mg/dL 7-23 8289916620) GLUCOSE (test code = 123 mg/dL 70-110 H 2961930585) CREATININE (test code = 0.85 mg/dL 0.60-1.25 3056614384) TOTAL BILI (test code = 0.4 mg/dL 0.1-1.7 2305053499) CALCIUM (test code = 8.9 mg/dL 8.6-10.6 7873031402) T PROTEIN (test code = 6.6 g/dL 6.3-8.2 2079259725) ALBUMIN (test code = 4.0 g/dL 3.5-5.0 1591028943) ALK PHOS (test code = 82 U/L 34-122 8297368162) ALTv (test code = 38 U/L 5-50 1742-6) AST(SGOT) (test code = 26 U/L 13-40 2462237097) eGFR (test code = mL/min/1.73m2 1150286473) NORI (test code = NORI) Association of Glomerular Filtration Rate (GFR) and Staging of Kidney Disease* + --+ --+ ------+| GFR (mL/min/1.73 m2) ?| With Kidney Damage ?| ?Without Kidney Damage+ --------+ --------+ +| ?>90 ?| ?Stage one ?| ? Normal ?+ ---+ ---+ -------+| ?60-89 ?| ?Stage two ?| ? Decreased GFR ? + --+ --+ ------+| ?30-59 ?| ?Stage three ?| ? Stage three ? + --+ --+ ------+| ?15-29 ?| ?Stage four ? | ? Stage four ?+ ---+ ---+ -------+| ?<15 (or dialysis) ? ?| ?Stage five ? | ? Stage five ?+ ---+ ---+ -------+ *Each stage assumes the associated GFR level has been in effect for at least three months. ?Stages 1 to 5, with or without kidney disease, indicate chronic kidney disease. Notes: Determination of stages one and two (with eGFR >59mL/min/1.73 m2) requires estimation of kidney damage for at least three months as defined by structural or functional abnormalities of the kidney, manifested by either:Pathological abnormalities or Markers of kidney damage (including abnormalities in the composition of the blood or urine or abnormalities in imaging tests). Lab Interpretation Abnormal (test code = 84526-2) [facility] WITH [id number] 04:12:55 Test Item Value Reference Range Interpretation Comments WBC (test code = See_Comment [Automated message] 6690-2) The system [employer] generated this result transmitted ref erence range: 4.20 - 1 0.70 10*3/?L. The re ference range was not u sed to interpret this result as normal/abnor mal. RBC (test code = See_Comment [Automated message] 969-8) The system [employer] generated this result transmitted ref erence range: 4.26 - 5 .52 10*6/?L. The re ference range was not u sed to interpret this result as normal/abnor mal. HGB (test code = 14.1 g/dL 12.2-16.4 718-7) HCT (test code = 43.3 % 38.4-49.3 4544-3) MCV (test code = 86.3 fL 81.7-95.6 787-2) MCH (test code = 28.1 pg 26.1-32.7 785-6) MCHC (test code = 32.6 g/dL 31.2-35.0 786-4) RDW-SD (test code = 39.9 fL 38.5-51.6 48293-9) RDW-CV (test code = 12.9 % 12.1-15.4 788-0) PLT (test code = See_Comment [Automated message] 777-3) The system [employer] generated this result transmitted ref erence range: 150 - 32 8 10*3/?L. The re ference range was not u sed to interpret this result as normal/abnor mal. MPV (test code = 10.9 fL 9.8-13.0 22030-3) NRBC/100 WBC (test See_Comment [Automat ed message] code = 0253607088) The syste [employer] which generated this result transmitted ref erence range: 0.0 - 10 .0 /100 WBCs. The refer ence range was not u sed to interpret this result as normal/abnor mal. NRBC x10^3 (test <0.01 See_Comment [Automated message] code = 0167252981) The syste m which generated this result transmitted ref erence range: 10*3/?L. The reference range was not used to int erpret this result as normal/abnormal . GRAN MAT (NEUT) % 60.8 % (test code = 770-8) IMM GRAN % (test 0.40 % code = 9877604621) LYMPH % (test code 27.4 % = 736-9) MONO % (test code = 9.5 % 5905-5) EOS % (test code = 1.6 % 713-8) BASO % (test code = 0.3 % 706-2) GRAN MAT x10^3(ANC) 4.22 10*3/uL 1.99-6.95 (test code = [id number]) IMM GRAN x10^3 0.03 10*3/uL 0.00-0.06 (test code = 8817823259) LYMPH x10^3 (test 1.90 10*3/uL 1.09-3.23 code = 731-0) MONO x10^3 (test 0.66 10*3/uL 0.36-1.02 code = 742-7) EOS x10^3 (test 0.11 10*3/uL 0.06-0.53 code = 711-2) BASO x10^3 (test <0.03 0.01-0.09 code = 704-7) PLT ESTIMATE (test Normal Normal code = 9317-9) [facility] [id number] 04:05:27 Test Item Value Reference Interpretation Comments Range TROPONIN I (test 0.009 ng/mL See_Comment [Automated code = 9284990119) message] The system which generated this result transmitted reference range : <=0.034. The reference range was not used to interpret this result as normal/abnormal . NORI (test code = Reference (Normal) NORI) Range (defined by the 99th percentile reference limit): <= 0.034 ng/mL Note: Cardiac troponin begins to rise 3-4 hours after the onset of ischemia. Repeat in 4-6 hours if the sample was drawn within 3-4 hours of the onset of the symptom and found normal. Diagnosis of myocardial injury is made with acute changes in cTn concentrations with at least one serial sample above the 99th percentile upper reference limit (URL), taken together with the patient's clinical presentation. Biotin has been reported to cause a negative bias, interpret results relative to patient's use of biotin. Lab Interpretation Normal (test code = 26937-5) [facility]icsaPTT2022-[facility]-27 03:52:47 Test Item Value Reference Range Interpretation Comments APTT Patient (test See_Comment [Automat ed code = 3173-2) message] The system which generated this result transmitted reference range : 23 - 38 Seconds . The reference range was not used to interpr et this result as normal/abnormal . NORI (test code = NORI) The RUST patient population mean normal value for aPTT is 30 seconds. Lab Interpretation Normal (test code = 09853-0) [facility]icsLIPASE, [id number] 03:52:47 Test Item Value Reference Range Interpretation Comments LIPASE (test code = 2562992384) 47 U/L 0-220 Lab Interpretation (test code = Normal 85771-7) [facility]icsPROTHROMBIN TIME / [id number] 03:50:26 Test Item Value Reference Range Interpretation Comments PROTIME PATIENT (test See_Comment [Auto mated message] code = 5964-2) The system wh ich generated this result transmitted ref erence range: 12.0 - 1 4.7 Seconds. The re ference range was not u sed to interpret this result as normal/abnor mal. INR (test code = 6301-6) Nor mal INR <1.1; Warfarin Therap eutic range 2.0 to 3. 0 or 2.5 to 3.5, dep ending upon the indica tions. Lab Interpretation (test Normal code = 54091-0) [facility]icsCR - XRAY LUMBAR XR MIN OF 4 [id number] 11:03:13CLINICAL INDICATION: M54.5 Low back painFINDINGS:COMPARISON: NoneFive lumbar vertebrae are present. There is a normal lumbar lordosis and alignment. Disc heights are well maintained.Facet joints appear unremarkable.Vertebral body heights are well maintained. There are no fractures or dislocations . No destructive changes are seen.IMPRESSION:Negative lumbar spine series."
[2022-04-10 12:17] LABS: Absolute Lymphocytes (CBC) 1.7 K/uL (0.7-4.9); Hematocrit 45.4 % (39.6-49.0); Lymphocytes % 27.5 % (15.3-44.8); MPV 8.8 fL (7.6-11.3); RBC Red Blood Cell Count 5.29 M/uL (4.33-5.43)
[2022-04-10 12:36] LABS: ALT/SGPT 52 U/L (12-78); Albumin 3.5 g/dL (3.4-5.0); Alkaline Phosphatase 111 U/L (45-117); BUN Blood Urea Nitrogen 21 mg/dL (7-18); Bicarbonate 22 mmol/L (21-32); Bilirubin Total 0.2 mg/dL (0.2-1.0); Glomerular Filtration Rate 108 ml/min (=/>90); Glucose Level 184 mg/dL (74-106); NT PRO-BNP 42 pg/mL (<125); Protein, Total 7.3 g/dL (6.4-8.2); Sodium Level 137 mmol/L (136-145); Troponin High Sensitivity 8.8 pg/mL (<58.9)
[2022-04-10 12:41] LABS: AST/SGOT 23 U/L (15-37); Bilirubin Direct < 0.1 mg/dL (0-0.2); Potassium 4.2 mmol/L (3.5-5.1)
--- NOTE | 2022-04-10 12:50 | RAD REPORT ---
EXAM DESCRIPTION: RAD - Shoulder Left 2 View - 04/10/2022 12:38 pm CLINICAL HISTORY: PAIN COMPARISON: No comparisons FINDINGS: No fracture or dislocation seen.
--- NOTE | 2022-04-10 12:51 | RAD REPORT ---
EXAM DESCRIPTION: RAD - Chest Single View - 04/10/2022 12:38 pm CLINICAL HISTORY: CHEST PAIN Chest pain. COMPARISON: Chest Single View dated 09/25/2019; Chest Pa And Lat (2 Views) dated 10/31/2018; Chest S darby View dated 01/30/2018 FINDINGS: Portable technique limits examination quality. The lungs are grossly clear. The heart is normal in size. No displaced fractures. IMPRESSION: No acute intrathoracic process suspected.
--- NOTE | 2022-04-10 12:51 | RAD REPORT ---
EXAM DESCRIPTION: CT - Head Brain Wo Cont - 04/10/2022 12:45 pm CLINICAL HISTORY: Head trauma, minor, normal mental status COMPARISON: Head Brain Wo Cont dated 11/30/2019 TECHNIQUE: All CT scans are performed using dose optimization technique as appropriate and may inclu de automated exposure control or mA/KV adjustment according to patient size. FINDINGS: No intracranial hemorrhage, hydrocephalus or extra-axial fluid collection.No areas of brai n edema or evidence of midline shift. The paranasal sinuses and mastoids are essentially clear. The calvarium is intact. IMPRESSION: No acute intracranial abnormality.
--- NOTE | 2022-04-10 13:46 | EDPHYS ---
Physician Documentation [facility] Name: Javad Pro Age: 41 yrs Sex: Male : 1980 Arrival Date: 04/10/2022 Time: 11:17 Bed 10 Private MD: ED Physician Quinn Evangelista HPI: 04/10 11:25 This 41 yrs old Male presents to ER via Ambulatory with complaints of Fall Injury. [facility] 11:25 Details of fall: The patient fell from an upright position, while walking. Onset: The [facility] symptoms/episode began/occurred acutely. The patient reports that he was walking his dog this morning and suddenly felt lightheaded. States that he fell, and passed out for about 30 seconds. Complains of left shoulder pain. Also reports worsening chest pain over the past 2 days.. Historical: - Allergies: 11:27 Codeine; iw 11:27 PENICILLINS; iw 11:27 Peanut; iw - PMHx: 11:27 CHF; Hypertension; Sleep Apnea; iw ROS: 11:25 Constitutional: Negative for fever, chills, and weight loss, ENT: Negative for injury, jh7 pain, and discharge, Neck: Negative for injury, pain, and swelling, Respiratory: Negative for shortness of breath, cough, wheezing, and pleuritic chest pain, Abdomen/GI: Negative for abdominal pain, nausea, vomiting, diarrhea, and constipation, Back: Negative for injury and pain, Skin: Negative for injury, rash, and discoloration. 11:25 Cardiovascular: Positive for chest pain. 11:25 MS/extremity: Positive for injury or acute deformity, pain, of the left arm, Negative for abrasion, laceration, tenderness. 11:25 Neuro: Positive for loss of consciousness, syncope, Negative for altered mental status, numbness, tingling, weakness. 11:25 All other systems are negative. Exam: 11:25 Constitutional: This is a well developed, well nourished patient who is awake, alert, jh7 and in no acute distress. ENT: Nares patent. No nasal discharge, no septal abnormalities noted. Oropharynx with no redness, swelling, or masses, exudates, or evidence of obstruction, uvula midline. Mucous membranes moist. Neck: Trachea midline, no thyromegaly or masses palpated, and no cervical lymphadenopathy. Supple, full range of motion without nuchal rigidity, or vertebral point tenderness. No Meningismus. Cardiovascular: Regular rate and rhythm with a normal S1 and S2. No gallops, murmurs, or rubs. Normal PMI, no JVD. No pulse deficits. Respiratory: Lungs have equal breath sounds bilaterally, clear to auscultation and percussion. No rales, rhonchi or wheezes noted. No increased work of breathing, no retractions or nasal flaring. Back: No spinal tenderness. No costovertebral tenderness. Full range of motion. Skin: Warm, dry with normal turgor. Normal color with no rashes, no lesions, and no evidence of cellulitis. Neuro: Awake and alert, GCS 15, oriented to person, place, time, and situation. Cranial nerves II-XII grossly intact. Motor strength 5/5 in all extremities. Sensory grossly intact. Cerebellar exam normal. Normal gait. 11:25 Musculoskeletal/extremity: ROM: intact in all extremities, Circulation is intact in all extremities. Patient complains of left shoulder pain with no tenderness to palpation, swelling, or bruising. Reports posterior shoulder pain with abduction beyond 90 degrees.. Vital Signs: 11:27 BP 141 / 85; Pulse 86; Resp 16; Temp 98.6; Pulse Ox 98% on R/A; iw NIH Stroke Scale Scores: 11:25 NIHSS Score: 0 [facility] MDM: 13:27 Patient medically screened. [facility] 13:35 Data reviewed: vital signs, nurses notes, lab test result(s), EKG, radiologic studies, [facility] CT scan, plain films. Data interpreted: Pulse oximetry: is 98 %. Interpretation: normal. 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 ED course: The patient remained stable throughout the ER visit. He stated that the chest pain that he had has been more intermittent and that it is really gone on for years. Informed him that he needs to follow-up with cardiology outpatient. Applied a sling for comfort and prescribed medication for the patient's pain. If his symptoms return, worsen, or any new concerning symptoms develop, the patient should return to the ER for further eval.. 04/10 11:39 Order name: Basic Metabolic Panel; Complete Time: 12:50 [facility] 04/10 11:39 Order name: CBC with Diff; Complete Time: 12:50 [facility] 04/10 11:39 Order name: LFT's; Complete Time: 12:50 [facility] 04/10 11:39 Order name: NT PRO-BNP; Complete Time: 12:50 [facility] 04/10 11:39 Order name: Troponin HS; Complete Time: 12:50 [facility] 04/10 11:39 Order name: XRAY Chest (1 view); Complete Time: 13:18 [facility] 04/10 11:39 Order name: EKG; Complete Time: 11:40 [facility] 04/10 11:39 Order name: Cardiac monitoring [facility] 04/10 11:39 Order name: EKG - Nurse/Tech; Complete Time: 13:33 [facility] 04/10 11:39 Order name: IV Saline Lock; Complete Time: 12:03 [facility] 04/10 11:39 Order name: Labs collected and sent; Complete Time: 12:03 [facility] 04/10 11:39 Order name: CT Head Brain wo Cont; Complete Time: 13:18 [facility] 04/10 11:39 Order name: Shoulder Left (2 View) XRAY; Complete Time: 13:18 [facility] 04/10 11:39 Order name: O2 Per Protocol [facility] 04/10 11:39 Order name: O2 Sat Monitoring [facility] 04/10 13:44 Order name: Sling; Complete Time: 15:14 [facility] EC:35 Rate is 84 beats/min. Rhythm is regular. QRS Lynch is Normal. MD interval is normal. T jh7 waves are Normal. No ST changes noted. Clinical impression: No evidence of ischemia. Administered Medications: 15:05 Drug: Ketorolac 30 mg Route: IM; Site: right deltoid; jb4 15:14 Follow up: Response: No adverse reaction jb4 Disposition: 22:02 Co-signature as Attending Physician, Quinn MARQUES was immediately available on-site ms3 in the Emergency Department for consultation in the care of the patient. . Disposition Summary: 04/10/22 13:45 Discharge Ordered Location: Home [facility] Problem: new [facility] Symptoms: have improved [facility] Condition: Stable [facility] Diagnosis - Contusion of left shoulder [facility] - Fall on same level, unspecified jh7 - Syncope Near [facility] Followup: [facility] - With: Private Physician - When: 2 - 3 days - Reason: Recheck today's complaints Discharge Instructions: - Discharge Summary Sheet [facility] - Shoulder Pain [facility] - Syncope [facility] - How to Use a Sling [facility] Forms: - Medication Reconciliation Form [facility] - Thank You Letter [facility] Prescriptions: - Naprosyn 500 mg Oral Tablet - take 1 tablet by ORAL route 2 times per day take with food; 30 tablet; Refills: [facility] 0, Product Selection Permitted NIH Stroke Scale - NIH Stroke Score Date: 04/10/2022 Time: 11:25 Total Score = 0 1a. Level of Consciousness (LOC) - 0(Alert) 1b. Level of Consciousness (LOC) (Month \T\ Age) - 0(Both) 1c. LOC Commands (Open \T\ Closes Eyes/Launch Steward) - 0(Both) 2. Best Gaze (Lateral Gaze Paresis) - 0(Normal) 3. Visual Field Loss - 0(No visual loss) 4. Facial Palsy - 0(Normal) 5a. Left Arm: Motor (10-second hold) - 0(No drift) 5b. Right Arm: Motor (10-second hold) - 0(No drift) 6a. Left Leg: Motor (5-second hold - always test supine) - 0(No drift) 6b. Right Leg: Motor (5-second hold - always test supine) - 0(No drift) 7. Limb Ataxia (finger/nose \T\ heel/cleary - test with eyes open) - 0(Absent) 8. Sensory Loss (pinprick arms/legs/face) - 0(Normal) 9. Best Language: Aphasia (description/naming/reading) - 0(No aphasia) 10. Dysarthria (speech clarity - read or repeat words) - 0(Normal) 11. Extinction and Inattention (visual/tactile/auditory/spatial/personal) - 0(No abnormality) Initials: [facility] Signatures: Dispatcher [employer] Alyce Nova RN RN iw Bryson, James, RN RN jb4 Quinn Evangelista, DO ms3 Yelitza Dia, BICYCLE RACER BICYCLE RACER [facility]
--- NOTE | 2022-04-10 13:46 | ER ---
Nurse's Notes [facility] Name: Javad Pro Age: 41 yrs Sex: Male : 1980 Arrival Date: 04/10/2022 Time: 11:17 Bed 10 Private MD: Diagnosis: Contusion of left shoulder;Fall on same level, unspecified;Syncope Near Presentation: 04/10 11:25 Chief complaint: Patient states: got light headed this morning and he fell, he is a iw known fall risk, has also been having SOB for a year , thinks he has mold in his apartment , breathing seems heavier than it used to be , I have a knot on left shoulder after falling. Care prior to arrival: None. 11:25 Acuity: MOIZ 3 iw 11:27 Coronavirus screen: At this time, the client does not indicate any symptoms associated iw with coronavirus-19. Ebola Screen: Patient negative for fever greater than or equal to 101.5 degrees Fahrenheit, and additional compatible Ebola Virus Disease symptoms Patient denies exposure to infectious person. Patient denies travel to an Ebola-affected area in the 21 days before illness onset. No symptoms or risks identified at this time. Initial Sepsis Screen: Does the patient meet any 2 criteria? No. Patient's initial sepsis screen is negative. Does the patient have a suspected source of infection? No. Patient's initial sepsis screen is negative. Risk Assessment: Do you want to hurt yourself or someone else? Patient reports no desire to harm self or others. Onset of symptoms was April 10, 2022. 11:27 Method Of Arrival: Ambulatory iw Historical: - Allergies: 11:27 Codeine; iw 11:27 PENICILLINS; iw 11:27 Peanut; iw - PMHx: 11:27 CHF; Hypertension; Sleep Apnea; iw Screenin:00 Abuse screen: Denies threats or abuse. Nutritional screening: No deficits noted. jb4 Tuberculosis screening: No symptoms or risk factors identified. Fall Risk None identified. Assessment: 15:00 General: Appears in no apparent distress. comfortable, Behavior is calm, cooperative, jb4 appropriate for age. Pain: Complains of pain in left arm Pain does not radiate. Pain currently is 8 out of 10 on a pain scale. Neuro: Level of Consciousness is awake, alert, obeys commands, Oriented to person, place, time, situation. Cardiovascular: Patient's skin is warm and dry. Respiratory: Airway is patent Respiratory effort is even, unlabored, Respiratory pattern is regular, symmetrical. GI: No signs and/or symptoms were reported involving the gastrointestinal system. : No signs and/or symptoms were reported regarding the genitourinary system. EENT: No signs and/or symptoms were reported regarding the EENT system. Derm: Skin is intact, Skin is pink, warm \T\ dry. Musculoskeletal: Circulation, motion, and sensation intact. Range of motion: intact in all extremities. Vital Signs: 11:27 BP 141 / 85; Pulse 86; Resp 16; Temp 98.6; Pulse Ox 98% on R/A; iw NIH Stroke Scale Scores: 11:25 NIHSS Score: 0 [facility] ED Course: 11:17 Patient arrived in ED. mr 11:18 Yelitza Dia FNP is [facility] 11:18 Quinn Evangelista DO is Attending Physician. [facility] 11:27 Triage completed. iw 11:28 Arm band placed on. iw 12:03 Basic Metabolic Panel Sent. 5 12:03 CBC with Diff Sent. mh5 12:03 LFT's Sent. mh5 12:03 NT PRO-BNP Sent. mh5 12:03 Troponin HS Sent. mh5 12:04 Initial lab(s) drawn, by me, sent to lab. Missed attempt(s): 20 gauge in left upper arm.mh5 12:05 Patient has correct armband on for positive identification. Call light in reach. Adult mh5 w/ patient. Warm blanket given. Pulse ox on. NIBP on. 12:40 XRAY Chest (1 view) In Process Unspecified. EDMS 12:40 Shoulder Left (2 View) XRAY In Process Unspecified. EDMS 12:47 CT Head Brain wo Cont In Process Unspecified. EDMS 13:33 Alyce Lyman, RN is Primary Nurse. iw 15:00 No provider procedures requiring assistance completed. Patient did not have IV access jb4 during this emergency room visit. Administered Medications: 15:05 Drug: Ketorolac 30 mg Route: IM; Site: right deltoid; jb4 15:14 Follow up: Response: No adverse reaction jb4 Medication: 15:00 VIS not applicable for this client. jb4 Outcome: 13:45 Discharge ordered by . jh7 15:15 Discharged to home ambulatory, with family. jb4 15:15 Condition: stable 15:15 Discharge instructions given to patient, Instructed on discharge instructions, follow up and referral plans. medication usage, Demonstrated understanding of instructions, follow-up care, medications, Prescriptions given X 1. 15:16 Patient left the ED. jb4 NIH Stroke Scale - NIH Stroke Score Date: 04/10/2022 Time: 11:25 Total Score = 0 1a. Level of Consciousness (LOC) - 0(Alert) 1b. Level of Consciousness (LOC) (Month \T\ Age) - 0(Both) 1c. LOC Commands (Open \T\ Closes Eyes/Template Maker) - 0(Both) 2. Best Gaze (Lateral Gaze Paresis) - 0(Normal) 3. Visual Field Loss - 0(No visual loss) 4. Facial Palsy - 0(Normal) 5a. Left Arm: Motor (10-second hold) - 0(No drift) 5b. Right Arm: Motor (10-second hold) - 0(No drift) 6a. Left Leg: Motor (5-second hold - always test supine) - 0(No drift) 6b. Right Leg: Motor (5-second hold - always test supine) - 0(No drift) 7. Limb Ataxia (finger/nose \T\ heel/cleary - test with eyes open) - 0(Absent) 8. Sensory Loss (pinprick arms/legs/face) - 0(Normal) 9. Best Language: Aphasia (description/naming/reading) - 0(No aphasia) 10. Dysarthria (speech clarity - read or repeat words) - 0(Normal) 11. Extinction and Inattention (visual/tactile/auditory/spatial/personal) - 0(No abnormality) Initials: 7 Signatures: Dispatcher [employer] Ashley Zhang Irene, Williams Lynn RN, RN RN jb4 Carol Freeman [facility] Yelitza Dia, KASHIF ASSISTED LIVING CARE MANAGER 7
[2022-04-10] MEDS ORDERED: KETOROLAC 30 MG/ML INJ ONE (15:05)
[2022-04-10 15:20] VITALS: BP 141/85; TEMP 98.6; O2SAT 98
--- NOTE | 2022-04-11 07:52 | EKG ---
Test Date: 2022-04-10 Test Time: 13:28:43 Web Applications Programmer: BRUCE MEASUREMENT RESULTS: Intervals: Rate: 84 ME: 118 QRSD: 122 QT: 378 QTc: 446 [place]: P: 20 ME: 118 QRS: 49 T: 19 INTERPRETIVE STATEMENTS: Normal sinus rhythm Right bundle branch block Abnormal ECG Compared to ECG 09/25/2019 09:49:13 Short ME interval no longer present Electronically Signed On 04-11-22 07:50:29 CDT by Matthew Sotelo
== END 2022-04-10 15:16 | disposition home or self-care (01) ==
LOC: ER 11:16
DX: S40.012A Contusion of left shoulder, initial encounter (principal); R55 Syncope and collapse; R07.9 Chest pain, unspecified; W18.30XA Fall on same level, unspecified, initial encounter; Y93.K1 Activity, walking an animal; I10 Essential (primary) hypertension; I50.9 Heart failure, unspecified; Z88.0 Allergy status to penicillin; Z88.5 Allergy status to narcotic agent; Z91.010 Allergy to peanuts
CPT/HCPCS: 36415; 70450; 71045; 80048; 80076; 83880; 84484; 85025; 93005; 96372; 99284

== ENCOUNTER 2022-08-10 17:29 | Emergency (ER) | payer SELFPAY ==
--- OUTSIDE RECORDS SUMMARY | 2022-08-10 17:34 | XMS REPORT | Continuity of Care Document ---
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 by [facility] Procedures Procedure Date / Time Performed Performing Clinician Sourc e XR CHEST 1 VW 2022-07-28 03:46:22 Sanjuana Quintanilla [facility] LIPASE 2022-07-28 03:32:00 Sanjuana Quintanilla [facility] TROPONIN I 2022-07-28 03:32:00 Sanjuana Quintanilla [facility] COMP. METABOLIC PANEL 2022-07-28 03:32:00 Sanjuana Quintanilla [facility] ([id number]) [facility] CBC WITH DIFF 2022-07-28 03:32:00 Sanjuana Quintanilla [facility] NOTICE OF PRIVACY 2022-07-28 03:17:14 Doctor Unassigned, No [facility] PRACTICES Name Medical Branch CONSENT/REFUSAL FOR 2022-07-28 03:12:51 Doctor Unassigned, No Un [facility] DIAGNOSIS AND Name [facility] TREATMENT Plan of Care Planned Activity Planned Date Details Comments Source Future Scheduled Test 2022-08-11 00:00:00 IMM Influenza [facility] Seasonal (>/= 19 yrs) [code = IMM Influenza Seasonal (>/= 19 yrs)] Future Scheduled Test 1980-02-18 00:00:00 COVID-19 Vaccine (#1) [facility] [code = COVID-19 Vaccine (#1)] Future Scheduled Test 1980 00:00:00 Fluoride Varnish [facility] [code = Fluoride Varnish] Encounters Start End Encounter Admission Attending Care Care Encounter Source Date/Time Date/Time Type Type Clinicians Facility Department ID 2022-09-05 2022-09-05 Outpatient Jovi LEDEZMA [facility] [id number] Univers 10:30:00 10:30:00 MARY ALICE amador [facility] 2022-08-06 2022-08-06 Outpatient Jovi LEDEZ[facility] [id number] Univers 09:30:00 09:53:24 MARY ALICE amador [facility] 2022-08-06 2022-08-06 [facility] [id number] Univers 09:30:00 09:53:24 Visit Mary Alice ROMEO [id number] it y corine [place] 4.2.7.2.686 Joel as AYSE?BLE [phone] [address] MEDICAL OFFICE BUILDING 2022-08-06 2022-08-06 Outpatient Jovi LEDEZMA [facility] [id number] Univers 09:30:00 09:30:00 MARY ALICE [id number] marjorie [facility] 2022-07-27 2022-07-27 [facility] [id number] Univers 22:22:00 23:47:00 SANJUANA amador [facility] 2022-07-27 2022-07-27 [facility] [id number] Univers 22:22:00 23:47:00 Sanjuana WINTER [id number] ity [facility] 4.2.7.2.686 [place] [phone] [facility] 084 Branch 2022-07-27 2022-07-27 Orders Doctor MARQUIS [id number] Univers 00:00:00 00:00:00 Only Unassigned, ELDA 350.1.13.10 ity of [place] [facility] 4.2.7.2.686 Joel as [phone] [facility] [address] 2022-07-25 2022-07-25 Geology Teacher Vipul, Adc Lab Main [facility] 1.2.8 40.114 [id number] Univers 10:45:00 11:00:00 Visit Mary Alice Ledezma 350.1.13.10 ity of [facility] 4.2.7.2.[place] [facility] [phone] [place] [facility] [address] [facility] 2022-07-25 2022-07-25 Outpatient Jovi LEDEZMA [facility] [id number] Univers 10:45:00 10:45:00 MARY ALICE itkriss [facility] 2022-07-25 2022-07-25 [facility] [id number] Univers 09:30:00 09:34:11 Visit Mary Alice OUSMANE 350.1.13.10 it y of [place] 4.2.7.2.686 Joel as AYSE?BLEA [id number] [place] dical [place] [address] [facility] OFFICE BUILDING 2018-10-08 2018-10-08 Emergency [facility] [id number] Vicente 17:49:44 17:49:44 Health 2018-10-08 2018-10-08 Emergency [facility] [id number] Vicente 15:26:07 15:26:07 Health 2016-02-13 2016-03-14 OP Therapy nullFlavo SMR Christo [id number] Memoria 13:00:00 04:59:00 Patients r [facility] 02 nemesio Laguerre 2016-02-13 2016-03-14 OP Therapy nullFlavo SMR Christo [id number] Memoria 13:00:00 04:59:00 Patients r [facility] 02 nemesio Laguerre 2016-02-13 2016-03-13 Outpatient Kai 2.16.840. 2.16.840.1. [id number] 08:00:00 23:59:00 Marquis Dias [id number] 3.615.38 5.38 2016-01-11 2016-02-10 OP Therapy nullFlavo SMR Christo [id number] Memoria 14:47:00 04:59:00 Patients r [facility] 01 [facility] 2016-01-11 2016-02-10 OP Therapy nullFlavo SMR Christo [id number] Memoria 14:47:00 04:59:00 Patients r [facility] 01 [facility] 2016-01-11 2016-02-09 Outpatient [place], 2.16.840. 2.16.840.1. [id number] 08:47:00 23:59:00 Marquis Dias [id number] 3.615.38 5.38 2015-12-12 2016-01-11 OP Therapy nullFlavo SMR Christo [id number] Memoria 16:00:00 05:59:00 Patients r [facility] [place] 2015-12-12 2016-01-11 OP Therapy nullFlavo SMR Christo [id number] Memoria 16:00:00 05:59:00 Patients r [facility] 00 [facility] 2015-12-12 2016-01-10 Outpatient [place], 2.16.840. 2.16.840.1. [id number] 10:00:00 23:59:00 Marquis Dias [id number] 3.615.38 5.38 Results Test Description Test Time Test Comments Results Result Comments Source TROPONIN I 2022-07-28 04:15:18 Test Item Value Reference Range Interpretation Comme nts TROPONIN I (test code = 0.008 ng/mL See_Comment [Au tomated message] The 6185553794) system which ge nerated this result tra [...] biotin. Lab Interpretation Normal (test code = 98113-4) [facility]. METABOLIC PANEL (13305)2022-07-28 04:03:59 Test Item Value Reference Range Interpretation Comments NA (test code = 140 mmol/L 135-145 3251670428) K (test code = 4.4 mmol/L 3.5-5 5002267316) CL (test code = 102 mmol/L 98-108 3990918000) CO2 TOTAL (test code = 29 mmol/L 23-31 4460399843) AGAP (test code = 2-16 0301097700) BUN (test code = 19 mg/dL 7-23 7946712983) GLUCOSE (test code = 137 mg/dL 70-110 H 1262946435) CREATININE (test code = 1.21 mg/dL 0.6-1.25 9152442725) TOTAL BILI (test code = 0.2 mg/dL 0.1-1.6 9972166716) CALCIUM (test code = 9.2 mg/dL 8.6-10.6 4921438427) T PROTEIN (test code = 6.5 g/dL 6.3-8.2 0770233626) ALBUMIN (test code = 4.2 g/dL 3.5-5 6875003471) ALK PHOS (test code = 98 U/L 34-122 2151746128) ALTv (test code = 48 U/L 5-50 1742-6) AST(SGOT) (test code = 32 U/L 13-40 9054952095) eGFR (test code = mL/min/1.73m2 3391197546) NORI (test code = NORI) Association of [...] tests). Lab Interpretation Abnormal (test code = 99973-0) [facility]19 Test Item Value Reference Range Interpretation Comments LIPASE (test code = 9467707102) 60 U/L 0-220 Lab Interpretation (test code = Normal 81551-0) [facility] [id number] 03:51:18 Test Item Value Reference Range Interpretation Comments WBC (test code = See_Comment [Automated message] 6690-2) The system [employer] generated this result transmitted ref erence range: 4.20 - 1 0.70 10*3/?L. The re ference range was not u sed to interpret this result as normal/abnor mal. RBC (test code = See_Comment [Automated message] 789-8) The system [employer] generated this result transmitted ref erence range: 4.26 - 5 .52 10*6/?L. The re ference range was not u sed to interpret this result as normal/abnor mal. HGB (test code = 14.9 g/dL 12.2-16.4 718-7) HCT (test code = 45.0 % 38.4-49.3 4544-3) MCV (test code = 86.0 fL 81.7-95.6 787-2) MCH (test code = 28.5 pg 26.1-32.7 785-6) MCHC (test code = 33.1 g/dL 31.2-35 786-4) RDW-SD (test code 40.0 fL 38.5-51.6 = 76171-0) RDW-CV (test code 12.9 % 12.1-15.4 = 788-0) PLT (test code = See_Comment [Automated message] 777-3) The system [employer] generated this result transmitted ref erence range: 150 - 32 8 10*3/?L. The re ference range was not u sed to interpret this result as normal/abnor mal. MPV (test code = 10.3 fL 9.8-13 65903-3) NRBC/100 WBC (test See_Comment [Automat ed message] code = 9583233891) The syste m which generated this result transmitted ref erence range: 0.0 - 10 .0 /100 WBCs. The refer ence range was not u sed to interpret this result as normal/abnor mal. NRBC x10^3 (test See_Comment [Automated message] code = 8849445319) The syste m which generated this result transmitted ref erence range: 10*3/?L. The reference range was not used to interpr et this result as normal/abnormal . GRAN MAT (NEUT) % 60.8 % (test code = 770-8) IMM GRAN % (test 0.40 % code = 7721393646) LYMPH % (test code 26.0 % = 736-9) MONO % (test code 11.7 % = 5905-5) EOS % (test code = 0.8 % 713-8) BASO % (test code 0.3 % = 706-2) GRAN MAT 4.49 10*3/uL 1.99-6.95 x10^3(ANC) (test code = 9750187815) IMM GRAN x10^3 0.03 10*3/uL 0-0.06 (test code = 7750550207) LYMPH x10^3 (test 1.92 10*3/uL 1.09-3.23 code = 731-0) MONO x10^3 (test 0.86 10*3/uL 0.36-1.02 code = 742-7) EOS x10^3 (test 0.06 10*3/uL 0.06-0.53 code = 711-2) BASO x10^3 (test 0.01-0.09 code = 704-7) [facility] L[facility]BAR X[facility] MIN OF 4 [id number] 11:03:13CLINICAL INDICATION: M54.5 Low back painFINDINGS:COMPARISON: NoneFive lumbar vertebrae are present. There is a normal lumbar lordosis and alignment. Disc heights are well maintained.Facet joints appearunremarkable.Vertebral body heights are well maintained. There are no fractures or dislocations . No destructive changes are seen.IMPRESSION:Negative lumbar spine series."
[2022-08-10] MEDS ORDERED: FAMOTIDINE 20 MG/2 ML VIAL IV ONE (18:45)
[2022-08-10 18:54] LABS: Absolute Lymphocytes (CBC) 2.1 K/uL (0.7-4.9); Lymphocytes % 27.6 % (15.3-44.8); MCV 84.9 fL (80-100); MPV 8.4 fL (7.6-11.3); RBC Red Blood Cell Count 5.19 M/uL (4.33-5.43)
[2022-08-10] MEDS ORDERED: METRONIDAZOLE 500mg IVPB 500 MG/100 ML BAG IV ONE (20:33)
[2022-08-10] MEDS ORDERED: CIPROFLOXACIN 400mg IV 400 MG/200 ML BAG IV ONE (20:33)
[2022-08-10] MEDS ORDERED: NA CHLORIDE 0.9% 1,000 ML ONE (20:33)
[2022-08-10 23:13] LABS: Albumin 3.5 g/dL (3.4-5.0); Bilirubin Total 0.5 mg/dL (0.2-1.0); Potassium 3.7 mmol/L (3.5-5.1)
--- NOTE | 2022-08-10 23:43 | RAD REPORT ---
EXAM DESCRIPTION: CTAbdomen Pelvis W Contrast - 08/10/2022 11:31 pm CLINICAL HISTORY: GI bleed COMPARISON: Abdomen Pelvis W Contrast dated 01/04/2019 TECHNIQUE: CT of the abdomen and pelvis was performed. All CT scans are performed using dose optimization technique as appropriate and may include automated exposure control or mA/KV adjustment according to patient size. FINDINGS: Lower chest: No acute abnormality. Liver: Hepatic steatosis. Biliary: No biliary ductal dilatation. Stomach: No significant focal abnormality. Duodenum: No significant focal abnormality. Pancreas: No significant abnormality. Spleen: No significant abnormality. Adrenal: No suspicious lesions. Kidney/ureter: No hydronephrosis. No renal calculi. Retroperitoneum: No retroperitoneal adenopathy. Vascular: No aneurysm. Bowel: Normal appendix.. Peritoneum: No ascites or free air. Small fat containing umbilical hernia. Small fat containing right inguinal hernia. Bladder: Decompressed bladder. Reproductive: No adnexal masses. Bones: No acute fracture. Other: n/a IMPRESSION: No acute intra-abdominal or pelvic finding. No specific CT findings to explain hematuria or GI bleed. Note that the bladder is decompressed and not well evaluated. Cystoscopy could be consi dered in the setting of unexplained, persistent hematuria.
--- NOTE | 2022-08-10 23:57 | EDPHYS ---
Physician Documentation [facility] Name: Javad Pro Age: 41 yrs Sex: Male : 1980 Arrival Date: 08/10/2022 Time: 17:32 Bed 5 Private MD: ED Physician Arturo Kohler HPI: 08/10 18:38 This 41 yrs old Male presents to ER via Ambulatory with complaints of Bloody Stools. kdr 18:38 Patient was recently started on metformin and today he began to have diarrhea. In the kdr stool he noted some blood streaks. The stool had both bright and dark red blood in it. He was minimal but present.. Onset: The symptoms/episode began/occurred today. Severity of symptoms: At their worst the symptoms were mild in the emergency department the symptoms have improved mildly, Pain is currently a 0 / 10. The patient has not experienced similar symptoms in the past. The patient has been recently seen by a physician: the patient's primary care provider. Historical: - Allergies: 17:56 Codeine; kb3 17:56 Peanut; kb3 17:56 PENICILLINS; kb3 - PMHx: 17:56 CHF; Hypertension; Sleep Apnea; Diabetes mellitus; kb3 - Immunization history:: Adult Immunizations up to date, Client reports receiving the 2nd dose of the Covid vaccine, Last tetanus immunization: up to date. - Social history:: Smoking status: Patient denies any tobacco usage or history of. ROS: 18:38 Constitutional: Negative for fever, chills, and weight loss, Eyes: Negative for injury, kdr pain, redness, and discharge, ENT: Negative for injury, pain, and discharge, Neck: Negative for injury, pain, and swelling, Cardiovascular: Negative for chest pain, palpitations, and edema, Respiratory: Negative for shortness of breath, cough, wheezing, and pleuritic chest pain, Back: Negative for injury and pain, : Negative for injury, bleeding, discharge, and swelling, MS/Extremity: Negative for injury and deformity, Skin: Negative for injury, rash, and discoloration, Neuro: Negative for headache, weakness, numbness, tingling, and seizure activity. Psych: Negative for depression, anxiety, suicide ideation, homicidal ideation, and hallucinations, Allergy/Immunology: Negative for hives, rash, and allergies, Endocrine: Negative for neck swelling, polydipsia, polyuria, polyphagia, and marked weight changes, Hematologic/Lymphatic: Negative for swollen nodes, abnormal bleeding, and unusual bruising. 18:38 Abdomen/GI: Positive for rectal bleeding, Negative for abdominal pain, nausea and vomiting, abdominal cramps, abdominal distension, anorexia, dysphagia, hematemesis, black/tarry stool. Exam: 18:38 Constitutional: This is a well developed, well nourished patient who is awake, alert, kdr and in no acute distress. Head/Face: Normocephalic, atraumatic. Eyes: Pupils equal round and reactive to light, extra-ocular motions intact. Lids and lashes normal. Conjunctiva and sclera are non-icteric and not injected. Cornea within normal limits. Periorbital areas with no swelling, redness, or edema. Neck: Trachea midline, no thyromegaly or masses palpated, and no cervical lymphadenopathy. Supple, full range of motion without nuchal rigidity, or vertebral point tenderness. No Meningismus. Chest/axilla: Normal chest wall appearance and motion. Nontender with no deformity. No lesions are appreciated. Cardiovascular: Regular rate and rhythm with a normal S1 and S2. No gallops, murmurs, or rubs. Normal PMI, no JVD. No pulse deficits. Respiratory: Lungs have equal breath sounds bilaterally, clear to auscultation and percussion. No rales, rhonchi or wheezes noted. No increased work of breathing, no retractions or nasal flaring. Abdomen/GI: Soft, non-tender, with normal bowel sounds. No distension or tympany. No guarding or rebound. No evidence of tenderness throughout. Back: No spinal tenderness. No costovertebral tenderness. Full range of motion. Skin: Warm, dry with normal turgor. Normal color with no rashes, no lesions, and no evidence of cellulitis. MS/ Extremity: Pulses equal, no cyanosis. Neurovascular intact. Full, normal range of motion. Neuro: Awake and alert, GCS 15, oriented to person, place, time, and situation. Cranial nerves II-XII grossly intact. Motor strength 5/5 in all extremities. Sensory grossly intact. Cerebellar exam normal. Normal gait. Psych: Awake, alert, with orientation to person, place and time. Behavior, mood, and affect are within normal limits. 18:38 Abdomen/GI: Inspection: obese Bowel sounds: active, all quadrants, Palpation: soft, nontender, Rectal exam: Prostate: normal, rectal tone normal, Stool: guaiac negative. Vital Signs: 17:54 BP 130 / 90; Pulse 81; Resp 20; Temp 98.0; Pulse Ox 96% ; Weight 122.47 kg; Height 5 kb3 ft. 9 in. (175.26 cm); Pain 0/10; 18:15 BP 146 / 95; Pulse 71; Resp 20; Pulse Ox 100% on R/A; Pain 0/10; mb9 18:58 BP 137 / 90; Pulse 80; Resp 18; Pulse Ox 100% on R/A; Pain 0/10; mb9 20:58 BP 136 / 82; Pulse 76; Resp 16 S; Pulse Ox 98% on R/A; as6 08/11 00:20 BP 129 / 81; Pulse 77; Resp 18 S; Pulse Ox 100% on R/A; as6 08/10 17:54 Body Mass Index 39.87 (122.47 kg, 175.26 cm) kb3 MDM: 08/10 18:38 Data reviewed: vital signs, nurses notes, lab test result(s), radiologic studies. kdr Counseling: I had a detailed discussion with the patient and/or guardian regarding: the historical points, exam findings, and any diagnostic results supporting the discharge/admit diagnosis, lab results, radiology results, the need for outpatient follow up. 19:16 Patient medically screened. [facility] 08/10 18:12 Order name: CBC with Diff [facility] 08/10 18:12 Order name: CMP [facility] 08/10 18:12 Order name: Lipase [facility] 08/10 18:12 Order name: Type And Screen [facility] 08/10 18:59 Order name: CBC with Automated Diff; Complete Time: 19:44 EDPR 08/10 20:29 Order name: Type and Screen; Complete Time: 21:18 EDPR 08/10 18:27 Order name: CT Abd/Pelvis - IV Contrast Only [facility] 08/10 23:14 Order name: Comprehensive Metabolic Panel; Complete Time: 23:55 EDPR 08/10 23:14 Order name: Lipase; Complete Time: 23:55 EDPR 08/10 23:44 Order name: CT; Complete Time: 23:55 EDPR 08/10 23:52 Order name: CREATININE WHOLE BLOOD; Complete Time: 23:55 EDMS 08/10 18:12 Order name: IV Saline Lock; Complete Time: 18:43 kdr 08/10 18:12 Order name: Labs collected and sent; Complete Time: 18:43 kdr Administered Medications: 18:45 Drug: Pepcid (famotidine) 20 mg Route: IVP; Site: left antecubital; mb9 18:59 Follow up: Response: No adverse reaction mb9 20:56 Drug: Flagyl (metroNIDAZOLE) 500 mg Volume: 100 ml; Route: IVPB; Rate: 200 ml/hr; as6 Infused Over: 30 mins; Site: left antecubital; 08/11 00:19 Follow up: Response: No adverse reaction; IV Status: Completed infusion; IV Intake: as6 100ml 08/10 20:56 Drug: NS 0.9% 1000 ml Route: IV; Rate: 1 bolus; Site: left antecubital; as6 08/11 00:20 Follow up: Response: No adverse reaction; IV Status: Completed infusion; IV Intake: as6 1000ml 08/10 21:37 Drug: Cipro (ciprofloxacin) 400 mg Volume: 200 ml; Route: IVPB; Infused Over: 60 mins; as6 Site: left antecubital; 08/11 00:19 Follow up: Response: No adverse reaction; IV Status: Completed infusion; IV Intake: as6 200ml Disposition Summary: 08/10/22 23:56 Discharge Ordered Location: Home dmitri Problem: new dmitri Symptoms: have improved dmitri Condition: Stable dmitri Diagnosis - GI Bleed/ Gastrointestinal hemorrhage, unspecified - lower dmitri Followup: dmitri - With: Private Physician - When: 2 - 3 days - Reason: Recheck today's complaints, Continuance of care, Re-evaluation by your physician Followup: dmitri - With: - When: 2 - 3 days - Reason: Recheck today's complaints, Continuance of care, Re-evaluation by your physician Discharge Instructions: - Discharge Summary Sheet dmitri - Gastrointestinal Bleeding dmitri - Gastrointestinal Bleeding, [id number] dmitri - Rectal Bleeding, [id number] dmitri Forms: - Medication Reconciliation Form dmitri - Thank You Letter dmitri - Antibiotic Education dmitri - Prescription Opioid Use dmitri Prescriptions: - Flagyl 500 mg Oral Tablet - take 1 tablet by ORAL route every 8 hours for 7 days; 21 tablet; Refills: 0, dmitri Product Selection Permitted - Colace 100 mg Oral Tablet - take 1 tablet by ORAL route every 12 hours; 14 tablet; Refills: 0, Product [facility] Selection Permitted - Cipro 500 mg Oral Tablet - take 1 tablet by ORAL route every 12 hours for 7 days; 14 tablet; Refills: 0, dmitri Product Selection Permitted Signatures: Dispatcher [employer] Arturo Portillo MD MD cha Rittger, Kevin, MD MD kdr Slawson, Ashby RN RN as6 Caprice Lucero RN RN kb3 Ashley Mercado RN RN mb9
--- NOTE | 2022-08-10 23:57 | ER ---
Nurse's Notes [facility] Name: Javad Pro Age: 41 yrs Sex: Male : 1980 Arrival Date: 08/10/2022 Time: 17:32 Bed 5 Private MD: Diagnosis: GI Bleed/ Gastrointestinal hemorrhage, unspecified-lower Presentation: 08/10 17:54 Chief complaint: Patient states: Pt reports he is urinating blood and had 2 bloody, kb3 watery BMs both approximately 1 hr ago. Coronavirus screen: Vaccine status: Patient reports receiving the 2nd dose of the covid vaccine. Client denies travel out of the [place] in the last 14 days. Ebola Screen: Patient negative for fever greater than or equal to 101.5 degrees Fahrenheit, and additional compatible Ebola Virus Disease symptoms Patient denies exposure to infectious person. Patient denies travel to an Ebola-affected area in the 21 days before illness onset. No symptoms or risks identified at this time. Initial Sepsis Screen: Does the patient meet any 2 criteria? No. Patient's initial sepsis screen is negative. Does the patient have a suspected source of infection? No. Patient's initial sepsis screen is negative. Risk Assessment: Do you want to hurt yourself or someone else? Patient reports no desire to harm self or others. Onset of symptoms was August 10, 2022 at 17:00. 17:54 Method Of Arrival: Ambulatory kb3 17:54 Acuity: MOIZ 3 kb3 Triage Assessment: 17:56 General: Appears in no apparent distress. Behavior is calm, cooperative. Pain: Denies kb3 pain. GI: Reports diarrhea, rectal bleeding, vomiting. Historical: - Allergies: 17:56 Codeine; kb3 17:56 Peanut; kb3 17:56 PENICILLINS; kb3 - PMHx: 17:56 CHF; Hypertension; Sleep Apnea; Diabetes mellitus; kb3 - Immunization history:: Adult Immunizations up to date, Client reports receiving the 2nd dose of the Covid vaccine, Last tetanus immunization: up to date. - Social history:: Smoking status: Patient denies any tobacco usage or history of. Screenin:10 Abuse screen: Denies threats or abuse. Denies injuries from another. Nutritional as6 screening: No deficits noted. Tuberculosis screening: No symptoms or risk factors identified. Fall Risk None identified. Assessment: 18:11 General: Appears in no apparent distress. Behavior is calm, cooperative, appropriate mb9 for age. Pain: Denies pain. Neuro: Level of Consciousness is awake, alert, obeys commands, Oriented to person, place, time, situation, Appropriate for age Canal Structure Operator are equal bilaterally Gait is steady. Cardiovascular: Heart tones S1 S2 present Rhythm is regular. Respiratory: Breath sounds are clear bilaterally. GI: Abdomen is round and hard to palpation. Bowel sounds present X 4 quads. Abd is soft and non tender X 4 quads. Reports diarrhea, bloody stool, that started 1 hour ago. Pt states diarrhea is bright red. : No signs and/or symptoms were reported regarding the genitourinary system. EENT: No signs and/or symptoms were reported regarding the EENT system. Derm: Skin is pink, warm \T\ dry. Musculoskeletal: Range of motion: intact in all extremities. 18:53 Pain: Denies pain. Neuro: Level of Consciousness is awake, alert, obeys commands, mb9 Oriented to person, place, time, situation, Appropriate for age Gait is steady. Cardiovascular: Heart tones S1 S2 present Rhythm is regular. Respiratory: Breath sounds are clear bilaterally. GI: Abdomen is round Bowel sounds present X 4 quads. Abd is soft and non tender X 4 quads. Reports diarrhea, bloody stool. 22:42 General: attempted to reach inside lab again for recollect. tw5 Vital Signs: 17:54 BP 130 / 90; Pulse 81; Resp 20; Temp 98.0; Pulse Ox 96% ; Weight 122.47 kg; Height 5 kb3 ft. 9 in. (175.26 cm); Pain 0/10; 18:15 BP 146 / 95; Pulse 71; Resp 20; Pulse Ox 100% on R/A; Pain 0/10; mb9 18:58 BP 137 / 90; Pulse 80; Resp 18; Pulse Ox 100% on R/A; Pain 0/10; mb9 20:58 BP 136 / 82; Pulse 76; Resp 16 S; Pulse Ox 98% on R/A; as6 08/11 00:20 BP 129 / 81; Pulse 77; Resp 18 S; Pulse Ox 100% on R/A; as6 08/10 17:54 Body Mass Index 39.87 (122.47 kg, 175.26 cm) kb3 ED Course: 08/10 17:32 Patient arrived in ED. dt4 17:56 Triage completed. kb3 17:56 Arm band placed on right wrist. kb3 18:06 Ashley Mercado RN is Primary Nurse. mb9 18:08 Donald Stephenson MD is Attending Physician. kdr 18:42 Inserted saline lock: 20 gauge in left antecubital area, using aseptic technique. Blood mb9 collected. 18:43 No provider procedures requiring assistance completed. mb9 18:43 CBC with Diff Sent. mb9 18:43 CMP Sent. mb9 18:43 Lipase Sent. mb9 18:43 Type And Screen Sent. mb9 18:48 Initial lab(s) drawn, by me, sent to lab. T\T\S collected, blood band applied to patient. em1 19:00 Primary Nurse role handed off by Ashley Mercado RN as6 19:00 Mike Najera RN is Primary Nurse. as6 19:01 Report given to JOSE ALFREDO Mckeon. mb9 19:10 Bed in low position. Call light in reach. as6 19:16 Attending Physician role handed off by Donald Stephenson MD dmitri 19:16 Arturo Kohler MD is Attending Physician. dmitri 19:24 Radiology exam delayed due to lab results not completed at this time. (BUN/Creatinine). sj 22:52 Lab(s) recollected, by me, sent to lab. tw5 23:56 Bernice Crum MD is Referral Physician. dmitri 08/11 00:19 IV discontinued, intact, bleeding controlled, No redness/swelling at site. Pressure as6 dressing applied. Administered Medications: 08/10 18:45 Drug: Pepcid (famotidine) 20 mg Route: IVP; Site: left antecubital; mb9 18:59 Follow up: Response: No adverse reaction mb9 20:56 Drug: Flagyl (metroNIDAZOLE) 500 mg Volume: 100 ml; Route: IVPB; Rate: 200 ml/hr; as6 Infused Over: 30 mins; Site: left antecubital; 08/11 00:19 Follow up: Response: No adverse reaction; IV Status: Completed infusion; IV Intake: as6 100ml 08/10 20:56 Drug: NS 0.9% 1000 ml Route: IV; Rate: 1 bolus; Site: left antecubital; as6 08/11 00:20 Follow up: Response: No adverse reaction; IV Status: Completed infusion; IV Intake: as6 1000ml 08/10 21:37 Drug: Cipro (ciprofloxacin) 400 mg Volume: 200 ml; Route: IVPB; Infused Over: 60 mins; as6 Site: left antecubital; 08/11 00:19 Follow up: Response: No adverse reaction; IV Status: Completed infusion; IV Intake: as6 200ml Medication: 00:19 VIS not applicable for this client. as6 Intake: 00:19 IV: 200ml; Total: 200ml. as6 00:19 IV: 100ml; Total: 300ml. as6 00:20 IV: 1000ml; Total: 1300ml. as6 Outcome: 08/10 23:56 Discharge ordered by . dmitri 08/11 00:19 Discharged to home ambulatory, with family. as6 Condition: stable Discharge instructions given to patient, Instructed on discharge instructions, follow up and referral plans. medication usage, Demonstrated understanding of instructions, follow-up care, medications, Prescriptions given X 3. 00:20 Patient left the ED. as6 Signatures: Arturo Kohler MD MD cha Rittger, Kevin, MD MD kdr Jones, Marco Lopez em1 Krystle Hammer tw5 Mike Najera RN RN as6 Caprice Lucero, JOSE ALFREDO RN kb3 Jazmin Vergara dt4 Ashley Mercado RN RN mb9
[2022-08-11 12:02] VITALS: TEMP 98
[2022-08-11 12:17] VITALS: BP 129/81; O2SAT 100
== END 2022-08-11 00:20 | disposition home or self-care (01) ==
LOC: ER 17:29
DX: K92.2 Gastrointestinal hemorrhage, unspecified (principal)
CPT/HCPCS: 36415; 74177; 80053; 82565; 83690; 85025; 86850; 86900; 86901; 96365; 96366; 96375; 99284; J0744; J7030; Q9967

== ENCOUNTER 2023-07-01 05:53 | Emergency (ER) | payer OTHER, SELFPAY ==
--- OUTSIDE RECORDS SUMMARY | 2023-07-01 05:59 | XMS REPORT | Continuity of Care Document ---
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 Medical morning. Branch KCL 10 mEq 2-0 Yes [id number] 10meq Take 1 [facility] tablet 9-14 tablet by ity of 00:00: mouth in [place] the Medical morning. Branch lisinopriL 2-0 Yes [id number] 20mg Take 1 U nivers 20 mg 9-14 tablet by ity of tablet 00:00: mouth in [place] the Medical morning. Branch cilostazoL 2-0 Yes [id number] 50mg Take 1 [facility] 50 mg 9-14 tablet by ity of tablet 00:00: mouth in [place] the Medical morning. Branch furosemide 2-0 Yes [id number] 20mg Take 1 [facility] 20 mg 9-14 tablet by ity of tablet 00:00: mouth in [place] the Medical morning. Branch KCL 10 mEq 2021-0 Yes [id number] 10meq Take 1 [facility] tablet 9-14 tablet by ity of 00:00: mouth in [place] the Medical morning. Branch lisinopriL 2-0 Yes [id number] 20mg Take 1 U nivers 20 mg 9-14 tablet by ity of tablet 00:00: mouth in [place] the Medical morning. Branch cilostazoL 2-0 Yes [id number] 50mg Take 1 [facility] 50 mg 9-14 tablet by ity of tablet 00:00: mouth in [place] the Medical morning. Branch furosemide 2-0 Yes [id number] 20mg Take 1 [facility] 20 mg 9-14 tablet by ity of tablet 00:00: mouth in [place] the Medical morning. Branch KCL 10 mEq 2-0 Yes [id number] 10meq Take 1 [facility] tablet 9-14 tablet by ity of 00:00: mouth in [place] the Medical morning. Branch lisinopriL 2-0 Yes [id number] 20mg Take 1 U nivers 20 mg 9-14 tablet by ity of tablet 00:00: mouth in [place] the Medical morning. Branch cilostazoL 2-0 Yes [id number] 50mg Take 1 [facility] 50 mg 9-14 tablet by ity of tablet 00:00: mouth in [place] 00 the Medical morning. Branch KCL 10 mEq 2021-0 Yes [id number] 10meq Take 1 [facility] tablet 9-14 tablet by ity of 00:00: mouth in [place] 00 the Medical morning. Branch lisinopriL 2021-0 Yes [id number] 20mg Take 1 U nivers 20 mg 9-14 tablet by ity of tablet 00:00: mouth in [place] 00 the Medical morning. Branch cilostazoL 2021-0 Yes [id number] 50mg Take 1 [facility] 50 mg 9-14 tablet by ity of tablet 00:00: mouth in [place] 00 the Medical morning. Branch KCL 10 mEq 2021-0 Yes [id number] 10meq Take 1 [facility] tablet 9-14 tablet by ity of 00:00: mouth in [place] 00 the Medical morning. Branch lisinopriL 2021-0 Yes [id number] 20mg Take 1 U nivers 20 mg 9-14 tablet by ity of tablet 00:00: mouth in [place] 00 the Medical morning. Branch cilostazoL 2021-0 Yes [id number] 50mg Take 1 [facility] 50 mg 9-14 tablet by ity of tablet 00:00: mouth in [place] 00 the Medical morning. Branch KCL 10 mEq 2021-0 Yes [id number] 10meq Take 1 [facility] tablet 9-14 tablet by ity of 00:00: mouth in [place] 00 the Medical morning. Branch lisinopriL 2021-0 Yes [id number] 20mg Take 1 U nivers 20 mg 9-14 tablet by ity of tablet 00:00: mouth in [place] 00 the Medical morning. Branch cilostazoL 2021-0 Yes [id number] 50mg Take 1 [facility] 50 mg 9-14 tablet by ity of tablet 00:00: mouth in [place] 00 the Medical morning. Branch furosemide 2021-0 2022- No [id number] 20mg Take 1 [facility] 20 mg 9-14 08-04 tablet by ity of tablet 00:00: 00:00 mouth in [place] 00 :00 the Medical morning. Branch pantoprazol 2021-0 2021- No [id number] 40mg Take 1 [facility] e 40 mg EC 9-14 - tablet by ity of tablet 00:00: 00:00 mouth in [place] 00 :00 the Medical morning. Branch Take 30 mins before breakfast. pantoprazol 2021- No [id number] 40mg Take 1 [facility] e 40 mg EC 07-25 tablet by ity of tablet 00:00: 00:00 mouth in [place] 00 :00 the Medical morning. Branch Take 30 mins before breakfast. ondansetron 2021- No [id number] 4mg Take 1 [facility] (ZOFRAN) 4 07-25 tablet by ity of mg tablet 00:00: 04:59 mouth [place] 00 :00 every 8 Medical (eight) Branch hours as needed for Nausea and Vomiting (N/V) for up to 10 days. ondansetron 2021- No [id number] 4mg Take 1 [facility] (ZOFRAN) 4 07-25 tablet by ity of mg tablet 00:00: 04:59 mouth [place] 00 :00 every 8 Medical (eight) Branch hours as needed for Nausea and Vomiting (N/V) for up to 10 days. ondansetron 2021- No [id number] 4mg Take 1 [facility] (ZOFRAN) 4 07-25 tablet by ity of mg tablet 00:00: 04:59 mouth [place] 00 :00 every 8 Medical (eight) Branch hours as needed for Nausea and Vomiting (N/V) for up to 10 days. ondansetron 2021-2021- No [id number] 4mg Take 1 [facility] (ZOFRAN) 4 07-25 tablet by ity of mg tablet 00:00: 04:59 mouth [place] 00 :00 every 8 Medical (eight) Branch hours as needed for Nausea and Vomiting (N/V) for up to 10 days. ondansetron 2021- No [id number] 4mg Take 1 [facility] (ZOFRAN) 4 07-25 tablet by ity of mg tablet 00:00: 04:59 mouth [place] 00 :00 every 8 Medical (eight) Branch hours as needed for Nausea and Vomiting (N/V) for up to 10 days. pantoprazol 2021- No [id number] 40mg Take 1 [facility] e 40 mg EC 05-30 tablet by ity of tablet 00:00: 00:00 mouth in [place] 00 :00 the Medical morning. Branch Take 30 mins before breakfast. KCL 10 mEq 2021- No [id number] 10meq Take 1 [facility] tablet 05-30 tablet by ity of 00:00: 00:00 mouth in [place] 00 :00 the Medical morning. Branch lisinopriL 2021- No [id number] 20mg Take 1 [facility] 20 mg 05-30 tablet by ity of tablet 00:00: 00:00 mouth in [place] 00 :00 the Medical morning. Branch pantoprazol 2021- No [id number] 40mg Take 1 [facility] e 40 mg EC 05-30 tablet by ity of tablet 00:00: 00:00 mouth in [place] 00 :00 the Medical morning. Branch Take 30 mins before breakfast. KCL 10 mEq 2021- No [id number] 10meq Take 1 [facility] tablet 05-30 tablet by ity of 00:00: 00:00 mouth in [place] 00 :00 the Medical morning. Branch lisinopriL 2021- No [id number] 20mg Take 1 [facility] 20 mg 05-30 tablet by ity of tablet 00:00: 00:00 mouth in [place] 00 :00 the Medical morning. Branch naproxen 2021- No [id number] 500mg Take 1 U nivers (NAPROSYN) 01-19 tablet by ity of 500 mg 00:00: 00:00 mouth 2 [place] tablet 00 :00 (two) Medical times [place] daily with meals. naproxen 2021- No [id number] 500mg Take 1 U nivers (NAPROSYN) 01-19 tablet by ity of 500 mg 00:00: 00:00 mouth 2 [place] tablet 00 :00 (two) Medical times Branch daily with meals. ibuprofen 2020-11- No [id number] 600mg Take 1 [facility] 600 mg 01-07 tablet by ity of tablet 00:00: 00:00 mouth [place] 00 :00 every 6 Medical (six) Branch hours as needed for Pain (scale 4-6). benzonatate 2020-11- No [id number] 100mg Take 1 [facility] 100 mg 01-07 capsule by ity of capsule 00:00: 00:00 mouth 3 [place] 00 :00 (three) Medical times Branch daily as needed for Cough. ondansetron 2020-11- No [id number] 4mg Take 1 [facility] (ZOFRAN 01-07 tablet by ity of ODT) 4 mg 00:00: 00:00 mouth [place] disintegrat 00 :00 every 8 Medic al ing tablet (eight) Branch hours as needed for Nausea and Vomiting (N/V). ibuprofen 2020-11- No [id number] 600mg Take 1 [facility] 600 mg 01-07 tablet by ity of tablet 00:00: 00:00 mouth [place] 00 :00 every 6 Medical (six) Branch hours as needed for Pain (scale 4-6). benzonatate 2020-11- No [id number] 100mg Take 1 [facility] 100 mg 01-07 capsule by ity of capsule 00:00: 00:00 mouth 3 [place] 00 :00 (three) Medical times Branch daily as needed for Cough. ondansetron 2020-11- No [id number] 4mg Take 1 [facility] (ZOFRAN 01-07- tablet by ity of ODT) 4 mg 00:00: 00:00 mouth [place] disintegrat 00 :00 every 8 Medic al ing tablet (eight) Branch hours as needed for Nausea and Vomiting (N/V). metoprolol 2020-11 Yes [id number] 25mg Take 1 Un [place] tartrate 25 0-13 tablet by ity of mg tablet 00:00: mouth 2 (two) Medical times Branch daily. metoprolol 2020-11 Yes [id number] 25mg Take 1 Un [place] tartrate 25 0-13 tablet by ity of mg tablet 00:00: mouth 2 (two) Medical times Branch daily. metoprolol 2020-11 Yes [id number] 25mg Take 1 Un [place] tartrate 25 0-13 tablet by ity of mg tablet 00:00: mouth 2 (two) Medical times Branch daily. metoprolol 2020-11 Yes [id number] 25mg Take 1 Un [place] tartrate 25 0-13 tablet by ity of mg tablet 00:00: mouth 2 (two) Medical times Branch daily. metoprolol 2020-11 Yes [id number] 25mg Take 1 Un [place] tartrate 25 0-13 tablet by ity of mg tablet 00:00: mouth 2 [place] 00 (two) Medical times Branch daily. metoprolol 2020-11- No [id number] 25mg Take 1 U nivers tartrate 25 008-06 tablet by it y of mg tablet 00:00: 00:[place] 00 :[place] (two) Medical times Branch daily. metoprolol 2020-11- No [id number] 25mg Take 1 U nivers tartrate 25 08-06 tablet by it y of mg tablet 00:00: 00:[place] 00 :[place] (two) Medical times Branch daily. furosemide 2020-11- No [id number] 20mg Take 1 [facility] 20 mg 0-24 07-14 tablet by ity of tablet 00:00: 00:00 mouth [place] 00 :00 daily. Medical Branch cilostazoL 2020-11- No [id number] 50mg Take 1 [facility] 50 mg 0- tablet by ity of tablet 00:00: 00:00 mouth [place] 00 :00 daily. Medical Branch furosemide 2020-11- No [id number] 20mg Take 1 [facility] 20 mg 0-24 07-14 tablet by ity of tablet 00:00: 00:00 mouth [place] 00 :00 daily. Medical Branch cilostazoL 2020-11- No [id number] 50mg Take 1 [facility] 50 mg 0-24 07-14 tablet by ity of tablet 00:00: 00:00 mouth [place] 00 :00 daily. Medical Branch gabapentin Yes [id number] 300mg Take 1 [facility] (NEURONTIN) 2-19 [id number] capsule by ity of 300 mg 00:00: mouth 3 [place] capsule 00 (three) Medical times Branch daily. gabapentin 2020-0 Yes [id number] 300mg Take 1 [facility] (NEURONTIN) 2-19 [id number] capsule by ity of 300 mg 00:00: mouth 3 [place] capsule 00 (three) Medical times Branch daily. gabapentin 2020-0 Yes [id number] 300mg Take 1 [facility] (NEURONTIN) 2-19 [id number] capsule by ity of 300 mg 00:00: mouth 3 [place] capsule 00 (three) Medical times Branch daily. gabapentin Yes [id number] 300mg Take 1 [facility] (NEURONTIN) 2-19 [id number] capsule by ity of 300 mg 00:00: mouth 3 [place] capsule 00 (three) Medical times Branch daily. gabapentin 202-0 Yes [id number] 300mg Take 1 [facility] (NEURONTIN) 2-19 [id number] capsule by ity of 300 mg 00:00: mouth 3 [place] capsule 00 (three) Medical times Branch daily. gabapentin 202-0 Yes [id number] 300mg Take 1 [facility] (NEURONTIN) 2-19 [id number] capsule by ity of 300 mg 00:00: mouth 3 [place] capsule 00 (three) Medical times Branch daily. gabapentin 2020-0 Yes [id number] 300mg Take 1 [facility] (NEURONTIN) 2-19 [id number] capsule by ity of 300 mg 00:00: mouth 3 [place] capsule 00 (three) Medical times Branch daily. gabapentin 2020-0 Yes [id number] 300mg Take 1 Univers (NEURONTIN) 2-19 [id number] capsule by ity of 300 mg 00:00: mouth 3 [place] capsule 00 (three) Medical times Branch daily. gabapentin 2020-0 Yes [id number] 300mg Take 1 Univers (NEURONTIN) 2-19 [id number] capsule by ity of 300 mg 00:00: mouth 3 [place] capsule 00 (three) Medical times Branch daily. gabapentin 2020-0 Yes [id number] 300mg Take 1 [facility] (NEURONTIN) 2-19 [id number] capsule by ity of 300 mg 00:00: mouth 3 [place] capsule 00 (three) Medical times Branch daily. gabapentin 2020-0 Yes [id number] 300mg Take 1 Univers (NEURONTIN) 2-19 [id number] capsule by ity of 300 mg 00:00: mouth 3 [place] capsule 00 (three) Medical times Branch daily. gabapentin 2020-0 Yes [id number] 300mg Take 1 [facility] (NEURONTIN) 2-19 [id number] capsule by ity of 300 mg 00:00: mouth 3 [place] capsule 00 (three) Medical times Branch daily. gabapentin 2021-0 Yes [id number] 300mg Take 1 Univers (NEURONTIN) 2-19 [id number] capsule by ity of 300 mg 00:00: mouth 3 [place] capsule 00 (three) Medical times Branch daily. gabapentin 2021-0 Yes [id number] 300mg Take 1 Univers (NEURONTIN) 2-19 [id number] capsule by ity of 300 mg 00:00: mouth 3 [place] capsule 00 (three) Medical [facility] Branch daily. Immunizations Ordered Filled Immunization Date Status Comments [facility] e Immunization Name Name Influenza High Dose 2022-07-12 Completed Unive rsity of 00:00:[address] [facility] [place] Influenza High Dose 2022-07-12 Completed Unive rsity of 00:00:[address] [facility] [place] Influenza High Dose 2022-07-12 Completed Unive rsity of 00:00:[address] [facility] [place] Influenza High Dose 2022-07-12 Completed Unive rsity of 00:00:[address] [facility] [place] Influenza High Dose 2022-07-12 Completed Unive rsity of 00:00:[address] [facility] [place] Influenza High Dose 2022-07-12 Completed Unive rsity of 00:00:[address] [facility] [place] Influenza High Dose 2022-07-12 Completed Unive rsity of 00:00:[address] [facility] [place] Influenza High Dose 2022-07-12 Completed Unive rsity of 00:00:[address] [facility] [place] Influenza High Dose 2022-07-12 Completed Unive rsity of 00:00:[address] [facility] [place] Influenza High Dose 2022-07-12 Completed Unive rsity of 00:00:[address] [facility] [place] Influenza High Dose 2022-07-12 Completed Unive rsity of 00:00:[address] [facility] [place] Influenza High Dose 2022-07-12 Completed Unive rsity of 00:00:[address] [facility] [place] Influenza High Dose 2022-07-12 Completed Unive rsity of 00:00:[address] [facility] [place] Influenza High Dose 2022-07-12 Completed Unive rsity of 00:00:[address] [facility] [place] SARS-COV-2 COVID-19 2021-02-09 Completed Unive rsity of PFIZER VACCINE 00:00:00 [facility] SARS-COV-2 COVID-19 2021-02-09 Completed Unive rsity of PFIZER VACCINE 00:00:00 [facility] SARS-COV-2 COVID-19 2021-02-09 Completed Unive rsity of PFIZER VACCINE 00:00:00 [facility] SARS-COV-2 COVID-19 2021-02-09 Completed Unive rsity of PFIZER VACCINE 00:00:00 [facility] SARS-COV-2 COVID-19 2021-02-09 Completed Unive rsity of PFIZER VACCINE 00:00:00 [facility] Branch SARS-COV-2 COVID-19 2021-02-09 Completed Unive rsity of PFIZER VACCINE 00:00:00 [facility] Branch SARS-COV-2 COVID-19 2021-02-09 Completed Unive rsity of PFIZER VACCINE 00:00:00 [facility] SARS-COV-2 COVID-19 2021-02-09 Completed Unive rsity of PFIZER VACCINE 00:00:00 [facility] Branch SARS-COV-2 COVID-19 2021-02-09 Completed Unive rsity of PFIZER VACCINE 00:00:00 [facility] Branch SARS-COV-2 COVID-19 2021-02-09 Completed Unive rsity of PFIZER VACCINE 00:00:00 [facility] Branch SARS-COV-2 COVID-19 2021-02-09 Completed Unive rsity of PFIZER VACCINE 00:00:00 [facility] Branch SARS-COV-2 COVID-19 2021-02-09 Completed Unive rsity of PFIZER VACCINE 00:00:00 [facility] Branch SARS-COV-2 COVID-19 2021-02-09 Completed Unive rsity of PFIZER VACCINE 00:00:00 [facility] Branch SARS-COV-2 COVID-19 2021-02-09 Completed Unive rsity of PFIZER VACCINE 00:00:00 [facility] SARS-COV-2 COVID-19 2021-01-19 Completed Unive rsity of PFIZER VACCINE 00:00:00 [facility] SARS-COV-2 COVID-19 2021-01-19 Completed Unive rsity of PFIZER VACCINE 00:00:00 [facility] Branch SARS-COV-2 COVID-19 2021-01-19 Completed Unive rsity of PFIZER VACCINE 00:00:00 [facility] Branch SARS-COV-2 COVID-19 2021-01-19 Completed Unive rsity of PFIZER VACCINE 00:00:00 [facility] Branch SARS-COV-2 COVID-19 2021-01-19 Completed Unive rsity of PFIZER VACCINE 00:00:00 [facility] SARS-COV-2 COVID-19 2021-01-19 Completed Unive rsity of PFIZER VACCINE 00:00:00 [facility] SARS-COV-2 COVID-19 2021-01-19 Completed Unive rsity of PFIZER VACCINE 00:00:00 [facility] SARS-COV-2 COVID-19 2021-01-19 Completed Unive rsity of PFIZER VACCINE 00:00:00 [facility] SARS-COV-2 COVID-19 2021-01-19 Completed Unive rsity of PFIZER VACCINE 00:00:00 [facility] SARS-COV-2 COVID-19 2021-01-19 Completed Unive rsity of PFIZER VACCINE 00:00:00 [facility] SARS-COV-2 COVID-19 2021-01-19 Completed Unive rsity of PFIZER VACCINE 00:00:00 [facility] SARS-COV-2 COVID-19 2021-01-19 Completed Unive rsity of PFIZER VACCINE 00:00:00 [facility] SARS-COV-2 COVID-19 2021-01-19 Completed Unive rsity of PFIZER VACCINE 00:00:00 [facility] SARS-COV-2 COVID-19 2021-01-19 Completed Unive rsity of PFIZER VACCINE 00:00:00 [facility] Vital Signs Vital Name Observation Time Observation Value Comments Source Systolic blood 2023-06-27 15:59:00 142 mm[Hg] Univer sity of pressure [facility] [place] Diastolic blood 2023-06-27 15:59:00 80 mm[Hg] Unive rsity of pressure [facility] [place] Heart rate 2023-06-27 15:59:00 92 /min [facility] Body temperature 2023-06-27 15:59:00 36.83 [facility] 2023-06-27 15:59:00 18 /min [facility] Body weight 2023-06-27 15:59:00 128.368 kg [facility] BMI 2023-06-27 15:59:00 41.79 kg/m2 [facility] Oxygen saturation in 2023-06-27 15:59:00 99 /min [facility] Arterial blood by [facility] Pulse oximetry Branch Systolic blood 2023-06-14 06:00:00 145 mm[Hg] Univer sity of pressure [facility] [place] Diastolic blood 2023-06-14 06:00:00 78 mm[Hg] Unive rsity of pressure [place] [facility] Heart rate 2023-06-14 06:00:00 81 /min [facility]i ty of [place] [facility] Oxygen saturation in 2023-06-14 06:00:00 94 /min University of Arterial blood by [facility] Pulse oximetry Branch Body temperature 2023-06-14 01:25:00 37 Gillian Univ ersity of [place] [facility] Respiratory rate 2023-06-14 01:25:00 20 /min Univ ers[facility] of [place] [facility] Body height 2023-06-14 01:25:00 175.3 cm [facility] [place] [facility] Body weight 2023-06-14 01:25:00 128.549 kg [facility] [place] [facility] BMI 2023-06-14 01:25:00 41.85 kg/m2 [facility] [place] [facility] Systolic blood 2023-05-01 04:00:00 154 mm[Hg] Univer sity of pressure [place] [facility] Diastolic blood 2023-05-01 04:00:00 96 mm[Hg] Unive rsity of pressure [place] [facility] Heart rate 2023-05-01 04:00:00 98 /min [facility]i [facility] of [place] [facility] Respiratory rate 2023-05-01 04:00:00 20 /min Univ ersity of [place] [facility] Oxygen saturation in 2023-05-01 04:00:00 94 /min University of Arterial blood by [facility] Pulse oximetry Branch Body temperature 2023-05-01 03:15:00 37 Gillian [facility] ers[facility] of [place] [facility] Body height 2023-05-01 03:15:00 175.3 cm [facility] [place] [facility] Body weight 2023-05-01 03:15:00 124.104 kg [facility] [place] [facility] BMI 2023-05-01 03:15:00 40.40 kg/m2 [facility] [place] [facility] Systolic blood 2023-01-23 07:40:00 120 mm[Hg] Univer sity of pressure [place] [facility] Diastolic blood 2023-01-23 07:40:00 55 mm[Hg] Unive rsity of pressure [place] [facility] Heart rate 2023-01-23 07:40:00 104 /min [facility] [place] [facility] Body temperature 2023-01-23 07:40:00 38.22 Gillian [facility] ers[facility] [place] [facility] Respiratory rate 2023-01-23 07:40:00 20 /min Univ ers[facility] [place] [facility] Oxygen saturation in 2023-01-23 07:40:00 92 /min [facility] of Arterial blood by [place] [facility] Pulse oximetry Branch Body height 2023-01-23 04:19:00 175.3 cm [facility] [place] [facility] Body weight 2023-01-23 04:19:00 119.296 kg [facility] [place] [facility] BMI 2023-01-23 04:19:00 38.84 kg/m2 [facility] [place] [facility] Systolic blood 2022-08-06 13:56:00 127 mm[Hg] Univer sity of pressure [place] [facility] Diastolic blood 2022-08-06 13:56:00 81 mm[Hg] Unive rsity of pressure [place] [facility] Heart rate 2022-08-06 13:56:00 79 /min [facility] [place] [facility] Body temperature 2022-08-06 13:56:00 36.83 Gillian [facility] ers[facility] [place] [facility] Body height 2022-08-06 13:56:00 175.3 cm [facility] [place] [facility] Body weight 2022-08-06 13:56:00 126.009 kg [facility] [place] [facility] BMI 2022-08-06 13:56:00 41.02 kg/m2 [facility] [place] [facility] Oxygen saturation in 2022-08-06 13:56:00 97 /min University of Arterial blood by [facility] Pulse oximetry Branch Systolic blood 2022-07-28 04:35:00 149 mm[Hg] Univer sity of pressure [place] [facility] Diastolic blood 2022-07-28 04:35:00 98 mm[Hg] Unive rsity of pressure [place] [facility] Heart rate 2022-07-28 04:35:00 94 /min [facility] [place] [facility] Respiratory rate 2022-07-28 04:35:00 20 /min Univ ers[facility] [place] [facility] Oxygen saturation in 2022-07-28 04:35:00 95 /min [facility] of Arterial blood by [place] [facility] Pulse oximetry Branch Body temperature 2022-07-28 03:17:00 36.83 Gillian [facility] [place] [facility] Body height 2022-07-28 03:17:00 175.3 cm [facility]i ty [facility] Body weight 2022-07-28 03:17:[address] 124[address]39 [address] [facility] BMI 2022-07-28 03:17:00 40.61 kg/m2 Universi ty [facility] Systolic blood 2022-07-25 14:06:00 132 mm[Hg] Univer sity of pressure [facility] [place] Diastolic blood 2022-07-25 14:06:00 88 mm[Hg] [facility] Heart rate 2022-07-25 13:56:00 76 /min Universi ty [facility] Body temperature 2022-07-25 13:56:00 37.11 [facility] Body height 2022-07-25 13:56:00 175.3 cm [facility] Body weight 2022-07-25 13:56:00 124.739 kg Universi [facility] BMI 2022-07-25 13:56:00 40.61 kg/m2 [facility] Oxygen saturation in 2022-07-25 13:56:00 97 /min [facility] Arterial blood by [facility] Pulse oximetry Branch Procedures Procedure Date / Time Performing Clinician Source Performed CONSENT/REFUSAL FOR 2023-06-27 15:50:59 Doctor Unassigned, [facility] DIAGNOSIS AND TREATMENT [place] [facility] HEAD WO CONTRAST 2023-06-14 04:11:52 Ghanshyam Ibarra [facility] CT ORBITS WO CONTRAST 2023-06-14 04:11:52 Ghanshyam Ibarra [facility] THYROID STIMULATING 2023-06-14 03:52:00 Ghanshyam Ibarra [facility] HORMONE [facility] BASIC METABOLIC PANEL 2023-06-14 03:52:00 Ghanshyam Ibarra [facility] (NA, K, CL, CO2, GLUCOSE, Medica l Branch BUN, CREATININE, CA) CBC WITH DIFF 2023-06-14 03:52:00 Ghanshyam Ibarra [facility] ASSIGNMENT OF BENEFITS 2023-06-14 02:26:29 Doctor Unassigned, [facility] [place] [facility] CONSENT/REFUSAL FOR 2023-06-14 01:12:10 Doctor Teddy [facility] DIAGNOSIS AND TREATMENT [place] Medical [facility] LIPASE 2023-05-01 03:33:00 Sanjuana Quintanilla [facility] COMP. METABOLIC PANEL 2023-05-01 03:33:00 Sanjuana Quintanilla [facility] ([id number]) Medical Branch CBC WITH DIFF 2023-05-01 03:33:00 Sanjuana Quintanilla [facility] CONSENT/REFUSAL FOR 2023-05-01 03:08:56 Doctor Unajeison, [facility] DIAGNOSIS AND TREATMENT [place] [facility] [place] MEDICATION CORRESPONDENCE 2023-02-22 05:01:00 [facility] Name Medical [place] RAPID INFLUENZA A/B 2023-01-23 07:05:00 Thomas Reed [facility] COVID-19 (ID NOW RAPID 2023-01-23 07:05:00 Thomas Reed [facility] TESTING) Medical Branch URINALYSIS 2023-01-23 06:05:00 Thomas Reed [facility] AC PANEL 21 + LACTIC ACID 2023-01-23 05:33:00 [facility] 2023-01-23 04:35:00 Thomas Reed [facility] COMP. METABOLIC PANEL 2023-01-23 04:35:00 Thomas Reed [facility] ([id number]) Medical Branch CBC WITH DIFF 2023-01-23 04:35:00 Thomas Reed [facility] CONSENT/REFUSAL FOR 2023-01-23 04:05:53 Doctor Teddy [facility] DIAGNOSIS AND TREATMENT [place] [facility] [place] XR CHEST 1 VW 2022-07-28 03:46:22 Sanjuana Quintanilla [facility] LIPASE 2022-07-28 03:32:00 Sanjuana Quintanilla [facility] TROPONIN I 2022-07-28 03:32:00 Sanjuana Quintanilla [facility] COMP. METABOLIC PANEL 2022-07-28 03:32:00 Sanjuana Quintanilla [facility] ([id number]) Medical Branch CBC WITH DIFF 2022-07-28 03:32:00 [facility] NOTICE OF PRIVACY 2022-07-28 03:17:14 Doctor Unassigned, [facility] PRACTICES [place] [facility] CONSENT/REFUSAL FOR 2022-07-28 03:12:51 Doctor Unasstanja, [facility] DIAGNOSIS AND TREATMENT [place] [facility] AGREEMENTS AUTHORIZATIONS Doctor Unassigned, [facility] AND IRREVOCABLE [place] [facility] ASSIGNMENTS (FORM 2001) Plan of Care Planned Activity Planned Date Details Comments Source Future Scheduled Test 2023-08-11 00:00:00 IMM Influenza [facility] Seasonal (>/= 19 yrs) [code = IMM Influenza Seasonal (>/= 19 yrs)] Future Scheduled Test 2022-08-11 00:00:00 IMM Influenza [facility] Seasonal (>/= 19 yrs) [code = IMM Influenza Seasonal (>/= 19 yrs)] Future Scheduled Test 2022-08-11 00:00:00 IMM Influenza [facility] Seasonal (>/= 19 yrs) [code = IMM Influenza Seasonal (>/= 19 yrs)] Future Scheduled Test 2022-08-11 00:00:00 IMM Influenza [facility] Seasonal (>/= 19 yrs) [code = IMM Influenza Seasonal (>/= 19 yrs)] Future Scheduled Test 2022-08-11 00:00:00 IMM Influenza [facility] Seasonal (>/= 19 yrs) [code = IMM Influenza Seasonal (>/= 19 yrs)] Future Scheduled Test 1980-02-18 00:00:00 COVID-19 Vaccine (#1) [facility] [code = COVID-19 Vaccine (#1)] Future Scheduled Test 1980-02-18 00:00:00 COVID-19 Vaccine (#1) [facility] [code = COVID-19 Vaccine (#1)] Future Scheduled Test 1980-02-18 00:00:00 COVID-19 Vaccine (#1) [facility] [code = COVID-19 Vaccine (#1)] Future Scheduled Test 1980-02-18 00:00:00 COVID-19 Vaccine (#1) [facility] [code = COVID-19 Vaccine (#1)] Future Scheduled Test 1980-02-18 00:00:00 COVID-19 Vaccine (#1) [facility] [code = COVID-19 Vaccine (#1)] Future Scheduled Test 1979 00:00:00 Fluoride Varnish [facility] [code = Fluoride Varnish] Future Scheduled Test 1979 00:00:00 Fluoride Varnish [facility] [code = Fluoride Varnish] Encounters Start End Encounter Admission Attending Care Care Encounter Source Date/Time Date/Time Type Type Clinicians Facility Department ID 2021-09-[address] [facility] [id number] Univers 06:37:[address] [facility] [place] 2021-09-[address] [facility] [id number] Univers 18:38:[address] [facility] [place] 2021-09-[address] [facility] [id number] Univers 17:28:[address] [facility] [place] 2021-09-[address] [facility] [id number] Univers 15:34:[address] [facility] [place] 2021-09-[address] [facility] [id number] Univers 07:14:[address] [facility] [place] 2021-09-[address] [facility] [id number] Univers 23:32:[address] [facility] [place] 2021-09-[address] [facility] [id number] Univers 19:01:[address] [facility] [place] 2021-09-[address] [facility] [id number] Univers 05:53:[address] [facility] [place] 2021-09-[address] [facility] [id number] Univers 03:49:[address] [facility] [place] 2021-09-[address] [facility] [id number] Univers 01:14:[address] [facility] [place] 2021-09-[address] [facility] [id number] Univers 17:44:[address] [facility] [place] 2021-09-[address] [facility] [id number] Univers 10:52:[address] [facility] [place] 2021-09-[address] [facility] [id number] Univers 19:08:[address] [facility] [place] 2021-09-[address] [facility] [id number] Univers 16:07:[address] [facility] [place] 2021-09-[address] [facility] [id number] Univers 13:25:[address] [facility] [place] 2021-09-[address] [facility] [id number] Univers 23:50:[address] [facility] [place] 2023-06-27 2023-06-27 Emergency [facility] E[facility] [id number] Univers 11:00:00 11:37:00 , CHINA ity of [facility] [place] 2023-06-27 2023-06-27 [facility] 1.2.840.114 [id number] Univers 11:00:00 11:37:00 , [place] MAGGY 350.1.13.10 i ty of [place] 4.2.7.2.686 [facility] [id number] [address] 2023-06-13 2023-06-14 Emergency X [facility] ERT [id number] Univers 20:26:00 01:02:00 , GHANSHYAM ity of [facility] [place] 2023-06-13 2023-06-14 [facility] 1.2.840.114 [id number] Univers 20:26:00 01:02:00 , Ghanshyam WINTER 350.1.13.10 i ty of [place] 4.2.7.2.[address] [place] [id number] 2023-04-30 2023-05-01 Emergency [facility] E[facility] [id number] Univers 22:17:00 00:01:00 SANJUANA amador of [facility] 2023-04-30 2023-05-01 Emergency [facility] 1.2.840.114 [id number] Univers 22:17:00 00:01:00 Sanjuana WINTER 350.1.13.10 it[facility] 4.2.7.[address] [place] [id number] 2023-02-22 2023-02-22 Orders Doctor CHO 1.2.840.114 [id number] Univers 00:00:00 00:00:00 Only Unassigned, ELDA 350.1.13.10 ity of [place] [facility] 4.2.7.2.686 Joel as [phone] [facility] 009 [place] 2023-01-22 2023-01-23 Emergency X [facility] ERT [id number] Univers 23:21:00 02:49:[address] [facility] 2023-01-22 2023-01-23 Emergency [facility] 1.2.782.818 [id number] Univers 23:21:00 02:49:00 Thomas S MAGGY 350.1.13.10 i ty [facility] 4.2.7.2.686 [place] [id number] [facility] 084 [place] 2022-10-07 2022-10-07 Refill [facility] 1.2.840.114 [id number] Univers 00:00:00 00:00:00 Mary Alice HEALTH 350.1.13.10 it y of [place] 4.2.7.2.686 Joel as AYSE?BLEA [phone] [place] [address] MEDICAL OFFICE [facility] 2022-09-05 2022-09-05 Outpatient R DARIEN [facility] [id number] Univers 10:30:00 10:30:[address] [facility] 2022-08-06 2022-08-06 Outpatient R DARIEN [facility] [id number] Univers 09:30:00 09:53:[address] [facility] 2022-08-06 2022-08-06 Office [facility] 1.2.840.114 [id number] Univers 09:30:00 09:53:24 Visit Mary Alice [facility] 350.1.13.10 it y of [facility] 4.2.7.2.686 Joel as AYSE?BLEA [phone] [place] [address] MEDICAL [facility] [facility] 2022-07-27 2022-07-27 Emergency X [facility] ERT [id number] Univers 22:22:00 23:47:[address] [facility] 2022-07-27 2022-07-27 Emergency [facility] 1.2.840.114 [id number] Univers 22:22:00 23:47:00 Sanjuana WINTER 350.1.13.10 ity of [place] 4.2.7.2.686 [place] [phone] [facility] 084 [place] 2022-07-27 2022-07-27 Orders Doctor MARQUIS 1.2.840.114 [id number] Univers 00:00:00 00:00:00 Only Unassigned, ELDA 350.1.13.10 ity of [place] [facility] 4.2.7.2.686 Joel as [phone] [facility] 009 [place] 2022-07-25 2022-07-25 Tobacco Classer Vipul, Esther [facility] Main [facility] 1.2.8 40.114 [id number] Univers 10:45:00 11:00:00 Visit Mary Alice Ledezma 350.1.13.10 ity of [place] 4.2.7.2.686 [place] [facility] [id number] [place] ilda CARRENO 353 [facility] 2022-07-25 2022-07-25 Out[facility] [id number] Univers 10:45:00 10:45:[address] [facility] 2022-07-25 2022-07-25 Outpatient R DARIEN [facility] [id number] Univers 09:30:00 09:34:[address] [facility] 2022-07-25 2022-07-25 Office [facility] 1.2.840.114 [id number] Univers 09:30:00 09:34:11 Visit Mary Alice ROMEO 350.1.13.10 it y of [place] 4.2.7.2.686 Joel as AYSE?BLEA [phone] [place] dicdianne NICOLASEY 044 [facility] OFFICE BUILDING 2022-06-27 2022-06-27 Outpatient R DARIEN [facility] [id number] Univers 11:00:00 11:00:[address] [facility] 2022-05-28 2022-05-[address] [facility] 1.2.840.114 [id number] Univers 00:00:00 00:00:00 Mary Alice OUSMANE 350.1.13.10 it y of [facility] 4.2.7.2.686 Joel as AYSE?BLEA [id number] [place] dical [address] [facility] 2022-05-21 2022-05-21 Outpatient R DARIEN [facility] [id number] Univers 15:30:00 15:30:[address] AL[address] [facility] 2022-05-21 2022-05-21 Outpatient R DARIEN [facility] [id number] Univers 15:30:00 15:30:[address] AL[address]ador [facility] 2022-05-21 2022-05-21 Outpatient R DARIEN [facility] [id number] Univers 15:30:00 15:30:[address] [facility] 2022-05-11 2022-05-11 Emergency [facility] ERT [id number] Univers 07:38:00 08:23:00 CHRISTEULAER it y [facility] 2022-05-11 2022-05-11 [facility] 1.2.484.739 [id number] Univers 07:38:00 08:23:00 Christeulaer [place] 350.1.13.10 ity of [place] 4.2.7.2.686 [place] [facility] [phone] [address] 2022-05-07 2022-05-07 Outpatient R DARIEN [facility] [id number] Univers 08:15:00 08:15:[address] AL[address]ador [facility] 2022-04-11 2022-04-11 Telephone [facility] 1.2.706.973 [id number] Univers 00:00:00 00:00:00 Mary Alice HEALTH 350.1.13.10 it y of [place] 4.2.7.2.686 Joel as AYSE?BLEA [phone] [address] 2022-04-11 2022-04-11 Telephone Shak[facility]abamDZIL[facility] 1.2.087.164 [id number] Univers 00:00:00 00:00:00 Mary Alice HEALTH 350.1.13.10 it y of [place] 4.2.7.2.686 Joel as AYSE?BLEA [id number] [address] 2022-04-05 2022-04-06 Emergency [facility] [id number] Univers 22:21:00 01:15:[address] [facility] 2022-04-05 2022-04-06 [facility] 1.2.824.139 [id number] Univers 22:21:00 01:15:00 Anderson WINTER 350.1.13.10 ity of [place] 4.2.7.2.686 [place] [facility] [phone] [facility] 084 [place] 2022-04-05 2022-04-06 Emergency X [facility] E[facility] [id number] Univers 22:21:00 01:15:[address] [facility] 2022-04-05 2022-04-05 Orders Doctor MARQUIS 1.2.840.114 [id number] Univers 00:00:00 00:00:00 Only Unassigned, ELDA 350.1.13.10 ity of [place] [facility] 4.2.7.2.686 Joel as [phone] [facility] 009 [place] 2022-04-02 2022-04-02 Outpatient [facility] [id number] Univers 15:00:00 15:00:[address] AL[address] [facility] 2022-04-02 2022-04-02 Office [facility] 1.2.840.114 [id number] Univers 13:30:00 14:28:56 Visit Mary Alice [facility] 350.1.13.10 it y of [place] 4.2.7.2.686 Joel as AYSE?BLEA [phone] [place] ilda CONKLIN [address] [place] [address] MEDICAL OFFICE BUILDING 2022-04-02 2022-04-02 Outpatient [facility] [id number] Univers 13:30:00 14:28:[address] [facility] 2022-03-30 2022-03-30 Letter [facility] 1.2.840.114 [id number] Univers 00:00:00 00:00:00 (Out) Mary Alice [facility] 350.1.13.10 it y of [place] 4.2.7.2.686 Joel as AYSE?BLEA [phone] [place] ilda CONKLIN [address] [place] [address] MEDICAL OFFICE BUILDING 2022-01-29 2022-01-29 Outpatient R ZENOBIA [facility] [id number] Univers 10:15:00 10:15:00 WONDIFUL ity o f [facility] [place] 2022-01-19 2022-01-20 Emergency X Dalila [place] [facility] ERT [id number] Univers 20:28:00 00:06:[address] [facility] [place] 2022-01-19 2022-01-20 Emergency Rubén, K [facility] 1.2.840.114 [id number] Univers 20:28:00 00:06:00 Koki WINTER 350.1.13.10 i ty of [place] 4.2.7.2.686 [facility] [phone] [place] 068984 [place] 2021-12-26 2021-12-26 Emergency X [facility] ERT [id number] Univers 06:34:00 07:28:00 SANJUANA ity of [facility] [place] 2021-12-26 2021-12-26 Emergency [facility] 1.2.840.114 [id number] Univers 06:34:00 07:28:00 Sanjuana WINTER 350.1.13.10 ity of [place] 4.2.7.2.686 [facility] [phone] [facility] 084 [place] 2021-12-26 2021-12-26 Orders Doctor CHO 1.2.840.114 [id number] Univers 00:00:00 00:00:00 Only Unassigned, ELDA 350.1.13.10 ity of [place] [facility] 4.2.7.2.686 Joel as [phone] [facility] 009 [place] 2021-12-26 2021-12-26 Letter MARQUIS Delacruz 1.2.840.114 [id number] Univers 00:00:00 00:00:00 (Out) Alysa SCHROEDER 350.1.13.10 it y of [facility] 4.2.7.2.686 Joel as [phone] [facility] 019 [place] 2021-12-26 2021-12-[address] [facility] 1.2.840.114 [id number] Univers 00:00:00 00:00:00 Wondiful A HEALTH 350.1.13.10 ity of [facility] 4.2.7.2.686 Joel as AYSE?BLEA [phone] [address] MEDICAL OFFICE BUILDING 2021-11-14 2021-11-14 Orders Doctor MARQUIS 1.2.840.114 [id number] Univers 00:00:00 00:00:00 Only Unassigned, ELDA 350.1.13.10 ity of [place] [facility] 4.2.7.2.686 Joel as [phone] [address] 2021-11-05 2021-11-06 Emergency X RUBÉN, K [facility] ERT [id number] Univers 23:53:00 03:05:[address] [facility] [place] 2021-11-05 2021-11-06 Emergency Rubén, [facility] 1.2.840.114 [id number] Univers 23:53:00 03:05:00 Koki MAGGY 350.1.13.10 i ty of [place] 4.2.7.2.686 [place] [phone] [address] 2021-10-31 2021-10-31 Outpatient R ZENOBIA [facility] [id number] Univers 13:00:00 13:34:46 WONDIFUL ity o f [facility] [place] 2021-10-31 2021-10-31 Office [facility] 1.2.840.114 [id number] Univers 13:00:00 13:34:46 Visit Wondiful A HEALTH 350.1.13.10 ity of [place] 4.2.7.2.686 Joel as AYSE?BLEA [id number] [address] MEDICAL OFFICE BUILDING 2021-10-31 2021-10-31 Orders Doctor MARQUIS 1.2.840.114 [id number] Univers 00:00:00 00:00:00 Only Unassigned, ELDA 350.1.13.10 ity of [place] [facility] 4.2.7.2.686 Joel as [phone] [address] 2021-10-09 2021-10-09 Emergency X SOCORRO [facility] ERT [id number] Univers 07:48:00 08:13:00 SANJUANA ity of [facility] [place] 2021-10-09 2021-10-09 Emergency Socorro, [facility] 1.2.840.114 [id number] Univers 07:48:00 08:13:00 Sanjuana WINTER 350.1.13.10 ity of [place] 4.2.7.2.686 [place] [id number] [address] 2021-09-21 2021-09-21 Emily Fregoso, [facility] 1.2.840.114 [id number] [facility] 00:00:00 00:00:00 Wondiful A HEALTH 350.1.13.10 ity of [facility] 4.2.7.2.686 Joel as AYSE?BLEA [phone] [place] ilda NICOLAS[address] MEDICAL OFFICE BUILDING 2021-08-23 2021-08-23 Emergency , [facility] 1.2.604.571 [id number] Univers 17:03:00 18:38:00 Enrique [place] 350.1.13.10 i ty of [place] 4.2.7.2.686 [place] [id number] [address] 2021-07-07 2021-07-07 Emergency Octaviano, [facility] 1.2.327.519 [id number] Univers 14:46:00 19:51:00 Aylin [place] 350.1.13.10 i ty of [place] 4.2.7.2.686 [place] [id number] [address] 2021-07-03 2021-07-03 Emergency Josefina, [facility] 1.2.840.114 [id number] Univers 15:16:00 17:58:00 Jake [place] 350.1.13.10 ity of [place] 4.2.7.2.686 [place] [id number] [address] 2021-06-24 2021-06-24 Emergency Alvaro, [facility] 1.2.840.114 [id number] Univers 18:39:00 23:06:00 Shellie [place] 350.1.13.10 i ty of [place] 4.2.7.2.686 [place] [id number] [address] 2021-05-31 2021-05-31 Telephone [facility] 1.2.840.114 [id number] Univers 00:00:00 00:00:00 Wondiful A Health 350.1.13.10 ity of [place] 4.2.7.2.686 Joel as Professio [id number] [address] Office [facility] One 2021-05-20 2021-05-[address] [facility] 1.2.741.600 [id number] Univers 00:00:00 03:02:00 Thomas S Maggy 350.1.13.10 i ty of [place] 4.2.7.2.686 [facility] [id number] [address] 2021-05-01 2021-05-[address] [facility] 1.2.840.114 [id number] Univers 15:04:16 16:36:21 Visit Wondiful A Health 350.1.13.10 ity of [place] 4.2.7.2.686 Joel as Professio [phone] [address] One 2021-05-01 2021-05-01 Outpatient R ZENOBIA [facility] [id number] Univers 15:30:00 15:30:00 WONDIFUL ity o f [facility] [place] 2021-04-17 2021-04-17 Emergency [facility] 1.2.156.190 [id number] Univers 10:56:00 16:30:00 Enrique [place] 350.1.13.10 i ty of [place] 4.2.7.2.686 [facility] [id number] [address] 2021-04-17 2021-04-17 Orders Doctor CHO 1.2.840.114 [id number] Univers 00:00:00 00:00:00 Only Unassigned, ELDA 350.1.13.10 ity of [place] [facility] 4.2.7.2.686 Joel as [id number] [address] 2021-04-03 2021-04-03 Outpatient R ZENOBIA [facility] [id number] Univers 15:15:00 15:15:00 WONDIFUL ity o f [facility] [place] 2021-03-23 2021-03-23 Emergency [facility] 1.2.840.114 [id number] Univers 19:18:00 21:11:00 Shellie Maggy 350.1.13.10 i ty of [place] 4.2.7.2.686 [facility] [phone] [address] 2021-02-09 2021-02-09 Outpatient [facility] [id number] Univers 15:10:00 15:10:00 AKBAR ity of [facility] [place] 2021-01-22 2021-01-23 Emergency [facility] 1.2.676.854 [id number] Univers 21:11:00 01:05:00 Daniielizabeth [place] 350.1.13.10 ity of [place] 4.2.7.2.686 [facility] [id number] [address] 2021-01-22 2021-01-23 Emergency X [facility] ERT [id number] Univers 21:11:00 01:05:[address] [facility] 2021-01-22 2021-01-22 Orders Doctor CHO 1.2.840.114 [id number] Univers 00:00:00 00:00:00 Only Unassigned, ELDA 350.1.13.10 ity of [place] [facility] 4.2.7.2.686 [facility] [phone] [place] [address] [place] 2021-01-19 2021-01-[address] [facility] [id number] Univers 11:20:00 11:20:[address] [facility] [place] 2021-01-14 2021-01-[address] [facility] 1.2.508.422 [id number] Univers 22:13:00 00:16:00 Chante [place] 350.1.13.10 i ty of [place] 4.2.7.2.686 [facility] [id number] [address] 2021-01-14 2021-01-14 Orders Doctor CHO 1.2.840.114 [id number] Univers 00:00:00 00:00:00 Only Unassigned, ELDA 350.1.13.10 ity of [place] [facility] 4.2.7.2.686 Joel as [phone] [facility] 009 [place] 2021-01-05 2021-01-05 Emergency [facility] [id number] Univers 00:51:00 01:32:00 Anderson Winter 350.1.13.10 ity of [place] 4.2.7.2.[address] [place] [facility] [phone] [facility] 084 [place] 2021-01-05 2021-01-05 Orders Doctor MARQUIS 1.2.840.114 [id number] Univers 00:00:00 00:00:00 Only Unassigned, ELDA 350.1.13.10 ity of [place] [facility] 4.2.7.2.686 Joel as [phone] [address] 2020-12-30 2020-12-30 Office [facility] 1.2.840.114 [id number] Univers 15:18:48 16:11:51 Visit [facility] 350.1.13.10 ity of [place] 4.2.7.2.686 Joel as Professio [phone] [place] Office [facility] 2020-12-30 2020-12-30 [facility] [id number] Univers 15:30:00 15:30:00 WONDIFUL ity o f [facility] [place] [place] 2020-12-30 2020-12-30 Letter [facility] 1.2.840.114 [id number] Univers 00:00:00 00:00:00 (Out) [facility] 350.1.13.10 ity of [place] 4.2.7.2.686 Joel as Professio [phone] [place] Office [facility] 2020-11-26 2020-11-26 Emergency [facility] 1.2.840.114 [id number] Univers 13:24:00 15:35:00 Sanjuana Winter 350.1.13.10 [place] 4[place]2.[place] [phone] [place] 068984 [place] 2020-11-26 2020-11-26 Orders Doctor MARQUIS 1.2.840.114 [id number] Univers 00:00:00 00:00:00 Only Unassigned, ELDA 350.1.13.10 ity of [place] [facility] 4.2.7.2.686 Joel as [phone] [address] 2020-11-21 2020-11-21 Outpatient R ZENOBIA [facility] [id number] Univers 09:30:00 09:30:00 WONDIFUL ity o f [facility] [place] [place] 2020-10-21 2020-10-22 Emergency [facility] 1.2.899.740 [id number] Univers 21:52:00 00:33:00 Thomas S [place] 350.1.13.10 [place] 4.2.7.2.686 [phone] [address] 2020-09-29 2020-09-29 Refill [facility] 1.2.840.114 [id number] Univers 00:00:00 00:00:00 Wondiful A Health 350.1.13.10 ity of [place] 4.2.7.2.686 Joel as Professio [phone] [place] dic[address] Office [facility] One 2020-09-05 2020-09-05 Office [facility] 1.2.840.114 [id number] Univers 09:18:33 09:57:06 Visit Wondiful A Health 350.1.13.10 ity of [place] 4.2.7.2.686 Joel as Professio [phone] [address] Office Building One 2020-09-05 2020-09-05 [facility] [id number] Univers 09:30:00 09:30:00 WONDIFUL ity o f [facility] [place] 2020-09-05 2020-09-05 Orders Doctor CHO 1.2.840.114 [id number] Univers 00:00:00 00:00:00 Only Unassigned, ELDA 350.1.13.10 ity of [place] [facility] 4.2.7.2.686 Joel as [phone] [address] 2020-08-11 2020-08-11 Outpatient R ZENOBIA [facility] [id number] Univers 11:30:00 11:30:00 WONDIFUL ity o f [facility] [place] [place] 2020-08-03 2020-08-04 Emergency [facility] 1.2.876.735 [id number] Univers 22:26:00 02:53:00 Anderson Winter 350.1.13.10 [place] [phone] [address] 2020-07-16 2020-07-16 Emergency [facility] 1.2.234.313 [id number] Univers 08:30:00 09:49:00 Elham [place] 350.1.13.10 [place] 4[place].2.[place] [phone] [address] 2020-07-16 2020-07-16 Orders Doctor MARQUIS 1.2.840.114 [id number] Univers 00:00:00 00:00:00 Only Unassigned, ELDA 350.1.13.10 ity of [place] [facility] 4.2.7.2.686 Joel as [phone] [address] 2020-06-29 2020-06-[address] [facility] 1.2.544.449 [id number] Univers 14:57:00 16:48:00 Chante Winter 350.1.13.10 i [place] 4[place]2.[place].2.[place] [phone] [address] 2020-05-30 2020-05-30 Office [facility] 1.2.840.114 [id number] Univers 13:48:47 14:44:13 Visit Andrea Winter 350.1.13.10 [place]2.7.2.[place] [phone] [place] dical [facility] 044 [facility] 2020-05-30 2020-05-30 Outpatient R ZENOBIA [facility] [id number] Univers 14:30:00 14:30:00 WONDIFUL ity o f [facility] [place] [place] 2020-05-14 2020-05-14 Refill [facility] 1.2.840.114 [id number] Univers 00:00:00 00:00:00 Wondiful A Health 350.1.13.10 ity of [place] 4.2.7.2.686 Joel as Professio [phone] [place] dical nal [address] Office Building One 2020-05-03 2020-05-03 Emergency X Dalila [place] [facility] ERT [id number] Univers 21:12:19 22:30:[address] [facility] [place] 2020-05-03 2020-05-03 Emergency Rubén [facility] 1.2.840.114 [id number] Univers 21:12:19 22:30:00 Koki Maggy 350.1.13.10 [place] 4[place] [phone] [address] 2020-04-22 2020-04-22 Outpatient R ZENOBIA [facility] [id number] Univers 16:30:00 16:30:00 WONDIFUL ity o f [facility] [place] [place] 2020-04-21 2020-04-21 Outpatient R ZENOBIA [facility] [id number] Univers 16:00:00 16:00:00 WONDIFUL ity o f [facility] [place] [place] 2020-04-16 2020-04-16 Emergency [facility] 1.2.840.114 [id number] Univers 16:11:58 17:53:00 Folusho F [place] 350.1.13.10 [place] 4[place]2.[place].2.[place] [phone] [address] 2020-04-16 2020-04-16 Orders Doctor MARQUIS 1.2.840.114 [id number] Univers 00:00:00 00:00:00 Only Unassigned, ELDA 350.1.13.10 ity of [place] [facility] 4.2.7.2.686 Joel as [phone] [address] 2020-03-30 2020-03-30 Emergency X Dalila [place] [facility] ERT [id number] Univers 16:24:46 20:25:[address] [facility] [place] 2020-03-30 2020-03-30 Emergency Dalila [place] [facility] 1.2.840.114 [id number] Univers 16:24:46 20:25:00 Koki Winter 350.1.13.10 [place] [phone] [address] 2020-03-30 2020-03-30 Orders Doctor MARQUIS 1.2.840.114 [id number] Univers 00:00:00 00:00:00 Only Unassigned, ELDA 350.1.13.10 ity of [place] [facility] 4.2.7.2.686 Joel as [phone] [address] 2020-03-29 2020-03-29 Telemedici [facility] 1.2.840.114 [id number] Univers 07:37:26 12:06:27 ne Visit Wondicriss [place] 350.1.13.10 [place]2.[place].2.[place] [phone] [place] d[place] [address] 2020-03-29 2020-03-29 Outpatient R ZENOBIA [facility] [id number] Univers 11:30:00 11:30:00 WONKAUSHIK itkriss o f [facility] [place] 2020-03-11 2020-03-11 Emergency X [facility] ERT [id number] Univers 08:10:48 11:34:00 ELHAM ity of [facility] [place] 2020-03-11 2020-03-11 Emergency [facility] 1.2.045.112 [id number] Univers 08:10:48 11:34:00 Elham Winter 350.1.13.10 [place] [phone] [address] 2020-01-16 2020-01-16 Emergency X [facility] ERT [id number] Univers 07:58:13 13:10:00 CATIA ity of [facility] 2020-01-16 2020-01-16 Emergency [facility] 1.2.231.120 [id number] Univers 07:58:13 13:10:00 Catia Mantilla Maggy 350.1.13.10 [place] of [place] 4.2.7.2.686 [facility] [phone] [address] 2020-01-05 2020-01-[address] [facility] 1.2.840.114 [id number] Univers 00:00:00 00:00:00 Secure Msg Unassigned, PRIMARY 350.1.13.10 [place]2.7.2.[place] [phone] [place] dical [address] [place] [address] 2019-12-29 2019-12-29 Emergency X [facility], [facility] ERT [id number] Univers 20:40:21 23:20:00 ROCKY ity of [facility] 2019-12-29 2019-12-29 [facility] 1.2.364.458 [id number] Univers 20:40:21 23:20:00 Anderson Pearl [place] 350.1.13.10 [place] of [place] 4.2.7.2.686 [facility] [phone] [address] 2019-12-23 2019-12-23 Emergency X RUBÉN, K [facility] ERT [id number] Univers 19:03:41 22:22:[address] [facility] [place] 2019-12-23 2019-12-23 Emergency Rubén, Dalila [facility] 1.2.840.114 [id number] Univers 19:03:41 22:22:00 Koki [place] 350.1.13.10 [place] 4.2.7.2.686 [facility] [phone] [address] 2019-12-22 2019-12-[address] [facility] 1.2.840.114 [id number] Univers 00:00:00 00:00:00 Wondiful A Health 350.1.13.10 ity of [place] 4.2.7.2.686 Joel as Professio [phone] [place] dical nal [address] [place] Office Building One 2019-12-09 2019-12-[address] [facility] 1.2.840.114 [id number] Univers 00:00:00 00:00:00 Andrea A Health 350.1.13.10 ity of [place] 4.2.7.2.686 Joel as Professio [phone] [place] dical nal [address] [place] Office [facility] One 2019-12-09 2019-12-09 Orders Doctor MARQUIS 1.2.840.114 [id number] Univers 00:00:00 00:00:00 Only Unassigned, ELDA 350.1.13.10 ity of [place] [facility] 4.2.7.2.686 Joel as [phone] [address] 2019-11-25 2019-11-25 Orders Doctor MARQUIS 1.2.840.114 [id number] Univers 00:00:00 00:00:00 Only Unassigned, ELDA 350.1.13.10 ity of [place] [facility] 4.2.7.2.686 Joel as [phone] [address] 2019-11-13 2019-11-13 Emergency X GRICEL III, [facility] ERT [id number] Univers 19:10:56 21:24:[address] [facility] 2019-10-09 2019-10-09 Emergency X AUFDERHEIDE [facility] ERT [id number] Univers 07:30:11 09:17:00 , CHINACARLOS ALBERTO amador [facility] 2019-07-23 2019-07-23 Office [facility] 1.2.929.531 [id number] Univers 08:15:24 08:30:24 Visit Leslie Snyder [facility] 350.1.13.10 it y of Surgical 4.2.7.2.686 [place] Specialti [phone] [place] dical es [address] [facility] 2019-07-19 2019-07-19 Emergency [facility] 1.2.523.103 [id number] [id number] Univers 01:40:28 04:41:00 Anderson [place] 350.1.13.10 [place] 4.2.7.2.[address] [facility] [phone] [place] 068984 [place] 2019-07-16 2019-07-[address] [facility] 1.2.318.430 [id number] 4027 Univers 08:08:13 11:07:28 Visit Charlene [place] 350.1.13.10 [place] 4.2.7.2.686 [facility] [phone] [place] [address] 2019-07-16 2019-07-16 Orders Doctor MARQUIS 1.2.840.114 [id number] Univers 00:00:00 00:00:00 Only Unassigned, ELDA 350.1.13.10 [place] [address].7.2.686 Joel as [phone] [facility] [address] 2019-07-14 2019-07-14 Transition MARQUIS Ryder 1.2.840.114 [id number] Univers 00:00:00 00:00:00 of Care Katherin ELDA 350.1.13.10 ity [place] [address].7.2.686 Joel as [phone] [facility] [address] 2019-07-11 2019-07-11 Emergency X [facility] ERT [id number] Univers 19:33:56 21:51:[address] [facility] 2019-07-11 2019-07-11 Emergency [facility] 1.2.140.639 [id number] Univers 19:33:56 21:51:00 Alyx [place] 350.1.13.10 [place] 4.2.7.2.686 [facility] [phone] [place] 068984 Branch 2019-07-08 2019-07-10 Inpatient X JACQUIE [facility] [id number] Univers 10:07:58 18:30:[address] of [facility] [place] 2019-07-08 2019-07-10 Hospital Rubén Dalila Koki [facility] 1.2.840.1 14 [id number] Univers 10:07:58 18:30:00 Encounter Nicky Najera 350.1.13.10 [place] 4.2.7.2.686 [facility] [phone] [place] 068981 Branch 2019-07-09 2019-07-09 Patient Ashley Luu 1.2.840.114 [id number] Univers 00:00:00 00:00:00 Outreach E Fabian 350.1.13.10 i ty of [place].2.[place] [phone] [address] 2019-07-07 2019-07-08 Emergency X KRISTIE [facility] ERT [id number] Univers 22:00:05 02:00:[address] [facility] 2019-07-07 2019-07-08 Emergency [facility] 1.2.737.051 [id number] Univers 22:00:05 02:00:00 Anderson Pearl Maggy 350.1.13.10 [place] [phone] [address] 2019-07-02 2019-07-02 Outpatient [facility] [id number] Univers 08:15:00 08:34:17 LESLIE [facility] 2019-07-02 2019-07-02 Office [facility] 1.2.041.514 [id number] Univers 08:06:08 08:34:17 Visit [facility] 350.1.13.10 it y of Surgical 4.2.7.2.686 [place] Specialti [phone] [place] dical es [address] [facility] 2019-06-30 2019-06-30 Patient Ashley Luu 1.2.840.114 [id number] Univers 00:00:00 00:00:00 Outreach E Fabian 350.1.13.10 i ty [place].2.[place] [phone] [address] 2019-06-26 2019-06-26 Emergency [facility] 1.2.613.791 [id number] Univers 22:02:25 23:20:00 Itzel [place] 350.1.13.10 [place] [phone] [address] 2019-05-28 2019-05-28 Emergency X JUVENCIO [facility] ERT [id number] Univers 07:45:33 12:18:00 [facility] 2019-04-08 2019-04-08 Emergency [address] SINGER [facility] ERT [id number] Univers 08:41:11 11:59:[address] [facility] 2018-10-08 2018-10-[address] [facility] [id number] Jamal Zhang 17:49:44 17:49:44 Health 2018-10-08 2018-10-08 Emergency [facility] [id number] Humberto Zhang 15:26:07 15:26:07 Health 2016-02-13 2016-03-14 OP Therapy nullFlavo SMR Christo [id number] Memoria 13:00:00 04:59:00 Patients r [facility] 2016-02-13 2016-03-14 OP Therapy nullFlavo SMR Christo [id number] Memoria 13:00:00 04:59:00 Patients r [facility] 2016-02-13 2016-03-13 Outpatient Kai, 2.16.840. 2.16.840.1. [id number] 08:00:00 23:59:00 Marquis Dias [id number]. [id number] 02 3.615.38 5.38 2016-01-11 2016-02-10 OP Therapy nullFlavo SMR Christo [id number] Memoria 14:47:00 04:59:00 Patients r [facility] 2016-01-11 2016-02-10 OP Therapy nullFlavo SMR Christo [id number] Memoria 14:47:00 04:59:00 Patients r [facility] 2016-01-11 2016-02-09 Outpatient Kai, 2.16.840. 2.16.840.1. [id number] 08:47:00 23:59:00 Marquis Berry.552277. [id number] 01 3.615.38 5.38 2015-12-12 2016-01-11 OP Therapy nullFlavo SMR Christo [id number] Memoria 16:00:00 05:59:00 Patients r [facility] 2015-12-12 2016-01-11 OP Therapy nullFlavo SMR Christo [id number] Memoria 16:00:00 05:59:00 Patients r [facility] 2015-12-12 2016-01-10 Outpatient Kai 2.16.840. 2.16.840.1. [id number] 10:00:00 23:59:00 Marquis Dias [id number]. [id number] 00 3.615.38 5.38 Orders Doctor MARQUIS 1.2.840.114 [id number] 00:00:00 00:00:00 Only Unassigned, ELDA 350.1.13.10 ity of [place] [facility] 4.2.7.2.686 Joel as [phone] [address] Results Test Description Test Time Test Comments Results Result Comments Source THYROID STIMULATING HORMONE 2023-06-14 05:02:14 Test Item Value Reference Range Interpretation Comme nts TSH (test code = 0224036769) 3.48 See_Comment [Automated message] The system which generated this result transmitted ref erence range: 0.45 - 4.70 mIU/L. T he reference range was not used to interpret this result as zahira l/abnormal. Lab Interpretation (test code = Normal 56888-1) [facility] METABOLIC PANEL (NA, K, CL, CO2, GLUCOSE, BUN, CREATININE, CA)2023-06-14 04:31:47 Test Item Value Reference Range Interpretation Comments NA (test code = 137 mmol/L 135-145 2072988348) K (test code = 4.5 mmol/L 3.5-5.0 7800712563) CL (test code = 102 mmol/L 98-108 6808758080) CO2 TOTAL (test code 27 mmol/L 23-31 = 6980531820) AGAP (test code = 8 2-16 9502109636) BUN (test code = 20 mg/dL 7-23 8662745315) GLUCOSE (test code = 100 mg/dL 70-110 2269303819) CREATININE (test code 0.82 mg/dL 0.60-1.25 = 9270728375) CALCIUM (test code = 8.8 mg/dL 8.6-10.6 1979715756) eGFR (test code = 102.5 mL/min/1.73m2 6308619758) NORI (test code = NORI) Association of Glomerular Filtration Rate (GFR) and Staging of Kidney Disease* + + +- +| GFR (mL/min/1.73 m2) ?| With Kidney Damage ?| ?Without Kidney Damage+ ------+ ----+ ------+| ?>90 ?| ?Stage one ?| ? Normal ?+ -+ + -+| ?60-89 ?| ?Stage two ?| ? Decreased GFR ? + + +- +| ?30-59 ?| ?Stage three ?| ? Stage three ? + + +- +| ?15-29 ?| ?Stage four ? | ? Stage four ?+ -+ + -+| ?<15 (or dialysis) ? ?| ?Stage five ? | ? Stage five ?+ -+ + -+ *Each stage assumes the associated GFR level [...] or urine or abnormalities in imaging tests). [facility] WITH [id number] 04:24:29 Test Item Value Reference Range Interpretation Comments WBC (test code = 8.71 See_Comment [Automated message] 6690-2) The system [employer] generated this result transmitted ref erence range: 4.20 - 1 0.70 10*3/?L. The re ference range was not u sed to interpret this result as normal/abnor mal. RBC (test code = 4.92 See_Comment [Automated message] 339-8) The system [employer] generated this result transmitted ref erence range: 4.26 - 5 .52 10*6/?L. The re ference range was not u sed to interpret this result as normal/abnor mal. HGB (test code = 14.4 g/dL 12.2-16.4 718-7) HCT (test code = 43.1 % 38.4-49.3 4544-3) MCV (test code = 87.6 fL 81.7-95.6 787-2) MCH (test code = 29.3 pg 26.1-32.7 785-6) MCHC (test code = 33.4 g/dL 31.2-35.0 786-4) RDW-SD (test code 41.7 fL 38.5-51.6 = 14030-7) RDW-CV (test code 13.1 % 12.1-15.4 = 788-0) PLT (test code = 237 See_Comment [Automated message] 777-3) The system [employer]com[employer] generated this result transmitted ref erence range: 150 - 32 8 10*3/?L. The re ference range was not u sed to interpret this result as normal/abnor mal. MPV (test code = 10.4 fL 9.8-13.0 36605-0) NRBC/100 WBC (test 0.0 See_Comment [Automat ed message] code = 2353413726) The syste m which generated this result transmitted ref erence range: 0.0 - 10 .0 /100 WBCs. The refer ence range was not u sed to interpret this result as normal/abnor mal. NRBC x10^3 (test See_Comment [Automated message] code = 7526931749) The syste m which generated this result transmitted ref erence range: 10*3/?L. The reference range was not used to interpr et this result as normal/abnormal . GRAN MAT (NEUT) % 61.1 % (test code = 770-8) IMM GRAN % (test 0.50 % code = 0734742969) LYMPH % (test code 27.1 % = 736-9) MONO % (test code 9.9 % = 5905-5) EOS % (test code = 1.1 % 713-8) BASO % (test code 0.3 % = 706-2) GRAN MAT 5.32 10*3/uL 1.99-6.95 x10^3(ANC) (test code = 1428622160) IMM GRAN x10^3 0.04 10*3/uL 0.00-0.06 (test code = 3732053980) LYMPH x10^3 (test 2.36 10*3/uL 1.09-3.23 code = 731-0) MONO x10^3 (test 0.86 10*3/uL 0.36-1.02 code = 742-7) EOS x10^3 (test 0.10 10*3/uL 0.06-0.53 code = 711-2) BASO x10^3 (test 0.03 10*3/uL 0.01-0.09 code = 704-7) [facility]. METABOLIC PANEL (25723)2023-05-01 04:08:45 Test Item Value Reference Range Interpretation Comments NA (test code = 136 mmol/L 135-145 3637557698) K (test code = 4.6 mmol/L 3.5-5.0 0166767178) CL (test code = 102 mmol/L 98-108 8228642334) CO2 TOTAL (test code = 26 mmol/L 23-31 0216615158) AGAP (test code = 8 2-16 0327045799) BUN (test code = 19 mg/dL 7-23 7158818686) GLUCOSE (test code = 173 mg/dL 70-110 H 6907769126) CREATININE (test code = 0.72 mg/dL 0.60-1.25 9176451072) TOTAL BILI (test code = 0.3 mg/dL 0.1-1.7 8988771739) CALCIUM (test code = 9.2 mg/dL 8.6-10.6 8976718442) T PROTEIN (test code = 6.9 g/dL 6.3-8.2 9072862387) ALBUMIN (test code = 4.1 g/dL 3.5-5.0 5534008623) ALK PHOS (test code = 96 U/L 34-122 4468603436) ALTv (test code = 49 U/L 5-50 1742-6) AST(SGOT) (test code = 31 U/L 13-40 6607656889) eGFR (test code = 119.1 mL/min/1.73m2 8433495623) NORI (test code = NORI) Association of [...] tests). Lab Interpretation Abnormal (test code = 10744-2) [facility]44 Test Item Value Reference Range Interpretation Comments LIPASE (test code = 4908651884) 98 U/L 0-220 Lab Interpretation (test code = Normal 09992-7) [facility] [id number] 03:51:45 Test Item Value Reference Range Interpretation Comments WBC (test code = 7.75 See_Comment [Automated message] 2690-2) The system [employer] generated this result transmitted ref erence range: 4.20 - 1 0.70 10*3/?L. The re ference range was not u sed to interpret this result as normal/abnor mal. RBC (test code = 5.21 See_Comment [Automated message] 589-8) The system [employer] generated this result transmitted ref erence range: 4.26 - 5 .52 10*6/?L. The re ference range was not u sed to interpret this result as normal/abnor mal. HGB (test code = 14.7 g/dL 12.2-16.4 718-7) HCT (test code = 44.9 % 38.4-49.3 4544-3) MCV (test code = 86.2 fL 81.7-95.6 787-2) MCH (test code = 28.2 pg 26.1-32.7 785-6) MCHC (test code = 32.7 g/dL 31.2-35.0 786-4) RDW-SD (test code 40.4 fL 38.5-51.6 = 42253-3) RDW-CV (test code 13.1 % 12.1-15.4 = 788-0) PLT (test code = 292 See_Comment [Automated message] 777-3) The system [employer]returns[employer]comic h generated this result transmitted ref erence range: 150 - 32 8 10*3/?L. The re ference range was not u sed to interpret this result as normal/abnor mal. MPV (test code = 9.9 fL 9.8-13.0 31658-9) NRBC/100 WBC (test 0.0 See_Comment [Automat ed message] code = 1184931406) The syste m which generated this result transmitted ref erence range: 0.0 - 10 .0 /100 WBCs. The refer ence range was not u sed to interpret this result as normal/abnor mal. NRBC x10^3 (test See_Comment [Automated message] code = 3392613135) The syste m which generated this result transmitted ref erence range: 10*3/?L. The reference range was not used to interpr et this result as normal/abnormal . GRAN MAT (NEUT) % 62.4 % (test code = 770-8) IMM GRAN % (test 0.40 % code = 5790875061) LYMPH % (test code 25.4 % = 736-9) MONO % (test code 10.2 % = 5905-5) EOS % (test code = 1.3 % 713-8) BASO % (test code 0.3 % = 706-2) GRAN MAT 4.84 10*3/uL 1.99-6.95 x10^3(ANC) (test code = 2521770574) IMM GRAN x10^3 0.03 10*3/uL 0.00-0.06 (test code = 8412751719) LYMPH x10^3 (test 1.97 10*3/uL 1.09-3.23 code = 731-0) MONO x10^3 (test 0.79 10*3/uL 0.36-1.02 code = 742-7) EOS x10^3 (test 0.10 10*3/uL 0.06-0.53 code = 711-2) BASO x10^3 (test 0.01-0.09 code = 704-7) [id number] Test Item Value Reference Interpretation Comments Range TROPONIN I (test 0.008 ng/mL See_Comment [Automated code = 6484244337) message] The system which generated this result [...] biotin. Lab Interpretation Normal (test code = 75976-0) [facility] (96013)2022-07-28 04:03:59 Test Item Value Reference Range Interpretation Comments NA (test code = 140 mmol/L 135-145 5509717697) K (test code = 4.4 mmol/L 3.5-5 5691452022) CL (test code = 102 mmol/L 98-108 2148644443) CO2 TOTAL (test code = 29 mmol/L 23-31 5182857404) AGAP (test code = 2-16 4830772094) BUN (test code = 19 mg/dL 7-23 6031753095) GLUCOSE (test code = 137 mg/dL 70-110 H 6499424362) CREATININE (test code = 1.21 mg/dL 0.6-1.25 2895139515) TOTAL BILI (test code = 0.2 mg/dL 0.1-1.0 5473915655) CALCIUM (test code = 9.2 mg/dL 8.6-10.6 9217678335) T PROTEIN (test code = 6.5 g/dL 6.3-8.2 6971838747) ALBUMIN (test code = 4.2 g/dL 3.5-5 5653915375) ALK PHOS (test code = 98 U/L 34-122 5560455966) ALTv (test code = 48 U/L 50 1741-6) AST(SGOT) (test code = 32 U/L 13-40 1848699471) eGFR (test code = mL/min/1.73m2 0131401073) NORI (test code = NORI) Association of [...] tests). Lab Interpretation Abnormal (test code = 02488-1) [facility] Test Item Value Reference Range Interpretation Comments LIPASE (test code = 9698351767) 60 U/L 0-220 Lab Interpretation (test code = Normal 88449-5) [facility] [id number] 03:51:18 Test Item Value Reference Range Interpretation Comments WBC (test code = See_Comment [Automated message] 8590-2) The system [employer] generated this result transmitted ref erence range: 4.20 - 1 0.70 10*3/?L. The re ference range was not u sed to interpret this result as normal/abnor mal. RBC (test code = See_Comment [Automated message] 759-8) The system [employer] generated this result transmitted ref erence range: [...] RDW-SD (test code 40.0 fL 38.5-51.6 = 20853-1) RDW-CV (test code 12.9 % 12.1-15.4 = 788-0) PLT (test code = See_Comment [Automated message] 627-3) The system [employer] generated this result transmitted ref erence range: 150 - 32 8 10*3/?L. The re ference range was not u sed to interpret this result as normal/abnor mal. MPV (test code = 10.3 fL 9.8-13 56785-0) NRBC/100 WBC (test See_Comment [Automat ed message] code = 4118217080) The syste m which generated this result transmitted ref erence range: 0.0 - 10 .0 /100 WBCs. The refer ence range was not u sed to interpret this result as normal/abnor mal. NRBC x10^3 (test See_Comment [Automated message] code = 6809707584) The syste m which generated this result transmitted ref erence range: 10*3/?L. The reference range was not used to interpr et this result as normal/abnormal . GRAN MAT (NEUT) % 60.8 % (test code = 770-8) IMM GRAN % (test 0.40 % code = 9771194364) LYMPH % (test code 26.0 % = 736-9) MONO % (test code 11.7 % = 5905-5) EOS % (test code = 0.8 % 713-8) BASO % (test code 0.3 % = 706-2) GRAN MAT 4.49 10*3/uL 1.99-6.95 x10^3(ANC) (test code = 0903533128) IMM GRAN x10^3 0.03 10*3/uL 0-0.06 (test code = 9938548813) LYMPH x10^3 (test 1.92 10*3/uL 1.09-3.23 code = 731-0) MONO x10^3 (test 0.86 10*3/uL 0.36-1.02 code = 742-7) EOS x10^3 (test 0.06 10*3/uL 0.06-0.53 code = 711-2) BASO x10^3 (test 0.01-0.09 code = 704-7) [facility] 4 [id number] 11:03:13CLINICAL INDICATION: M54.5 Low back painFINDINGS:COMPARISON: NoneFive lumbar vertebrae are present. There is a normal lumbar lordosis and alignment. Disc heights are well maintained.Facet joints appearunremarkable.Vertebral body heights are well maintained. There are no fractures or dislocations . No destructive changes are seen.IMPRESSION:Negative lumbar spine series. Notes Date/Time Note Provider Source 2023-06-27 Formatting of this note might be differe nt from the original. Donny Archuleta [facility] 10:58:30-00:00 Patient wanting covid test b ecause he has been in contact with his who works at a long-term who has been in contact with covid patients. Patient has no symptoms. RN 2023-06-27 [facility] 10:50:00-00:[address] [facility] Emergency Department Note Catia Pro is a 42 year old male presenting requesting COVID 19 test. Patient asymptomatic and requesting screening test for work. Patient told by nursing in triage that screening tests n ot provided for asymptomatic COVID cases and that can get OTC COVID home test for his purposes rather than ER visit. Patient then eloped prior to me seeing patient. China Mchugh MD 06/27/23 1111 2023-06-14 [facility] 00:58:13-00:00 Pt given printed and verbal discharge instructions regarding R eye pain. Prescriptions provided Discussed ibuprofen and to take with food to summer id GI distress. Discussed Daniels side affects and to avoid driving/operating machinery/or engaging in activities requiring alertness while taking. Pt verbalized understanding of instructions, pt awake alert oriented, resp reg unlabored, skin w/d, color appropriate for race, moves all ext well,pt encouraged to follow up with pcp. Advised to seek medical attention for new/prolon ged/worsening of symptoms. No adverse reaction to meds given in ER noted up on discharge Awake, alert oriented, resp reg unlabored, skin w/d, pt leaving amb with steady gait, in no apparent distress. 2023-06-13 Formatting of this note might be differe nt from the original. Alejandra Escobedo RN [facility] 20:23:27-00:00 Pt arrived ambulatory with c omplaints of R eye pain and blurriness x 3 days. Pt reports the other morning he woke up with it bruised around the eye. Pt has been using OTC eye drops without relief. Pt do es have bruising to the R eyelid. Pt denies trau ma or injury. Pt is a diabetic but states his blood sugar has been stable. "
[2023-07-01 06:37] LABS: Absolute Lymphocytes (CBC) 1.9 K/uL (0.7-4.9); Hematocrit 44.5 % (39.6-49.0); Lymphocytes % 30.5 % (15.3-44.8); MCV 85.9 fL (80-100); MPV 8.2 fL (7.6-11.3); Platelets 280 thou/uL (152-406); RBC Red Blood Cell Count 5.18 M/uL (4.33-5.43)
[2023-07-01] MEDS ORDERED: FUROSEMIDE 40 MG/4 ML VIAL ONE (06:42)
[2023-07-01 07:00] LABS: Albumin 3.5 g/dL (3.4-5.0); Bilirubin Direct 0.1 mg/dL (0-0.2); Bilirubin Indirect, Calculated 0.2 mg/dL (0.2-0.8); Bilirubin Total 0.3 mg/dL (0.2-1.0); Magnesium 2.2 mg/dL (1.6-2.4); Potassium 4.4 mEq/L (3.5-5.1); Protein, Total 7.2 g/dL (6.4-8.2); Troponin High Sensitivity 10.9 pg/mL (<58.9)
--- NOTE | 2023-07-01 08:17 | RAD REPORT ---
EXAM DESCRIPTION: CT - Chest For Pe Angio - 07/01/2023 8:07 am CLINICAL HISTORY: DYSPNEA COMPARISON: No comparisons TECHNIQUE: Dynamically enhanced axial 3 mm thick images of the chest were obtained during administra tion of <100> mL Isovue 370 IV contrast. Coronal and oblique reconstruction images were generated and reviewed. Exam utilizes a protocol for optimal evaluation of pulmonary arterial tree. Maximum intensity projections 3D imaging was utilized All CT scans are performed using dose optimization technique as appropriate and may include automated exposure control or mA/KV adjustment according to patient size. FINDINGS: Chest Wall: No suspicious thyroid nodules or pathologic lymphadenopathy. Lungs: No acute abnormality. Pleura: No significant effusions or pneumothorax. Mediastinum/tim: No pathologic lymphadenopathy. Mild circumferential thickened distal esophagus. Pulmonary arteries/Aorta: The subsegmental pulmonary arteries are not well evaluated due to motion an d suboptimal contrast opacification. No pulmonary embolus identified. No aortic aneurysm. Heart: No significant pericardial effusion. Normal heart size. Upper abdomen: No acute abnormality.Hepatic steatosis. Bones: No acute abnormality. IMPRESSION: Negative for pulmonary embolism. No acute findings in the chest.
--- NOTE | 2023-07-01 08:42 | EDPHYS ---
Physician Documentation [facility] Name: Javad Pro Age: 42 yrs Sex: Male : 1980 Arrival Date: 07/01/2023 Time: 05:53 Bed 4 Private MD: JONO JI ED Physician Arturo Kohler HPI: 07/01 06:52 This 42 yrs old Male presents to ER via Ambulatory with complaints of Breathing rt Difficulty, Nausea, Low Back Pain, Neck Pain, <24hrs Old. 06:52 Patient presents to the ED with 2 days of nonproductive cough, shortness of breath, has rt been progressively worsening. He does report orthopnea but no dyspnea on exertion. Denies chest pain. Denies other acute complaints at this time. Symptoms are moderate in severity, no other aggravating or alleviating factors.. Historical: - Allergies: 06:24 Codeine; pf1 06:24 Peanut; pf1 06:24 PENICILLINS; pf1 - PMHx: 06:24 CHF; diabetes mellitus; Hypertension; Sleep Apnea; Chronic back pain; pf1 - PSHx: 06:24 left inguinal hernia; umbilical hernia; pf1 - Immunization history:: Adult Immunizations up to date, Client reports receiving the 2nd dose of the Covid vaccine, Last tetanus immunization: < 5 years ago Pneumococcal vaccine is up to date, Flu vaccine is up to date. - Social history:: Smoking status: Patient denies any tobacco usage or history of. Patient/guardian denies using alcohol, street drugs, patient stated quit drinking alcohol 6 months ago.. - Family history:: not pertinent. ROS: 06:52 Constitutional: Negative for fever, chills, and weight loss, Cardiovascular: Negative rt for chest pain, palpitations, and edema, Abdomen/GI: Negative for abdominal pain, nausea, vomiting, diarrhea, and constipation, Skin: Negative for injury, rash, and discoloration, Neuro: Negative for headache, weakness, numbness, tingling, and seizure, Psych: Negative for depression, anxiety, suicide ideation, homicidal ideation, and hallucinations. 06:52 Respiratory: Positive for cough, shortness of breath. Exam: 06:52 Constitutional: This is a well developed, well nourished patient who is awake, alert, rt and in no acute distress. Head/Face: Normocephalic, atraumatic. Chest/axilla: Normal chest wall appearance and motion. Nontender with no deformity. No lesions are appreciated. Cardiovascular: Regular rate and rhythm with a normal S1 and S2. No gallops, murmurs, or rubs. Normal PMI, no JVD. No pulse deficits. Abdomen/GI: Soft, non-tender, with normal bowel sounds. No distension or tympany. No guarding or rebound. No evidence of tenderness throughout. Skin: Warm, dry with normal turgor. Normal color with no rashes, no lesions, and no evidence of cellulitis. MS/ Extremity: Pulses equal, no cyanosis. Neurovascular intact. Full, normal range of motion. Neuro: Awake and alert, GCS 15, oriented to person, place, time, and situation. Cranial nerves II-XII grossly intact. Motor strength 5/5 in all extremities. Sensory grossly intact. Cerebellar exam normal. Normal gait. Psych: Awake, alert, with orientation to person, place and time. Behavior, mood, and affect are within normal limits. 06:52 ECG was reviewed by the Attending Physician. 06:52 Respiratory: Pain bibasilar crackles, no respiratory distress. 08:42 Neck: External neck: is normal, no acute changes, ROM/movement: is normal, no acute dmitri changes. 08:42 Chest/axilla: Inspection: normal, no abrasion, no abscess, no assymetry, no cellulitis, no deformity, no ecchymosis, no evidence of flail chest, no paradoxical chest wall movement, no puncture, no rash, no scar(s), Palpation: is normal, Axilla: are normal, no acute changes. 08:42 Cardiovascular: Rate: normal, actual rate is 79 bpm, Rhythm: regular, Pulses: no pulse deficits are appreciated, Heart sounds: normal, Edema: is not appreciated, JVD: is not appreciated. 08:42 Musculoskeletal/extremity: DVT Exam: No signs of deep vein thrombosis. no pain, no swelling, no tenderness, negative Homans' sign noted on exam, no appreciated bluish discoloration, no erythema, no increased warmth. Vital Signs: 05:58 BP 147 / 91; Pulse 72; Resp 18; Temp 97.2; Pulse Ox 97% on R/A; Weight 128.37 kg; pf1 Height 5 ft. 9 in. ; Pain 8/10; 06:03 BP 147 / 91; Pulse 77; Resp 17 S; Pulse Ox 97% on R/A; jw7 06:30 BP 131 / 89; Pulse 76; Resp 16 S; Pulse Ox 95% on R/A; jw7 08:23 BP 145 / 96; Pulse 79; Resp 16; Pulse Ox 96% ; bp 05:58 Body Mass Index 41.79 (128.37 kg, 175.26 cm) pf1 05:58 Pain Scale: Adult pf1 MDM: 06:12 Patient medically screened. rt 08:38 Differential diagnosis: Anemia asthma, Bronchitis CHF exacerbation, Chronic Obstructive dmitri Pulmonary Disease pneumonia, Pneumothorax pulmonary edema, Pulmonary Embolism reactive airway disease, Unstable Angina. Antibiotic administration: Not indicated. Immunization status:. Data reviewed: vital signs, nurses notes, lab test result(s), EKG, radiologic studies. Consideration of Admission/Observation Escalation of care including admission/observation considered. I considered the following discharge prescriptions or medication management in the emergency department Medications were administered in the Emergency Department. See MAR. Independent interpretation of the following test(s) in the Emergency Department EKG: See my EKG interpretation above. Test considered but Not performed: Ultrasound NO ECHO. Care significantly affected by the following chronic conditions: Diabetes, Hypertension, Obesity. 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 07/01 06:20 Order name: Basic Metabolic Panel; Complete Time: 07:34 rt 07/01 06:20 Order name: CBC with Diff; Complete Time: 07:34 rt 07/01 06:20 Order name: LFT's; Complete Time: 07:34 rt 07/01 06:20 Order name: Magnesium; Complete Time: 07:34 rt 07/01 06:20 Order name: NT PRO-BNP; Complete Time: 07:34 rt 07/01 06:20 Order name: Troponin HS; Complete Time: 07:34 rt 07/01 06:20 Order name: Influenza Screen (a \T\ B); Complete Time: 07:34 rt 07/01 06:26 Order name: COVID-19 SARS RT PCR; Complete Time: 07:34 kd3 07/01 07:39 Order name: Troponin High Sensitivity; Complete Time: 08:38 dmitri 07/01 06:20 Order name: XRAY Chest (1 view) rt 07/01 07:39 Order name: CT Chest For PE Angio; Complete Time: 08:38 dmitri 07/01 06:20 Order name: EKG; Complete Time: 06:21 rt 07/01 06:20 Order name: Cardiac monitoring; Complete Time: 06:22 rt 07/01 06:20 Order name: EKG - Nurse/Tech; Complete Time: 06:22 rt 07/01 06:20 Order name: IV Saline Lock; Complete Time: 06:36 rt 07/01 06:20 Order name: Labs collected and sent; Complete Time: 06:36 rt 07/01 06:20 Order name: O2 Per Protocol; Complete Time: 06:22 rt 07/01 06:20 Order name: O2 Sat Monitoring; Complete Time: 06:22 rt EC:52 Rate is 79 beats/min. Rhythm is regular, Normal Sinus Rhythm with Right bundle branch rt block. QRS [place] is Normal. MI interval is normal. QRS interval is normal. QT interval is normal. No Q waves. Interpreted by me. Administered Medications: 06:37 Drug: Furosemide IVP 40 mg Route: IVP; Site: right antecubital; jw7 Disposition Summary: 07/01/23 08:41 Discharge Ordered Location: Home dmitri Problem: new dmitri Symptoms: have improved dmitri Condition: Stable dmitri Diagnosis - Dyspnea dmitri - Obesity, unspecified dmitri - Essential (primary) hypertension dmitri Followup: dmitri - With: JONO JI - When: 2 - 3 days - Reason: Recheck today's complaints, Continuance of care, Re-evaluation by your physician Followup: dmitri - With: Miguel Chu MD - When: 2 - 3 days - Reason: Recheck today's complaints, Re-evaluation by your physician Discharge Instructions: - Discharge Summary Sheet dmitri - Hypertension, Adult dmitri - Obesity, Adult dmitri - Hypertension, Adult, [id number] dmitri - How to Take Your Blood Pressure, Jloy-cl-Vpzt dmitri - Aspirin and Your Heart dmitri - Managing Your Hypertension dmitri - Obesity, Adult, Gbqi-[id number]-[id number] dmitri Forms: - Medication Reconciliation Form dmitri - Thank You Letter dmitri - Antibiotic Education dmitri - Prescription Opioid Use dmitri - Patient Portal Instructions dmitri - Leadership Thank You Letter dmitri Signatures: Dispatcher [employer] EDArturo Wilkerson MD MD cha Waits, Jodi, RN RN jw7 Getachew Garcia MD MD rt Finley, Pamala, RN RN pf1 Corrections: (The following items were deleted from the chart) 06:36 06:21 SARS-COV-2 Antigen Rapid+I.LAB.BRZ ordered. EDMS EDMS
--- NOTE | 2023-07-01 08:42 | ER ---
Nurse's Notes [facility] Name: Javad Pro Age: 42 yrs Sex: Male : 1980 Arrival Date: 07/01/2023 Time: 05:53 Bed 4 Private MD: JONO JI Diagnosis: Dyspnea;Obesity, unspecified;Essential (primary) hypertension Presentation: 07/01 05:58 Chief complaint: Patient states: SOB with nausea,onset 2 days with nonproductive pf1 cough,onset last night. Patient also C/O right side neck pain,onset 2 days ago, patient stated possibly slept wrong and chronic lower back pain ,worse last night. 05:58 Coronavirus screen: Vaccine status: Patient reports receiving the 2nd dose of the covid pf1 vaccine. [employer] Client denies travel out of the [place] in the last 14 days. Client presents with at least one sign or symptom that may indicate coronavirus-19. Ebola Screen: Patient negative for fever greater than or equal to 101.5 degrees Fahrenheit, and additional compatible Ebola Virus Disease symptoms. Initial Sepsis Screen: Does the patient meet any 2 criteria? No. Patient's initial sepsis screen is negative. Does the patient have a suspected source of infection? No. Patient's initial sepsis screen is negative. Risk Assessment: Do you want to hurt yourself or someone else? Patient reports no desire to harm self or others. 05:58 Method Of Arrival: Ambulatory pf1 05:58 Acuity: MOIZ 3 pf1 06:39 Onset of symptoms. jw7 Triage Assessment: 06:38 General: Appears in no apparent distress. comfortable, Behavior is calm, cooperative. jw7 06:39 Pain: Complains of pain in neck, back of neck and back Pain does not radiate. Pain jw7 began 2-3 days ago. EENT: No deficits noted. No signs and/or symptoms were reported regarding the EENT system. Neuro: No deficits noted. Carroll Agitation-Sedation Scale (RASS): 0 - Alert and Calm Level of Consciousness is awake, alert, obeys commands, Oriented to person, place, time, situation. Cardiovascular: No deficits noted. Capillary refill < 3 seconds Clubbing of nail beds is absent JVD is absent Patient's skin is warm and dry. Respiratory: Reports shortness of breath cough that is Airway is patent Trachea midline Respiratory effort is even, unlabored, Respiratory pattern is regular, symmetrical. GI: No deficits noted. No signs and/or symptoms were reported involving the gastrointestinal system. Abdomen is round non-distended. : No deficits noted. No signs and/or symptoms were reported regarding the genitourinary system. Derm: No deficits noted. No signs and/or symptoms reported regarding the dermatologic system. Skin is intact, is healthy with good turgor, Skin is dry, Skin is pink, warm \T\ dry. Skin temperature is warm. Musculoskeletal: No deficits noted. No signs and/or symptoms reported regarding the musculoskeletal system. Circulation, motion, and sensation intact. Capillary refill < 3 seconds, Range of motion: intact in all extremities. Historical: - Allergies: 06:24 Codeine; pf1 06:24 Peanut; pf1 06:24 PENICILLINS; pf1 - PMHx: 06:24 CHF; diabetes mellitus; Hypertension; Sleep Apnea; Chronic back pain; pf1 - PSHx: 06:24 left inguinal hernia; umbilical hernia; pf1 - Immunization history:: Adult Immunizations up to date, Client reports receiving the 2nd dose of the Covid vaccine, Last tetanus immunization: < 5 years ago Pneumococcal vaccine is up to date, Flu vaccine is up to date. - Social history:: Smoking status: Patient denies any tobacco usage or history of. Patient/guardian denies using alcohol, street drugs, patient stated quit drinking alcohol 6 months ago.. - Family history:: not pertinent. Screenin:37 [facility] ED Fall Risk Assessment (Adult) History of falling in the last 3 months, jw7 including since admission No falls in past 3 months (0 pts) Score/Fall Risk Level 0 - 2 = Low Risk. Abuse screen: Denies threats or abuse. Denies injuries from another. Nutritional screening: No deficits noted. Tuberculosis screening: No symptoms or risk factors identified. Assessment: 06:56 Reassessment: Patient appears in no apparent distress at this time. No changes from jw7 previously documented assessment. Patient and/or family updated on plan of care and expected duration. Pain level reassessed. Patient is alert, oriented x 3, equal unlabored respirations, skin warm/dry/pink. 08:23 Reassessment: PT RETURNED FROM CT. DISPO PENDING. bp Vital Signs: 05:58 BP 147 / 91; Pulse 72; Resp 18; Temp 97.2; Pulse Ox 97% on R/A; Weight 128.37 kg; pf1 Height 5 ft. 9 in. ; Pain 8/10; 06:03 BP 147 / 91; Pulse 77; Resp 17 S; Pulse Ox 97% on R/A; jw7 06:30 BP 131 / 89; Pulse 76; Resp 16 S; Pulse Ox 95% on R/A; jw7 08:23 BP 145 / 96; Pulse 79; Resp 16; Pulse Ox 96% ; bp 05:58 Body Mass Index 41.79 (128.37 kg, 175.26 cm) pf1 05:58 Pain Scale: Adult pf1 ED Course: 05:57 Patient arrived in ED. es 05:58 JONO JI is Private Physician. es 06:12 Getachew Garcia MD is Attending Physician. rt 06:21 Teagan Bragg RN is Primary Nurse. jw7 06:24 Triage completed. pf1 06:27 Inserted saline lock: 20 gauge in right antecubital area, using aseptic technique. kd3 Blood collected. 06:31 COVID-19 SARS RT PCR Sent. jw7 06:31 Influenza Screen (a \T\ B) Sent. jw7 06:33 XRAY Chest (1 view) In Process Unspecified. EDMS 06:37 Influenza Screen (a \T\ B) Sent. jw7 06:37 Patient has correct armband on for positive identification. Bed in low position. Call jw7 light in reach. Side rails up X 1. 06:42 Arm band placed on. jw7 07:08 Attending Physician role handed off by Getachew Garcia MD dmitri 07:08 Arturo Kohler MD is Attending Physician. dmitri 08:09 CT Chest For PE Angio In Process Unspecified. EDMS 08:40 JONO JI is Referral Physician. dmitri 08:41 Miguel Chu MD is Referral Physician. dmitri 08:48 No provider procedures requiring assistance completed. IV discontinued, intact, bp bleeding controlled, No redness/swelling at site. Pressure dressing applied. Administered Medications: 06:37 Drug: Furosemide IVP 40 mg Route: IVP; Site: right antecubital; jw7 Outcome: 08:41 Discharge ordered by . dmitri 08:48 Discharged to home ambulatory. bp 08:48 Condition: stable 08:48 Discharge instructions given to patient, Instructed on discharge instructions, follow up and referral plans. Demonstrated understanding of instructions, follow-up care. 08:48 Patient left the ED. bp Signatures: Dispatcher [employer] Arturo Portillo MD MD cha Salyer, Edna es Peltier, Brian, RN RN bp Divine Arambula, RN RN kd3 Teagan Bragg RN RN jw7 Getachew Garcia MD MD rt Finley, Pamala RN RN pf1
[2023-07-01 09:01] VITALS: TEMP 97.2
[2023-07-01 09:14] VITALS: BP 145/96; O2SAT 96
--- NOTE | 2023-07-01 12:33 | RAD REPORT ---
EXAM DESCRIPTION: RAD - Chest Single View - 07/01/2023 6:31 am TECHNIQUE: Chest radiograph single view. CLINICAL HISTORY: Shortness of breath COMPARISON: None . FINDINGS: Heart: Normal. Mediastinum/Vessels: Normal. Lungs/Pleural space: No infiltrate, effusion, or pneumothorax. Bony thorax: No acute osseous abnormality. Life support devices: None. IMPRESSION: 1. No radiographic evidence of acute cardiopulmonary disease process. Electronically signed by: Jackie Singh MD 07/01/2023 6:46 AM CDT Due to temporary technical issues with the PACS/Fluency reporting system, reports are being signed by the in house radiologist without review as a courtesy to ensure prompt reporting. The interpreting r adiologist is fully responsible for the content of the report.
--- NOTE | 2023-07-01 18:11 | EKG ---
Test Date: 2023-07-01 Test Time: 06:06:36 Health Care Recruiter: MAN MEASUREMENT RESULTS: Intervals: Rate: 79 GA: 118 QRSD: 126 QT: 374 QTc: 428 [place]: P: 25 GA: 118 QRS: 71 T: 34 INTERPRETIVE STATEMENTS: Normal sinus rhythm Right bundle branch block Abnormal ECG Compared to ECG 04/10/2022 13:28:43 No significant changes Electronically Signed On 07-01-23 18:01:57 CDT by Miguel Chu
== END 2023-07-01 08:48 | disposition home or self-care (01) ==
LOC: ER 05:53
DX: R06.00 Dyspnea, unspecified (principal); E66.9 Obesity, unspecified; Z68.41 Body mass index [BMI] 40.0-44.9, adult; I10 Essential (primary) hypertension; I50.9 Heart failure, unspecified; E11.9 Type 2 diabetes mellitus without complications; Z20.822 Contact with and (suspected) exposure to COVID-19; Z88.0 Allergy status to penicillin; Z88.5 Allergy status to narcotic agent; Z91.010 Allergy to peanuts
CPT/HCPCS: 93005; 85025; 80048; 36415; 83735; 80076; 84484 ×2; 83880; 87635; 87804 ×2; 71275; 71045; 96374; 99284; Q9967; J1940

== ENCOUNTER 2024-02-06 00:28 | Emergency (ER) | payer OTHER ==
[2024-02-06] MEDS ORDERED: NA CHLORIDE 0.9% 1,000 ML ONE (01:32)
[2024-02-06] MEDS ORDERED: MORPHINE 4 MG/ML SYR ONE (01:32)
[2024-02-06] MEDS ORDERED: KETOROLAC 30 MG/ML INJ ONE (01:32)
[2024-02-06 01:39] LABS: Absolute Eosinophils 0.1 K/uL (0-0.5); Absolute Lymphocytes (CBC) 1.9 K/uL (0.7-4.9); Absolute Monocytes 0.7 K/uL (0.1-1.3); Basophils % 0.3 % (0-1.3); Eosinophils % 1.3 % (0-4.4); Hemoglobin 14.4 g/dL (13.6-17.9); Lymphocytes % 28.2 % (15.3-44.8); MCH 28.3 pg (27.0-35.0); MCHC 33.4 g/dL (32.0-36.0); MCV 84.8 fL (80-100); MPV 8.3 fL (7.6-11.3); Neutrophils % 59.2 % (41.7-73.7); Nucleated Red Blood Cells % 0.1 % (0-0); Platelets 269 thou/uL (152-406); RBC Red Blood Cell Count 5.07 M/uL (4.33-5.43); Red Cell Distribution Width 13.9 % (12.1-15.2)
--- NOTE | 2024-02-06 03:58 | ER ---
Nurse's Notes [facility] Name: Javad Pro Age: 43 yrs Sex: Male : 1980 Arrival Date: 02/06/2024 Time: 00:28 Bed 14 Private MD: Diagnosis: Lipoma of the left lateral lower neck Presentation: 02/05 00:50 Chief complaint: Patient states: painful lump on left side of neck. Coronavirus screen: vc1 Vaccine status: Patient reports receiving the 2nd dose of the covid vaccine. At this time, the client does not indicate any symptoms associated with coronavirus-19. Ebola Screen: Patient negative for fever greater than or equal to 101.5 degrees Fahrenheit, and additional compatible Ebola Virus Disease symptoms Patient denies exposure to infectious person. Patient denies travel to an Ebola-affected area in the 21 days before illness onset. No symptoms or risks identified at this time. Initial Sepsis Screen: Does the patient meet any 2 criteria? No. Patient's initial sepsis screen is negative. Does the patient have a suspected source of infection? No. Patient's initial sepsis screen is negative. Risk Assessment: Do you want to hurt yourself or someone else? Patient reports no desire to harm self or others. Onset of symptoms is unknown. 00:50 Method Of Arrival: Ambulatory vc1 00:50 Acuity: MOIZ 4 vc1 Triage Assessment: 00:55 General: Appears in no apparent distress. uncomfortable, obese, Behavior is calm, vc1 cooperative, appropriate for age. Pain: Complains of pain in left anterior aspect of neck and left lateral aspect of neck Pain radiates to left jaw Pain currently is 10 out of 10 on a pain scale. Quality of pain is described as pressure. EENT: lump to lateral left neck. Neuro: Level of Consciousness is awake, alert, obeys commands, Oriented to person, place, time, situation, Appropriate for age. Cardiovascular: No deficits noted. Heart tones S1 S2. Respiratory: Airway is patent Respiratory effort is even, unlabored, Respiratory pattern is regular, symmetrical, Breath sounds are clear bilaterally. GI: Abdomen is round non-distended. : No deficits noted. No signs and/or symptoms were reported regarding the genitourinary system. Derm: lump to lateral left neck. Musculoskeletal: No deficits noted. No signs and/or symptoms reported regarding the musculoskeletal system. Historical: - Allergies: 00:51 Codeine; vc1 00:51 Peanut; vc1 00:51 PENICILLINS; vc1 00:51 Jardiance; vc1 - Home Meds: 00:51 Lasix oral [Active]; lisinopril oral [Active]; Metformin Oral [Active]; rosuvastatin vc1 oral [Active]; Potassium Chloride Oral [Active]; - PMHx: 00:51 CHF; chronic back pain; diabetes mellitus; Hypertension; Sleep Apnea; vc1 - PSHx: 00:51 left inguinal hernia; Umbilical hernia; vc1 - Immunization history:: Client reports receiving the 2nd dose of the Covid vaccine, Pneumococcal vaccine is up to date, Flu vaccine is up to date. - Social history:: Smoking status: Patient denies any tobacco usage or history of. Screenin:55 Abuse screen: Denies threats or abuse. Nutritional screening: No deficits noted. vc1 Tuberculosis screening: No symptoms or risk factors identified. 01:10 [facility] ED Fall Risk Assessment (Adult) History of falling in the last 3 months, vc1 including since admission No falls in past 3 months (0 pts) Confusion or Disorientation No (0 pts) Intoxicated or Sedated No (0 pts) Impaired Gait No (0 pts) Mobility Assist Device Used No (0 pt) Altered Elimination No (0 pt) Score/Fall Risk Level 0 - 2 = Low Risk Oriented to surroundings, Maintained a safe environment, Educated pt \T\ family on fall prevention, incl call for assistance when getting out of bed. Assessment: 00:57 General: See triage assessment. vc1 02:48 Reassessment: Patient and/or family updated on plan of care and expected duration. Pain vc1 level reassessed. Patient is alert, oriented x 3, equal unlabored respirations, skin warm/dry/pink. Patient states feeling better. Patient states symptoms have improved. Vital Signs: 00:50 BP 136 / 76; Pulse 97; Resp 16; Temp 98.8; Pulse Ox 96% ; Weight 127.01 kg; Height 5 vc1 ft. 9 in. ; Pain 1010; 02:49 BP 132 / 72; Pulse 94; Resp 16; Pulse Ox 97% ; vc1 00:50 Body Mass Index 41.35 (127.01 kg, 175.26 cm) vc1 00:50 Pain Scale: Adult vc1 ED Course: 00:30 Patient arrived in ED. ra3 00:33 [facility] kb 00:33 Mir De Jesus MD is Attending Physician. kb 00:50 Janett Oconnor, JOSE ALFREDO is Primary Nurse. vc1 00:51 Triage completed. vc1 00:54 Arm band placed on right wrist. vc1 00:57 Patient has correct armband on for positive identification. Bed in low position. Call vc1 light in reach. Adult w/ patient. Pulse ox on. NIBP on. 01:10 Initial lab(s) drawn, by me. Inserted saline lock: 22 gauge in left antecubital area, vc1 using aseptic technique. Blood collected. 01:10 CBC with Diff Sent. vc1 01:10 Basic Metabolic Panel Sent. vc1 02:37 CT Soft Tissue Neck W/contr In Process Unspecified. EDMS 03:56 Caren Trejo MD is Referral Physician. sp4 04:05 Provided Education on:. vc1 04:05 No provider procedures requiring assistance completed. IV discontinued, intact, vc1 bleeding controlled, No redness/swelling at site. Pressure dressing applied. 04:11 Provided Education on: follow up with Dr. Trejo. vc1 Administered Medications: 01:40 Drug: NS 0.9% IV 1000 ml IV at 1 bolus Per protocol; 1000 mL bolus Route: IV; Rate: 1 vc1 bolus; Site: right antecubital; 04:04 Follow up: IV Status: Completed infusion; IV Intake: 1000ml vc1 01:40 Drug: morphine IVP or IV 4 mg IVP once over 4 mins Route: IVP; Infused Over: 4 mins; vc1 Site: right antecubital; 04:04 Follow up: Response: No adverse reaction; Marked relief of symptoms; Pain is decreased vc1 01:40 Drug: Ketorolac IVP 30 mg IVP once Route: IVP; Site: right antecubital; vc1 04:04 Follow up: Response: No adverse reaction; Marked relief of symptoms; Pain is decreased vc1 Medication: 00:57 VIS not applicable for this client. vc1 Intake: 04:04 IV: 1000ml; Total: 1000ml. vc1 Outcome: 03:57 Discharge ordered by . sp4 04:05 Discharged to home ambulatory, with significant other, vc1 04:05 Condition: good 04:05 Discharge instructions given to patient, Instructed on discharge instructions, follow up and referral plans. medication usage, Demonstrated understanding of instructions, follow-up care, medications, Prescriptions given X 1, 04:12 Patient left the ED. vc1 Signatures: Dispatcher [employer] EDAK Danni Sadler, MAGDY ROWLAND-Janett Carlson RN RN vc1 Mir De Jesus MD MD sp4 Candace Castillo ra3
--- NOTE | 2024-02-06 03:58 | EDPHYS ---
Physician Documentation [facility] Name: Javad Pro Age: 43 yrs Sex: Male : 1980 Arrival Date: 02/06/2024 Time: 00:28 Bed 14 Private MD: ED Physician Mir De Jesus HPI: 02/05 00:34 This 43 yrs old Male presents to ER via Unassigned with complaints of painful sp4 lump on neck. 00:38 Patient is a 43-year-old male with a history of CHF, diabetes and hypertension who kb presents for swelling to the left side of his neck that started this morning and is gotten worse throughout the day. Denies fever, shortness of breath, chest pain. Reports pain with palpation.. Historical: - Allergies: 00:51 Codeine; vc1 00:51 Peanut; vc1 00:51 PENICILLINS; vc1 00:51 Jardiance; vc1 - Home Meds: 00:51 Lasix oral [Active]; lisinopril oral [Active]; Metformin Oral [Active]; rosuvastatin vc1 oral [Active]; Potassium Chloride Oral [Active]; - PMHx: 00:51 CHF; chronic back pain; diabetes mellitus; Hypertension; Sleep Apnea; vc1 - PSHx: 00:51 left inguinal hernia; Umbilical hernia; vc1 - Immunization history:: Client reports receiving the 2nd dose of the Covid vaccine, Pneumococcal vaccine is up to date, Flu vaccine is up to date. - Social history:: Smoking status: Patient denies any tobacco usage or history of. ROS: 00:38 Constitutional: As per HPI kb Exam: 00:38 Constitutional: This is a well developed, well nourished patient who is awake, alert, kb and in no acute distress. Head/Face: Normocephalic, atraumatic. ENT: Moist Mucous membranes Cardiovascular: Regular rate Respiratory: Respirations even and unlabored. No increased work of breathing. Talking in full sentences Abdomen/GI: Soft, non-tender. No distention Skin: Warm, dry with normal turgor. Normal color. MS/ Extremity: Pulses equal, no cyanosis. Neurovascular intact. Full, normal range of motion. Neuro: Awake and alert, GCS 15, oriented to person, place, time, and situation. Moves all extremities. Normal gait. 00:38 Neck: External neck: swelling, that is mild, that is moderate, of the left lateral aspect of neck and left anterior aspect of neck, Vital Signs: 00:50 BP 136 / 76; Pulse 97; Resp 16; Temp 98.8; Pulse Ox 96% ; Weight 127.01 kg; Height 5 vc1 ft. 9 in. ; Pain 10/10; 02:49 BP 132 / 72; Pulse 94; Resp 16; Pulse Ox 97% ; vc1 00:50 Body Mass Index 41.35 (127.01 kg, 175.26 cm) vc1 00:50 Pain Scale: Adult vc1 MDM: 00:33 Patient medically screened. kb 00:38 Data reviewed: vital signs, nurses notes. Transition of care: After a detail discussion kb of the patient's case, care is transferred to Mir De Jesus MD. 03:49 Differential Diagnosis altered mental status, sepsis, flu, Neck mass . ED course: CT - sp4 EXAM FINDINGS: The visualized portions of the brain and orbits are normal. The oral cavity, oropharynx and nasopharynx are normal. Some portions of the oral cavity and oropharynx are obscured by streak artifact related to the patient's dental hardware. The parapharyngeal fat planes are preserved. The hypopharynx is unremarkable. The epiglottis and aryepiglottic folds are normal. The vallecula and pyriform sinuses are grossly normal. The preepiglottic fat is preserved. The thyroid, cricoid and arytenoid cartilages are normal. The region of the false and true vocal cords is normal as is the anterior commissure. The parotid and submandibular glands are grossly within normal limits. No intrinsic mass lesions are seen. . The carotid sheaths are normal bilaterally. There is mild mucosal thickening of the left maxillary sinus. Otherwise, the paranasal sinuses and mastoid air cells are clear. No definite pathologically enlarged lymph nodes are identified The thyroid gland is normal in size and configuration. The thoracic inlet is normal. The superior mediastinum and lung apices are normal. No acute osseous abnormalities are identified. No definite focal soft tissue abnormalities are identified. There is asymmetric fat density within the left supraclavicular region which may be due to a lipoma. Otherwise, no focal soft tissue mass lesions or fluid collections are seen. There are no focal pathologic areas of enhancement. IMPRESSION: 1. Asymmetric fat density within the left supraclavicular region which may be due to a lipoma. Otherwise, no definite focal soft tissue abnormalities are identified along the left side of the neck near the shoulder. 2. Mild mucosal thickening of the left maxillary sinus. 3. Otherwise, unremarkable CT scan of the soft tissues of the neck. . 02/05 00:37 Order name: CBC with Diff; Complete Time: 03:24 kb 02/05 00:37 Order name: Basic Metabolic Panel; Complete Time: 03:24 kb 02/05 00:37 Order name: CT Soft Tissue Neck W/contr kb 02/05 00:37 Order name: IV Start; Complete Time: 01:10 kb Administered Medications: 01:40 Drug: NS 0.9% IV 1000 ml IV at 1 bolus Per protocol; 1000 mL bolus Route: IV; Rate: 1 vc1 bolus; Site: right antecubital; 04:04 Follow up: IV Status: Completed infusion; IV Intake: 1000ml vc1 01:40 Drug: morphine IVP or IV 4 mg IVP once over 4 mins Route: IVP; Infused Over: 4 mins; vc1 Site: right antecubital; 04:04 Follow up: Response: No adverse reaction; Marked relief of symptoms; Pain is decreased vc1 01:40 Drug: Ketorolac IVP 30 mg IVP once Route: IVP; Site: right antecubital; vc1 04:04 Follow up: Response: No adverse reaction; Marked relief of symptoms; Pain is decreased vc1 Disposition: 01:22 Co-signature as Attending Physician, Mir De Jesus MD I agree with the assessment sp4 and plan of care. I reviewed the patient's care provided by Advanced Practice Provider \T\ agree w/ the diagnosis \T\ care plan. I personally saw the pt \T\ performed a substantive portion of the visit, incldng all aspects of the (History/Exam/Medical Decision Making). Disposition Summary: 02/06/24 03:57 Discharge Ordered Notes: Location: Home sp4 Problem: new sp4 Symptoms: have improved sp4 Condition: Stable sp4 Diagnosis - Lipoma of the left lateral lower neck sp4 Followup: sp4 - With: Caren Trejo MD - When: 10 - 14 days - Reason: Recheck today's complaints Discharge Instructions: - Discharge Summary Sheet sp4 - Lipoma sp4 Forms: - Work release form vc1 - Patient Portal Instructions sp4 Prescriptions: - naproxen 500 mg Oral tablet - take 1 tablet ORAL route 2 times per day PRN pain; 60 tablet; Refills: 0, sp4 Product Selection Permitted Signatures: Dispatcher [employer] Danni Frias, Janett Howard RN RN vc1 Mir De Jesus MD MD sp4
[2024-02-06 04:49] VITALS: BP 132/72; TEMP 98.8; O2SAT 97
--- NOTE | 2024-02-06 13:33 | RAD REPORT ---
EXAM DESCRIPTION: CT neck with intravenous contrast CLINICAL HISTORY: 43 years Male pain and swelling to left neck. TECHNIQUE: Axial CT imaging of the soft tissues of the neck were performed following the administrat ion of intravenous contrast. followed by sagittal and coronal reconstructed images. The CT study is p erformed according to ALARA (as low as reasonably achievable) or ALARA/IMAGE GENTLY, with automatic a djustment of mA and/or kV according to patient size. Performed on: 02/06/2024 at 2:02 AM COMPARISON: No prior studies were available for comparison.. FINDINGS: The visualized portions of the brain and orbits are normal. The oral cavity, oropharynx and nasopharynx are normal. Some portions of the oral cavity and orophary nx are obscured by streak artifact related to the patient's dental hardware. The parapharyngeal fa t planes are preserved. The hypopharynx is unremarkable. The epiglottis and aryepiglottic folds are normal. The vallecula and pyriform sinuses are grossly nor mal. The preepiglottic fat is preserved. The thyroid, cricoid and arytenoid cartilages are normal. The region of the false and true vocal cords is normal as is the anterior commissure. The parotid and submandibular glands are grossly within normal limits. No intrinsic mass lesions are seen. . The carotid sheaths are normal bilaterally. There is mild mucosal thickening of the left maxillary sinus. Otherwise, the paranasal sinuses and ma stoid air cells are clear. No definite pathologically enlarged lymph nodes are identified The thyroid gland is normal in size and configuration. The thoracic inlet is normal. The superior mediastinum and lung apices are normal. No acute osseous abnormalities are identified. No definite focal soft tissue abnormalities are identified. There is asymmetric fat density within th e left supraclavicular region which may be due to a lipoma. Otherwise, no focal soft tissue mass lesi ons or fluid collections are seen. There are no focal pathologic areas of enhancement. IMPRESSION: 1. Asymmetric fat density within the left supraclavicular region which may be due to a lipoma. Otherwise, no definite focal soft tissue abnormalities are identified along the left side of the neck near the shoulder. 2. Mild mucosal thickening of the left maxillary sinus. 3. Otherwise, unremarkable CT scan of the soft tissues of the neck. Electronically signed by: Janeth Suazo DO 02/06/2024 03:44 AM CDT Due to temporary technical issues with the PACS/Fluency reporting system, reports are being signed by the in house radiologist without review as a courtesy to ensure prompt reporting. The interpreting r adiologist is fully responsible for the content of the report.
== END 2024-02-06 04:12 | disposition home or self-care (01) ==
LOC: ER 00:28
DX: D17.0 Benign lipomatous neoplasm of skin and subcutaneous tissue of head, face and neck (principal); Z88.0 Allergy status to penicillin; Z88.5 Allergy status to narcotic agent; Z88.8 Allergy status to other drugs, medicaments and biological substances; Z91.010 Allergy to peanuts
CPT/HCPCS: 96361; 85025; 80048; 36415; 70491; 96375; 96374; 99284; Q9967; J7030

== ENCOUNTER 2025-01-28 07:58 | Emergency (ER) | payer OTHER ==
--- NOTE | 2025-01-28 08:15 | EDPHYS ---
Physician Documentation [facility] Name: Javad Pro Age: 44 yrs Sex: Male : 1980 Arrival Date: 01/28/2025 Time: 07:58 Bed 19 Private MD: ED Physician Albert Franklin HPI: 01/28 08:16 This 44 yrs old Male presents to ER via Ambulatory with complaints of ec2 Shoulder Pain, Left. 08:16 Patient arrives today for evaluation of left shoulder injury. Has been having issues ec2 for 1 month. States that he strained it while at work. Denies any other falls injuries or trauma has had negative x-rays.. Historical: - Allergies: 08:08 Codeine; aa5 08:08 Jardiance; aa5 08:08 Peanut; aa5 08:08 PENICILLINS; aa5 - PMHx: 08:08 CHF; chronic back pain; diabetes mellitus; Hypertension; Sleep Apnea; aa5 - PSHx: 08:08 left inguinal hernia; Umbilical hernia; aa5 - Immunization history:: Adult Immunizations unknown. - Infectious Disease History:: Denies. - Social history:: Smoking status: Patient denies any tobacco usage or history of. ROS: 08:16 Constitutional: as per hpi ec2 Exam: 08:16 Constitutional: GEN: NAD Head: atraumatic Eyes: EOMI Ears: External ears are ec2 normal. CV: regular rate LUNGS: no respiratory distress ABD: non-distended SKIN: no evidence of rashes MSK: no evidence of trauma, intact left shoulder range of motion with positive pain with external rotation Vital Signs: 08:02 BP 150 / 93; Pulse 74; Resp 16 S; Temp 98(TE); Pulse Ox 97% on R/A; Weight 126.1 kg aa5 (R); Height 5 ft. 9 in. (R); 08:02 Body Mass Index 41.05 (126.10 kg, 175.26 cm) aa5 MDM: 08:05 Medical Screening Exam initiated ec2 08:17 Data reviewed: vital signs, nurses notes. ED course: Patient arrives today for left ec2 shoulder pain ongoing 1 month. Examination shows pain with external rotation. I suspect rotator cuff injury, possible teres minor, possible infraspinatus. Will start Robaxin and have the patient follow-up with PCP for outpatient MRI and physical therapy. No new component to this injury, do not feel x-ray would be beneficial in the setting w/ previous negative x-ray. Administered Medications: 08:19 Drug: Methocarbamol PO 1000 mg PO once Route: PO; db 08:33 Follow up: Response: No adverse reaction db Disposition Summary: 01/28/25 08:15 Discharge Ordered Notes: Location: Home ec2 Condition: Stable ec2 Diagnosis - Strain of muscle(s) and tendon(s) of the rotator cuff of left shoulder ec2 Followup: ec2 - With: Private Physician - When: - Reason: Re-evaluation by your physician Discharge Instructions: - Discharge Summary Sheet ec2 - Rotator Cuff Tendinitis ec2 Forms: - Work release form db - Medication Reconciliation Form ec2 - Antibiotic Education ec2 - Prescription Opioid Use ec2 - Patient Portal Instructions ec2 - Leadership Thank You Letter ec2 Prescriptions: - methocarbamol 500 mg Oral tablet - take 2 tablets ORAL route 4 times per day; 30 tablet; Refills: 0, Product ec2 Selection Permitted Signatures: Yolande Agustin, RN RN aa5 Alanna Ashby RN RN db Albert Franklin MD MD ec2
--- NOTE | 2025-01-28 08:15 | ER ---
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 08:02 Coronavirus screen: At this time, the client does not indicate any symptoms associated aa5 with coronavirus-19. Ebola Screen: Patient denies travel to an Ebola-affected area in the 21 days before illness onset. Initial Sepsis Screen: Does the patient meet any 2 criteria? No. Patient's initial sepsis screen is negative. Does the patient have a suspected source of infection? No. Patient's initial sepsis screen is negative. Risk Assessment: Do you want to hurt yourself or someone else? Patient reports no desire to harm self or others. Onset of symptoms was January 2025. 08:02 Acuity: MOIZ 4 aa5 08:02 Method Of Arrival: Ambulatory aa5 Historical: - Allergies: 08:08 Codeine; aa5 08:08 Jardiance; aa5 08:08 Peanut; aa5 08:08 PENICILLINS; aa5 - PMHx: 08:08 CHF; chronic back pain; diabetes mellitus; Hypertension; Sleep Apnea; aa5 - PSHx: 08:08 left inguinal hernia; Umbilical hernia; aa5 - Immunization history:: Adult Immunizations unknown. - Infectious Disease History:: Denies. - Social history:: Smoking status: Patient denies any tobacco usage or history of. Screenin:31 [facility] ED Fall Risk Assessment (Adult) History of falling in the last 3 months, db including since admission No falls in past 3 months (0 pts) Confusion or Disorientation No (0 pts) Intoxicated or Sedated No (0 pts) Impaired Gait No (0 pts) Mobility Assist Device Used No (0 pt) Altered Elimination No (0 pt) Score/Fall Risk Level 0 - 2 = Low Risk Oriented to surroundings, Maintained a safe environment. Abuse screen: Denies threats or abuse. Denies injuries from another. Nutritional screening: No deficits noted. Tuberculosis screening: No symptoms or risk factors identified. Assessment: 08:10 Reassessment: Patient appears in no apparent distress at this time. Patient and/or db family updated on plan of care and expected duration. Pain level reassessed. Patient is alert, oriented x 3, equal unlabored respirations, skin warm/dry/pink. General: Appears in no apparent distress. comfortable, Behavior is calm, cooperative. Pain: Complains of pain in left arm and left shoulder. 08:31 Reassessment: Patient appears in no apparent distress at this time. Patient and/or db family updated on plan of care and expected duration. Pain level reassessed. Patient is alert, oriented x 3, equal unlabored respirations, skin warm/dry/pink. Neuro: Level of Consciousness is awake, alert, obeys commands, Oriented to person, place, time, situation. Respiratory: Airway is patent Respiratory effort is even, unlabored, Respiratory pattern is regular, symmetrical. Vital Signs: 08:02 BP 150 / 93; Pulse 74; Resp 16 S; Temp 98(TE); Pulse Ox 97% on R/A; Weight 126.1 kg aa5 (R); Height 5 ft. 9 in. (R); 08:02 Body Mass Index 41.05 (126.10 kg, 175.26 cm) aa5 ED Course: 08:01 Patient arrived in ED. mr 08:02 Arm band placed on Patient placed in an exam room, on a stretcher. aa5 08:04 Albert Franklin MD is Attending Physician. ec2 08:10 Triage completed. aa5 08:10 Alanna Ashby, RN is Primary Nurse. db 08:31 Patient has correct armband on for positive identification. Bed in low position. Call db light in reach. Side rails up X 1. Provided Education on: DISCHARGE. Warm blanket given. 08:31 No provider procedures requiring assistance completed. Patient did not have IV access db during this emergency room visit. Administered Medications: 08:19 Drug: Methocarbamol PO 1000 mg PO once Route: PO; db 08:33 Follow up: Response: No adverse reaction db Medication: 08:31 VIS not applicable for this client. db Outcome: 08:15 Discharge ordered by . ec2 08:31 Discharged to home ambulatory, db 08:31 Condition: stable 08:31 Discharge instructions given to patient, Instructed on discharge instructions, follow up and referral plans. Prescriptions given X 08:33 Patient left the ED. db Signatures: Ashley Marley, Gilles RosasderYolande gilbert, RN RN aa5 Alanna Ashby RN RN db Albert Franklin MD MD ec2
[2025-01-28] MEDS ORDERED: methocarbamoL 500 MG TAB ONE (08:23)
[2025-01-28 08:38] VITALS: BP 150/93; TEMP 98; O2SAT 97
== END 2025-01-28 08:33 | disposition home or self-care (01) ==
LOC: ER 07:58
DX: S46.012A Strain of muscle(s) and tendon(s) of the rotator cuff of left shoulder, initial encounter (principal)
CPT/HCPCS: 99283